=== PATIENT | female | born 1965 | race Caucasian/White ===

== ENCOUNTER 2016-05-18 18:54 | Inpatient (IN) | payer OTHER ==
[~2016-05-18] VITALS: Ht 160 cm; Wt 51.3 kg
[~2016-05-18 18:54] MED LIST: NORMOSOL R INJ 1,000 ML IV ONE; PHENYLEPHRINE HCL 10 MG/ML VIAL IV ONE; PROPOFOL 200 MG/20 ML AMP IV ONE; SODIUM CHLOR 0.9% 250 ML INJ 250 ML IV ONE; SODIUM CHLORID 0.9% 500 ML INJ 500 ML IV ONE
[2016-05-18 19:14] LABS: I-STAT POTASSIUM 3.4 MMOL/L (3.5-4.9)
[2016-05-18] MEDS ORDERED: IOHEXOL 350 MG/ML 10 ML VIAL (for RAD DIAG) IV ONE (19:16)
--- NOTE | 2016-05-18 19:19 | RADRPT ---
EXAM DATE/TIME: 05/18/2016 19:09 [facility] COMPARISON: No previous studies available for comparison. INDICATIONS : Trauma alert; trip and fall while running. RADIATION DOSE: 44.88 CTDIvol (mGy) MEDICAL HISTORY : Non-responsive. SURGICAL HISTORY : Non-responsive. ENCOUNTER: Initial ACUITY: 1 day PAIN SCALE: Non-responsive LOCATION: cranial TECHNIQUE: Multiple contiguous axial images were obtained of the head. Using automated exposure control and adj ustment of the mA and/or kV according to patient size, radiation dose was kept as low as reasonably a chievable to obtain optimal diagnostic quality images. FINDINGS: There is a large right-sided acute epidural hematoma measuring 9.7 x 4.2 cm. This is causing prominen t mass effect and midline shift to the left by 1.2 cm. The ventricles are normal in size. There is ef facement of the sulci bilaterally suggestive of cerebral edema. There is some effacement of the quadr igeminal plate cisterns. The fourth ventricle appears to be normal in size and midline in position. N o definite depressed skull fracture is demonstrated. CONCLUSION: 1. Large acute right-sided epidural hematoma measuring 9.7 x 4.2 cm. 2. Prominent mass effect and midline shift to the left by 1.2 cm. 3. Bilateral cerebral edema. Larry Maher MD on May 18, 2016 at 19:14 Board Certified Radiologist. This report was verified electronically.
--- NOTE | 2016-05-18 19:19 | PD ---
HPI Chief Complaint: trauma alert Time Seen by Provider: 18:55 Travel History International Travel<30 days: No Contact w/Intl Traveler<30days: No Traveled to known affect area: No History of Present Illness HPI Patient was brought in by EMS as trauma alert. Patient is unresponsive and unable to give any history. History is obtained from the paramedics. I was in the room waiting for patient to arrive. As per the paramedics she was running when she fell and hit a stationary object. She was intoxicated and when EMS arrived she was talking. They put a c-collar and as soon as they loaded her in the ambulance she became unresponsive and GCS went down to 3. She was maintaining her respirations and vital signs were stable all throughout. Upon arrival. Also informed us that they noticed her right pupil "blown". [facility] Past Medical History Narrative Medical Unknown Allergies-Medications (Allergen,Severity, Reaction): Coded Allergies: No Known Allergies (Unverified , 05/20/16) Comments Unknown Narrative Medication Unknown Review of Systems Except as stated in HPI: all other systems reviewed are Neg Physical Exam Narrative GENERAL: Unresponsive, c-collar only SKIN: Focused skin assessment warm/dry. HEAD: Right parietal area bruising and slight bleeding EYES: Right pupil 5 mm, round, nonreactive to light, left pupil 2 mm and round. No scleral icterus. No injection or drainage. ENT: No nasal bleeding or discharge. Mucous membranes pink and moist. NECK: Trachea midline. No JVD. CARDIOVASCULAR: Regular rate and rhythm. No murmur appreciated. RESPIRATORY: No accessory muscle use. Clear to auscultation. Breath sounds equal bilaterally. GASTROINTESTINAL: Abdomen soft, non-tender, nondistended. Hepatic and splenic margins not palpable. MUSCULOSKELETAL: No obvious deformities. No clubbing. No cyanosis. No edema. NEUROLOGICAL: GCS of 3 PSYCHIATRIC: Unable to assess Data Data Orders Ed Poc Ultrasound (05/18/16 ) I-Stat Profile (05/18/16 19:05) I-Stat Creatinine (05/18/16 19:05) Complete Blood Count With Diff (05/18/16 19:05) Prothrombin Time / Inr (Pt) (05/18/16 19:05) Act Partial Throm Time (Ptt) (05/18/16 19:05) Type And Screen (05/18/16 19:05) Fibrinogen (05/18/16 19:05) Chest, Single Ap (05/18/16 19:05) Pelvis, Ap Only (Routine) (05/18/16 19:05) Ct Brain W/O Iv Contrast(Rout) (05/18/16 19:05) Ct Cerv Spine W/O Contrast (05/18/16 19:05) Ct Abd/Pel W Iv Contrast(Rout) (05/18/16 19:05) Ct Thorax/ Chest W Iv Contrast (05/18/16 19:05) Iv Access Insert/Monitor (05/18/16 19:05) Ecg Monitoring (05/18/16 19:05) Oximetry (05/18/16 19:05) Oxygen Administration (05/18/16 19:05) Admit Order (Ed Use Only) (05/18/16 19:10) Labs Laboratory Tests Test 05/18/16 18:57 White Blood Count 10.5 TH/MM3 Red Blood Count 4.16 MIL/MM3 Hemoglobin 12.8 GM/DL Bedside Hemoglobin 12.9 G/DL Hematocrit 38.2 % Bedside Hematocrit 38.0 % Mean Corpuscular Volume 91.9 FL Mean Corpuscular Hemoglobin 30.9 PG Mean Corpuscular Hemoglobin 33.6 % Concent Red Cell Distribution Width 12.7 % Platelet Count 178 TH/MM3 Mean Platelet Volume 10.2 FL Neutrophils (%) (Auto) 45.8 % Lymphocytes (%) (Auto) 44.9 % Monocytes (%) (Auto) 6.3 % Eosinophils (%) (Auto) 1.9 % Basophils (%) (Auto) 1.1 % Neutrophils # (Auto) 4.8 TH/MM3 Lymphocytes # (Auto) 4.7 TH/MM3 Monocytes # (Auto) 0.7 TH/MM3 Eosinophils # (Auto) 0.2 TH/MM3 Basophils # (Auto) 0.1 TH/MM3 CBC Comment DIFF FINAL Differential Comment Prothrombin Time 11.3 SEC Prothromb Time International 1.0 RATIO Ratio Activated Partial 21.7 SEC Thromboplast Time Fibrinogen 230 mg/dL Bedside Sodium 137 MMOL/L Bedside Potassium 3.4 MMOL/L Bedside Chloride 101 MMOL/L Bedside Blood Urea Nitrogen 11 MG/DL Bedside Creatinine 0.9 MG/DL Bedside Glucose 165 MG/DL Blood Type O POSITIVE Antibody Screen NEGATIVE Crossmatch Leukocyte-Reduced Red Blood Cells Blood Bank Comment MDM Medical Screen Exam Complete: Yes Emergency Medical Condition: Yes Medical Record Reviewed: Yes EKG Prior to Arrival: Yes Differential Diagnosis Epidural hematoma, subdural hematoma Narrative Course 7:17 PM decision was made to intubate the patient to protect her airway. Trauma surgeon was in the room along with me and did the quick secondary assessment of the patient. Chest x-ray was obtained after the intubation. Patient was emergently taken to the CT scanner to get a head and C-spine CT. She remained hemodynamically stable and tolerated the intubation well. Patient will be admitted to the trauma surgeon in ICU. A call to the neurosurgeon was put out. Critical Care Narrative Aggregate critical care time was 30 minutes. Time to perform other separately billable procedures was not included in the critical care time. My time did not include minutes spent treating any other patients simultaneously or on activities that did not directly contribute to the patient's treatment. The services I provided to this patient were to treat and/or prevent clinically significant deterioration that could result in: Trauma alert, respiratory failure, head injury I provided critical care services requiring my management, as noted below: Chart data review, documentation time, medication orders and management, vital sign assessments/reviewing monitor data, ordering and reviewing lab tests, ordering and interpreting/reviewing x-rays and diagnostic studies, care of the patient and discussion of the patient with the admitting physicians. Procedures Procedure Narrative After the risks and benefits were discussed the following procedure was performed: INTUBATION: The patient was put in optimal position for the procedure. Rapid sequence intubation was initiated by me using 20 milligrams of etomidate IV and 100 milligrams of succinylcholine IV. The patient was intubated with a 7.5 cuffed endotracheal tube. Tube placement was confirmed by visualization of the tube and balloon passing through the cords, capnometry and subsequent chest x-ray. Breath sounds were equal and well aerated bilaterally postintubation. No breath sounds over stomach. Patient tolerated procedure well. Trauma Alert - Level One Trauma Alert Level One: Full trauma team activate, Patient evaluated, Trauma surgeon summoned Time Surgeon Summoned: 18:[address] Mullen Diagnosis Diagnosis: Primary Impression: Head injury Qualified Code: S09.90XA - Head injury, initial encounter Additional Impressions: Respiratory failure Qualified Code: J96.00 - Acute respiratory failure, unspecified whether with hypoxia or hypercapnia Intracranial bleed Unresponsive Admitting Physician Requests: Admit Marina Mcgowan MD May 18, 2016 19:19
[2016-05-18 19:20] LABS: AUTOMATED NEUTROPHIL # 4.8 TH/MM3 (1.8-7.7); BASOPHIL # 0.1 TH/MM3 (0-0.2); BASOPHIL % 1.1 % (0.0-2.0); EOSINOPHIL # 0.2 TH/MM3 (0-0.4); EOSINOPHIL % 1.9 % (0.0-4.0); HEMATOCRIT 38.2 % (35.0-46.0); HEMO FLAGS DIFF FINAL; LYMPH % 44.9 % (9.0-44.0); LYMPHOCYTE # 4.7 TH/MM3 (1.0-4.8); MEAN CELL VOLUME 91.9 FL (80.0-100.0); MEAN CORPUSCULAR HEMOGLOBIN 30.9 PG (27.0-34.0); MEAN CORPUSCULAR HGB CONC 33.6 % (32.0-36.0); MONO % 6.3 % (0.0-8.0); NEUT % 45.8 % (16.0-70.0); PLATELET COUNT 178 TH/MM3 (150-450); RED BLOOD COUNT 4.16 MIL/MM3 (4.00-5.30); RED CELL DISTRIBUTION WIDTH 12.7 % (11.6-17.2); WHITE BLOOD COUNT 10.5 TH/MM3 (4.0-11.0)
--- NOTE | 2016-05-18 19:20 | RADRPT ---
EXAM DATE/TIME: 05/18/2016 18:55 [facility] COMPARISON: No previous studies available for comparison. INDICATIONS : Trauma Alert Post Fall MEDICAL HISTORY : None. SURGICAL HISTORY : None. ENCOUNTER: Initial ACUITY: 1 day PAIN SCORE: Non-responsive. LOCATION: Bilateral pelvis FINDINGS: A single frontal view of the pelvis demonstrates no evidence of fracture. The bony pelvic ring is in tact. Bony mineralization is normal. The soft tissues are intact. CONCLUSION: No acute fracture or joint dislocation. Larry Maher MD on May 18, 2016 at 19:18 Board Certified Radiologist. This report was verified electronically.
--- NOTE | 2016-05-18 19:20 | RADRPT ---
EXAM DATE/TIME: 05/18/2016 18:55 [facility] COMPARISON: No previous studies available for comparison. INDICATIONS : Trauma Post Fall MEDICAL HISTORY : None. SURGICAL HISTORY : None. ENCOUNTER: Initial ACUITY: 1 day PAIN SCORE: Non-responsive. LOCATION: Bilateral chest FINDINGS: A single view of the chest demonstrates the lungs to be symmetrically aerated without evidence of mas s, infiltrate or effusion. There is an endotracheal tube in good position approximately 2 cm above t he royer. No pneumothorax. The cardiomediastinal contours are unremarkable. Osseous structures are intact. CONCLUSION: 1. ET tube in good position. 2. No acute intrathoracic disease. Larry Maher MD on May 18, 2016 at 19:18 Board Certified Radiologist. This report was verified electronically.
--- NOTE | 2016-05-18 19:24 | RADRPT ---
EXAM DATE/TIME: 05/18/2016 19:09 [facility] COMPARISON: No previous studies available for comparison. INDICATIONS : Trauma alert; trip and fall while running. RADIATION DOSE: 12.42 CTDIvol (mGy) MEDICAL HISTORY : Non-responsive. SURGICAL HISTORY : Non-responsive. ENCOUNTER: Initial ACUITY: 1 day PAIN SCALE: Non-responsive LOCATION: Bilateral neck TECHNIQUE: Volumetric scanning of the cervical spine was performed. Multiplanar reconstructions in the sagittal, coronal and oblique axial planes were performed. Using automated exposure control and adjustment o f the mA and/or kV according to patient size, radiation dose was kept as low as reasonably achievable to obtain optimal diagnostic quality images. FINDINGS: VERTEBRAE: Normal vertebral body height. No acute bony fracture. There is a focal primary bony degenerative thornton ges with disc space narrowing at C5-6. ALIGNMENT: No evidence of subluxation. C2-C3: The bony spinal canal is normal in size. No evidence of disc bulge or herniation. The neural forami na are bilaterally patent. C3-C4: The bony spinal canal is normal in size. No evidence of disc bulge or herniation. The neural forami na are bilaterally patent. C4-C5: The bony spinal canal is normal in size. No evidence of disc bulge or herniation. The neural forami na are bilaterally patent. C5-C6: The bony spinal canal is normal in size. No evidence of disc bulge or herniation. The neural forami na are bilaterally patent. C6-C7: The bony spinal canal is normal in size. No evidence of disc bulge or herniation. The neural forami na are bilaterally patent. C7-T1: The bony spinal canal is normal in size. No evidence of disc bulge or herniation. The neural forami na are bilaterally patent. CONCLUSION: 1. No acute bony fracture. 2. Primary degenerative changes with disc space narrowing at C5-6. Larry Maher MD on May 18, 2016 at 19:21 Board Certified Radiologist. This report was verified electronically.
[2016-05-18 19:27] LABS: APTT (PATIENT) 21.7 SEC (24.3-30.1); PROTHROMBIN TIME - PATIENT 11.3 SEC (9.8-11.6)
[2016-05-18] MEDS ORDERED: ceFAZolin INJ 1,000 MG VIAL IV ONE (19:30)
[2016-05-18] MEDS ORDERED: THROMBIN (TOPICAL) 5,000 UNIT VIAL ONE (19:33)
[2016-05-18] MEDS ORDERED: LIDOCAINE 1%/EPINEPHrine 1:100,000 SOLN 50 ML VIAL INFIL ONE (19:33)
[2016-05-18] MEDS ORDERED: GENTAMICIN SULFATE 80 MG/2 ML VIAL IRRIGATION ONE (19:33)
[2016-05-18] MEDS ORDERED: GELFOAM SIZE 100 OTHER ONE (19:33)
--- NOTE | 2016-05-18 19:34 | RADRPT ---
EXAM DATE/TIME: 05/18/2016 19:13 [facility] COMPARISON: No previous studies available for comparison. INDICATIONS : Trauma alert; trip and fall while running. IV CONTRAST: 96 cc Omnipaque 350 (iohexol) IV ; Cumulative dose for multiple exams. RADIATION DOSE: 5.86 CTDIvol (mGy) ; Combined studies - Thorax/Abdomen/Pelvis MEDICAL HISTORY : Non-responsive. SURGICAL HISTORY : Non-responsive. ENCOUNTER: Initial ACUITY: 1 day PAIN SCALE: Non-responsive LOCATION: chest TECHNIQUE: Volumetric scanning of the chest was performed. Using automated exposure control and adjustment of t he mA and/or kV according to patient size, radiation dose was kept as low as reasonably achievable to obtain optimal diagnostic quality images. FINDINGS: LUNGS: There is no consolidation or pneumothorax. No concerning pulmonary nodule is visualized. There is so me mild bibasilar atelectasis. There is no pneumothorax. PLEURA: There is no pleural thickening or pleural effusion. MEDIASTINUM: The heart and great vessels demonstrate no acute abnormality. There is no mediastinal or hilar lymph adenopathy. There is an endotracheal tube in place. AXILLAE: Within normal limits. No lymphadenopathy. SKELETAL: Within normal limits for patient age. No acute bony fracture. MISCELLANEOUS: The visualized upper abdominal organs demonstrate no acute abnormality. CONCLUSION: 1. No acute intrathoracic disease. 2. Bibasilar atelectasis. Larry Maher MD on May 18, 2016 at 19:29 Board Certified Radiologist. This report was verified electronically.
--- NOTE | 2016-05-18 19:38 | RADRPT ---
EXAM DATE/TIME: 05/18/2016 19:13 [facility] COMPARISON: No previous studies available for comparison. INDICATIONS : Trauma alert; trip and fall while running. IV CONTRAST: 96 cc Omnipaque 350 (iohexol) IV ; Cumulative dose for multiple exams. ORAL CONTRAST: No oral contrast ingested. RADIATION DOSE: 5.86 CTDIvol (mGy) ; Combined studies - Thorax/Abdomen/Pelvis MEDICAL HISTORY : Non-responsive. SURGICAL HISTORY : Non-responsive. ENCOUNTER: Initial ACUITY: 1 day PAIN SCALE: Non-responsive LOCATION: Bilateral abdomen. TECHNIQUE: Volumetric scanning of the abdomen and pelvis was performed. Using automated exposure control and ad justment of the mA and/or kV according to patient size, radiation dose was kept as low as reasonably achievable to obtain optimal diagnostic quality images. FINDINGS: LOWER LUNGS: Mild bibasilar atelectasis. LIVER: The liver appears to be diffusely heterogeneous. No definite dilated biliary ducts are demonstrated. No free fluid is seen. The gallbladder is unremarkable. SPLEEN: Normal size without lesion. PANCREAS: There some mild prominence of the head of the pancreas. Otherwise the rest of the pancreas is grossly unremarkable. There is no biliary tract obstruction. KIDNEYS: Normal in size and shape. There is no mass, stone or hydronephrosis. ADRENAL GLANDS: Within normal limits. VASCULAR: There is no aortic aneurysm. BOWEL/MESENTERY: The stomach, small bowel, and colon demonstrate no acute abnormality. There is no free intraperitone al air or fluid. ABDOMINAL WALL: Within normal limits. RETROPERITONEUM: There is no lymphadenopathy. BLADDER: No wall thickening or mass. The urinary bladder appears to be distended. No free fluid deep in the pe lvis. REPRODUCTIVE: Within normal limits. INGUINAL: There is no lymphadenopathy or hernia. MUSCULOSKELETAL: Within normal limits for patient age. No acute bony fracture. CONCLUSION: 1. Liver appears to be heterogeneous. 2. Mild prominence of the pancreatic head. No biliary tract obstruction. 3. No acute intra-abdominal/pelvic pathology is seen. Larry Maher MD on May 18, 2016 at 19:32 Board Certified Radiologist. This report was verified electronically.
[2016-05-18] MEDS ORDERED: SODIUM CHLOR 0.9% 1000 ML INJ 1,000 ML IV SCH (19:41)
[2016-05-18] MEDS ORDERED: CHLORHEXIDINE GLUCONATE 2 % 1 PACK (2 CLOTHS) TOP PRN (19:45)
[2016-05-18] MEDS ORDERED: ONDANSETRON HCL 4 MG/2 ML VIAL IV PRN (19:45)
[2016-05-18] MEDS ORDERED: ENALAPRILAT 1.25 MG/ML VIAL IV PRN (19:45)
[2016-05-18] MEDS ORDERED: MISCELLANEOUS NURSING INFORMATION XX SCH (19:45)
[2016-05-18] MEDS ORDERED: ETOMIDATE 20 MG/10 ML VIAL ONE (19:54)
[2016-05-18] MEDS ORDERED: SUCCINYLCHOLINE CHLORIDE 200 MG/10 ML VIAL ONE (19:54)
[2016-05-18 20:28] LABS: BLOOD GAS BASE EXCESS -8.6 mmol/L (-2-2); BLOOD GAS CARBOXYHEMOGLOBIN 1.5 % (0-4); BLOOD GAS HCO3 15 mmol/L (22-26); BLOOD GAS O2 HGB SATURATION 98 % (90-100); BLOOD GAS PCO2 25 mmHg (38-42); BLOOD GAS PO2 320 mmHg (61-120); BLOOD GAS TOTAL HGB 10.4 G/DL (12.0-16.0); TEMP CORR TO 98.6
[2016-05-18 20:30] LABS: CRITICAL VALUE YES; FIO2 60 %; OXYGEN DEVICE VENTILATOR; STAT YES; ULNAR PULSE PRESENT; VENT SETTINGS OR
--- NOTE | 2016-05-18 20:49 | MH ---
cc: WIN [facility] DATE OF ADMISSION 05/18/2016 HISTORY OF PRESENT ILLNESS This is a 50-year-old patient by reports was running across a bridge and fell hitting her head on the right side. Initially, she was GCS of 15 walking, moving everything well and in the ambulance deteriorated to GCS of 3. Trauma alert was called. She was brought in in C-collar on stretcher, unresponsive. As a result, all other reviews of systems and history is unobtainable. PHYSICAL EXAMINATION HEENT: Right pupil was 5 mm, nonreactive. left pupil 2 mm, nonreactive. Trachea was midline. NECK: In C-collar without JVD. LUNGS: Respirations clear. CARDIOVASCULAR: Regular. GASTROINTESTINAL: Soft, flat. MUSCULOSKELETAL: No deformities. NEUROLOGIC: GCS of 3. LABORATORY DATA Hemoglobin 12.9, hematocrit 38. IMAGING STUDIES CT of the head reveals large epidural hematoma. CT of the C-spine negative. CT of the thorax negative. CT of the abdomen pelvis negative. ASSESSMENT This is a patient status post fall with an epidural hematoma. The patient was intubated in the emergency room by ER physician, Dr. Bhandari was consulted, met patient in CAT scan. She is being taken up to the operating room for decompression following which she will be managed in [facility]. Critical care has been consulted. We will monitor her neurologically as well as hemodynamics. MD SERINA Flores/ /7:49 PM /8:41 PM
[2016-05-18] MEDS ORDERED: NALOXONE HCL 0.4 MG/ML AMP IV PRN (21:30)
[2016-05-18] MEDS: NS + KCL 20 MEQ INJ 1,000 ML IV SCH (21:30)
--- NOTE | 2016-05-18 21:37 | PD.CONS ---
History of Present Illness Service Neurosurgery Consult Requested By Gen surgery trauma service and Dr. Mullen Reason for Consult Traumatic brain injury Primary Care Physician Diagnoses: History of Present Illness Patient is a 52-year-old female who reportedly fell while running across a bridge today. She apparently was initially awake and relatively alert but by the time she reached the emergency room per EVAC was GCS 3 with a fixed dilated right pupil and midrange left pupil. No seizure activity reported. Patient has been intubated. Undersign contacted by general surgery on the patient was in the trauma bay in the emergency room, and is initially seen and examined as she has reached the CT scanning suite. Review of Systems Not able to obtain from the patient Past Family Social History Allergies: Coded Allergies: UNOBTAINABLE (Unverified , 05/18/16) Past Medical History Reportedly healthy with no cardiac, pulmonary disease or other significant illness Past Surgical History No major surgeries reported Reported Medications No prescription medications Social History Reportedly nonsmoker with occasional alcohol Physical Exam Physical Exam Patient examined in the CT scanning suite. Positive laceration to the right parieto-occipital region. Intubated Cervical collar in place Respirations clear and regular Heart rate regular Abdomen soft Right pupil 6 mm nonreactive, left pupil 3 mm nonreactive. Absent oculocephalic responses No response to deep pain in all extremities No eye opening to voice or deep pain Laboratory Laboratory Tests Test 05/18/16 05/18/16 18:57 20:20 White Blood Count 10.5 Red Blood Count 4.16 Hemoglobin 12.8 Bedside Hemoglobin 12.9 Hematocrit 38.2 Bedside Hematocrit 38.0 Mean Corpuscular Volume 91.9 Mean Corpuscular Hemoglobin 30.9 Mean Corpuscular Hemoglobin 33.6 Concent Red Cell Distribution Width 12.7 Platelet Count 178 Mean Platelet Volume 10.2 Neutrophils (%) (Auto) 45.8 Lymphocytes (%) (Auto) 44.9 Monocytes (%) (Auto) 6.3 Eosinophils (%) (Auto) 1.9 Basophils (%) (Auto) 1.1 Neutrophils # (Auto) 4.8 Lymphocytes # (Auto) 4.7 Monocytes # (Auto) 0.7 Eosinophils # (Auto) 0.2 Basophils # (Auto) 0.1 CBC Comment DIFF FINAL Differential Comment Prothrombin Time 11.3 Prothromb Time International 1.0 Ratio Activated Partial 21.7 Thromboplast Time Fibrinogen 230 Bedside Sodium 137 Bedside Potassium 3.4 Bedside Chloride 101 Bedside Blood Urea Nitrogen 11 Bedside Creatinine 0.9 Bedside Glucose 165 Blood Type O POSITIVE Antibody Screen NEGATIVE Crossmatch Leukocyte-Reduced Red Blood Cells Blood Bank Comment Blood Gas Puncture Site DRAWN IN OR Blood Gas Patient Temperature 98.6 Blood Gas HCO3 15 Blood Gas Base Excess -8.6 Blood Gas Oxygen Saturation 98 Arterial Blood pH 7.41 Arterial Blood Partial 25 Pressure CO2 Arterial Blood Partial 320 Pressure O2 Arterial Blood Oxygen Content 15.0 Arterial Blood 1.5 Carboxyhemoglobin Arterial Blood Methemoglobin 1.0 Blood Gas Hemoglobin 10.4 Oxygen Delivery Device VENTILATOR Blood Gas Ventilator Setting OR Blood Gas Inspired Oxygen 60 Result Diagram: 05/18/161856 Imaging 05/18/16 CT scan head and cervical spine images reviewed by the undersigned while the patient in CT scanning suite. Agree with findings as noted below: Pelvis X-Ray 05/18/161904 Signed Impressions: Service Date/Time: Wednesday, May 18, 2016 18:55 - CONCLUSION: No acute fracture or joint dislocation. Larry Maher MD Head CT 05/18/161904 Signed Impressions: Service Date/Time: Wednesday, May 18, 2016 19:09 - CONCLUSION: 1. Large acute right-sided epidural hematoma measuring 9.7 x 4.2 cm. 2. Prominent mass effect and midline shift to the left by 1.2 cm. 3. Bilateral cerebral edema. Larry Maher MD Chest X-Ray 05/18/161904 Signed Impressions: Service Date/Time: Wednesday, May 18, 2016 18:55 - CONCLUSION: 1. ET tube in good position. 2. No acute intrathoracic disease. Larry Maher MD Chest CT 05/18/161904 Signed Impressions: Service Date/Time: Wednesday, May 18, 2016 19:13 - CONCLUSION: 1. No acute intrathoracic disease. 2. Bibasilar atelectasis. Larry Maher MD Cervical Spine CT 05/18/161904 Signed Impressions: Service Date/Time: Wednesday, May 18, 2016 19:09 - CONCLUSION: 1. No acute bony fracture. 2. Primary degenerative changes with disc space narrowing at C5-6. Larry Maher MD Abdomen/Pelvis CT 05/18/161904 Signed Impressions: Service Date/Time: Wednesday, May 18, 2016 19:13 - CONCLUSION: 1. Liver appears to be heterogeneous. 2. Mild prominence of the pancreatic head. No biliary tract obstruction. 3. No acute intra-abdominal/pelvic pathology is seen. Larry Maher MD Assessment and Plan Assessment and Plan Impression: 1. Severe traumatic brain injury with large right hemispheric epidural hematoma 2. Right parietal occipital scalp laceration 3. Nondisplaced right temporal bone fracture Plan: Findings discussed with Gen. surgery while the patient was in the CT scanning suite. Patient taken directly to operating room for emergency craniotomy evacuation epidural hematoma Sav Bhandari MD May 18, 2016 21:37
--- NOTE | 2016-05-18 21:47 | PD.OP ---
Operative Report Date of Surgery: May 18, 2016 Preoperative Diagnosis: (1) Epidural hematoma (2) Skull fracture, non depressed (3) Scalp laceration Large right hemispheric acute epidural hematoma Right temporal bone fracture Right parieto-occipital scalp laceration Postoperative Diagnosis: (1) Epidural hematoma (2) Skull fracture, non depressed (3) Scalp laceration Large right hemispheric acute epidural hematoma Right temporal bone fracture Right parieto-occipital scalp laceration Procedure: 1. Right frontotemporoparietal craniotomy evacuation large acute epidural hematoma 2. Repair of right temporal bone fracture 3. Repair right parieto-occipital scalp laceration 4. Placement ICP monitor Anesthesia: Gen. Surgeon: Sav Bhandari Color Control Operator(s): Sravani Waterman Operation and Findings: Findings: Large acute right hemispheric epidural hematoma primarily parieto- occipital region. Laceration middle meningeal artery from nondisplaced right temporal bone fracture. Procedure in detail: The patient was brought into the operating room and general endotracheal anesthesia induced without difficulty. The Burger catheter, and sequential compression devices were in place. The lines were established per anesthesia. The patient was placed in semilateral position on the 3080 table with the head on the horseshoe headrest. All extremities were appropriately padded Appropriate timeout procedure was performed with all personnel present and in agreement The right side of the head was shaved with the clippers and sterilely prepped and draped 1% Xylocaine was used for local infiltration over the incision site which was made over the right frontotemporoparietal area in a curvilinear fashion and carried sharply down to the cranium through the temporalis muscle and fascia. The scalp and temporalis muscle flap were elevated in a single laye with the periosteal elevator and retracted r over a laparotomy sponge with the large scalp hooks. The pie maker was used to place a single bur hole in the posterior left frontoparietal region and the craniotome was used since to incise the bone flap. The large acute epidural hematoma was evacuated with gentle suction and irrigation. Copious bleeding from the middle meningeal artery and additional arterial bleeding just above the petrous ridge were controlled with bipolar forceps. The bipolar forceps were used to control any additional bleeding at the operative site. The brain was soft and pulsatile at the time of closure. The ICP monitor zeroed and was placed into the subdural space through a small incision made in the dura and carried out through the scalp incision and the posterior parietal region and secured to the skin with nylon suture. 4-0 Nurolon dural tack up sutures were placed along the edge of the craniotomy site underneath the bone flap. The fracture extending directly through the bone flap and the right frontotemporal region was repaired with titanium maxillofacial plates and screws. The bone flap was replaced with titanium maxillofacial plates and screws. A 7 mm flat fluted drain was left in place in the subgaleal and subdural space The drain was brought out through incision in the posterior parietal region and secured to the skin with nylon suture The stellate right parieto-occipital scalp laceration was repaired with 2-0 Vicryl suture for the deep galeal closure and bello for the skin closure. The remaining scalp incision closure was performed with 2-0 Vicryl for the temporalis muscle fascia and galeal closure and bello for the skin closure. A dressing of sterile Telfa, 4 x 4's, and a loose head stockinette was applied. The patient was taken to recovery room in stable condition All counts were correct at the end of the case. Estimated blood loss was 200 cc No specimen was sent to pathology Sav Bhandari MD May 18, 2016 21:46
[2016-05-18 21:49] VITALS: O2SAT 100
--- NOTE | 2016-05-18 21:51 | RADRPT ---
EXAM DATE/TIME: 05/18/2016 21:55 [facility] COMPARISON: No previous studies available for comparison. INDICATIONS : Instrument count in OR. MEDICAL HISTORY : None. SURGICAL HISTORY : None. ENCOUNTER: Initial ACUITY: 1 day PAIN SCORE: Non-responsive. LOCATION: Bilateral skull. FINDINGS: Examination of the skull demonstrates a subdural drain on the right side. Multiple skin bello are d emonstrated. Sutures for the craniotomy are present. There is a pressure monitor over the right front al lobe. No other devices are demonstrated. CONCLUSION: Standard postsurgical changes. Larry Maher MD on May 18, 2016 at 21:49 Board Certified Radiologist. This report was verified electronically.
[2016-05-18] MEDS ORDERED: PROPOFOL 1000 MG/100 ML INJ 100 ML IV SCH ×2 (22:15→22:30)
[2016-05-18] MEDS ORDERED: FOSPHENYTOIN IV ONE (22:15)
[2016-05-18] MEDS ORDERED: SODIUM CHLORIDE IV ONE (22:15)
--- NOTE | 2016-05-18 22:25 | PD.CONS ---
[facility] Service Critical Care Medicine Consult Requested By Dr. Muleln Reason for Consult Critical care management following traumatic brain injury Primary Care Physician History of Present Illness 50 yo Female who arrived to [facility] [place] trauma alert. She was reportedly running across a bridge and fell and hit the right side of her head. She was initially alert and oriented with GCS of 15 upon [facility] arrival and was moving all extremities. After she was taken into the ambulance her GCS was 3 and right pupil was dilated and nonreactive. She was intubated in the ED following etomidate 20 mg IV and succinylcholine 100 mg IV. Trauma workup included CT brain that demonstrated 9.7 x4.2 cm R epidural hematoma with 1.2 cm right to left midline shift and cerebral edema. BP in ED was 108/104 to 160/76 with heart rate 66-92. Sats 98-100%. Neurosurgery was consulted and she was taken emergently to OR for right craniotomy by Dr. Bhandari. Her pupil remained nonreactive postoperatively. The remainder of her trauma workup included: CT C spine - degenerative changes with disc space narrowing C5/6 CT chest/abd/pelvis -negative for acute traumatic injury. Review of Systems ROS Limitations: Intubated, Altered Mental Status Past Family Social History Allergies: Coded Allergies: UNOBTAINABLE (Unverified , 05/18/16) Past Medical History None Past Surgical History None Reported Medications She has no known allergies. She is not on any chronic medications Family History No significant family medical history. Social History Lifetime nonsmoker. Drinks 2-3 drinks about 3 times per week. No illicit drug use. 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 She is from the [place] area She reportedly lives very healthy lifestyle. She runs daily and eats healthy Physical Exam Physical Exam GENERAL: Well-nourished, well-developed patient who is orotracheally intubated. SKIN: Warm and dry. HEAD:Normocephalic. Fiberoptic ICP monitor on right read -3. CATE drain with serous and conus output EYES: Pupils as per below. No scleral icterus. No injection or drainage. ENT: No nasal bleeding or discharge. Mucous membranes pink and moist. OGT in place to gravity. NECK: Trachea midline. No JVD. CARDIOVASCULAR: Regular rate and rhythm, sinus on monitor. No murmurs rubs or gallops. RESPIRATORY: No accessory muscle use. Clear to auscultation. Breath sounds equal bilaterally. ETT in place, on mechanical ventilation. GASTROINTESTINAL: Abdomen soft, non-tender, nondistended. OGT in place, currently to gravity. MUSCULOSKELETAL: Extremities without clubbing, cyanosis, or edema. No obvious deformities. NEUROLOGICAL: No eye opening. R pupil fixed, dilated. Left pupil oval and 4 mm reactive to 3 mm. Withdraws LUE and LLE. Right upper and lower extremity with extensor posturing to central noxious stimli. + clonus RLE. No response to Babinski on the right. Left Babinski downgoing. Laboratory Laboratory Tests Test 05/18/16 05/18/16 18:57 20:20 White Blood Count 10.5 Red Blood Count 4.16 Hemoglobin 12.8 Bedside Hemoglobin 12.9 Hematocrit 38.2 Bedside Hematocrit 38.0 Mean Corpuscular Volume 91.9 Mean Corpuscular Hemoglobin 30.9 Mean Corpuscular Hemoglobin 33.6 Concent Red Cell Distribution Width 12.7 Platelet Count 178 Mean Platelet Volume 10.2 Neutrophils (%) (Auto) 45.8 Lymphocytes (%) (Auto) 44.9 Monocytes (%) (Auto) 6.3 Eosinophils (%) (Auto) 1.9 Basophils (%) (Auto) 1.1 Neutrophils # (Auto) 4.8 Lymphocytes # (Auto) 4.7 Monocytes # (Auto) 0.7 Eosinophils # (Auto) 0.2 Basophils # (Auto) 0.1 CBC Comment DIFF FINAL Differential Comment Prothrombin Time 11.3 Prothromb Time International 1.0 Ratio Activated Partial 21.7 Thromboplast Time Fibrinogen 230 Bedside Sodium 137 Bedside Potassium 3.4 Bedside Chloride 101 Bedside Blood Urea Nitrogen 11 Bedside Creatinine 0.9 Bedside Glucose 165 Blood Type O POSITIVE Antibody Screen NEGATIVE Crossmatch Leukocyte-Reduced Red Blood Cells Blood Bank Comment Blood Gas Puncture Site DRAWN IN OR Blood Gas Patient Temperature 98.6 Blood Gas HCO3 15 Blood Gas Base Excess -8.6 Blood Gas Oxygen Saturation 98 Arterial Blood pH 7.41 Arterial Blood Partial 25 Pressure CO2 Arterial Blood Partial 320 Pressure O2 Arterial Blood Oxygen Content 15.0 Arterial Blood 1.5 Carboxyhemoglobin Arterial Blood Methemoglobin 1.0 Blood Gas Hemoglobin 10.4 Oxygen Delivery Device VENTILATOR Blood Gas Ventilator Setting OR Blood Gas Inspired Oxygen 60 Result Diagram: 05/18/16 7827 Assessment and Plan Assessment and Plan NEURO: Acute R epidural hematoma 9.7 x4.2 cm with 1.2 cm right to left midline shift and cerebral edema. s/p Right frontotemporoparietal craniotomy evacuation large acute epidural hematoma; Repair of right temporal bone fracture; Repair right parieto- occipital scalp laceration; placement fiberoptic ICP monitor 05/18 (Dr. Bhandari) Laceration of right middle meningeal artery Right parieto-occipital scalp laceration R temporal bone fracture TBI Fall Propofol for sedation Fentanyl for analgosedation Continuous fiberoptic ICP monitoring. Loaded fosphenytoin 1200 mg/PE IV now. Then fosphenytoin 100 mg IV every 8 hours. Follow-up Dilantin and albumin level in a.m. End tidal CO2 monitoring, correlated with ABG overnight, target End tidal 33-38 Monitor sodium, BMP now. Neurocheck q[address] Bhandari following. RESP: Acute respiratory failure TV 400 R 12 IT 1 PEEP 5 fIO2 50%. Ventilator Bundle CT chest 05/18 - bibasilar atelectasis CV: Monitor hemodynamics. Maintain systolic blood pressure less than [address] Bhandari. Labetalol 10 mill grams IV prn Received 1 L NS bolus in ED, received 3600 crystalloid in OR 05/18/16 GI: OGT to LIWS. CT abd/pelvis 05/18 report - heterogenous liver, prominence of pancreatic head FEN/RENAL: Hyponatremia Hypokalemia Monitor electrolytes. Replace electrolytes per ICU replacement protocol. ID: Perioperative cefazolin. Monitor for signs and symptoms of infection. Check UA with reflex culture. HEME: Monitor CBC. Coags in am. ENDO: Acute stress hyperglycemia Monitor bedside glucose every 6 hours and use low-dose insulin sliding scale as indicated. PROPH: SCDs/teds for DVT prophylaxis. No pharmacologic DVT prophylaxis due to intracerebral hemorrhage ACCESS: Right Radial art line placed in OR 05/18/16 #1. R subclavian CVL placed #[address] Bhandari Patient's updated at bedside. CCT 60 minutes exclusive of separately billable procedures. Jemima Shultz MD May 18, 2016 22:25
[2016-05-18] MEDS ORDERED: EPINEPHrine HCL (1:10,000) 1 MG/10 ML SYRINGE ONE (22:27)
[2016-05-18 22:28] LABS: BLOOD GAS BASE EXCESS -7.1 mmol/L (-2-2); BLOOD GAS CARBOXYHEMOGLOBIN 0.5 % (0-4); BLOOD GAS HCO3 18 mmol/L (22-26); BLOOD GAS O2 HGB SATURATION 98 % (90-100); BLOOD GAS OXYGEN CONTENT 15.8 Vol % (12.0-20.0); BLOOD GAS PCO2 33 mmHg (38-42); BLOOD GAS PO2 278 mmHg (61-120); CRITICAL VALUE NO; DRAW SITE ART LINE; FIO2 50 %; STAT YES; TEMP CORR TO 98.6
[2016-05-18] MEDS ORDERED: GLUCAGON 1 MG/ML VIAL OTHER PRN (22:30)
[2016-05-18] MEDS ORDERED: DEXTROSE 50% IN WATER 50 ML VIAL(D50) IV PUSH PRN (22:30)
--- NOTE | 2016-05-18 22:57 | RADRPT ---
EXAM DATE/TIME: 05/18/2016 22:46 [facility] COMPARISON: CT BRAIN W/O CONTRAST, May 18, 2016, 19:09. INDICATIONS : Follow up bleed; post operative. RADIATION DOSE: 47.58 CTDIvol (mGy) MEDICAL HISTORY : Non-responsive. SURGICAL HISTORY : Non-responsive. ENCOUNTER: Subsequent ACUITY: 1 day PAIN SCALE: Non-responsive LOCATION: cranial TECHNIQUE: Multiple contiguous axial images were obtained of the head. Using automated exposure control and adj ustment of the mA and/or kV according to patient size, radiation dose was kept as low as reasonably a chievable to obtain optimal diagnostic quality images. FINDINGS: Patient is status post right-sided craniotomy. The previously noted large right-sided epidural hemato ma has been drained. There is a small amount of residual subdural blood and subdural air characterist ic of patient's recent craniotomy and surgery. There is a pressure monitor in the right frontal lobe. The previously noted mass effect and midline shift to the left has improved. Ventricles remain lopez l in size. There is good position of the craniotomy flap. CONCLUSION: Satisfactory post surgical changes with successful drainage of a previously noted large right-sided e pidural hematoma. Larry Maher MD on May 18, 2016 at 22:54 Board Certified Radiologist. This report was verified electronically.
[2016-05-18] MEDS ORDERED: MAGNESIUM SULFATE INJ 2 GM in SODIUM CHLORIDE 0.9% INJ 96 ML IV PRN (23:00)
[2016-05-18] MEDS ORDERED: POTASSIUM CHLOR 40 MEQ PREMIX 100 ML IV PRN ×2 (23:00)
[2016-05-18] MEDS ORDERED: POTASSIUM PHOSPHATE INJ 30 MMOL in SODIUM CHLOR 0.9% 250 ML INJ 250 ML IV PRN (23:00)
[2016-05-18] MEDS ORDERED: MAGNESIUM SULFATE INJ 4 GM in SODIUM CHLORIDE 0.9% INJ 92 ML IV PRN (23:00)
[2016-05-18] MEDS ORDERED: POTASSIUM PHOSPHATE MONOBASIC 500 MG TAB PO/TUBE PRN (23:00)
[2016-05-18] MEDS ORDERED: POTASSIUM PHOSPHATE MONOBASIC 500 MG TAB PO PRN (23:00)
[2016-05-18] MEDS ORDERED: MAGNESIUM OXIDE 400 MG TAB PO PRN (23:00)
[2016-05-18] MEDS ORDERED: POTASSIUM CHLOR 20 MEQ PREMIX 100 ML IV PRN ×2 (23:00)
[2016-05-18 23:19] LABS: BLOOD GAS BASE EXCESS -6.8 mmol/L (-2-2); BLOOD GAS CARBOXYHEMOGLOBIN 0.6 % (0-4); BLOOD GAS HCO3 18 mmol/L (22-26); BLOOD GAS O2 HGB SATURATION 98 % (90-100); BLOOD GAS OXYGEN CONTENT 14.9 Vol % (12.0-20.0); BLOOD GAS PCO2 35 mmHg (38-42); BLOOD GAS PO2 268 mmHg (61-120); BLOOD GAS TOTAL HGB 10.4 G/DL (12.0-16.0); CRITICAL VALUE NO; DRAW SITE ART LINE; FIO2 50 %; OXYGEN DEVICE VENTILATOR; STAT NO; TEMP CORR TO 98.6
[2016-05-18] MEDS: CHLORHEXIDINE GLUCONATE 2 % 1 PACK (2 CLOTHS) TOP SCH (23:23)
[2016-05-18] MEDS ORDERED: NOREPINEPHRINE 4 MG/4 ML AMP ONE (23:24)
[2016-05-18 23:27] LABS: AUTOMATED NEUTROPHIL # 5.9 TH/MM3 (1.8-7.7); BASOPHIL % 0.6 % (0.0-2.0); EOSINOPHIL % 0.2 % (0.0-4.0); HEMATOCRIT 30.7 % (35.0-46.0); HEMO FLAGS DIFF FINAL; LYMPH % 21.3 % (9.0-44.0); LYMPHOCYTE # 1.8 TH/MM3 (1.0-4.8); MEAN CELL VOLUME 90.8 FL (80.0-100.0); MEAN CORPUSCULAR HEMOGLOBIN 31.6 PG (27.0-34.0); MEAN CORPUSCULAR HGB CONC 34.8 % (32.0-36.0); MONO % 7.1 % (0.0-8.0); NEUT % 70.8 % (16.0-70.0); PLATELET COUNT 149 TH/MM3 (150-450); RED BLOOD COUNT 3.38 MIL/MM3 (4.00-5.30); RED CELL DISTRIBUTION WIDTH 12.7 % (11.6-17.2); WHITE BLOOD COUNT 8.3 TH/MM3 (4.0-11.0)
[2016-05-18 23:32] VITALS: O2SAT 100
[2016-05-18 23:35] VITALS: O2SAT 100
[2016-05-18 23:38] LABS: BLOOD, URINE NEG (NEG); GLUCOSE,URINE NEG (NEG); KETONE, URINE 40 mg/dL (NEG); MUCUS URINE FEW /lpf (OCC); NITRITE,URINE NEG (NEG); URINE COLOR LIGHT-YELLOW (YELLW/STRAW)
[2016-05-18 23:42] LABS: COMMENT (UR) CATH-CULT NOT IND; CULTURE IF INDICATED CATH CULTURE NOT IND
[2016-05-18 23:47] LABS: BICARBONATE 20.4 MEQ/L (21.0-32.0); MAGNESIUM 1.5 MG/DL (1.5-2.5); POTASSIUM 3.5 MEQ/L (3.5-5.1)
[2016-05-19] VITALS (15 sets, daily range): BP systolic 108–138; BP diastolic 62–68; PULSE 82–108; RESP 10–16; TEMP 96.7–100.4; O2SAT 100
[2016-05-19] MEDS ORDERED: ROCURONIUM INJ 50 MG/5 ML VIAL IV ONE (00:15)
[2016-05-19] MEDS ORDERED: POTASSIUM PHOSPHATE INJ 15 MMOL in SODIUM CHLORIDE 0.9% INJ 150 ML IV ONE (00:15)
[2016-05-19] MEDS ORDERED: TERBUTALINE INJ 1 MG/ML AMP SQ PRN (00:15)
[2016-05-19] MEDS ORDERED: CALCIUM CHLORIDE INJ 1 GM in SODIUM CHLORIDE 0.9% INJ 100 ML IV ONE (00:15)
[2016-05-19] MEDS ORDERED: MAGNESIUM SULFATE 1 GM PREMIX 100 ML IV ONE (00:15)
--- NOTE | 2016-05-19 00:18 | PD.PROCEDR ---
Procedure Note Procedure DATE: 05/19/16 CENTRAL LINE PLACEMENT: Right subclavian vein. Ultrasound-guided INDICATION: Central venous access CONSENT Informed consent for procedure was obtained from patient's after discussion of risks, benefits, alternatives. DESCRIPTION OF THE PROCEDURE The patient was placed in supine position, mild Trendelenburg. Neck was maintained in neutral position with in-line stabilization throughout.. The skin was cleansed with Chloraprep 3. Additional barrier precautions included large sterile drape, sterile gloves, sterile gown, face mask, and hat. 1 % lidocaine was used for local anesthesia. On second attempt, the vein was accessed with an introducer needle. The guide wire was advanced and the tract was dilated. Using Seldinger technique a 7 [place] 20 cm antimicrobial coated triple-lumen catheter was advanced to a depth of 17 centimeters. The guide wire was removed. All ports had good return of dark venous blood and flushed easily with saline. The central line was secured with 2.0 silk. A sterile dressing with antibiotic disc was applied. ESTIMATED BLOOD LOSS: Minimal COMPLICATIONS: No apparent complications. STAT chest x-ray is pending Jemima Shultz MD May 19, 2016 00:18
[2016-05-19] MEDS: NOREPINEPHRINE INJ 4 MG in SODIUM CHLOR 0.9% 250 ML INJ 246 ML IV SCH (00:49)
[2016-05-19] MEDS: PANTOPRAZOLE SODIUM 40 MG VIAL IVP SCH ×2 (00:49→19:48)
[2016-05-19] MEDS: MIDAZOLAM 100 MG/ML INJ 100 ML IV SCH ×2 (00:56→18:45)
--- NOTE | 2016-05-19 01:01 | RADRPT ---
EXAM DATE/TIME: 05/19/2016 00:22 [facility] COMPARISON: CHEST SINGLE AP, May 18, 2016, 18:55. INDICATIONS : Right subclavian central line placement. MEDICAL HISTORY : None. SURGICAL HISTORY : None. ENCOUNTER: Subsequent ACUITY: 1 day PAIN SCORE: Non-responsive. LOCATION: Bilateral chest FINDINGS: ET tube is 2 cm from the royer. There is an NG tube in place with the tip in the stomach. There is a right subclavian line in place with the tip overlying the SVC. A pneumothorax is not seen. The heart size is normal. The lungs are clear. CONCLUSION: Good placement of a right subclavian line. Ant Hyde MD on May 19, 2016 at 0:57 Board Certified Radiologist. This report was verified electronically.
[2016-05-19] MEDS ORDERED: NOREPINEPHRINE 4 MG/4 ML AMP ONE (02:54)
[2016-05-19 05:29] LABS: AUTOMATED NEUTROPHIL # 9.6 TH/MM3 (1.8-7.7); BASOPHIL % 0.3 % (0.0-2.0); EOSINOPHIL % 0.1 % (0.0-4.0); HEMATOCRIT 30.7 % (35.0-46.0); HEMO FLAGS DIFF FINAL; LYMPHOCYTE # 1.7 TH/MM3 (1.0-4.8); MEAN CELL VOLUME 92.1 FL (80.0-100.0); MEAN CORPUSCULAR HEMOGLOBIN 30.8 PG (27.0-34.0); MEAN CORPUSCULAR HGB CONC 33.4 % (32.0-36.0); MONO % 7.5 % (0.0-8.0); NEUT % 78.1 % (16.0-70.0); PLATELET COUNT 135 TH/MM3 (150-450); RED BLOOD COUNT 3.34 MIL/MM3 (4.00-5.30); RED CELL DISTRIBUTION WIDTH 12.4 % (11.6-17.2); WHITE BLOOD COUNT 12.3 TH/MM3 (4.0-11.0)
[2016-05-19 05:31] LABS: PROTHROMBIN TIME - PATIENT 11.6 SEC (9.8-11.6)
[2016-05-19 05:50] LABS: BICARBONATE 18.9 MEQ/L (21.0-32.0); CALCIUM-PROTEIN CORRECTED 7.5 MG/DL (8.5-10.1); POTASSIUM 4.2 MEQ/L (3.5-5.1); TOTAL BILIRUBIN ADULT 0.4 MG/DL (0.2-1.0)
[2016-05-19] MEDS: INSULIN ASPART SUPPLEMENTAL SCALE SQ SCH ×4 (06:00→18:00)
[2016-05-19] MEDS: FOSPHENYTOIN SODIUM 100 MG PE/2 ML VIAL IV SCH ×3 (06:55→22:25)
[2016-05-19] MEDS: NS + KCL 20 MEQ INJ 1,000 ML IV SCH ×2 (07:30→19:48)
[2016-05-19] MEDS: CHLORHEXIDINE 0.12% (ORAL KIT) 15 ML CUP MT SCH ×2 (08:00→20:00)
[2016-05-19 10:28] LABS: BLOOD GAS BASE EXCESS -3.6 mmol/L (-2-2); BLOOD GAS CARBOXYHEMOGLOBIN 0.8 % (0-4); BLOOD GAS HCO3 21 mmol/L (22-26); BLOOD GAS O2 HGB SATURATION 97 % (90-100); BLOOD GAS OXYGEN CONTENT 14.7 Vol % (12.0-20.0); BLOOD GAS PCO2 37 mmHg (38-42); BLOOD GAS PO2 178 mmHg (61-120); BLOOD GAS TOTAL HGB 10.5 G/DL (12.0-16.0); CRITICAL VALUE NO; OXYGEN DEVICE VENTILATOR; TEMP CORR TO 98.6
[2016-05-19 10:29] LABS: DRAW SITE ART LINE; FIO2 35 %; STAT YES; VENT SETTINGS PRVC/AC
--- NOTE | 2016-05-19 10:49 | HHI.CCPN ---
Subjective Remarks/Hospital Course 50 yo Female who [place] [facility]. She was reportedly running across a bridge and fell and hit the right side of her head. She was initially alert and oriented with GCS of 15 upon [facility] arrival and was moving all extremities. After she was taken into the ambulance her GCS was 3 and right pupil was dilated and nonreactive. She was intubated in the ED following etomidate 20 mg IV and succinylcholine 100 mg IV. Trauma workup included CT brain that demonstrated 9.7 x4.2 cm R epidural hematoma with 1.2 cm right to left midline shift and cerebral edema. BP in ED was 108/104 to 160/76 with heart rate 66-92. Sats 98-100%. Neurosurgery was consulted and she was taken emergently to OR for right craniotomy by Dr. Bhandari. Her pupil remained nonreactive postoperatively. The remainder of her trauma workup included: CT C spine - degenerative changes with disc space narrowing C5/6 CT chest/abd/pelvis -negative for acute traumatic injury. 05/19: right pupil now normally responsive. Both 2 mm, reactive. BP control good. Na a little low, will concentrate slowly. ICP 10 but climbing slowly. Objective Vital Signs Date Time Temp Pulse Resp B/P Pulse Ox O2 Delivery O2 Flow Rate FiO2 05/19/16 08:00 35 05/19/16 08:00 100.0 105 16 138/68 100 Intake and Output 05/18/16 05/18/16 05/19/16 08:00 16:00 00:00 Output Total 1240 ml Balance -1240 ml Result Diagram: 05/19/16 0446 05/19/16 0446 Other Results Laboratory Tests Test 05/18/16 05/18/16 05/18/16 05/19/16 20:20 22:18 23:07 10:20 Blood Gas Puncture Site DRAWN IN OR ART LINE ART LINE ART LINE Blood Gas Patient Temperature 98.6 98.6 98.6 98.6 Blood Gas HCO3 15 mmol/L 18 mmol/L 18 mmol/L 21 mmol/L (22-26) (22-26) (22-26) (22-26) Blood Gas Base Excess -8.6 mmol/L -7.1 mmol/L -6.8 mmol/L -3.6 mmol/L (-2-2) (-2-2) (-2-2) (-2-2) Blood Gas Oxygen Saturation 98 % (90-100) 98 % (90-100) 98 % (90-100) 97 % (90- 100) Arterial Blood pH 7.41 7.35 7.33 7.37 (7.380-7.420) (7.380-7.420) (7.380-7.420) (7.380-7.420) Arterial Blood Partial 25 mmHg (38-42) 33 mmHg (38-42) 35 mmHg (38-42) 37 mmHg ( 38-42) Pressure CO2 Arterial Blood Partial 320 mmHg 278 mmHg 268 mmHg 178 mmHg Pressure O2 (61-120) (61-120) (61-120) (61-120) Arterial Blood Oxygen Content 15.0 Vol % 15.8 Vol % 14.9 Vol % 14.7 Vol % (12.0-20.0) (12.0-20.0) (12.0-20.0) (12.0-20.0) Arterial Blood 1.5 % (0-4) 0.5 % (0-4) 0.6 % (0-4) 0.8 % (0-4) Carboxyhemoglobin Arterial Blood Methemoglobin 1.0 % (0-2) 1.0 % (0-2) 1.0 % (0-2) 1.0 % (0-2) Blood Gas Hemoglobin 10.4 G/DL 11.0 G/DL 10.4 G/DL 10.5 G/DL (12.0-16.0) (12.0-16.0) (12.0-16.0) (12.0-16.0) Oxygen Delivery Device VENTILATOR VENTILATOR VENTILATOR Blood Gas Ventilator Setting OR PRVC/AC Blood Gas Inspired Oxygen 60 % 50 % 50 % 35 % Objective Remarks GENERAL: Well-nourished, well-developed patient who is orotracheally intubated. SKIN: Warm and dry. HEAD:Normocephalic. Fiberoptic ICP monitor on right read 10 mm Hg. CATE drain with serous and conus output EYES: Normal, pupils 2 mm, react ENT: No nasal bleeding or discharge. Mucous membranes pink and moist. OGT in place to gravity. NECK: Trachea midline. CARDIOVASCULAR: Regular rate and rhythm, sinus on monitor. No murmurs rubs or gallops. No JVD. RESPIRATORY: No accessory muscle use. Clear to auscultation. Breath sounds equal bilaterally. ETT in place, on mechanical ventilation. GASTROINTESTINAL: Abdomen soft, non-tender, nondistended. OGT in place, currently to gravity. MUSCULOSKELETAL: Extremities without clubbing, cyanosis, or edema. No obvious deformities. NEUROLOGICAL: No eye opening. R pupil fixed, dilated. Left pupil oval and 2 mm reactive to 2 mm reactive. Withdraws LUE and LLE. Right upper and lower extremity with extensor posturing to central noxious. No response to Babinski on the right. Left Babinski downgoing. A/P Assessment and Plan NEURO: Acute R epidural hematoma 9.7 x4.2 cm with 1.2 cm right to left midline shift and cerebral edema. s/p Right frontotemporoparietal craniotomy evacuation large acute epidural hematoma; Repair of right temporal bone fracture; Repair right parieto- occipital scalp laceration; placement fiberoptic ICP monitor 05/18 (Dr. Bhandari) Laceration of right middle meningeal artery Right parieto-occipital scalp laceration R temporal bone fracture TBI Fall Propofol for sedation Fentanyl for analgosedation Continuous fiberoptic ICP monitoring. Loaded fosphenytoin 1200 mg/PE IV now. Then fosphenytoin 100 mg IV every 8 hours. Follow-up Dilantin and albumin level in a.m. End tidal CO2 monitoring, correlated with ABG overnight, target End tidal 33-38 Monitor sodium, BMP now. Neurocheck q[address] Bhandari following. Start 3% saline RESP: Acute respiratory failure TV 400 R 12 IT 1 PEEP 5 fIO2 50%. Adjust to keep ETCO2 33 - [address] chest 05/18 - bibasilar atelectasis CV: Monitor hemodynamics. Maintain systolic blood pressure less than [address] Bhandari. Labetalol 10 mill grams IV prn Received 1 L NS bolus in ED, received 3600 crystalloid in OR 05/18/16 GI: OGT to LIWS. CT abd/pelvis 05/18 report - heterogenous liver, prominence of pancreatic head FEN/RENAL: Hyponatremia Hypokalemia Monitor electrolytes. Replace electrolytes per ICU replacement protocol. ID: Perioperative cefazolin. Monitor for signs and symptoms of infection. Check UA with reflex culture. HEME: Monitor CBC. Coags in am. ENDO: Acute stress hyperglycemia Monitor bedside glucose every 6 hours and use low-dose insulin sliding scale as indicated. PROPH: SCDs/teds for DVT prophylaxis. No pharmacologic DVT prophylaxis due to intracerebral hemorrhage ACCESS: Right Radial art line placed in OR 05/18/16 #2. R subclavian CVL placed #2 Patient's and family updated at bedside. Overall impression: Traumatic right epidural hematoma, now after decompression and expected cerebral edema will ensue. She is critically ill and at risk for continued brain edema. We will maximize efforts to control edema, PCO2, and CPP. Critical Care 40 mins Kenan Bejarano MD May 19, 2016 10:49
[2016-05-19] MEDS ORDERED: 3% SALINE INJ 500 ML IV SCH (11:00)
--- NOTE | 2016-05-19 11:39 | HHI.CCPN ---
Subjective Brief History 50 yo Female who arrived to [facility] [place] as a trauma alert. She was reportedly running across a bridge and fell and hit the right side of her head. She was initially alert and oriented with GCS of 15 upon EVAC arrival and was moving all extremities. After she was taken into the ambulance her GCS was 3 and right pupil was dilated and nonreactive. She was intubated in the ED following etomidate 20 mg IV and succinylcholine 100 mg IV. Trauma workup included CT brain that demonstrated 9.7 x4.2 cm R epidural hematoma with 1.2 cm right to left midline shift and cerebral edema. BP in ED was 108/104 to 160/76 with heart rate 66-92. Sats 98-100%. Neurosurgery was consulted and she was taken emergently to OR for right craniotomy by Dr. Bhandari. Her pupil remained nonreactive postoperatively. This is classic presentation of an epidural hematoma with loss of consciousness followed by lucid interval and then again loss of consciousness. Objective Vital Signs Date Time Temp Pulse Resp B/P Pulse Ox O2 Delivery O2 Flow Rate FiO2 05/19/16 08:00 35 05/19/16 08:00 100.0 105 16 138/68 100 Intake and Output 05/18/16 05/18/16 05/19/16 08:00 16:00 00:00 Output Total 1240 ml Balance -1240 ml Result Diagram: 05/19/16 0446 05/19/16 0446 Other Results Laboratory Tests Test 05/18/16 05/18/16 05/18/16 05/19/16 20:20 22:18 23:07 10:20 Blood Gas Puncture Site DRAWN IN OR ART LINE ART LINE ART LINE Blood Gas Patient Temperature 98.6 98.6 98.6 98.6 Blood Gas HCO3 15 mmol/L 18 mmol/L 18 mmol/L 21 mmol/L (22-26) (22-26) (22-26) (22-26) Blood Gas Base Excess -8.6 mmol/L -7.1 mmol/L -6.8 mmol/L -3.6 mmol/L (-2-2) (-2-2) (-2-2) (-2-2) Blood Gas Oxygen Saturation 98 % (90-100) 98 % (90-100) 98 % (90-100) 97 % (90- 100) Arterial Blood pH 7.41 7.35 7.33 7.37 (7.380-7.420) (7.380-7.420) (7.380-7.420) (7.380-7.420) Arterial Blood Partial 25 mmHg (38-42) 33 mmHg (38-42) 35 mmHg (38-42) 37 mmHg ( 38-42) Pressure CO2 Arterial Blood Partial 320 mmHg 278 mmHg 268 mmHg 178 mmHg Pressure O2 (61-120) (61-120) (61-120) (61-120) Arterial Blood Oxygen Content 15.0 Vol % 15.8 Vol % 14.9 Vol % 14.7 Vol % (12.0-20.0) (12.0-20.0) (12.0-20.0) (12.0-20.0) Arterial Blood 1.5 % (0-4) 0.5 % (0-4) 0.6 % (0-4) 0.8 % (0-4) Carboxyhemoglobin Arterial Blood Methemoglobin 1.0 % (0-2) 1.0 % (0-2) 1.0 % (0-2) 1.0 % (0-2) Blood Gas Hemoglobin 10.4 G/DL 11.0 G/DL 10.4 G/DL 10.5 G/DL (12.0-16.0) (12.0-16.0) (12.0-16.0) (12.0-16.0) Oxygen Delivery Device VENTILATOR VENTILATOR VENTILATOR Blood Gas Ventilator Setting OR PRVC/AC Blood Gas Inspired Oxygen 60 % 50 % 50 % 35 % Imaging Last 24 hours Impressions Chest X-Ray 05/19/16 0000 Signed Impressions: Service Date/Time: Thursday, May 19, 2016 00:22 - CONCLUSION: Good placement of a right subclavian line. Ant Hyde MD Pelvis X-Ray 05/18/161904 Signed Impressions: Service Date/Time: Wednesday, May 18, 2016 18:55 - CONCLUSION: No acute fracture or joint dislocation. Larry Maher MD Head CT 05/18/161904 Signed Impressions: Service Date/Time: Wednesday, May 18, 2016 19:09 - CONCLUSION: 1. Large acute right-sided epidural hematoma measuring 9.7 x 4.2 cm. 2. Prominent mass effect and midline shift to the left by 1.2 cm. 3. Bilateral cerebral edema. Larry Maher MD Chest X-Ray 05/18/161904 Signed Impressions: Service Date/Time: Wednesday, May 18, 2016 18:55 - CONCLUSION: 1. ET tube in good position. 2. No acute intrathoracic disease. Larry Maher MD Chest CT 05/18/161904 Signed Impressions: Service Date/Time: Wednesday, May 18, 2016 19:13 - CONCLUSION: 1. No acute intrathoracic disease. 2. Bibasilar atelectasis. Larry Maher MD Cervical Spine CT 05/18/161904 Signed Impressions: Service Date/Time: Wednesday, May 18, 2016 19:09 - CONCLUSION: 1. No acute bony fracture. 2. Primary degenerative changes with disc space narrowing at C5-6. Larry Maher MD Abdomen/Pelvis CT 05/18/161904 Signed Impressions: Service Date/Time: Wednesday, May 18, 2016 19:13 - CONCLUSION: 1. Liver appears to be heterogeneous. 2. Mild prominence of the pancreatic head. No biliary tract obstruction. 3. No acute intra-abdominal/pelvic pathology is seen. Larry Maher MD Exam [employer] Patient is intubated ventilated and the right pupil remains nonreactive. GCS is 3 Patient's on Versed and fentanyl as well as fosphenytoin for possible seizures Patient has ventriculostomy and intracranial pressure remains low in the 5-12 mmHg range Neuroprotective measures in place and patient doing okay right now Hemodynamic/Cardiac Hemodynamically patient is stable Pulmonary/Respiratory Bilateral breath sounds fully ventilatory supported Abdomen/GI Nutrition Abdomen is soft In next 24-48 hours patient will be started on enteral feeds Assessment and Plan Attestation Plan Patient will be Ventilated and supported with repeat CT scan tomorrow All things equal in next few days we will start waking the patient up. 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 All this will determine how the patient does in the near future as well as the ultimate prognosis The exam, history, and the medical decision-making described in the above note were completed with the assistance of the mid-level provider. I reviewed and agree with the findings presented. I attest that I had a [id number] encounter with the patient on the same day, and personally performed and documented my assessment and findings in the medical record. Critical care time 40 minutes. Mindi De Santiago MD May 19, 2016 11:39
[2016-05-19 12:11] LABS: MAGNESIUM 1.7 MG/DL (1.5-2.5)
[2016-05-19] MEDS: LABETALOL HCL 100 MG/20 ML VIAL IV PUSH PRN ×3 (12:35→19:49)
--- NOTE | 2016-05-19 17:43 | HHI.NSPN ---
History Chief Complaint: intubated and sedated Interval History 50-year-old female underwent emergency craniotomy evacuation of large epidural hematoma on 05/18/[address] scan 05/18/2016 with satisfactory evacuation of hematoma, mostly mild residual edema and midline shift without significant parenchymal hemorrhage and no hydrocephalus Exam Results Vital Signs Date Time Temp Pulse Resp B/P Pulse Ox O2 Delivery O2 Flow Rate FiO2 05/19/16 16:00 85 05/19/16 16:00 98.7 12 138/62 100 05/19/16 15:05 35 Intake and Output 05/18/16 05/18/16 05/19/16 08:00 16:00 00:00 Output Total 1240 ml Balance -1240 ml Physical Examination Intubated and sedated Respirations clear Cardiac regular Abdomen soft No extremity edema No long bone or joint deformity Cervical collar remains in place Pupils 3 mm right, 2 mm left Absent oculocephalic responses No response to deep pain all extremities Lab, Micro, Other Results Chest X-Ray 05/19/16 0000 Signed Impressions: Service Date/Time: Thursday, May 19, 2016 00:22 - CONCLUSION: Good placement of a right subclavian line. Ant Hyde MD Pelvis X-Ray 05/18/161904 Signed Impressions: Service Date/Time: Wednesday, May 18, 2016 18:55 - CONCLUSION: No acute fracture or joint dislocation. Larry Maher MD Head CT 05/18/161904 Signed Impressions: Service Date/Time: Wednesday, May 18, 2016 19:09 - CONCLUSION: 1. Large acute right-sided epidural hematoma measuring 9.7 x 4.2 cm. 2. Prominent mass effect and midline shift to the left by 1.2 cm. 3. Bilateral cerebral edema. Larry Maher MD Chest X-Ray 05/18/161904 Signed Impressions: Service Date/Time: Wednesday, May 18, 2016 18:55 - CONCLUSION: 1. ET tube in good position. 2. No acute intrathoracic disease. Larry Maher MD Chest CT 05/18/161904 Signed Impressions: Service Date/Time: Wednesday, May 18, 2016 19:13 - CONCLUSION: 1. No acute intrathoracic disease. 2. Bibasilar atelectasis. Larry Maher MD Cervical Spine CT 05/18/161904 Signed Impressions: Service Date/Time: Wednesday, May 18, 2016 19:09 - CONCLUSION: 1. No acute bony fracture. 2. Primary degenerative changes with disc space narrowing at C5-6. Larry Maher MD Abdomen/Pelvis CT 05/18/161904 Signed Impressions: Service Date/Time: Wednesday, May 18, 2016 19:13 - CONCLUSION: 1. Liver appears to be heterogeneous. 2. Mild prominence of the pancreatic head. No biliary tract obstruction. 3. No acute intra-abdominal/pelvic pathology is seen. Larry Maher MD Laboratory Tests Test 05/18/16 05/18/16 05/18/16 05/18/16 18:57 20:20 22:18 23:07 White Blood Count 10.5 TH/MM3 Red Blood Count 4.16 MIL/MM3 Hemoglobin 12.8 GM/DL Bedside Hemoglobin 12.9 G/DL Hematocrit 38.2 % Bedside Hematocrit 38.0 % Mean Corpuscular Volume 91.9 FL Mean Corpuscular Hemoglobin 30.9 PG Mean Corpuscular Hemoglobin 33.6 % Concent Red Cell Distribution Width 12.7 % Platelet Count 178 TH/MM3 Mean Platelet Volume 10.2 FL Neutrophils (%) (Auto) 45.8 % Lymphocytes (%) (Auto) 44.9 % Monocytes (%) (Auto) 6.3 % Eosinophils (%) (Auto) 1.9 % Basophils (%) (Auto) 1.1 % Neutrophils # (Auto) 4.8 TH/MM3 Lymphocytes # (Auto) 4.7 TH/MM3 Monocytes # (Auto) 0.7 TH/MM3 Eosinophils # (Auto) 0.2 TH/MM3 Basophils # (Auto) 0.1 TH/MM3 CBC Comment DIFF FINAL Differential Comment Prothrombin Time 11.3 SEC Prothromb Time International 1.0 RATIO Ratio Activated Partial 21.7 SEC Thromboplast Time Fibrinogen 230 mg/dL Bedside Sodium 137 MMOL/L Bedside Potassium 3.4 MMOL/L Bedside Chloride 101 MMOL/L Bedside Blood Urea Nitrogen 11 MG/DL Bedside Creatinine 0.9 MG/DL Bedside Glucose 165 MG/DL Blood Type O POSITIVE Antibody Screen NEGATIVE Crossmatch Leukocyte-Reduced Red Blood Cells Blood Bank Comment Blood Gas Puncture Site DRAWN IN OR ART LINE ART LINE Blood Gas Patient Temperature 98.6 98.6 98.6 Blood Gas HCO3 15 mmol/L 18 mmol/L 18 mmol/L Blood Gas Base Excess -8.6 mmol/L -7.1 mmol/L -6.8 mmol/L Blood Gas Oxygen Saturation 98 % 98 % 98 % Arterial Blood pH 7.41 7.35 7.33 Arterial Blood Partial 25 mmHg 33 mmHg 35 mmHg Pressure CO2 Arterial Blood Partial 320 mmHg 278 mmHg 268 mmHg Pressure O2 Arterial Blood Oxygen Content 15.0 Vol % 15.8 Vol % 14.9 Vol % Arterial Blood 1.5 % 0.5 % 0.6 % Carboxyhemoglobin Arterial Blood Methemoglobin 1.0 % 1.0 % 1.0 % Blood Gas Hemoglobin 10.4 G/DL 11.0 G/DL 10.4 G/DL Oxygen Delivery Device VENTILATOR VENTILATOR Blood Gas Ventilator Setting OR Blood Gas Inspired Oxygen 60 % 50 % 50 % Test 05/18/16 05/19/16 05/19/16 05/19/16 23:10 04:46 10:20 11:08 White Blood Count 8.3 TH/MM3 12.3 TH/MM3 Red Blood Count 3.38 MIL/MM3 3.34 MIL/MM3 Hemoglobin 10.7 GM/DL 10.3 GM/DL Hematocrit 30.7 % 30.7 % Mean Corpuscular Volume 90.8 FL 92.1 FL Mean Corpuscular Hemoglobin 31.6 PG 30.8 PG Mean Corpuscular Hemoglobin 34.8 % 33.4 % Concent Red Cell Distribution Width 12.7 % 12.4 % Platelet Count 149 TH/MM3 135 TH/MM3 Mean Platelet Volume 10.1 FL 10.3 FL Neutrophils (%) (Auto) 70.8 % 78.1 % Lymphocytes (%) (Auto) 21.3 % 14.0 % Monocytes (%) (Auto) 7.1 % 7.5 % Eosinophils (%) (Auto) 0.2 % 0.1 % Basophils (%) (Auto) 0.6 % 0.3 % Neutrophils # (Auto) 5.9 TH/MM3 9.6 TH/MM3 Lymphocytes # (Auto) 1.8 TH/MM3 1.7 TH/MM3 Monocytes # (Auto) 0.6 TH/MM3 0.9 TH/MM3 Eosinophils # (Auto) 0.0 TH/MM3 0.0 TH/MM3 Basophils # (Auto) 0.0 TH/MM3 0.0 TH/MM3 CBC Comment DIFF FINAL DIFF FINAL Differential Comment Urine Color LIGHT-YELLOW Urine Turbidity CLEAR Urine pH 6.0 Urine Specific [place] 1.030 Urine Protein NEG mg/dL Urine Glucose (UA) NEG mg/dL Urine Ketones 40 mg/dL Urine Occult Blood NEG Urine Nitrite NEG Urine Bilirubin NEG Urine Urobilinogen LESS THAN 2.0 MG/DL Urine Leukocyte Esterase NEG Urine RBC LESS THAN 1 /hpf Urine WBC 1 /hpf Urine Mucus FEW /lpf Microscopic Urinalysis Comment CATH-CULT NOT IND Nasal Screen MRSA (PCR) NEGATIVE Sodium Level 138 MEQ/L 137 MEQ/L 136 MEQ/L Potassium Level 3.5 MEQ/L 4.2 MEQ/L Chloride Level 106 MEQ/L 105 MEQ/L Carbon Dioxide Level 20.4 MEQ/L 18.9 MEQ/L Anion Gap 12 MEQ/L 13 MEQ/L Blood Urea Nitrogen 7 MG/DL 5 MG/DL Creatinine 0.47 MG/DL 0.47 MG/DL Estimat Glomerular Filtration 140 ML/MIN 140 ML/MIN Rate Random Glucose 100 MG/DL 119 MG/DL Calcium Level 6.2 MG/DL 6.7 MG/DL Protein Corrected Calcium 7.0 MG/DL 7.5 MG/DL Phosphorus Level 2.1 MG/DL 3.3 MG/DL Magnesium Level 1.5 MG/DL 1.7 MG/DL Total Protein 5.4 GM/DL 5.4 GM/DL Prothrombin Time 11.6 SEC Prothromb Time International 1.0 RATIO Ratio Total Bilirubin 0.4 MG/DL Aspartate Amino Transf 45 U/L (AST/SGOT) Alanine Aminotransferase 37 U/L (ALT/SGPT) Alkaline Phosphatase 32 U/L Albumin 2.8 GM/DL Phenytoin (Dilantin) Level 18.8 MCG/ML Blood Gas Puncture Site ART LINE Blood Gas Patient Temperature 98.6 Blood Gas HCO3 21 mmol/L Blood Gas Base Excess -3.6 mmol/L Blood Gas Oxygen Saturation 97 % Arterial Blood pH 7.37 Arterial Blood Partial 37 mmHg Pressure CO2 Arterial Blood Partial 178 mmHg Pressure O2 Arterial Blood Oxygen Content 14.7 Vol % Arterial Blood 0.8 % Carboxyhemoglobin Arterial Blood Methemoglobin 1.0 % Blood Gas Hemoglobin 10.5 G/DL Oxygen Delivery Device VENTILATOR Blood Gas Ventilator Setting PRVC/AC Blood Gas Inspired Oxygen 35 % Serum Osmolality 275 MOSM/KG Test 05/19/16 16:50 Sodium Level 137 MEQ/L Medical Decision Making Impression and Plan Impression: Improving and pupil size was otherwise limited neurologic exam with patient intubated and sedated postoperative. Postoperative CT scan satisfactory Plan: Continue ventilatory support and sedation Seizure prophylaxis DVT prophylaxis-non--chemical Ulcer prophylaxis Monitor sodium and maintained within normal range Hemodynamically stable Discussed with Gen. surgery Discussed with family in the intensive care Sav Bhandari MD May 19, 2016 17:43
[2016-05-20] VITALS (19 sets, daily range): BP systolic 117–139; BP diastolic 61–68; PULSE 84–97; RESP 12–13; TEMP 98.8–100.2; O2SAT 100
[2016-05-20] MEDS: CHLORHEXIDINE GLUCONATE 2 % 1 PACK (2 CLOTHS) TOP SCH (00:25)
[2016-05-20] MEDS ORDERED: EPINEPHrine HCL (1:10,000) 1 MG/10 ML SYRINGE ONE (03:59)
[2016-05-20] MEDS ORDERED: LIDOCAINE HCL 2% 100 MG/5 ML SYRINGE ONE (03:59)
[2016-05-20] MEDS ORDERED: ATROPINE SULFATE 1 MG/10 ML SYRINGE ONE (03:59)
[2016-05-20] MEDS: MIDAZOLAM HCL 2 MG/2 ML VIAL IV PUSH PRN (05:06)
[2016-05-20 05:40] LABS: BLOOD GAS CARBOXYHEMOGLOBIN 0.9 % (0-4); BLOOD GAS HCO3 22 mmol/L (22-26); BLOOD GAS METHEMOGLOBIN 0.9 % (0-2); BLOOD GAS O2 HGB SATURATION 98 % (90-100); BLOOD GAS OXYGEN CONTENT 12.1 Vol % (12.0-20.0); BLOOD GAS PCO2 37 mmHg (38-42); BLOOD GAS PO2 182 mmHg (61-120); BLOOD GAS TOTAL HGB 8.5 G/DL (12.0-16.0); CRITICAL VALUE NO; OXYGEN DEVICE VENTILATOR; TEMP CORR TO 98.6
[2016-05-20 05:41] LABS: DRAW SITE A; FIO2 35 %; STAT NO; VENT SETTINGS 12/400 PEEP 5
[2016-05-20] MEDS: INSULIN ASPART SUPPLEMENTAL SCALE SQ SCH ×3 (06:00→11:49)
[2016-05-20] MEDS: FOSPHENYTOIN SODIUM 100 MG PE/2 ML VIAL IV SCH ×3 (06:11→21:39)
--- NOTE | 2016-05-20 06:17 | RADRPT ---
EXAM DATE/TIME: 05/20/2016 04:13 [place] COMPARISON: CT BRAIN W/O CONTRAST, May 18, 2016, 22:46. INDICATIONS : Follow-up bleed. RADIATION DOSE: 56.35 CTDIvol (mGy) MEDICAL HISTORY : Non-responsive. SURGICAL HISTORY : Non-responsive. ENCOUNTER: Subsequent ACUITY: 3 days PAIN SCALE: Non-responsive LOCATION: cranial TECHNIQUE: Multiple contiguous axial images were obtained of the head. Using automated exposure control and adj ustment of the mA and/or kV according to patient size, radiation dose was kept as low as reasonably a chievable to obtain optimal diagnostic quality images. FINDINGS: Patient is again noted to have a right sided craniotomy. Right-sided subdural hemorrhage is again see n measuring 5 mm pleural separation. Bilateral pneumocephaly appears to be decreasing. Right-sided pr essure monitor again noted. Minimal right to left midline shift. Ventricles are patent. CONCLUSION: Right-sided craniotomy small right subdural hemorrhage measuring 5 mm. Decreasing pneumocephaly and v kevyn minimal right to left midline shift. Forrest Ledbetter MD on May 20, 2016 at 6:13 Board Certified Radiologist. This report was verified electronically.
[2016-05-20] MEDS ORDERED: RESP: ALBUTEROL 2.5 MG/IPRATROPIUM 0.5 MG NEB (PRN) NEB (07:45)
[2016-05-20] MEDS: CHLORHEXIDINE 0.12% (ORAL KIT) 15 ML CUP MT SCH ×2 (08:00→20:34)
[2016-05-20] MEDS: LACTULOSE SYRUP 20 GM/30 ML CUP PO SCH (08:02)
[2016-05-20] MEDS: DOCUSATE SODIUM 50 MG/SENNA 8.6 MG TAB PO SCH ×2 (08:02→20:35)
[2016-05-20] MEDS: NS + KCL 20 MEQ INJ 1,000 ML IV SCH ×2 (08:12→21:37)
--- NOTE | 2016-05-20 08:21 | HHI.CCPN ---
Subjective Remarks/Hospital Course 50 yo Female who arrived to [facility] [place] as a trauma alert. She was reportedly running across a bridge and fell and hit the right side of her head. She was initially alert and oriented with GCS of 15 upon EVAC arrival and was moving all extremities. After she was taken into the ambulance her GCS was 3 and right pupil was dilated and nonreactive. She was intubated in the ED following etomidate 20 mg IV and succinylcholine 100 mg IV. Trauma workup included CT brain that demonstrated 9.7 x4.2 cm R epidural hematoma with 1.2 cm right to left midline shift and cerebral edema. BP in ED was 108/104 to 160/76 with heart rate 66-92. Sats 98-100%. Neurosurgery was consulted and she was taken emergently to OR for right craniotomy by Dr. Bhandari. Her pupil remained nonreactive postoperatively. The remainder of her trauma workup included: CT C spine - degenerative changes with disc space narrowing C5/6 CT chest/abd/pelvis -negative for acute traumatic injury. 05/19: right pupil now normally responsive. Both 2 mm, reactive. BP control good. Na a little low, will concentrate slowly. ICP 10 but climbing slowly. 05/20: ICP controlled. CT today with minimal residual subdural blood right side. Considerable cortical edema, ventricles patent. Objective Vital Signs Date Time Temp Pulse Resp B/P Pulse Ox O2 Delivery O2 Flow Rate FiO2 05/20/16 08:14 35 05/20/16 08:11 100 05/20/16 06:00 89 05/20/16 04:00 99.1 13 135/62 Intake and Output 05/19/16 05/19/16 05/20/16 08:00 16:00 00:00 Intake Total 1751 ml 888 ml 1006 ml Output Total 1950 ml 475 ml 360 ml Balance -199 ml 413 ml 646 ml Result Diagram: 05/19/16 0446 05/20/16 0445 Other Results Laboratory Tests Test 05/19/16 05/20/16 10:20 05:25 Blood Gas Puncture Site ART LINE A Blood Gas Patient Temperature 98.6 98.6 Blood Gas HCO3 21 mmol/L 22 mmol/L (22-26) (22-26) Blood Gas Base Excess -3.6 mmol/L -2.0 mmol/L (-2-2) (-2-2) Blood Gas Oxygen Saturation 97 % (90-100) 98 % (90-100) Arterial Blood pH 7.37 7.40 (7.380-7.420) (7.380-7.420) Arterial Blood Partial 37 mmHg (38-42) 37 mmHg (38-42) Pressure CO2 Arterial Blood Partial 178 mmHg 182 mmHg Pressure O2 (61-120) (61-120) Arterial Blood Oxygen Content 14.7 Vol % 12.1 Vol % (12.0-20.0) (12.0-20.0) Arterial Blood 0.8 % (0-4) 0.9 % (0-4) Carboxyhemoglobin Arterial Blood Methemoglobin 1.0 % (0-2) 0.9 % (0-2) Blood Gas Hemoglobin 10.5 G/DL 8.5 G/DL (12.0-16.0) (12.0-16.0) Oxygen Delivery Device VENTILATOR VENTILATOR Blood Gas Ventilator Setting PRVC/AC 12/400 PEEP 5 Blood Gas Inspired Oxygen 35 % 35 % Objective Remarks GENERAL: Well-nourished, well-developed patient who is orotracheally intubated. SKIN: Warm and dry. HEAD:Normocephalic. Fiberoptic ICP monitor on right read 11 mm Hg. CATE drain with serous output EYES: Normal, pupils 2 mm, react ENT: No nasal bleeding or discharge. Mucous membranes pink and moist. NECK: Trachea midline. Orally intubated. CARDIOVASCULAR: Regular rate and rhythm, sinus on monitor. No murmurs rubs or gallops. No JVD. RESPIRATORY: No accessory muscle use. Clear to auscultation. Breath sounds equal bilaterally. GASTROINTESTINAL: Abdomen soft, non-tender, nondistended. OGT in place, currently to gravity. MUSCULOSKELETAL: Extremities without clubbing, cyanosis, or edema. No obvious deformities. Warm, well perfused. NEUROLOGICAL: Pupils 2 mm reactive to 1 mm. Withdraws LUE and LLE. Breathes over vent. A/P Assessment and Plan NEURO: Acute R epidural hematoma 9.7 x4.2 cm with 1.2 cm right to left midline shift and cerebral edema. s/p Right frontotemporoparietal craniotomy evacuation large acute epidural hematoma; Repair of right temporal bone fracture; Repair right parieto- occipital scalp laceration; placement fiberoptic ICP monitor 4/8 (Dr. Bhandari) Laceration of right middle meningeal artery Right parieto-occipital scalp laceration R temporal bone fracture TBI Fall Propofol for sedation Fentanyl for analgosedation Continuous fiberoptic ICP monitoring. Loaded fosphenytoin 1200 mg/PE IV now. Then fosphenytoin 100 mg IV every 8 hours. Follow-up Dilantin and albumin level in a.m. End tidal CO2 monitoring, correlated with ABG overnight, target End tidal 33-38 Monitor sodium, BMP now. Neurocheck q[address] Bhandari following. Start 3% saline Keep Osmo > 300 RESP: Acute respiratory failure TV 400 R 12 IT 1 PEEP 5 fIO2 50%. Adjust to keep ETCO2 33 - [address] chest 05/18 - bibasilar atelectasis CV: Monitor hemodynamics. Maintain systolic blood pressure less than [address] Bhandari. Labetalol 10 mill grams IV prn Received 1 L NS bolus in ED, received 3600 crystalloid in OR 05/18/16 GI: OGT to LIWS. CT abd/pelvis 05/18 report - heterogenous liver, prominence of pancreatic head FEN/RENAL: Hyponatremia Hypokalemia Monitor electrolytes. Replace electrolytes per ICU replacement protocol. ID: Perioperative cefazolin. Monitor for signs and symptoms of infection. Check UA with reflex culture. HEME: Monitor CBC. Coags in am. ENDO: Acute stress hyperglycemia Monitor bedside glucose every 6 hours and use low-dose insulin sliding scale as indicated. PROPH: SCDs/teds for DVT prophylaxis. No pharmacologic DVT prophylaxis due to intracerebral hemorrhage ACCESS: Right Radial art line placed in OR 05/18/16 #3. R subclavian CVL placed #3 Patient's and family updated at bedside. Overall impression: Traumatic right epidural hematoma, now after decompression the expected cerebral edema has ensued. She is critically ill and at risk for continued brain swelling. We will continue to maximize efforts to control edema , PCO2, and CPP. Critical Care 35 mins Kenan Bejarano MD May 20, 2016 08:21
[2016-05-20 08:28] LABS: BICARBONATE 21.6 MEQ/L (21.0-32.0); CALCIUM-PROTEIN CORRECTED 8.2 MG/DL (8.5-10.1); MAGNESIUM 1.9 MG/DL (1.5-2.5); POTASSIUM 4.2 MEQ/L (3.5-5.1); TOTAL BILIRUBIN ADULT 0.4 MG/DL (0.2-1.0)
[2016-05-20] MEDS: SODIUM PHOSPHATE INJ 30 MMOL in SODIUM CHLOR 0.9% 250 ML INJ 240 ML IV PRN (09:45)
--- NOTE | 2016-05-20 12:01 | PD.HHIRCNE ---
Patient History Record/History Review Medical Information Review: Hx of present illness Reason for Referral: The patient is a 50 year old unknown handed female status post traumatic injury sustained on 05/18/2016. This patient was running across a bridge, and fell, striking her head and sustaining a traumatic brain injury. She initially experienced a lucid interval with a GCS of 15 in the field, and then deteriorated to GCS = 3 on arrival. Her head CT was notable for large right EDH with right to left midline shift and cerebral edema. She underwent craniotomy for the EDH, and her ICPs have been controlled. 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 She is and has two adult children. She is referred for baseline neurobehavioral status exam per trauma protocol to assess cognitive, behavioral and emotional aspects of the injury. Neuropsych Precautions: To be determined. Past Surgical/Medical History Past Surgery: No Major surgery in last 100 days: Unknown Hx of Neuro Prob: No Hx Seizures: No Cephalgia (Headaches): No Hx Migraines: No Hx Head Injury: No Hx Falls: No Hx Cerebrovascular Accident: No Hx of Musculoskeletal Pro: Yes Hx Osteoporosis: Yes Hx of Cardiovascular Prob: No Hx of Respiratory Problem: No Hx of GI Problems: No ?: Unknown Hx of Eye Probl: Yes (wears glasses) Hx Anxiety: No Hx Depression: No Blood Transfusion History Will receive Blood /Blood prod: Yes Hx Blood Transfusions: No Medication Active Medications Atropine Sulfate (Atropine Inj) 1 mg STK-MED ONCE .ROUTE; Start 05/20/16 at 03: 59; Stop 05/20/16 at 04:00; Status DC Epinephrine HCl (EPINEPHrine (1:10,000) INJ) 1 mg STK-MED ONCE .ROUTE; Start 11/26 at 03:59; Stop 05/20/16 at 04:00; Status DC Lactulose (Lactulose Liq) 30 ml DAILY PO Last administered on 05/20/16 08:02; Admin Dose 30 ML; Start 05/20/16 at 09:00 Lidocaine HCl (Xylocaine 2% Inj) 100 mg STK-MED ONCE .ROUTE; Start 05/20/16 at 03:59; Stop 05/20/16 at 04:00; Status DC Senna/Docusate Sodium (Payal-Colace) 1 tab BID PO Last administered on 05/20/16 08:02; Admin Dose 1 TAB; Start 05/20/16 at 09:00 Mental Status Assessment Orientation: unable to asses Self, unable to asses Place, unable to asses Time , unable to asses Situation Observation The patient is presently unresponsive as she is intubated and sedated. Adjustment/Coping Assessment Observation The patients thought content was free from suicidal, homicidal or paranoid ideation, and the patients thought processes were logical and [goal-directed / tangential / unable to be determined]. The patients mood was [dysthymic / euthymic / passive-aggressive / anxious / demanding / guarded / tearful / apathetic / angry], and the affect was stable and [appropriate / sad / worrisome /expansive / intense / apathetic / blunted / labile / flat / constricted]. LTG Status: Deferred STG Status: Deferred Team Members: Neuropsychologist Behavior Assessment Agitation: None Treatment Engagement: No effort Observation Behaviorally, the patient is presently unresponsive. LTG - Status: Deferred STG Status: Deferred Team Members: Neuropsychologist Diagnosis/Discharge Plan Impression This patient suffered a significant traumatic brain injury secondary to her fall on 05/18/2016, with large EDH and right to left midline shift. She is expected to have significant neurocognitive impairments from this injury. Diagnosis: (1) Major neurocognitive disorder as late effect of traumatic brain injury without behavioral disturbance Status: Acute [facility] Level: I:No response-total assistance Maximizing acute care outcome It is recommended that the patient be monitored for emergent behavioral impulsivity as the medical condition evolves. This patients neuropathological challenges may limit their rehabilitation potential going forward, and these challenges will require specialized therapeutic skills to maximize outcome. Additionally, the patients family is experiencing ongoing issues of adjustment given the traumatic nature of the injury, and they may benefit from ongoing psychological assistance. Discharge Planning Anticipated Problems Ongoing areas of concern will include behavioral impulsivity, lack of insight and judgment, which is expected to improve with time and treatment. Presently , the patient is intubated and sedated. Treatment Plan This clinician will continue to follow with you throughout the course of this patients acute care treatment, and I will be available to meet with the patient s family/support system to facilitate their understanding and the ongoing care of their family member. The goals of neuropsychological intervention shall be both educational and supportive to the family/support system as is deemed clinically appropriate. Discharge Needs To be determined. Thank you Thank you for the opportunity to assist in this patients care. Gregorio Benítez, Ph.D., ABPP Board Certified in Clinical Neuropsychology [facility] Board of Professional Psychology [place] Licensed Psychologist #[id number] Gregorio Benítez PhD May 20, 2016 12:01
--- NOTE | 2016-05-20 13:52 | HHI.CCPN ---
Subjective Brief History 50 yo Female who arrived to [facility] as a trauma alert. She was reportedly running across a bridge and fell and hit the right side of her head. She was initially alert and oriented with GCS of 15 upon EVAC arrival and was moving all extremities. After she was taken into the ambulance her GCS was 3 and right pupil was dilated and nonreactive. She was intubated in the ED following etomidate 20 mg IV and succinylcholine 100 mg IV. Trauma workup included CT brain that demonstrated 9.7 x4.2 cm R epidural hematoma with 1.2 cm right to left midline shift and cerebral edema. BP in ED was 108/104 to 160/76 with heart rate 66-92. Sats 98-100%. Neurosurgery was consulted and she was taken emergently to OR for right craniotomy by Dr. Bhandari. Her pupil remained nonreactive postoperatively. This is classic presentation of an epidural hematoma with loss of consciousness followed by lucid interval and then again loss of consciousness. 24 Hour Review/Hospital Course 05/20/2016 Patient has been stable over the last 24 hours ICPs remain in 8-12 mmHg range and central perfusion pressure is adequate Pupils are equal 2 mm and somewhat reactive Repeat CAT scan of the brain reveals some blood over the right hemisphere but this is minimal and no intervention is necessary Patient remains of neuroprotective measures including mild hyperventilation, hypertonic saline and sedation on propofol and fentanyl Considering mild swelling of the brain in early phase of care I would leave everything as it is right now and right without for next day or 2 and then a repeat CT scan will be done All things equal we'll started waking patient up by the end of the week and see how she does Objective Vital Signs Date Time Temp Pulse Resp B/P Pulse Ox O2 Delivery O2 Flow Rate FiO2 05/20/16 11:24 100 35 05/20/16 10:00 90 05/20/16 08:00 99.3 12 136/66 Intake and Output 05/19/16 05/19/16 05/20/16 08:00 16:00 00:00 Intake Total 1751 ml 888 ml 1006 ml Output Total 1950 ml 475 ml 360 ml Balance -199 ml 413 ml 646 ml Result Diagram: 05/19/16 0446 05/20/16 1000 Other Results Laboratory Tests Test 05/20/16 05:25 Blood Gas Puncture Site A Blood Gas Patient Temperature 98.6 Blood Gas HCO3 22 mmol/L (22-26) Blood Gas Base Excess -2.0 mmol/L (-2-2) Blood Gas Oxygen Saturation 98 % (90-100) Arterial Blood pH 7.40 (7.380-7.420) Arterial Blood Partial 37 mmHg (38-42) Pressure CO2 Arterial Blood Partial 182 mmHg Pressure O2 (61-120) Arterial Blood Oxygen Content 12.1 Vol % (12.0-20.0) Arterial Blood 0.9 % (0-4) Carboxyhemoglobin Arterial Blood Methemoglobin 0.9 % (0-2) Blood Gas Hemoglobin 8.5 G/DL (12.0-16.0) Oxygen Delivery Device VENTILATOR Blood Gas Ventilator Setting 12/400 PEEP 5 Blood Gas Inspired Oxygen 35 % Imaging Last [address] 05/20/16 0600 Signed Impressions: Service Date/Time: Friday, May 20, 2016 04:13 - CONCLUSION: Right-sided craniotomy small right subdural hemorrhage measuring 5 mm. Decreasing pneumocephaly and very minimal right to left midline shift. 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 ICPs remain in 8-12 mmHg range and central perfusion pressure is adequate Pupils are equal 2 mm and somewhat reactive Repeat CAT scan of the brain reveals some blood over the right hemisphere but this is minimal and no intervention is necessary Patient remains of neuroprotective measures including mild hyperventilation, hypertonic saline and sedation on propofol and fentanyl Considering mild swelling of the brain in early phase of care I would leave everything as it is right now and right without for next day or 2 and then a repeat CT scan will be done All things equal we'll started waking patient up by the end of the week and see how she does Hemodynamic/Cardiac Imo dynamically intact does not require any vasopressors to maintain central perfusion pressure Pulmonary/Respiratory Bilateral breath sounds on ventilatory support and mild hyperventilation Abdomen/GI Nutrition Abdomen is soft active bowel sounds patient will be started on enteral feedings today Assessment and Plan Attestation The exam, history, and the medical decision-making described in the above note were completed with the assistance of the mid-level provider. I reviewed and agree with the findings presented. I attest that I had a [id number] encounter with the patient on the same day, and personally performed and documented my assessment and findings in the medical record. Critical care time 38 minutes. Mindi De Santiago MD May 20, 2016 13:52
[2016-05-20] MEDS ORDERED: 3% SALINE INJ 500 ML IV ONE (16:45)
[2016-05-20] MEDS: MIDAZOLAM 100 MG/ML INJ 100 ML IV SCH ×2 (17:18→20:34)
--- NOTE | 2016-05-20 19:50 | HHI.NSPN ---
History Chief Complaint: intubated and sedated Interval History 50-year-old female underwent emergency craniotomy evacuation of large epidural hematoma on 05/18/[address] scan 05/18/2016 with satisfactory evacuation of hematoma, mostly mild residual edema and midline shift without significant parenchymal hemorrhage and no hydrocephalus Exam Results Vital Signs Date Time Temp Pulse Resp B/P Pulse Ox O2 Delivery O2 Flow Rate FiO2 05/20/16 18:00 95 05/20/16 16:00 35 05/20/16 16:00 100.0 12 139/64 100 Intake and Output 05/19/16 05/19/16 05/20/16 08:00 16:00 00:00 Intake Total 1751 ml 888 ml 1006 ml Output Total 1950 ml 475 ml 360 ml Balance -199 ml 413 ml 646 ml Physical Examination Intubated and sedated Respirations clear Cardiac regular Abdomen soft No extremity edema Pupils 3 mm right, 2 mm left Absent oculocephalic responses Mild grimace and response to deep pain Minimal movement in the extremities to deep pain-nonpurposeful Not following commands Lab, Micro, Other Results 05/20/16 CT scan head images reviewed by the undersigned. Agree with findings as noted below: Head CT 05/20/16 0600 Signed Impressions: Service Date/Time: Friday, May 20, 2016 04:13 - CONCLUSION: Right-sided craniotomy small right subdural hemorrhage measuring 5 mm. Decreasing pneumocephaly and very minimal right to left midline shift. Forrest Ledbetter MD Laboratory Tests Test 05/19/16 05/20/16 05/20/16 05/20/16 22:45 04:45 05:25 10:00 Sodium Level 140 MEQ/L 142 MEQ/L 143 MEQ/L Serum Osmolality 284 MOSM/KG 285 MOSM/KG 287 MOSM/KG Potassium Level 4.2 MEQ/L Chloride Level 109 MEQ/L Carbon Dioxide Level 21.6 MEQ/L Anion Gap 11 MEQ/L Blood Urea Nitrogen 4 MG/DL Creatinine 0.48 MG/DL Estimat Glomerular Filtration 136 ML/MIN Rate Random Glucose 124 MG/DL Calcium Level 7.1 MG/DL Protein Corrected Calcium 8.2 MG/DL Phosphorus Level 2.1 MG/DL Magnesium Level 1.9 MG/DL 2.0 MG/DL Total Bilirubin 0.4 MG/DL Aspartate Amino Transf 25 U/L (AST/SGOT) Alanine Aminotransferase 25 U/L (ALT/SGPT) Alkaline Phosphatase 33 U/L Total Protein 5.0 GM/DL Albumin 2.4 GM/DL Blood Gas Puncture Site A Blood Gas Patient Temperature 98.6 Blood Gas HCO3 22 mmol/L Blood Gas Base Excess -2.0 mmol/L Blood Gas Oxygen Saturation 98 % Arterial Blood pH 7.40 Arterial Blood Partial 37 mmHg Pressure CO2 Arterial Blood Partial 182 mmHg Pressure O2 Arterial Blood Oxygen Content 12.1 Vol % Arterial Blood 0.9 % Carboxyhemoglobin Arterial Blood Methemoglobin 0.9 % Blood Gas Hemoglobin 8.5 G/DL Oxygen Delivery Device VENTILATOR Blood Gas Ventilator Setting 12/400 PEEP 5 Blood Gas Inspired Oxygen 35 % Test 05/20/16 15:55 Sodium Level 142 MEQ/L Serum Osmolality 285 MOSM/KG Medical Decision Making Impression and Plan Impression: Stable neurologic exam. Slightly more responsive with decreased sedation today 05/20/16 follow-up CT scan satisfactory Plan: Continue ventilatory support Wean sedation as tolerated Continue ICP monitoring Seizure prophylaxis DVT prophylaxis-non--chemical Ulcer prophylaxis Monitor sodium and maintained within normal range Hemodynamically stable Discussed with family in the intensive care today Sav Bhandari MD May 20, 2016 19:50
[2016-05-20] MEDS: PANTOPRAZOLE SODIUM 40 MG VIAL IVP SCH (20:34)
[2016-05-21] VITALS (18 sets, daily range): BP systolic 109–141; BP diastolic 65–88; PULSE 94–118; RESP 14–16; TEMP 98.8–100.8; O2SAT 100
[2016-05-21] MEDS: CHLORHEXIDINE GLUCONATE 2 % 1 PACK (2 CLOTHS) TOP SCH (04:00)
[2016-05-21 04:35] LABS: BLOOD GAS BASE EXCESS -0.9 mmol/L (-2-2); BLOOD GAS HCO3 23 mmol/L (22-26); BLOOD GAS METHEMOGLOBIN 0.7 % (0-2); BLOOD GAS O2 HGB SATURATION 98 % (90-100); BLOOD GAS OXYGEN CONTENT 11.5 Vol % (12.0-20.0); BLOOD GAS PCO2 38 mmHg (38-42); BLOOD GAS PO2 183 mmHg (61-120); BLOOD GAS TOTAL HGB 8.1 G/DL (12.0-16.0); TEMP CORR TO 98.6
[2016-05-21 04:36] LABS: CRITICAL VALUE NO; DRAW SITE ART LINE; FIO2 35 %; OXYGEN DEVICE VENTILATOR; STAT NO; VENT SETTINGS 14/400/ 5 PEEP
[2016-05-21 05:12] LABS: BASOPHIL # 0.1 TH/MM3 (0-0.2); BASOPHIL % 1.1 % (0.0-2.0); EOSINOPHIL # 0.1 TH/MM3 (0-0.4); EOSINOPHIL % 1.3 % (0.0-4.0); HEMATOCRIT 24.1 % (35.0-46.0); HEMO FLAGS DIFF FINAL; LYMPH % 16.5 % (9.0-44.0); LYMPHOCYTE # 1.4 TH/MM3 (1.0-4.8); MEAN CELL VOLUME 92.7 FL (80.0-100.0); MEAN CORPUSCULAR HEMOGLOBIN 32.8 PG (27.0-34.0); MEAN CORPUSCULAR HGB CONC 35.4 % (32.0-36.0); MONO % 10.1 % (0.0-8.0); PLATELET COUNT 117 TH/MM3 (150-450); RED CELL DISTRIBUTION WIDTH 12.7 % (11.6-17.2); WHITE BLOOD COUNT 8.5 TH/MM3 (4.0-11.0)
--- NOTE | 2016-05-21 06:30 | RADRPT ---
EXAM DATE/TIME: 05/21/2016 05:23 [place] COMPARISON: CHEST SINGLE AP, May 19, 2016, 0:22. INDICATIONS : Shortness of breath. MEDICAL HISTORY : None. SURGICAL HISTORY : None. ENCOUNTER: Subsequent ACUITY: 4 - 6 days PAIN SCORE: Non-responsive. LOCATION: Bilateral chest FINDINGS: A single view of the chest demonstrates the lungs to be symmetrically aerated without evidence of mas s, infiltrate or effusion. Endotracheal tube, nasogastric tube and right subclavian central line in s table position. The cardiomediastinal contours are unremarkable. Osseous structures are intact. CONCLUSION: Lungs remain clear. Forrest Ledbetter MD on May 21, 2016 at 6:28 Board Certified Radiologist. This report was verified electronically.
[2016-05-21] MEDS: FOSPHENYTOIN SODIUM 100 MG PE/2 ML VIAL IV SCH ×3 (07:00→22:49)
--- NOTE | 2016-05-21 07:24 | HHI.CCPN ---
Subjective Remarks/Hospital Course 50 yo Female who arrived to [facility] as a trauma alert. She was reportedly running across a bridge and fell and hit the right side of her head. She was initially alert and oriented with GCS of 15 upon EVAC arrival and was moving all extremities. After she was taken into the ambulance her GCS was 3 and right pupil was dilated and nonreactive. She was intubated in the ED following etomidate 20 mg IV and succinylcholine 100 mg IV. Trauma workup included CT brain that demonstrated 9.7 x4.2 cm R epidural hematoma with 1.2 cm right to left midline shift and cerebral edema. BP in ED was 108/104 to 160/76 with heart rate 66-92. Sats 98-100%. Neurosurgery was consulted and she was taken emergently to OR for right craniotomy by Dr. Bhandari. Her pupil remained nonreactive postoperatively. The remainder of her trauma workup included: CT C spine - degenerative changes with disc space narrowing C5/6 CT chest/abd/pelvis -negative for acute traumatic injury. 05/19: right pupil now normally responsive. Both 2 mm, reactive. BP control good. Na a little low, will concentrate slowly. ICP 10 but climbing slowly. 05/20: ICP controlled. CT today with minimal residual subdural blood right side. Considerable cortical edema, ventricles patent. 05/21: ICP control. Serum concentration acceptable. Plenty of room to concentrate if swelling worsens. Objective Vital Signs Date Time Temp Pulse Resp B/P Pulse Ox O2 Delivery O2 Flow Rate FiO2 05/21/16 06:51 35 05/21/16 04:24 100 05/21/16 04:00 96 05/21/16 04:00 98.8 14 113/65 Intake and Output 05/20/16 05/20/16 05/21/16 08:00 16:00 00:00 Intake Total 800 ml 1079 ml 963 ml Output Total 320 ml 710 ml 585 ml Balance 480 ml 369 ml 378 ml Result Diagram: 05/21/16 0502 05/21/16 0502 Other Results Laboratory Tests Test 05/21/16 04:25 Blood Gas Puncture Site ART LINE Blood Gas Patient Temperature 98.6 Blood Gas HCO3 23 mmol/L (22-26) Blood Gas Base Excess -0.9 mmol/L (-2-2) Blood Gas Oxygen Saturation 98 % (90-100) Arterial Blood pH 7.41 (7.380-7.420) Arterial Blood Partial 38 mmHg (38-42) Pressure CO2 Arterial Blood Partial 183 mmHg Pressure O2 (61-120) Arterial Blood Oxygen Content 11.5 Vol % (12.0-20.0) Arterial Blood 1.0 % (0-4) Carboxyhemoglobin Arterial Blood Methemoglobin 0.7 % (0-2) Blood Gas Hemoglobin 8.1 G/DL (12.0-16.0) Oxygen Delivery Device VENTILATOR Blood Gas Ventilator Setting 14/400/ 5 PEEP Blood Gas Inspired Oxygen 35 % Objective Remarks GENERAL: Well-nourished, well-developed patient who is orotracheally intubated. SKIN: Warm and dry. HEAD:Normocephalic. Fiberoptic ICP monitor on right read 12 mm Hg. EYES: Normal, pupils 2 mm, react ENT: No nasal bleeding or discharge. Mucous membranes pink and moist. NECK: Trachea midline. Orally intubated. CARDIOVASCULAR: Regular rate and rhythm, sinus on monitor. No murmurs rubs or gallops. No JVD. RESPIRATORY:Ventilated. Clear to auscultation. Breath sounds equal bilaterally. GASTROINTESTINAL: Abdomen soft, non-tender, nondistended. OGT in place, currently to gravity. MUSCULOSKELETAL: Extremities without clubbing, cyanosis, or edema. No obvious deformities. Warm, well perfused. NEUROLOGICAL: Pupils 2 mm reactive to 1 mm. Withdraws LUE and LLE. Breathes over vent. A/P Assessment and Plan NEURO: Acute R epidural hematoma 9.7 x4.2 cm with 1.2 cm right to left midline shift and cerebral edema. s/p Right frontotemporoparietal craniotomy evacuation large acute epidural hematoma; Repair of right temporal bone fracture; Repair right parieto- occipital scalp laceration; placement fiberoptic ICP monitor 05/18 (Dr. Bhandari) Laceration of right middle meningeal artery Right parieto-occipital scalp laceration R temporal bone fracture TBI Fall Propofol for sedation Fentanyl for analgosedation Continuous fiberoptic ICP monitoring. Loaded fosphenytoin 1200 mg/PE IV now. Then fosphenytoin 100 mg IV every 8 hours. Follow-up Dilantin and albumin level in a.m. End tidal CO2 monitoring, correlated with ABG overnight, target End tidal 33-38 Monitor sodium, BMP now. Neurocheck q[address] Bhandari following. Start 3% saline Keep Osmo > 300 RESP: Acute respiratory failure TV 400 R 12 IT 1 PEEP 5 fIO2 50%. Adjust to keep ETCO2 33 - [address] chest 05/18 - bibasilar atelectasis CV: Monitor hemodynamics. Maintain systolic blood pressure less than [address] Bhandari. Labetalol 10 mill grams IV prn Received 1 L NS bolus in ED, received 3600 crystalloid in OR 05/18/16 GI: OGT to LIWS. CT abd/pelvis 05/18 report - heterogenous liver, prominence of pancreatic head FEN/RENAL: Hyponatremia Hypokalemia Monitor electrolytes. Replace electrolytes per ICU replacement protocol. ID: Perioperative cefazolin. Monitor for signs and symptoms of infection. Check UA with reflex culture. HEME: Monitor CBC. Coags in am. ENDO: Acute stress hyperglycemia Monitor bedside glucose every 6 hours and use low-dose insulin sliding scale as indicated. PROPH: SCDs/teds for DVT prophylaxis. No pharmacologic DVT prophylaxis due to intracerebral hemorrhage ACCESS: Right Radial art line placed in OR 05/18/16 #3. R subclavian CVL placed #3 Patient's and family updated at bedside. Overall impression: Traumatic, right epidural hematoma, s/p decompression with the expected cerebral edema. She is critically ill and at risk for continued brain swelling. We will continue to maximize efforts to control edema, PCO2, and CPP. Osmo acceptable as is. Critical Care 38 mins Kenan Bejarano MD May 21, 2016 07:24
[2016-05-21] MEDS: CHLORHEXIDINE 0.12% (ORAL KIT) 15 ML CUP MT SCH ×2 (08:00→20:54)
[2016-05-21] MEDS: LACTULOSE SYRUP 20 GM/30 ML CUP PO SCH (08:17)
[2016-05-21] MEDS: DOCUSATE SODIUM 50 MG/SENNA 8.6 MG TAB PO SCH ×2 (08:17→20:54)
[2016-05-21] MEDS: NS + KCL 20 MEQ INJ 1,000 ML IV SCH ×2 (11:04→22:49)
--- NOTE | 2016-05-21 11:16 | HHI.PR ---
Neuropsych Emotional Emotional: UnabletoAssess: Emotional, Anxious/Fearful, Depressed/Sad, Hostile/ Resentful, Irritable/Angry/Frustrate, Labile, Constricted/Blunted Behavior Behavior: Unable to Asses: Behavior, Coping/Acceptance, Cooperative w/ Treatment, Motivation, Frustration Tolerance/[place], Impulsive/Agitated, Suicidal/ Homicidal Risk Cognitive Cognitive: Unable to Asses: Cognitive, Attention/Concentration, Confused/ Orientation, Insight/Awareness, Judgement/Problem-Solving, Memory Psychosocial Psychosocial: Intact: Psychosocial, Family/Other Adjustment, Realistic Expectation, Unable to Asses: Self-Esteem/Confidence Progress Notes/Response to Tx Contents of Sessions: Level of Consciousness Time with Patient: 15 minutes Premorbid psychological status Premorbid Cognitive, Emotional and Behavioral Status: Stable. 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 The patient has no psychiatric difficulties. Substance abuse history is not significant. She is and has two children. Behavioral Reactions of Patient and Family/Support System: Stable. The patient s family is experiencing ongoing issues of adjustment given the nature of the injury, and this aspect of recovery will require ongoing monitoring. Emotional/Behavioral Status of Patient and Family/Support System: Stable. Pertinent issues, if appropriate to this patients clinical care, are described in detail above. Maximizing acute care outcome It is recommended that the patient be monitored for emergent behavioral impulsivity as the medical condition evolves. This patients neuropathological challenges may limit their rehabilitation potential going forward, and these challenges will require specialized therapeutic skills to maximize outcome. Additionally, the patients family is experiencing ongoing issues of adjustment given the traumatic nature of the injury, and they may benefit from ongoing psychological assistance. Anticipated Problems Ongoing areas of concern will include behavioral impulsivity, lack of insight and judgment, which is expected to improve with time and treatment. Presently , the patient intubated and sedated. Treatment Plan This clinician will continue to follow with you throughout the course of this patients acute care treatment, and I will be available to meet with the patient s family/support system to facilitate their understanding and the ongoing care of their family member. The goals of neuropsychological intervention shall be both educational and supportive to the family/support system as is deemed clinically appropriate. [facility] Level: II:General response-total assist Impression This patient suffered a significant traumatic brain injury secondary to her fall on 05/18/2016, with large EDH and right to left midline shift. She is expected to have significant neurocognitive impairments from this injury. Diagnosis: (1) Major neurocognitive disorder as late effect of traumatic brain injury without behavioral disturbance Status: Acute Progress Note Narrative Ongoing follow-up of patient seen during daily trauma rounds and also bedside with Dr. June, who completed a clinical exam. This is day 3 post injury. The patient remains intubated and sedated, with her ICPs in the 8 to 12 range. The goal is to start the process of waking her up near the end of the week. She would appear to fall neurobehaviorally at a [place] I to II at present. I will continue to follow. Gregorio Benítez PhD May 21, 2016 11:16 am
[2016-05-21] MEDS: ARTIFICIAL TEARS OPTH SOLN 15 ML BTL EACH EYE SCH ×4 (11:47→22:49)
[2016-05-21] MEDS: SODIUM PHOSPHATE INJ 30 MMOL in SODIUM CHLOR 0.9% 250 ML INJ 240 ML IV PRN (11:47)
[2016-05-21 12:42] LABS: MAGNESIUM 1.8 MG/DL (1.5-2.5)
--- NOTE | 2016-05-21 16:25 | PD.CONS ---
HPI Service Rehabilitation Medicine Consult Requested By [facility] trauma service Reason for Consult Comprehensive rehabilitation evaluation. Primary Care Physician Unknown History of Present Illness Britney Rosado is a 50 year old right hand dominant female admitted to [facility] 05/18/16 after a fall. Head CT showed right epidural hematoma 9.7 by 4.2 cm with midline to left shift 1.2 cm, right temporal bone fracture and bilateral cerebral edema. She underwent right FTP craniotomy with evacuation of epidural hematoma, repair of right temporal bone fracture and scalp laceration. Followup head CT 05/20/16 showed right craniotomy, small right SDH 5mm and decreased pneumocephaly and very minimal right to left shift. CT of C-spine no fracture. She is currently intubated and sedated. Review of Systems ROS Limitations: Intubated, Altered Mental Status, Other (Sedated) Past Family Social History Allergies: Coded Allergies: No Known Allergies (Unverified , 05/20/16) Past Medical History denies Past Surgical History denies Current Medications Current Medications Medications (Trade) Dose Ordered Sig/Hima Route Start Time Stop Time Status Last Admin (NS Flush) 2 ml UNSCH PRN IV FLUSH 05/18/16 19:45 (Zofran Inj) 4 mg Q6H PRN IV 05/18/16 19:45 (Protonix Inj) 40 mg Q24H IVP 05/18/16 21:00 05/20/16 20:34 Miscellaneous Information 1 [id number] XX 05/18/16 19:45 05/18/16 19:45 (Chlorhexidine 2% Cloth) 3 pack Taper DAILY@04 TOP 05/19/16 04:00 05/15/17 03:59 05/21/16 04:00 (Chlorhexidine 2% Cloth) 3 pack UNSCH PRN TOP 05/18/16 19:45 (Dilaudid Pf Inj) 0.5 mg Q3H PRN IV 05/18/16 21:30 (Dilaudid Pf Inj) 1 mg Q3H PRN IV 05/18/16 21:30 (Morphine Inj) 4 mg Q3H PRN IV 05/18/16 21:30 Naloxone HCl 0.4 mg 0.4 mg UNSCH PRN IV 05/18/16 21:30 (NS + KCl 20 Meq Inj) 1,000 ml @ 75 mls/hr [id number] IV 05/18/16 21:30 05/21/16 11:04 Chlorhexidine Gluconate 15 ml 15 ml BID@08,20 MT 05/19/16 08:00 05/21/16 08:00 Propofol 100 ml @ 0 mls/hr TITRATE IV 05/18/16 22:30 (fentaNYL DRIP) 250 ml @ 0 mls/hr TITRATE IV 05/18/16 22:30 (Trandate Inj) 10 mg Q4H PRN IV PUSH 05/18/16 22:30 05/19/16 19:49 Fosphenytoin Sodium 100 mgpe 100 mgpe Q8H IV 05/19/16 07:00 05/21/16 07:00 Potassium Chloride 100 ml @ 50 mls/hr Q2H PRN IV 05/18/16 23:00 Potassium Chloride 100 ml @ 50 mls/hr Q2H PRN IV 05/18/16 23:00 Potassium Chloride 100 ml @ 25 mls/hr UNSCH PRN IV 05/18/16 23:00 Potassium Chloride 100 ml @ 50 mls/hr Q2H PRN IV 05/18/16 23:00 (Magnesium Sulfate Inj/NS Inj) 100 ml @ 50 mls/hr UNSCH PRN IV 05/18/16 23:00 Magnesium Oxide 800 mg 800 mg UNSCH PRN PO 05/18/16 23:00 (Magnesium Sulfate Inj/NS Inj) 100 ml @ 50 mls/hr UNSCH PRN IV 05/18/16 23:00 Potassium Phosphate 2000 mg 2,000 mg Q4H PRN PO 05/18/16 23:00 (Sodium Phosphate Inj/NS 250 ml Inj) 250 ml @ 42 mls/hr UNSCH PRN IV 05/18/16 23:00 05/21/16 11:47 Potassium Phosphate 2000 mg 2,000 mg UNSCH PRN PO/TUBE 05/18/16 23:00 (Potassium Phosphate Inj/NS 250 ml Inj) 260 ml @ 42 mls/hr UNSCH PRN IV 05/18/16 23:00 Midazolam HCl 2 mg 2 mg Q15M PRN IV PUSH 05/19/16 00:15 05/20/16 05:06 Midazolam HCl 100 ml @ 0 mls/hr TITRATE IV 05/19/16 00:15 05/20/16 20:34 (Levophed Inj/NS 250 ml Inj) 250 ml @ 0 mls/hr TITRATE IV 05/19/16 00:15 05/19/16 00:49 (Brethine Inj) 1 mg UNSCH PRN SQ 05/19/16 00:15 (Lactulose Liq) 30 ml DAILY PO 05/20/16 09:00 05/21/16 08:17 (Payal-Colace) 1 tab BID PO 05/20/16 09:00 05/21/16 08:17 Artificial Tears 1 drop 1 drop Q4H EACH EYE 05/21/16 11:00 05/21/16 15:00 (Sodium Chloride 3% Inj) 500 ml @ 20 mls/hr Q24H IV 05/21/16 14:00 Family History denies Social History Prior to admission independent with all mobility and ADL's. 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 Lives with in [place], [place]. Exam I&O / VS 05/20/16 05/20/16 05/21/16 15:00 23:00 07:00 Intake Total 1079 ml 963 ml 1292 ml Output Total 710 ml 585 ml 478 ml Balance 369 ml 378 ml 814 ml Intake IV Total 1003 ml 807 ml 891 ml Tube Feeding 76 ml 156 ml 401 ml Output Urine Total 700 ml 575 ml 475 ml Gastric Drainage Total 0 ml 0 ml 0 ml Tube Feeding Residual Discard 0 ml Drainage Total 10 ml 10 ml 3 ml # Bowel Movements 0 0 0 Vital Signs Date Time Temp Pulse Resp B/P Pulse Ox O2 Delivery O2 Flow Rate FiO2 05/21/16 15:23 100 35 05/21/16 12:00 105 05/21/16 12:00 99.9 118 16 110/85 100 05/21/16 12:00 35 05/21/16 10:57 100 35 05/21/16 10:00 102 05/21/16 08:05 100 35 05/21/16 08:05 100 35 05/21/16 08:00 35 05/21/16 08:00 98.9 103 16 109/76 100 05/21/16 08:00 103 05/21/16 06:51 35 05/21/16 06:00 35 05/21/16 06:00 108 05/21/16 04:24 100 35 05/21/16 04:00 96 05/21/16 04:00 35 05/21/16 04:00 98.8 94 14 113/65 100 05/21/16 02:00 101 05/21/16 00:56 100 35 05/21/16 00:00 98.8 94 14 113/65 100 05/21/16 00:00 94 05/21/16 00:00 35 05/20/16 22:42 100 35 05/20/16 22:00 96 05/20/16 21:00 35 05/20/16 20:10 100 35 05/20/16 20:10 100 35 05/20/16 20:00 92 05/20/16 20:00 35 05/20/16 20:00 100.2 92 12 117/61 100 05/20/16 18:00 95 General: Intubated, Sedated Respiratory: Lungs CTA, Non-labored respirations, BS equal Gastrointestinal: Positive Bowel Sounds, Non-Distended Cardiovascular: Regular Rhythm Skin: Incision (Surgical bandage head intact), Other (No rash noted) Orientation: unable to asses Self, unable to asses Place Neurologic: Pupils (PERRLA 3 to 2 mm and symmetric), Other (ROM within functional limits) DTRs: Abnormal (Brisk throughout) Clonus: Positive Assessment and Plan Diagnosis: (1) Epidural hematoma Assessment 1. S/P Fall with right epidural hematoma 9.7 by 4.2 cm with midline to left shift 1.2 cm, right temporal bone fracture and bilateral cerebral edema S/P right FTP craniotomy with evacuation of epidural hematoma, repair of right temporal bone fracture and scalp laceration. Now Rancho 1 2. Intubated and sedated Plan 1. PT following for ROM 2. OT following for ROM and dependent 3. Appreciate Neuropsychology consult. 4. Will need ST for swallow and cognition 5. Referral to [facility] 6. Reposition q 2 hours to protect skin 7. SCD's in place for VTE prophylaxis 8. Will likely need continued rehab at discharge. Will follow in conjunction with case management for level of care. Lives in [place] so will need facility near [place]. Rehab plan of care discussed with family and questions answered. 9. Will follow while hospitalized and at discharge Justine June MD May 21, 2016 16:24
[2016-05-21] MEDS: 3% SALINE INJ 500 ML IV SCH (17:03)
[2016-05-21 17:45] LABS: BICARBONATE 28.5 MEQ/L (21.0-32.0); CALCIUM-PROTEIN CORRECTED 8.5 MG/DL (8.5-10.1); POTASSIUM 3.8 MEQ/L (3.5-5.1); TOTAL BILIRUBIN ADULT 0.2 MG/DL (0.2-1.0)
--- NOTE | 2016-05-21 19:36 | HHI.NSPN ---
History Chief Complaint: intubated and sedated Interval History 50-year-old female underwent emergency craniotomy evacuation of large epidural hematoma on 05/18/[address] scan 05/18/2016 with satisfactory evacuation of hematoma, mostly mild residual edema and midline shift without significant parenchymal hemorrhage and no hydrocephalus Exam Results Vital Signs Date Time Temp Pulse Resp B/P Pulse Ox O2 Delivery O2 Flow Rate FiO2 05/21/16 18:00 101 05/21/16 16:00 35 05/21/16 16:00 100.8 16 141/88 100 Intake and Output 05/20/16 05/20/16 05/21/16 08:00 16:00 00:00 Intake Total 800 ml 1079 ml 963 ml Output Total 320 ml 710 ml 585 ml Balance 480 ml 369 ml 378 ml Physical Examination Intubated and sedated Respirations clear Cardiac regular Abdomen soft No extremity edema Pupils are 2-3 mm bilateral Absent oculocephalic responses Mild grimace and response to deep pain Seems to have mild extensor type posturing to stimulation in both the upper and lower extremities. Mild left greater than right hand grasp, but not definitely to command Lab, Micro, Other Results Laboratory Tests Test 05/21/16 05/21/16 05/21/16 05/21/16 00:30 04:25 05:02 07:32 Sodium Level 142 MEQ/L 141 MEQ/L Serum Osmolality 283 MOSM/KG 285 MOSM/KG Blood Gas Puncture Site ART LINE Blood Gas Patient Temperature 98.6 Blood Gas HCO3 23 mmol/L Blood Gas Base Excess -0.9 mmol/L Blood Gas Oxygen Saturation 98 % Arterial Blood pH 7.41 Arterial Blood Partial 38 mmHg Pressure CO2 Arterial Blood Partial 183 mmHg Pressure O2 Arterial Blood Oxygen Content 11.5 Vol % Arterial Blood 1.0 % Carboxyhemoglobin Arterial Blood Methemoglobin 0.7 % Blood Gas Hemoglobin 8.1 G/DL Oxygen Delivery Device VENTILATOR Blood Gas Ventilator Setting 14/400/ 5 PEEP Blood Gas Inspired Oxygen 35 % White Blood Count 8.5 TH/MM3 Red Blood Count 2.60 MIL/MM3 Hemoglobin 8.5 GM/DL Hematocrit 24.1 % Mean Corpuscular Volume 92.7 FL Mean Corpuscular Hemoglobin 32.8 PG Mean Corpuscular Hemoglobin 35.4 % Concent Red Cell Distribution Width 12.7 % Platelet Count 117 TH/MM3 Mean Platelet Volume 9.9 FL Neutrophils (%) (Auto) 71.0 % Lymphocytes (%) (Auto) 16.5 % Monocytes (%) (Auto) 10.1 % Eosinophils (%) (Auto) 1.3 % Basophils (%) (Auto) 1.1 % Neutrophils # (Auto) 6.0 TH/MM3 Lymphocytes # (Auto) 1.4 TH/MM3 Monocytes # (Auto) 0.9 TH/MM3 Eosinophils # (Auto) 0.1 TH/MM3 Basophils # (Auto) 0.1 TH/MM3 CBC Comment DIFF FINAL Differential Comment Phosphorus Level 1.1 MG/DL Test 05/21/16 05/21/16 11:45 17:15 Sodium Level 142 MEQ/L 139 MEQ/L Serum Osmolality 285 MOSM/KG 284 MOSM/KG Magnesium Level 1.8 MG/DL Potassium Level 3.8 MEQ/L Chloride Level 106 MEQ/L Carbon Dioxide Level 28.5 MEQ/L Anion Gap 5 MEQ/L Blood Urea Nitrogen 2 MG/DL Creatinine 0.41 MG/DL Estimat Glomerular Filtration 164 ML/MIN Rate Random Glucose 156 MG/DL Calcium Level 7.4 MG/DL Protein Corrected Calcium 8.5 MG/DL Total Bilirubin 0.2 MG/DL Aspartate Amino Transf 13 U/L (AST/SGOT) Alanine Aminotransferase 18 U/L (ALT/SGPT) Alkaline Phosphatase 42 U/L Total Protein 5.2 GM/DL Albumin 2.2 GM/DL Medical Decision Making Impression and Plan Impression: Stable neurologic exam. Again today seems a little more responsive . 05/20/16 follow-up CT scan satisfactory Plan: Continue ventilatory support Wean sedation as tolerated. Discussed with contents of this today Continue ICP monitoring Seizure prophylaxis DVT prophylaxis-non--chemical Ulcer prophylaxis Monitor sodium and maintained within normal range. No significant edema on recent CT scan and ICP satisfactory Hemodynamically stable Discussed with family in the intensive care today Sav Bhandari MD May 21, 2016 19:36
[2016-05-21] MEDS: PANTOPRAZOLE SODIUM 40 MG VIAL IVP SCH (20:55)
[2016-05-22] VITALS (20 sets, daily range): BP systolic 113–151; BP diastolic 67–86; PULSE 92–121; RESP 14–17; TEMP 97.7–101.4; O2SAT 98–100
[2016-05-22] MEDS: ARTIFICIAL TEARS OPTH SOLN 15 ML BTL EACH EYE SCH ×6 (03:02→22:56)
[2016-05-22] MEDS: MIDAZOLAM HCL 2 MG/2 ML VIAL IV PUSH PRN (04:41)
[2016-05-22] MEDS: SODIUM CHLORIDE 0.9% FLUSH 10 ML FLUSH IV FLUSH PRN ×2 (04:42→08:55)
[2016-05-22] MEDS: ACETAMINOPHEN 325 MG TAB PO PRN ×2 (04:42→17:02)
[2016-05-22 04:52] LABS: AUTOMATED NEUTROPHIL # 7.4 TH/MM3 (1.8-7.7); BASOPHIL % 0.5 % (0.0-2.0); EOSINOPHIL # 0.2 TH/MM3 (0-0.4); EOSINOPHIL % 1.9 % (0.0-4.0); HEMO FLAGS DIFF FINAL; LYMPH % 14.2 % (9.0-44.0); LYMPHOCYTE # 1.5 TH/MM3 (1.0-4.8); MEAN CELL VOLUME 92.3 FL (80.0-100.0); MEAN CORPUSCULAR HEMOGLOBIN 31.7 PG (27.0-34.0); MEAN CORPUSCULAR HGB CONC 34.4 % (32.0-36.0); MONO % 11.5 % (0.0-8.0); NEUT % 71.9 % (16.0-70.0); PLATELET COUNT 114 TH/MM3 (150-450); RED BLOOD COUNT 2.71 MIL/MM3 (4.00-5.30); RED CELL DISTRIBUTION WIDTH 12.3 % (11.6-17.2); WHITE BLOOD COUNT 10.2 TH/MM3 (4.0-11.0)
[2016-05-22 05:08] LABS: SODIUM (NA) 139 MEQ/L (136-145)
[2016-05-22] MEDS: CHLORHEXIDINE GLUCONATE 2 % 1 PACK (2 CLOTHS) TOP SCH (05:09)
[2016-05-22] MEDS: FOSPHENYTOIN SODIUM 100 MG PE/2 ML VIAL IV SCH ×3 (06:16→22:56)
[2016-05-22] MEDS: CHLORHEXIDINE 0.12% (ORAL KIT) 15 ML CUP MT SCH ×2 (08:00→20:00)
[2016-05-22 08:21] LABS: ALT (GPT) 19 U/L (10-53); AST (GOT) 16 U/L (15-37); BICARBONATE 24.7 MEQ/L (21.0-32.0); BLOOD UREA NITROGEN 2 MG/DL (7-18); CHLORIDE 106 MEQ/L (98-107); GLOMERULAR FILTRATION RATE 151 ML/MIN (>89); POTASSIUM 3.7 MEQ/L (3.5-5.1)
[2016-05-22 08:24] LABS: ALKALINE PHOSPHATASE 44 U/L (45-117); TOTAL BILIRUBIN ADULT 0.2 MG/DL (0.2-1.0)
[2016-05-22 08:46] LABS: ANION GAP 8 MEQ/L (5-15)
[2016-05-22] MEDS: LACTULOSE SYRUP 20 GM/30 ML CUP PO SCH (08:55)
[2016-05-22] MEDS: DOCUSATE SODIUM 50 MG/SENNA 8.6 MG TAB PO SCH ×2 (08:55→20:14)
--- NOTE | 2016-05-22 09:44 | HHI.CCPN ---
Subjective Remarks/Hospital Course 50 yo Female who arrived to [facility] as a trauma alert. She was reportedly running across a bridge and fell and hit the right side of her head. She was initially alert and oriented with GCS of 15 upon [facility] arrival and was moving all extremities. After she was taken into the ambulance her GCS was 3 and right pupil was dilated and nonreactive. She was intubated in the ED following etomidate 20 mg IV and succinylcholine 100 mg IV. Trauma workup included CT brain that demonstrated 9.7 x4.2 cm R epidural hematoma with 1.2 cm right to left midline shift and cerebral edema. BP in ED was 108/104 to 160/76 with heart rate 66-92. Sats 98-100%. Neurosurgery was consulted and she was taken emergently to OR for right craniotomy by Dr. Bhandari. Her pupil remained nonreactive postoperatively. The remainder of her trauma workup included: CT C spine - degenerative changes with disc space narrowing C5/6 CT chest/abd/pelvis -negative for acute traumatic injury. 05/19: right pupil now normally responsive. Both 2 mm, reactive. BP control good. Na a little low, will concentrate slowly. ICP 10 but climbing slowly. 05/20: ICP controlled. CT today with minimal residual subdural blood right side. Considerable cortical edema, ventricles patent. 05/21: ICP control. Serum concentration acceptable. Plenty of room to concentrate if swelling worsens. 05/22: Will initiate light diuresis as she is getting diluted. ICP controlled well. Objective Vital Signs Date Time Temp Pulse Resp B/P Pulse Ox O2 Delivery O2 Flow Rate FiO2 05/22/16 08:42 100 35 05/22/16 08:00 112 05/22/16 08:00 98.9 16 05/22/16 04:00 113/67 Intake and Output 05/21/16 05/21/16 05/22/16 08:00 16:00 00:00 Intake Total 1292 ml 1214 ml 1811 ml Output Total 478 ml 955 ml 1200 ml Balance 814 ml 259 ml 611 ml Result Diagram: 05/22/1643105/22/16431 Objective Remarks GENERAL: Well-nourished, well-developed patient who is orotracheally intubated. SKIN: Warm and dry. HEAD:Normocephalic. Fiberoptic ICP monitor on right read 12 mm Hg. EYES: Normal, pupils 2 mm, react. Left scleral edema, benign. ENT: No nasal bleeding or discharge. Mucous membranes pink and moist. NECK: Trachea midline. Orally intubated. CARDIOVASCULAR: Regular rate and rhythm, sinus on monitor. No murmurs rubs or gallops. No JVD. RESPIRATORY: Ventilated. Clear to auscultation. Breath sounds equal bilaterally. GASTROINTESTINAL: Abdomen soft, non-tender, nondistended. OGT in place; TFs. MUSCULOSKELETAL: Extremities without clubbing, cyanosis, or edema. No obvious deformities. Warm, well perfused. NEUROLOGICAL: Pupils 2 mm reactive to 1 mm. Withdraws LUE and LLE. Breathes over vent. A/P Assessment and Plan NEURO: Acute R epidural hematoma 9.7 x4.2 cm with 1.2 cm right to left midline shift and cerebral edema. s/p Right frontotemporoparietal craniotomy evacuation large acute epidural hematoma; Repair of right temporal bone fracture; Repair right parieto- occipital scalp laceration; placement fiberoptic ICP monitor 05/18 (Dr. Bhandari) Laceration of right middle meningeal artery Right parieto-occipital scalp laceration R temporal bone fracture TBI Fall Propofol for sedation Fentanyl for analgosedation Continuous fiberoptic ICP monitoring. Loaded fosphenytoin 1200 mg/PE IV now. Then fosphenytoin 100 mg IV every 8 hours. Follow-up Dilantin and albumin level in a.m. End tidal CO2 monitoring, correlated with ABG overnight, target End tidal 33-38 Monitor sodium, BMP now. Neurocheck q1 hour Dr[address] Bhandari following. Start 3% saline Keep Osmo > 285 RESP: Acute respiratory failure TV 400 R 12 IT 1 PEEP 5 fIO2 50%. Adjust to keep ETCO2 33 - [address] chest 05/18 - bibasilar atelectasis CV: Monitor hemodynamics. Maintain systolic blood pressure less than [address] Bhandari. Labetalol 10 mill grams IV prn Received 1 L NS bolus in ED, received 3600 crystalloid in OR 05/18/16 GI: OGT to LIWS. CT abd/pelvis 05/18 report - heterogenous liver, prominence of pancreatic head FEN/RENAL: Hyponatremia Hypokalemia Monitor electrolytes. Replace electrolytes per ICU replacement protocol. ID: Perioperative cefazolin. Monitor for signs and symptoms of infection. Check UA with reflex culture. HEME: Monitor CBC. Coags in am. ENDO: Acute stress hyperglycemia Monitor bedside glucose every 6 hours and use low-dose insulin sliding scale as indicated. PROPH: SCDs/teds for DVT prophylaxis. No pharmacologic DVT prophylaxis due to intracerebral hemorrhage ACCESS: Right Radial art line placed in OR 05/18/16 #4. R subclavian CVL placed #4 Patient's updated at bedside. Overall impression: Traumatic, right epidural hematoma, s/p decompression with the expected cerebral edema. She remains critically ill and at high risk for continued brain swelling. We will continue to maximize efforts to control edema , PCO2, and CPP. Osmo acceptable as is, but will attempt to remove some free water. Critical Care 38 mins Kenan Bejarano MD May 22, 2016 09:44
[2016-05-22] MEDS ORDERED: FUROSEMIDE 20 MG/2 ML VIAL IV PUSH ONE (09:45)
[2016-05-22] MEDS: NS + KCL 20 MEQ INJ 1,000 ML IV SCH (11:24)
--- NOTE | 2016-05-22 12:19 | HHI.PR ---
Neuropsych Progress Notes/Response to Tx Contents of Sessions: Level of Consciousness Time with Patient: 15 minutes Premorbid psychological status Premorbid Cognitive, Emotional and Behavioral Status: Stable. The patient has an [employer] and a solid work history prior to this injury. The patient has no psychiatric difficulties. Substance abuse history is not significant. She is and has two children. Behavioral Reactions of Patient and Family/Support System: Stable. The patient s family is experiencing ongoing issues of adjustment given the nature of the injury, and this aspect of recovery will require ongoing monitoring. Emotional/Behavioral Status of Patient and Family/Support System: Stable. Pertinent issues, if appropriate to this patients clinical care, are described in detail above. Maximizing acute care outcome It is recommended that the patient be monitored for emergent behavioral impulsivity as the medical condition evolves. This patients neuropathological challenges may limit their rehabilitation potential going forward, and these challenges will require specialized therapeutic skills to maximize outcome. Additionally, the patients family is experiencing ongoing issues of adjustment given the traumatic nature of the injury, and they may benefit from ongoing psychological assistance. Anticipated Problems Ongoing areas of concern will include behavioral impulsivity, lack of insight and judgment, which is expected to improve with time and treatment. Presently , the patient intubated and sedated. Treatment Plan This clinician will continue to follow with you throughout the course of this patients acute care treatment, and I will be available to meet with the patient s family/support system to facilitate their understanding and the ongoing care of their family member. The goals of neuropsychological intervention shall be both educational and supportive to the family/support system as is deemed clinically appropriate. [facility] Level: I:No response-total assistance Impression This patient suffered a significant traumatic brain injury secondary to her fall on 05/18/2016, with large EDH and right to left midline shift. She is expected to have significant neurocognitive impairments from this injury. Diagnosis: (1) Major neurocognitive disorder as late effect of traumatic brain injury without behavioral disturbance Status: Acute Progress Note Narrative Ongoing follow-up of patient. This is day 4 post injury. The patient has been neurobehaviorally stable, sedated with fentanyl and versed for ICP stability. She withdraws to pain x 4. Spoke briefly with patient's parents who requested another copy of the brain injury book, which I am happy to provide. She is a Rancho I at present. I will continue to follow. Gregorio Benítez PhD May 22, 2016 12:19 pm
[2016-05-22] MEDS: LABETALOL HCL 100 MG/20 ML VIAL IV PUSH PRN ×2 (12:45→23:22)
[2016-05-22 13:20] LABS: MAGNESIUM 1.7 MG/DL (1.5-2.5)
[2016-05-22] MEDS: 3% SALINE INJ 500 ML IV SCH (17:02)
[2016-05-22 18:12] LABS: BLOOD GAS BASE EXCESS 2.9 mmol/L (-2-2); BLOOD GAS CARBOXYHEMOGLOBIN 0.8 % (0-4); BLOOD GAS HCO3 27 mmol/L (22-26); BLOOD GAS METHEMOGLOBIN 0.9 % (0-2); BLOOD GAS O2 HGB SATURATION 98 % (90-100); BLOOD GAS OXYGEN CONTENT 16.6 Vol % (12.0-20.0); BLOOD GAS PCO2 39 mmHg (38-42); BLOOD GAS PO2 165 mmHg (61-120); BLOOD GAS TOTAL HGB 11.9 G/DL (12.0-16.0); CRITICAL VALUE NO; TEMP CORR TO 98.6
[2016-05-22 18:13] LABS: DRAW SITE RT RADIAL; FIO2 35 %; NUMBER OF ARTERIAL PUNCTURES 1; OXYGEN DEVICE VENTILATOR; STAT NO; ULNAR PULSE PRESENT; VENT SETTINGS PRVC/AC
[2016-05-22] MEDS: PANTOPRAZOLE SODIUM 40 MG VIAL IVP SCH (20:14)
--- NOTE | 2016-05-22 21:20 | HHI.NSPN ---
History Chief Complaint: intubated and sedated Interval History 50-year-old female underwent emergency craniotomy evacuation of large epidural hematoma on 05/18/[address] scan 05/18/2016 with satisfactory evacuation of hematoma, mostly mild residual edema and midline shift without significant parenchymal hemorrhage and no hydrocephalus Exam Results Vital Signs Date Time Temp Pulse Resp B/P Pulse Ox O2 Delivery O2 Flow Rate FiO2 05/22/16 20:00 100 35 05/22/16 20:00 98.6 100 14 143/86 Intake and Output 05/21/16 05/21/16 05/22/16 08:00 16:00 00:00 Intake Total 1292 ml 1214 ml 1811 ml Output Total 478 ml 955 ml 1200 ml Balance 814 ml 259 ml 611 ml Physical Examination Intubated and sedated Respirations clear Cardiac regular Abdomen soft No extremity edema Pupils are 2-3 mm bilateral Absent oculocephalic responses Mild grimace and response to deep pain Seems to have mild extensor type posturing to stimulation over the chest in both the upper and lower extremities. Mild flexion in the upper extremities to deep pain in the extremity Lab, Micro, Other Results Laboratory Tests Test 05/22/16 05/22/16 05/22/16 05/22/16 04:32 12:25 17:25 17:55 White Blood Count 10.2 TH/MM3 Red Blood Count 2.71 MIL/MM3 Hemoglobin 8.6 GM/DL Hematocrit 25.0 % Mean Corpuscular Volume 92.3 FL Mean Corpuscular Hemoglobin 31.7 PG Mean Corpuscular Hemoglobin 34.4 % Concent Red Cell Distribution Width 12.3 % Platelet Count 114 TH/MM3 Mean Platelet Volume 9.6 FL Neutrophils (%) (Auto) 71.9 % Lymphocytes (%) (Auto) 14.2 % Monocytes (%) (Auto) 11.5 % Eosinophils (%) (Auto) 1.9 % Basophils (%) (Auto) 0.5 % Neutrophils # (Auto) 7.4 TH/MM3 Lymphocytes # (Auto) 1.5 TH/MM3 Monocytes # (Auto) 1.2 TH/MM3 Eosinophils # (Auto) 0.2 TH/MM3 Basophils # (Auto) 0.0 TH/MM3 CBC Comment DIFF FINAL Differential Comment Sodium Level 139 MEQ/L 140 MEQ/L Potassium Level 3.7 MEQ/L Chloride Level 106 MEQ/L Carbon Dioxide Level 24.7 MEQ/L Anion Gap 8 MEQ/L Blood Urea Nitrogen 2 MG/DL Creatinine 0.44 MG/DL Estimat Glomerular Filtration 151 ML/MIN Rate Random Glucose 147 MG/DL Serum Osmolality 285 MOSM/KG 287 MOSM/KG 289 MOSM/KG Calcium Level 7.5 MG/DL Phosphorus Level 1.6 MG/DL Total Bilirubin 0.2 MG/DL Aspartate Amino Transf 16 U/L (AST/SGOT) Alanine Aminotransferase 19 U/L (ALT/SGPT) Alkaline Phosphatase 44 U/L Total Protein 5.1 GM/DL Albumin 2.0 GM/DL Urine Specific [place] 1.005 Magnesium Level 1.7 MG/DL Blood Gas Puncture Site RT RADIAL Blood Gas Patient Temperature 98.6 Blood Gas HCO3 27 mmol/L Blood Gas Base Excess 2.9 mmol/L Blood Gas Oxygen Saturation 98 % Arterial Blood pH 7.45 Arterial Blood Partial 39 mmHg Pressure CO2 Arterial Blood Partial 165 mmHg Pressure O2 Arterial Blood Oxygen Content 16.6 Vol % Arterial Blood 0.8 % Carboxyhemoglobin Arterial Blood Methemoglobin 0.9 % Blood Gas Hemoglobin 11.9 G/DL Oxygen Delivery Device VENTILATOR Blood Gas Ventilator Setting PRVC/AC Blood Gas Inspired Oxygen 35 % Test 05/22/16 19:00 Sodium Level 138 MEQ/L Medical Decision Making Impression and Plan Impression: Stable neurologic exam. Again today seems a little more responsive . 05/20/16 follow-up CT scan satisfactory Plan: Continue ventilatory support Wean sedation as tolerated. Discussed with contents of this today Continue ICP monitoring Seizure prophylaxis DVT prophylaxis-non--chemical Ulcer prophylaxis Monitor sodium and maintained within normal range. No significant edema on recent CT scan and ICP satisfactory Hemodynamically stable Discussed with family in the intensive care today Sav Bhandari MD May 22, 2016 21:20
[2016-05-23] VITALS (20 sets, daily range): BP systolic 121–137; BP diastolic 65–80; PULSE 95–113; RESP 14–18; TEMP 98.4–100.5; O2SAT 42–100
[2016-05-23] MEDS: SODIUM PHOSPHATE INJ 30 MMOL in SODIUM CHLOR 0.9% 250 ML INJ 240 ML IV PRN (00:58)
[2016-05-23] MEDS: fentaNYL DRIP 250 ML IV SCH ×2 (01:23→16:30)
[2016-05-23] MEDS: ARTIFICIAL TEARS OPTH SOLN 15 ML BTL EACH EYE SCH ×6 (03:00→23:00)
[2016-05-23] MEDS: CHLORHEXIDINE GLUCONATE 2 % 1 PACK (2 CLOTHS) TOP SCH (03:08)
[2016-05-23] MEDS: NS + KCL 20 MEQ INJ 1,000 ML IV SCH ×2 (03:08→15:41)
--- NOTE | 2016-05-23 04:49 | RADRPT ---
EXAM DATE/TIME: 05/23/2016 03:38 [place] COMPARISON: CHEST SINGLE AP, May 21, 2016, 5:23. INDICATIONS : Shortness of breath MEDICAL HISTORY : None. SURGICAL HISTORY : None. ENCOUNTER: Subsequent ACUITY: 1 week PAIN SCORE: Non-responsive. LOCATION: Bilateral chest FINDINGS: A single view of the chest demonstrates the lungs to be symmetrically aerated without evidence of mas s, infiltrate or effusion. Endotracheal tube, nasogastric tube and right subclavian central line are stable position. The cardiomediastinal contours are unremarkable. Osseous structures are intact. CONCLUSION: No acute disease. Forrest Ledbetter MD on May 23, 2016 at 4:46 Board Certified Radiologist. This report was verified electronically.
[2016-05-23 05:11] LABS: AUTOMATED NEUTROPHIL # 8.6 TH/MM3 (1.8-7.7); BASOPHIL % 0.3 % (0.0-2.0); EOSINOPHIL # 0.2 TH/MM3 (0-0.4); EOSINOPHIL % 2.1 % (0.0-4.0); HEMATOCRIT 25.1 % (35.0-46.0); HEMO FLAGS DIFF FINAL; LYMPHOCYTE # 1.1 TH/MM3 (1.0-4.8); MEAN CELL VOLUME 92.4 FL (80.0-100.0); MEAN CORPUSCULAR HEMOGLOBIN 31.7 PG (27.0-34.0); MEAN CORPUSCULAR HGB CONC 34.3 % (32.0-36.0); NEUT % 78.6 % (16.0-70.0); PLATELET COUNT 151 TH/MM3 (150-450); RED BLOOD COUNT 2.72 MIL/MM3 (4.00-5.30); RED CELL DISTRIBUTION WIDTH 12.8 % (11.6-17.2)
[2016-05-23 05:14] LABS: BLOOD GAS BASE EXCESS 1.9 mmol/L (-2-2); BLOOD GAS HCO3 25 mmol/L (22-26); BLOOD GAS METHEMOGLOBIN 0.9 % (0-2); BLOOD GAS O2 HGB SATURATION 97 % (90-100); BLOOD GAS OXYGEN CONTENT 13.6 Vol % (12.0-20.0); BLOOD GAS PCO2 36 mmHg (38-42); BLOOD GAS PO2 163 mmHg (61-120); BLOOD GAS TOTAL HGB 9.7 G/DL (12.0-16.0); CRITICAL VALUE NO; OXYGEN DEVICE VENTILATOR; TEMP CORR TO 98.6
[2016-05-23 05:15] LABS: DRAW SITE RT FOOT; FIO2 35 %; NUMBER OF ARTERIAL PUNCTURES 1; STAT NO; VENT SETTINGS PRVC/AC
[2016-05-23 05:33] LABS: ALT (GPT) 17 U/L (10-53); ANION GAP 8 MEQ/L (5-15); AST (GOT) 13 U/L (15-37); BICARBONATE 27.1 MEQ/L (21.0-32.0); BLOOD UREA NITROGEN 4 MG/DL (7-18); CHLORIDE 106 MEQ/L (98-107); GLOMERULAR FILTRATION RATE 179 ML/MIN (>89); MAGNESIUM 1.8 MG/DL (1.5-2.5); POTASSIUM 3.6 MEQ/L (3.5-5.1); SODIUM (NA) 141 MEQ/L (136-145)
[2016-05-23 05:35] LABS: ALKALINE PHOSPHATASE 53 U/L (45-117); TOTAL BILIRUBIN ADULT 0.2 MG/DL (0.2-1.0)
--- NOTE | 2016-05-23 06:32 | HHI.CCPN ---
Subjective Remarks/Hospital Course 50 yo Female who arrived to [facility] [place] a trauma alert. She was reportedly running across a bridge and fell and hit the right side of her head. She was initially alert and oriented with GCS of 15 upon EVAC arrival and was moving all extremities. After she was taken into the ambulance her GCS was 3 and right pupil was dilated and nonreactive. She was intubated in the ED following etomidate 20 mg IV and succinylcholine 100 mg IV. Trauma workup included CT brain that demonstrated 9.7 x4.2 cm R epidural hematoma with 1.2 cm right to left midline shift and cerebral edema. BP in ED was 108/104 to 160/76 with heart rate 66-92. Sats 98-100%. Neurosurgery was consulted and she was taken emergently to OR for right craniotomy by Dr. Bhandari. Her pupil remained nonreactive postoperatively. The remainder of her trauma workup included: CT C spine - degenerative changes with disc space narrowing C5/6 CT chest/abd/pelvis -negative for acute traumatic injury. 05/19: right pupil now normally responsive. Both 2 mm, reactive. BP control good. Na a little low, will concentrate slowly. ICP 10 but climbing slowly. 05/20: ICP controlled. CT today with minimal residual subdural blood right side. Considerable cortical edema, ventricles patent. 05/21: ICP control. Serum concentration acceptable. Plenty of room to concentrate if swelling worsens. 05/22: Will initiate light diuresis as she is getting diluted. ICP controlled well. 05/23: Osmolality good. Fluid balance improved. Will attempt continued sedation weaning. Objective Vital Signs Date Time Temp Pulse Resp B/P Pulse Ox O2 Delivery O2 Flow Rate FiO2 05/23/16 04:22 42 35 05/23/16 04:00 99.8 109 14 123/68 Intake and Output 05/22/16 05/22/16 05/23/16 08:00 16:00 00:00 Intake Total 1438 ml 1317 ml 1209 ml Output Total 1005 ml 3650 ml 535 ml Balance 433 ml -2333 ml 674 ml Result Diagram: 05/23/16 0435 05/23/16 0435 Other Results Laboratory Tests Test 05/22/16 05/23/16 17:55 05:05 Blood Gas Puncture Site RT RADIAL RT FOOT Blood Gas Patient Temperature 98.6 98.6 Blood Gas HCO3 27 mmol/L 25 mmol/L (22-26) (22-26) Blood Gas Base Excess 2.9 mmol/L 1.9 mmol/L (-2-2) (-2-2) Blood Gas Oxygen Saturation 98 % (90-100) 97 % (90-100) Arterial Blood pH 7.45 7.46 (7.380-7.420) (7.380-7.420) Arterial Blood Partial 39 mmHg (38-42) 36 mmHg (38-42) Pressure CO2 Arterial Blood Partial 165 mmHg 163 mmHg Pressure O2 (61-120) (61-120) Arterial Blood Oxygen Content 16.6 Vol % 13.6 Vol % (12.0-20.0) (12.0-20.0) Arterial Blood 0.8 % (0-4) 1.0 % (0-4) Carboxyhemoglobin Arterial Blood Methemoglobin 0.9 % (0-2) 0.9 % (0-2) Blood Gas Hemoglobin 11.9 G/DL 9.7 G/DL (12.0-16.0) (12.0-16.0) Oxygen Delivery Device VENTILATOR VENTILATOR Blood Gas Ventilator Setting PRVC/AC PRVC/AC Blood Gas Inspired Oxygen 35 % 35 % Objective Remarks GENERAL: Well-nourished, well-developed patient who is orotracheally intubated. SKIN: Warm and dry. HEAD:Normocephalic. Fiberoptic ICP monitor on right read 12 mm Hg. EYES: Normal, pupils 2 mm, react. Left scleral edema, benign. ENT: No nasal bleeding or discharge. Mucous membranes pink and moist. NECK: Trachea midline. Orally intubated. CARDIOVASCULAR: Regular rate and rhythm, sinus on monitor. No murmurs rubs or gallops. No JVD. RESPIRATORY: Ventilated. Clear to auscultation. Breath sounds equal bilaterally. GASTROINTESTINAL: Abdomen soft, non-tender, nondistended. OGT in place; TFs. MUSCULOSKELETAL: Extremities without clubbing, cyanosis, or edema. No obvious deformities. Warm, well perfused. NEUROLOGICAL: Pupils 2 mm reactive to 1 mm. Withdraws LUE and LLE. Breathes over vent. A/P Assessment and Plan NEURO: Acute R epidural hematoma 9.7 x4.2 cm with 1.2 cm right to left midline shift and cerebral edema. s/p Right frontotemporoparietal craniotomy evacuation large acute epidural hematoma; Repair of right temporal bone fracture; Repair right parieto- occipital scalp laceration; placement fiberoptic ICP monitor 05/18 (Dr. Bhandari) Laceration of right middle meningeal artery Right parieto-occipital scalp laceration R temporal bone fracture TBI Fall Propofol for sedation Fentanyl for analgosedation Continuous fiberoptic ICP monitoring. Loaded fosphenytoin 1200 mg/PE IV now. Then fosphenytoin 100 mg IV every 8 hours. Follow-up Dilantin and albumin level in a.m. End tidal CO2 monitoring, correlated with ABG overnight, target End tidal 33-38 Monitor sodium, BMP now. Neurocheck q[address] Bhandari following. Start 3% saline Keep Osmo > 285 Lighten sedation, taper off versed. RESP: Acute respiratory failure TV 400 R 12 IT 1 PEEP 5 fIO2 50%. Adjust to keep ETCO2 33 - [address] chest 05/18 - bibasilar atelectasis CXR clear and well expanded 05/23. CV: Monitor hemodynamics. Maintain systolic blood pressure less than [address] Bhandari. Labetalol 10 mill grams IV prn Received 1 L NS bolus in ED, received 3600 crystalloid in OR 05/18/16 GI: OGT to LIWS. CT abd/pelvis 05/18 report - heterogenous liver, prominence of pancreatic head FEN/RENAL: Hyponatremia Hypokalemia Monitor electrolytes. Replace electrolytes per ICU replacement protocol. ID: Perioperative cefazolin. Monitor for signs and symptoms of infection. Check UA with reflex culture. -No signs of infection 05.23 HEME: Monitor CBC. Coags in am. ENDO: Acute stress hyperglycemia Monitor bedside glucose every 6 hours and use low-dose insulin sliding scale as indicated. PROPH: SCDs/teds for DVT prophylaxis. No pharmacologic DVT prophylaxis due to intracerebral hemorrhage ACCESS: Right Radial art line placed in OR 05/18/16 #5. R subclavian CVL placed #5 Patient's updated at bedside. Overall impression: Traumatic, right epidural hematoma, s/p decompression with the expected cerebral edema. She remains critically ill. We will continue to maximize efforts to control edema, PCO2, and CPP. Osmo acceptable as is, but will comtinue to attempt to remove some free water. Critical Care 34 mins Kenan Bejarano MD May 23, 2016 06:32
[2016-05-23] MEDS: CHLORHEXIDINE 0.12% (ORAL KIT) 15 ML CUP MT SCH ×2 (08:00→19:47)
[2016-05-23] MEDS: FOSPHENYTOIN SODIUM 100 MG PE/2 ML VIAL IV SCH ×2 (08:25→15:42)
[2016-05-23] MEDS: LACTULOSE SYRUP 20 GM/30 ML CUP PO SCH (08:25)
[2016-05-23] MEDS: DOCUSATE SODIUM 50 MG/SENNA 8.6 MG TAB PO SCH ×2 (08:25→19:47)
[2016-05-23] MEDS: MIDAZOLAM 100 MG/ML INJ 100 ML IV SCH (08:40)
[2016-05-23] MEDS: POLYETHYLENE GLYCOL 17 GM PKG PO SCH (10:36)
[2016-05-23] MEDS ORDERED: BISACODYL 10 MG SUPP RECTAL ONE (11:00)
--- NOTE | 2016-05-23 11:00 | HHI.PR ---
Neuropsych Progress Notes/Response to Tx Contents of Sessions: Level of Consciousness Time with Patient: 15 minutes Premorbid psychological status Premorbid Cognitive, Emotional and Behavioral Status: Stable. 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 The patient has no psychiatric difficulties. Substance abuse history is not significant. She is and has two children. Behavioral Reactions of Patient and Family/Support System: Stable. The patient s family is experiencing ongoing issues of adjustment given the nature of the injury, and this aspect of recovery will require ongoing monitoring. Emotional/Behavioral Status of Patient and Family/Support System: Stable. Pertinent issues, if appropriate to this patients clinical care, are described in detail above. Maximizing acute care outcome It is recommended that the patient be monitored for emergent behavioral impulsivity as the medical condition evolves. This patients neuropathological challenges may limit their rehabilitation potential going forward, and these challenges will require specialized therapeutic skills to maximize outcome. Additionally, the patients family is experiencing ongoing issues of adjustment given the traumatic nature of the injury, and they may benefit from ongoing psychological assistance. Anticipated Problems Ongoing areas of concern will include behavioral impulsivity, lack of insight and judgment, which is expected to improve with time and treatment. Presently , the patient intubated and sedated. Treatment Plan This clinician will continue to follow with you throughout the course of this patients acute care treatment, and I will be available to meet with the patient s family/support system to facilitate their understanding and the ongoing care of their family member. The goals of neuropsychological intervention shall be both educational and supportive to the family/support system as is deemed clinically appropriate. [place] Level: II:General response-total assist Impression This patient suffered a significant traumatic brain injury secondary to her fall on 05/18/2016, with large EDH and right to left midline shift. She is expected to have significant neurocognitive impairments from this injury. Diagnosis: (1) Major neurocognitive disorder as late effect of traumatic brain injury without behavioral disturbance Status: Acute Progress Note Narrative Ongoing follow-up of patient during discipline-specific trauma rounds. This is day 5 post injury. Her sedation has been weaned as tolerated. Nursing reported that her ICP have remained stable, below 12. Nursing reported that during a sedation lightening, the patient followed a basic command. The patient on lightening would appear to meet criteria for a [place] II level of recovery. I am going to make the room designated as a "MIN/LOW STIM" room which will help maintain a quiet environment, and empower family members activities that they can engage in. I will continue to follow. Gregorio Benítez PhD May 23, 2016 11:00 am
[2016-05-23] MEDS: LABETALOL HCL 100 MG/20 ML VIAL IV PUSH PRN (13:52)
[2016-05-23] MEDS: 3% SALINE INJ 500 ML IV SCH (15:42)
[2016-05-23] MEDS: HYDROmorphone HCL PF 1 MG/ML VIAL IV PRN (16:29)
[2016-05-23] MEDS ORDERED: 3% SALINE INJ 250 ML IV ONE (17:15)
[2016-05-23] MEDS ORDERED: FUROSEMIDE 20 MG/2 ML VIAL IV PUSH ONE (17:15)
[2016-05-23] MEDS: PANTOPRAZOLE SODIUM 40 MG VIAL IVP SCH (19:47)
[2016-05-23] MEDS: MAGNESIUM HYDROXIDE SUSP 30 ML CUP PO SCH (19:47)
[2016-05-23 20:06] LABS: POTASSIUM 3.9 MEQ/L (3.5-5.1)
[2016-05-23 20:23] LABS: CALCIUM-PROTEIN CORRECTED 8.4 MG/DL (8.5-10.1)
[2016-05-23] MEDS: ACETAMINOPHEN 325 MG TAB PO PRN (22:08)
--- NOTE | 2016-05-23 22:30 | HHI.NSPN ---
History Chief Complaint: intubated and sedated Interval History 50-year-old female underwent emergency craniotomy evacuation of large epidural hematoma on 05/18/[address] scan 05/18/2016 with satisfactory evacuation of hematoma, mostly mild residual edema and midline shift without significant parenchymal hemorrhage and no hydrocephalus Exam Results Vital Signs Date Time Temp Pulse Resp B/P Pulse Ox O2 Delivery O2 Flow Rate FiO2 05/23/16 22:00 113 05/23/16 20:40 100 35 05/23/16 20:00 100.5 18 128/72 Intake and Output 05/22/16 05/22/16 05/23/16 08:00 16:00 00:00 Intake Total 1438 ml 1317 ml 1209 ml Output Total 1005 ml 3650 ml 535 ml Balance 433 ml -2333 ml 674 ml Physical Examination Intubated and sedated Respirations clear Cardiac regular Abdomen soft No extremity edema Pupils are 2-3 mm bilateral Absent oculocephalic responses Mild grimace and response to deep pain mild extensor type posturing to stimulation over the chest in both the upper and lower extremities. Mild flexion in the upper extremities to deep pain in the extremity Lab, Micro, Other Results Laboratory Tests Test 05/22/16 05/23/16 05/23/16 05/23/16 23:00 04:35 05:05 19:00 Sodium Level 140 MEQ/L 141 MEQ/L 141 MEQ/L Phosphorus Level 2.4 MG/DL 3.1 MG/DL Serum Osmolality 288 MOSM/KG White Blood Count 11.0 TH/MM3 Red Blood Count 2.72 MIL/MM3 Hemoglobin 8.6 GM/DL Hematocrit 25.1 % Mean Corpuscular Volume 92.4 FL Mean Corpuscular Hemoglobin 31.7 PG Mean Corpuscular Hemoglobin 34.3 % Concent Red Cell Distribution Width 12.8 % Platelet Count 151 TH/MM3 Mean Platelet Volume 9.5 FL Neutrophils (%) (Auto) 78.6 % Lymphocytes (%) (Auto) 10.0 % Monocytes (%) (Auto) 9.0 % Eosinophils (%) (Auto) 2.1 % Basophils (%) (Auto) 0.3 % Neutrophils # (Auto) 8.6 TH/MM3 Lymphocytes # (Auto) 1.1 TH/MM3 Monocytes # (Auto) 1.0 TH/MM3 Eosinophils # (Auto) 0.2 TH/MM3 Basophils # (Auto) 0.0 TH/MM3 CBC Comment DIFF FINAL Differential Comment Potassium Level 3.6 MEQ/L 3.9 MEQ/L Chloride Level 106 MEQ/L 107 MEQ/L Carbon Dioxide Level 27.1 MEQ/L 28.0 MEQ/L Anion Gap 8 MEQ/L 6 MEQ/L Blood Urea Nitrogen 4 MG/DL 5 MG/DL Creatinine 0.38 MG/DL 0.42 MG/DL Estimat Glomerular Filtration 179 ML/MIN 159 ML/MIN Rate Random Glucose 164 MG/DL 146 MG/DL Calcium Level 7.6 MG/DL 7.4 MG/DL Magnesium Level 1.8 MG/DL Total Bilirubin 0.2 MG/DL Aspartate Amino Transf 13 U/L (AST/SGOT) Alanine Aminotransferase 17 U/L (ALT/SGPT) Alkaline Phosphatase 53 U/L Total Protein 5.3 GM/DL 5.3 GM/DL Albumin 2.0 GM/DL Blood Gas Puncture Site RT FOOT Blood Gas Patient Temperature 98.6 Blood Gas HCO3 25 mmol/L Blood Gas Base Excess 1.9 mmol/L Blood Gas Oxygen Saturation 97 % Arterial Blood pH 7.46 Arterial Blood Partial 36 mmHg Pressure CO2 Arterial Blood Partial 163 mmHg Pressure O2 Arterial Blood Oxygen Content 13.6 Vol % Arterial Blood 1.0 % Carboxyhemoglobin Arterial Blood Methemoglobin 0.9 % Blood Gas Hemoglobin 9.7 G/DL Oxygen Delivery Device VENTILATOR Blood Gas Ventilator Setting PRVC/AC Blood Gas Inspired Oxygen 35 % Protein Corrected Calcium 8.4 MG/DL Medical Decision Making Impression and Plan Impression: Stable neurologic exam. 05/20/16 follow-up CT scan satisfactory Plan: Scalp drain removed Discussed with family today Wean the ventilator as tolerated, per intensivists Wean sedation as tolerated. Continue ICP monitoring Seizure prophylaxis DVT prophylaxis-non--chemical Ulcer prophylaxis Monitor sodium and maintained within normal range. No significant edema on recent CT scan and ICP satisfactory Hemodynamically stable Sav Bhandari MD May 23, 2016 22:30
[2016-05-24] VITALS (18 sets, daily range): BP systolic 125–151; BP diastolic 68–98; PULSE 100–119; RESP 16–23; TEMP 98.5–101; O2SAT 9–100
[2016-05-24] MEDS: PROPOFOL 1000 MG/100 ML INJ 100 ML IV SCH ×2 (00:22→08:39)
[2016-05-24] MEDS: FOSPHENYTOIN SODIUM 100 MG PE/2 ML VIAL IV SCH ×4 (00:22→23:38)
[2016-05-24] MEDS: NOREPINEPHRINE INJ 4 MG in SODIUM CHLOR 0.9% 250 ML INJ 246 ML IV SCH (00:24)
[2016-05-24] MEDS: LABETALOL HCL 100 MG/20 ML VIAL IV PUSH PRN ×2 (01:33→09:39)
[2016-05-24] MEDS: ARTIFICIAL TEARS OPTH SOLN 15 ML BTL EACH EYE SCH ×6 (03:00→23:00)
[2016-05-24] MEDS: CHLORHEXIDINE GLUCONATE 2 % 1 PACK (2 CLOTHS) TOP SCH (03:22)
[2016-05-24 04:25] LABS: AUTOMATED NEUTROPHIL # 9.5 TH/MM3 (1.8-7.7); BASOPHIL # 0.1 TH/MM3 (0-0.2); BASOPHIL % 0.6 % (0.0-2.0); EOSINOPHIL # 0.3 TH/MM3 (0-0.4); EOSINOPHIL % 2.6 % (0.0-4.0); HEMATOCRIT 24.3 % (35.0-46.0); HEMO FLAGS DIFF FINAL; LYMPH % 7.8 % (9.0-44.0); LYMPHOCYTE # 0.9 TH/MM3 (1.0-4.8); MEAN CELL VOLUME 92.2 FL (80.0-100.0); MEAN CORPUSCULAR HEMOGLOBIN 31.7 PG (27.0-34.0); MEAN CORPUSCULAR HGB CONC 34.4 % (32.0-36.0); MONO % 8.3 % (0.0-8.0); NEUT % 80.7 % (16.0-70.0); PLATELET COUNT 198 TH/MM3 (150-450); RED BLOOD COUNT 2.64 MIL/MM3 (4.00-5.30); RED CELL DISTRIBUTION WIDTH 12.4 % (11.6-17.2); WHITE BLOOD COUNT 11.8 TH/MM3 (4.0-11.0)
[2016-05-24 04:37] LABS: ALT (GPT) 18 U/L (10-53); ANION GAP 6 MEQ/L (5-15); AST (GOT) 13 U/L (15-37); BICARBONATE 26.9 MEQ/L (21.0-32.0); BLOOD UREA NITROGEN 6 MG/DL (7-18); CHLORIDE 107 MEQ/L (98-107); GLOMERULAR FILTRATION RATE 218 ML/MIN (>89); MAGNESIUM 1.9 MG/DL (1.5-2.5); POTASSIUM 3.9 MEQ/L (3.5-5.1); SODIUM (NA) 140 MEQ/L (136-145)
[2016-05-24 04:39] LABS: ALKALINE PHOSPHATASE 64 U/L (45-117); TOTAL BILIRUBIN ADULT 0.2 MG/DL (0.2-1.0)
[2016-05-24] MEDS: NS + KCL 20 MEQ INJ 1,000 ML IV SCH ×2 (05:59→16:55)
[2016-05-24] MEDS: fentaNYL DRIP 250 ML IV SCH (05:59)
--- NOTE | 2016-05-24 06:56 | RADRPT ---
EXAM DATE/TIME: 05/24/2016 05:18 [place] COMPARISON: CHEST SINGLE AP, May 23, 2016, 3:38. INDICATIONS : Shortness of breath. MEDICAL HISTORY : None. SURGICAL HISTORY : None. ENCOUNTER: Subsequent ACUITY: 2 weeks PAIN SCORE: Non-responsive. LOCATION: chest FINDINGS: The support devices are in place. The lung ramos remain grossly clear. No new infiltrates are seen. The heart size is stable. The bony structures are stable. CONCLUSION: No significant interval change. Larry Maher MD on May 24, 2016 at 6:55 Board Certified Radiologist. This report was verified electronically.
[2016-05-24] MEDS: SODIUM CHLORIDE 0.9% FLUSH 10 ML FLUSH IV FLUSH PRN (08:39)
[2016-05-24] MEDS: DOCUSATE SODIUM 50 MG/SENNA 8.6 MG TAB PO SCH ×2 (08:39→21:06)
[2016-05-24] MEDS: LACTULOSE SYRUP 20 GM/30 ML CUP PO SCH (08:39)
[2016-05-24] MEDS: POLYETHYLENE GLYCOL 17 GM PKG PO SCH (08:39)
[2016-05-24] MEDS: CHLORHEXIDINE 0.12% (ORAL KIT) 15 ML CUP MT SCH ×2 (08:40→20:00)
--- NOTE | 2016-05-24 09:27 | HHI.CCPN ---
Subjective Remarks/Hospital Course 50 yo Female who arrived to [facility] [place] as a trauma alert. She was reportedly running across a bridge and fell and hit the right side of her head. She was initially alert and oriented with GCS of 15 upon EVAC arrival and was moving all extremities. After she was taken into the ambulance her GCS was 3 and right pupil was dilated and nonreactive. She was intubated in the ED following etomidate 20 mg IV and succinylcholine 100 mg IV. Trauma workup included CT brain that demonstrated 9.7 x4.2 cm R epidural hematoma with 1.2 cm right to left midline shift and cerebral edema. BP in ED was 108/104 to 160/76 with heart rate 66-92. Sats 98-100%. Neurosurgery was consulted and she was taken emergently to OR for right craniotomy by Dr. Bhandari. Her pupil remained nonreactive postoperatively. The remainder of her trauma workup included: CT C spine - degenerative changes with disc space narrowing C5/6 CT chest/abd/pelvis -negative for acute traumatic injury. 05/19: right pupil now normally responsive. Both 2 mm, reactive. BP control good. Na a little low, will concentrate slowly. ICP 10 but climbing slowly. 05/20: ICP controlled. CT today with minimal residual subdural blood right side. Considerable cortical edema, ventricles patent. 05/21: ICP control. Serum concentration acceptable. Plenty of room to concentrate if swelling worsens. 05/22: Will initiate light diuresis as she is getting diluted. ICP controlled well. 05/23: Osmolality good. Fluid balance improved. Will attempt continued sedation weaning. 05/24: CXR clear. Stopping versed, use short acting propofol if necessary. Add norvasc and lisinopril for HTN. Objective Vital Signs Date Time Temp Pulse Resp B/P Pulse Ox O2 Delivery O2 Flow Rate FiO2 05/24/16 07:56 100 35 05/24/16 06:00 108 05/24/16 04:00 98.5 18 128/75 Intake and Output 05/23/16 05/23/16 05/24/16 08:00 16:00 00:00 Intake Total 1612 ml 2078 ml 1042 ml Output Total 755 ml 1155 ml 1605 ml Balance 857 ml 923 ml -563 ml Result Diagram: 05/24/16 0400 05/24/16 0400 Objective Remarks GENERAL: Well-nourished, well-developed patient who is orotracheally intubated. SKIN: Warm and dry. HEAD:Normocephalic. Fiberoptic ICP monitor on right read 12 mm Hg. EYES: Normal, pupils 2 mm, react. Left scleral edema, benign. ENT: No nasal bleeding or discharge. Mucous membranes pink and moist. NECK: Trachea midline. Orally intubated. CARDIOVASCULAR: Regular rate and rhythm, sinus on monitor. No murmurs rubs or gallops. No JVD. RESPIRATORY: Ventilated. Clear to auscultation. Breath sounds equal bilaterally. GASTROINTESTINAL: Abdomen soft, non-tender, nondistended. OGT in place; TFs. MUSCULOSKELETAL: Extremities without clubbing, cyanosis, or edema. No obvious deformities. Warm, well perfused. NEUROLOGICAL: Pupils 2 mm reactive to 1 mm. Withdraws LUE and LLE. Breathes over vent. A/P Assessment and Plan NEURO: Acute R epidural hematoma 9.7 x4.2 cm with 1.2 cm right to left midline shift and cerebral edema. s/p Right frontotemporoparietal craniotomy evacuation large acute epidural hematoma; Repair of right temporal bone fracture; Repair right parieto- occipital scalp laceration; placement fiberoptic ICP monitor 05/18 (Dr. Bhandari) Laceration of right middle meningeal artery Right parieto-occipital scalp laceration R temporal bone fracture TBI Fall Propofol for sedation Fentanyl for analgosedation Continuous fiberoptic ICP monitoring. Loaded fosphenytoin 1200 mg/PE IV now. Then fosphenytoin 100 mg IV every 8 hours. Follow-up Dilantin and albumin level in a.m. End tidal CO2 monitoring, correlated with ABG overnight, target End tidal 33-38 Monitor sodium, BMP now. Neurocheck q[address] Bhandari following. Start 3% saline Keep Osmo > 285 Lighten sedation, taper off versed. RESP: Acute respiratory failure TV 400 R 12 IT 1 PEEP 5 fIO2 50%. Adjust to keep ETCO2 33 - [address] chest 05/18 - bibasilar atelectasis CXR clear and well expanded 05/23. CV: Monitor hemodynamics. Maintain systolic blood pressure less than [address] Bhandari. Labetalol 10 mill grams IV prn Received 1 L NS bolus in ED, received 3600 crystalloid in OR 05/18/16 GI: OGT to LIWS. CT abd/pelvis 05/18 report - heterogenous liver, prominence of pancreatic head FEN/RENAL: Hyponatremia Hypokalemia Monitor electrolytes. Replace electrolytes per ICU replacement protocol. ID: Perioperative cefazolin. Monitor for signs and symptoms of infection. Check UA with reflex culture. -No signs of infection 04.13 HEME: Monitor CBC. Coags in am. ENDO: Acute stress hyperglycemia Monitor bedside glucose every 6 hours and use low-dose insulin sliding scale as indicated. PROPH: SCDs/teds for DVT prophylaxis. No pharmacologic DVT prophylaxis due to intracerebral hemorrhage ACCESS: Right Radial art line placed in OR 05/18/16 #5. R subclavian CVL placed #5 Patient's updated at bedside. Overall impression: Traumatic, right epidural hematoma, s/p decompression with the expected cerebral edema. She remains critically ill. Swelling well controlled. Osmo acceptable as is, but will continue to attempt to remove some free water. Wean vent aggressively now. Kenan Bejarano MD May 24, 2016 09:27
[2016-05-24] MEDS: PROPRANOLOL HCL 10 MG TAB PO SCH ×2 (10:50→21:07)
--- NOTE | 2016-05-24 11:09 | HHI.PR ---
Neuropsych Emotional Emotional: UnabletoAssess: Emotional, Anxious/Fearful, Depressed/Sad, Hostile/ Resentful, Irritable/Angry/Frustrate, Labile, Constricted/Blunted Behavior Behavior: Unable to Asses: Behavior, Coping/Acceptance, Cooperative w/ Treatment, Motivation, Frustration Tolerance/[place], Impulsive/Agitated, Suicidal/ Homicidal Risk Cognitive Cognitive: Unable to Asses: Cognitive, Attention/Concentration, Confused/ Orientation, Insight/Awareness, Judgement/Problem-Solving, Memory Progress Notes/Response to Tx Contents of Sessions: Level of Consciousness Time with Patient: 15 minutes Premorbid psychological status Premorbid Cognitive, Emotional and Behavioral Status: Stable. 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 The patient has no psychiatric difficulties. Substance abuse history is not significant. She is and has two children. Behavioral Reactions of Patient and Family/Support System: Stable. The patient s family is experiencing ongoing issues of adjustment given the nature of the injury, and this aspect of recovery will require ongoing monitoring. Emotional/Behavioral Status of Patient and Family/Support System: Stable. Pertinent issues, if appropriate to this patients clinical care, are described in detail above. Maximizing acute care outcome It is recommended that the patient be monitored for emergent behavioral impulsivity as the medical condition evolves. This patients neuropathological challenges may limit their rehabilitation potential going forward, and these challenges will require specialized therapeutic skills to maximize outcome. Additionally, the patients family is experiencing ongoing issues of adjustment given the traumatic nature of the injury, and they may benefit from ongoing psychological assistance. Anticipated Problems Ongoing areas of concern will include behavioral impulsivity, lack of insight and judgment, which is expected to improve with time and treatment. Presently , the patient intubated and sedated. Treatment Plan This clinician will continue to follow with you throughout the course of this patients acute care treatment, and I will be available to meet with the patient s family/support system to facilitate their understanding and the ongoing care of their family member. The goals of neuropsychological intervention shall be both educational and supportive to the family/support system as is deemed clinically appropriate. [facility] Level: II:General response-total assist Impression This patient suffered a significant traumatic brain injury secondary to her fall on 05/18/2016, with large EDH and right to left midline shift. She is expected to have significant neurocognitive impairments from this injury. Diagnosis: (1) Major neurocognitive disorder as late effect of traumatic brain injury without behavioral disturbance Status: Acute Progress Note Narrative Ongoing follow-up of patient seen during daily trauma rounding. This is day 6 post injury. The patient has her ICP bolt removed, sedation is being lowered, and unfortunately she is experiencing tongue edema. CO2 monitor was discontinued and she is on CPAP trials. FIO2 = 40. With sedation weaned, she is observed to follow basic one-step commands on the left, not so much on the right. Agitation has become more of an issue, and the trauma team consensus is Propranolol 20 mg q8H, with instruction for to start Valproic Acid 250 mg BID if agitation becomes an issue over the weekend. She is presently a [place] II. I will continue to follow. Gregorio Benítez PhD May 24, 2016 11:09 am
[2016-05-24] MEDS ORDERED: POTASSIUM CHLOR 40 MEQ PREMIX 100 ML IV PRN ×2 (12:00)
[2016-05-24] MEDS ORDERED: SODIUM PHOSPHATE INJ 30 MMOL in SODIUM CHLOR 0.9% 250 ML INJ 240 ML IV PRN (12:00)
[2016-05-24] MEDS ORDERED: MAGNESIUM OXIDE 400 MG TAB PO PRN (12:00)
[2016-05-24] MEDS ORDERED: POTASSIUM PHOSPHATE MONOBASIC 500 MG TAB PO/TUBE PRN (12:00)
[2016-05-24] MEDS ORDERED: POTASSIUM CHLORIDE 25 MEQ EFFERVESCENT TAB PO PRN (12:00)
[2016-05-24] MEDS ORDERED: MAGNESIUM SULFATE INJ 2 GM in SODIUM CHLORIDE 0.9% INJ 96 ML IV PRN (12:00)
[2016-05-24] MEDS ORDERED: POTASSIUM PHOSPHATE INJ 30 MMOL in SODIUM CHLOR 0.9% 250 ML INJ 250 ML IV PRN (12:00)
[2016-05-24] MEDS ORDERED: POTASSIUM CHLOR 20 MEQ PREMIX 100 ML IV PRN ×2 (12:00)
[2016-05-24] MEDS ORDERED: MAGNESIUM SULFATE INJ 4 GM in SODIUM CHLORIDE 0.9% INJ 92 ML IV PRN (12:00)
[2016-05-24] MEDS ORDERED: POTASSIUM PHOSPHATE MONOBASIC 500 MG TAB PO PRN (12:00)
[2016-05-24] MEDS: LISINOPRIL 5 MG TAB PO SCH (13:01)
[2016-05-24] MEDS: amLODIPine BESYLATE 5 MG TAB PO SCH (13:01)
[2016-05-24] MEDS ORDERED: DEXAMETHASONE SOD PHOS 4 MG/ML VIAL IV PUSH ONE (13:15)
[2016-05-24] MEDS: ACETAMINOPHEN 325 MG TAB PO PRN (16:54)
[2016-05-24] MEDS: MAGNESIUM HYDROXIDE SUSP 30 ML CUP PO SCH (21:06)
[2016-05-24] MEDS: PANTOPRAZOLE SODIUM 40 MG VIAL IVP SCH (21:07)
[2016-05-24 23:24] LABS: BICARBONATE 28.3 MEQ/L (21.0-32.0); POTASSIUM 3.8 MEQ/L (3.5-5.1)
--- NOTE | 2016-05-24 23:59 | HHI.NSPN ---
History Chief Complaint: intubated and sedated Interval History 50-year-old female underwent emergency craniotomy evacuation of large epidural hematoma on 05/18/[address] scan 05/18/2016 with satisfactory evacuation of hematoma, mostly mild residual edema and midline shift without significant parenchymal hemorrhage and no hydrocephalus Exam Results Vital Signs Date Time Temp Pulse Resp B/P Pulse Ox O2 Delivery O2 Flow Rate FiO2 05/24/16 22:32 100 35 05/24/16 22:00 100 05/24/16 20:00 98.9 23 148/98 Intake and Output 05/23/16 05/23/16 05/24/16 08:00 16:00 00:00 Intake Total 1612 ml 2078 ml 1042 ml Output Total 755 ml 1155 ml 1605 ml Balance 857 ml 923 ml -563 ml Physical Examination Intubated and sedated Respirations clear Cardiac regular Abdomen soft No extremity edema Pupils are 2-3 mm bilateral Absent oculocephalic responses More alert today. Moderate left greater than right eye opening. She does not track with her eyes. Mildly disconjugate oculocephalics and spontaneous extraocular movements. Mild facial grimacing deep pain Mild grasp left upper extremity and moves left toes to command. No significant movement right upper or lower extremity to command Lab, Micro, Other Results Laboratory Tests Test 05/24/16 05/24/16 04:00 22:35 White Blood Count 11.8 TH/MM3 Red Blood Count 2.64 MIL/MM3 Hemoglobin 8.4 GM/DL Hematocrit 24.3 % Mean Corpuscular Volume 92.2 FL Mean Corpuscular Hemoglobin 31.7 PG Mean Corpuscular Hemoglobin 34.4 % Concent Red Cell Distribution Width 12.4 % Platelet Count 198 TH/MM3 Mean Platelet Volume 9.1 FL Neutrophils (%) (Auto) 80.7 % Lymphocytes (%) (Auto) 7.8 % Monocytes (%) (Auto) 8.3 % Eosinophils (%) (Auto) 2.6 % Basophils (%) (Auto) 0.6 % Neutrophils # (Auto) 9.5 TH/MM3 Lymphocytes # (Auto) 0.9 TH/MM3 Monocytes # (Auto) 1.0 TH/MM3 Eosinophils # (Auto) 0.3 TH/MM3 Basophils # (Auto) 0.1 TH/MM3 CBC Comment DIFF FINAL Differential Comment Sodium Level 140 MEQ/L 138 MEQ/L Potassium Level 3.9 MEQ/L 3.8 MEQ/L Chloride Level 107 MEQ/L 103 MEQ/L Carbon Dioxide Level 26.9 MEQ/L 28.3 MEQ/L Anion Gap 6 MEQ/L 7 MEQ/L Blood Urea Nitrogen 6 MG/DL 8 MG/DL Creatinine 0.32 MG/DL 0.41 MG/DL Estimat Glomerular Filtration 218 ML/MIN 164 ML/MIN Rate Random Glucose 142 MG/DL 136 MG/DL Calcium Level 7.8 MG/DL 8.2 MG/DL Magnesium Level 1.9 MG/DL Total Bilirubin 0.2 MG/DL Aspartate Amino Transf 13 U/L (AST/SGOT) Alanine Aminotransferase 18 U/L (ALT/SGPT) Alkaline Phosphatase 64 U/L Total Protein 5.5 GM/DL Albumin 1.9 GM/DL Medical Decision Making Impression and Plan Impression: Neurologic exam improving on 05/24/16. Now with spontaneous eye opening and following commands left side.. 05/20/16 follow-up CT scan satisfactory Plan: Discussed with family today Discussed with nursing staff Wean the ventilator as tolerated, per intensivists Wean sedation as tolerated. ICP monitor discontinued 05/24/16 Seizure prophylaxis DVT prophylaxis-non--chemical Ulcer prophylaxis Monitor sodium and maintained within normal range. No significant edema on recent CT scan and ICP satisfactory Hemodynamically stable Plan recheck CT scan had early next week Sav Bhandari MD May 24, 2016 23:59
[2016-05-25] VITALS (19 sets, daily range): BP systolic 131–150; BP diastolic 73–93; PULSE 96–127; RESP 16–24; TEMP 99.8–101.2; O2SAT 98–100
[2016-05-25] MEDS: ARTIFICIAL TEARS OPTH SOLN 15 ML BTL EACH EYE SCH ×6 (03:00→22:14)
[2016-05-25] MEDS ORDERED: ATROPINE SULFATE 1 MG/10 ML SYRINGE ONE (03:55)
[2016-05-25] MEDS ORDERED: LIDOCAINE HCL 2% 100 MG/5 ML SYRINGE ONE (03:55)
[2016-05-25] MEDS ORDERED: EPINEPHrine HCL (1:10,000) 1 MG/10 ML SYRINGE ONE (03:55)
[2016-05-25] MEDS: CHLORHEXIDINE GLUCONATE 2 % 1 PACK (2 CLOTHS) TOP SCH (04:00)
--- NOTE | 2016-05-25 05:24 | RADRPT ---
EXAM DATE/TIME: 05/25/2016 04:08 [facility] COMPARISON: CT BRAIN W/O CONTRAST, May 20, 2016, 4:13. INDICATIONS : Follow up trauma. RADIATION DOSE: 56.35 CTDIvol (mGy) MEDICAL HISTORY : Non-responsive. SURGICAL HISTORY : Non-responsive. ENCOUNTER: Subsequent ACUITY: 1 week PAIN SCALE: Non-responsive LOCATION: cranial TECHNIQUE: Multiple contiguous axial images were obtained of the head. Using automated exposure control and adj ustment of the mA and/or kV according to patient size, radiation dose was kept as low as reasonably a chievable to obtain optimal diagnostic quality images. FINDINGS: There is resolving pneumocephalus. No acute hemorrhage is identified. There is a trace extra-axial fl uid collection beneath the craniotomy flap in the right frontoparietal region. Posterior fossa struct ures are unremarkable. CONCLUSION: 1. Resolving pneumocephalus and right subdural hematoma. 2. No acute hemorrhage is identified Ronald Welch MD on May 25, 2016 at 5:21 Board Certified Radiologist. This report was verified electronically.
[2016-05-25 05:56] LABS: AUTOMATED NEUTROPHIL # 11.8 TH/MM3 (1.8-7.7); BASOPHIL # 0.1 TH/MM3 (0-0.2); BASOPHIL % 0.5 % (0.0-2.0); EOSINOPHIL # 0.5 TH/MM3 (0-0.4); EOSINOPHIL % 3.1 % (0.0-4.0); HEMATOCRIT 28.8 % (35.0-46.0); HEMO FLAGS DIFF FINAL; LYMPH % 7.2 % (9.0-44.0); MEAN CORPUSCULAR HEMOGLOBIN 30.2 PG (27.0-34.0); MEAN CORPUSCULAR HGB CONC 33.1 % (32.0-36.0); MONO % 7.6 % (0.0-8.0); NEUT % 81.6 % (16.0-70.0); PLATELET COUNT 281 TH/MM3 (150-450); RED BLOOD COUNT 3.16 MIL/MM3 (4.00-5.30); RED CELL DISTRIBUTION WIDTH 12.7 % (11.6-17.2); WHITE BLOOD COUNT 14.5 TH/MM3 (4.0-11.0)
[2016-05-25 06:21] LABS: ALKALINE PHOSPHATASE 84 U/L (45-117); ALT (GPT) 30 U/L (10-53); ANION GAP 9 MEQ/L (5-15); AST (GOT) 24 U/L (15-37); BICARBONATE 27.3 MEQ/L (21.0-32.0); BLOOD UREA NITROGEN 9 MG/DL (7-18); CHLORIDE 102 MEQ/L (98-107); GLOMERULAR FILTRATION RATE 164 ML/MIN (>89); MAGNESIUM 2.1 MG/DL (1.5-2.5); POTASSIUM 3.8 MEQ/L (3.5-5.1); SODIUM (NA) 138 MEQ/L (136-145); TOTAL BILIRUBIN ADULT 0.2 MG/DL (0.2-1.0)
--- NOTE | 2016-05-25 06:26 | RADRPT ---
EXAM DATE/TIME: 05/25/2016 04:28 [facility] COMPARISON: CHEST SINGLE AP, May 24, 2016, 5:18. INDICATIONS : Shortness of breath, possible pulmonary disease. MEDICAL HISTORY : None. SURGICAL HISTORY : None. ENCOUNTER: Subsequent ACUITY: 2 weeks PAIN SCORE: Non-responsive. LOCATION: Bilateral chest FINDINGS: The cardiac silhouette is normal in transverse diameter. There is subsegmental atelectasis in the lef t base. Support lines and tubes are in satisfactory position. CONCLUSION: 1. Subsegmental atelectasis left base. There has been no significant change when compared to the prio r exam. 2. Endotracheal tube is directly at the royer. Ronald Welch MD on May 25, 2016 at 6:23 Board Certified Radiologist. This report was verified electronically.
[2016-05-25] MEDS: amLODIPine BESYLATE 5 MG TAB PO SCH (08:13)
[2016-05-25] MEDS: SODIUM CHLORIDE 0.9% FLUSH 10 ML FLUSH IV FLUSH PRN (08:13)
[2016-05-25] MEDS: POLYETHYLENE GLYCOL 17 GM PKG PO SCH (08:13)
[2016-05-25] MEDS: FOSPHENYTOIN SODIUM 100 MG PE/2 ML VIAL IV SCH ×3 (08:13→22:14)
[2016-05-25] MEDS: DOCUSATE SODIUM 50 MG/SENNA 8.6 MG TAB PO SCH ×2 (08:13→21:21)
[2016-05-25] MEDS: NS + KCL 20 MEQ INJ 1,000 ML IV SCH (08:13)
[2016-05-25] MEDS: PROPRANOLOL HCL 10 MG TAB PO SCH (08:13)
[2016-05-25] MEDS: LACTULOSE SYRUP 20 GM/30 ML CUP PO SCH (08:13)
[2016-05-25] MEDS: LISINOPRIL 5 MG TAB PO SCH (08:13)
[2016-05-25] MEDS: CHLORHEXIDINE 0.12% (ORAL KIT) 15 ML CUP MT SCH ×2 (08:14→20:00)
[2016-05-25] MEDS ORDERED: MAGNESIUM CITRATE SOLN 300 ML BTL PO ONE (08:15)
[2016-05-25] MEDS ORDERED: methylPREDNISolone SOD SUCC 40 MG/1 ML VIAL IV PUSH SCH (09:45)
[2016-05-25] MEDS ORDERED: methylPREDNISolone SOD SUCC 40 MG/1 ML VIAL IV SCH (10:00)
--- NOTE | 2016-05-25 10:15 | HHI.CCPN ---
Subjective Remarks/Hospital Course 50 yo [place] [facility] [place]. She was reportedly running across a bridge and fell and hit the right side of her head. She was initially alert and oriented with GCS of 15 upon [facility] arrival and was moving all extremities. After she was taken into the ambulance her GCS was 3 and right pupil was dilated and nonreactive. She was intubated in the ED following etomidate 20 mg IV and succinylcholine 100 mg IV. Trauma workup included CT brain that demonstrated 9.7 x4.2 cm R epidural hematoma with 1.2 cm right to left midline shift and cerebral edema. BP in ED was 108/104 to 160/76 with heart rate 66-92. Sats 98-100%. Neurosurgery was consulted and she was taken emergently to OR for right craniotomy by Dr. Bhandari. Her pupil remained nonreactive postoperatively. The remainder of her trauma workup included: CT C spine - degenerative changes with disc space narrowing C5/6 CT chest/abd/pelvis -negative for acute traumatic injury. 05/19: right pupil now normally responsive. Both 2 mm, reactive. BP control good. Na a little low, will concentrate slowly. ICP 10 but climbing slowly. 05/20: ICP controlled. CT today with minimal residual subdural blood right side. Considerable cortical edema, ventricles patent. 05/21: ICP control. Serum concentration acceptable. Plenty of room to concentrate if swelling worsens. 05/22: Will initiate light diuresis as she is getting diluted. ICP controlled well. 05/23: Osmolality good. Fluid balance improved. Will attempt continued sedation weaning. 05/24: CXR clear. Stopping versed, use short acting propofol if necessary. Add norvasc and lisinopril for HTN. 05/25: CT head improving, less edema. BP control improved on new medications. Objective Vital Signs Date Time Temp Pulse Resp B/P Pulse Ox O2 Delivery O2 Flow Rate FiO2 05/25/16 08:29 35 05/25/16 08:29 100 05/25/16 06:00 120 05/25/16 04:00 100.5 20 135/88 Intake and Output 05/24/16 05/24/16 05/25/16 08:00 16:00 00:00 Intake Total 1474 ml 1181 ml 1229 ml Output Total 1375 ml 1675 ml 1975 ml Balance 99 ml -494 ml -746 ml Result Diagram: 05/25/1652905/25/16529 Objective Remarks GENERAL: Well-nourished, well-developed patient who is orotracheally intubated. SKIN: Warm and dry. HEAD: Dressing clean. EYES: Normal, pupils 2 mm, react. Left scleral edema, benign. ENT: No nasal bleeding or discharge. Mucous membranes pink and moist. NECK: Trachea midline. Orally intubated. CARDIOVASCULAR: Regular rate and rhythm. No murmurs rubs or gallops. No JVD. RESPIRATORY: Ventilated. Clear to auscultation. Breath sounds equal bilaterally. No wheezes or crackles. GASTROINTESTINAL: Abdomen soft, non-tender, nondistended. OGT in place; TFs. MUSCULOSKELETAL: Extremities without clubbing, cyanosis, or edema. No obvious deformities. Warm, well perfused. NEUROLOGICAL: Pupils 2 mm reactive to 1 mm. Withdraws LUE and LLE. Breathes over vent. No spontaneous movement right side. A/P Assessment and Plan NEURO: Acute R epidural hematoma 9.7 x4.2 cm with 1.2 cm right to left midline shift and cerebral edema. s/p Right frontotemporoparietal craniotomy evacuation large acute epidural hematoma; Repair of right temporal bone fracture; Repair right parieto- occipital scalp laceration; placement fiberoptic ICP monitor 05/18 (Dr. Bhandari) Laceration of right middle meningeal artery Right parieto-occipital scalp laceration R temporal bone fracture TBI Fall Propofol for sedation Fentanyl for analgosedation Continuous fiberoptic ICP monitoring. Loaded fosphenytoin 1200 mg/PE IV now. Then fosphenytoin 100 mg IV every 8 hours. Follow-up Dilantin and albumin level in a.m. End tidal CO2 monitoring, correlated with ABG overnight, target End tidal 33-38 Monitor sodium, BMP now. Neurocheck q[address] Bhandari following. Start 3% saline Keep Osmo > 285 Lighten sedation, taper off versed. RESP: Acute respiratory failure TV 400 R 12 IT 1 PEEP 5 fIO2 50%. Ventilator Bundle CT chest 05/18 - bibasilar atelectasis CXR clear and well expanded 05/23. CV: Monitor hemodynamics. Maintain systolic blood pressure less than [address] Bhandari. Labetalol 10 mill grams IV prn Received 1 L NS bolus in ED, received 3600 crystalloid in OR 05/18/16 GI: OGT to LIWS. CT abd/pelvis 05/18 report - heterogenous liver, prominence of pancreatic head FEN/RENAL: Hyponatremia Hypokalemia Monitor electrolytes. Replace electrolytes per ICU replacement protocol. ID: Perioperative cefazolin. Monitor for signs and symptoms of infection. Check UA with reflex culture. -No signs of infection 04.13 HEME: Monitor CBC. Coags in am. ENDO: Acute stress hyperglycemia Monitor bedside glucose every 6 hours and use low-dose insulin sliding scale as indicated. PROPH: SCDs/teds for DVT prophylaxis. No pharmacologic DVT prophylaxis due to intracerebral hemorrhage ACCESS: Right Radial art line placed in OR 05/18/16 #6. R subclavian CVL placed #6 Patient's updated at bedside. Overall impression: Traumatic, right epidural hematoma, s/p decompression with the expected cerebral edema. She remains critically ill. Swelling well controlled. Osmo acceptable as is, but will continue to attempt to remove some free water. Wean vent aggressively now. Kenan Bejarano MD May 25, 2016 10:15
[2016-05-25] MEDS: METOPROLOL TARTRATE 5 MG/5 ML VIAL IV PUSH SCH ×3 (10:40→20:44)
[2016-05-25] MEDS: ACETAMINOPHEN 325 MG TAB PO PRN ×2 (10:50→21:22)
[2016-05-25] MEDS: methylPREDNISolone SOD SUCC 40 MG/1 ML VIAL IV SCH (11:14)
[2016-05-25] MEDS: hydrALAZINE HCL 20 MG/ML VIAL IV PUSH SCH ×3 (11:49→23:00)
--- NOTE | 2016-05-25 11:51 | HHI.NSPN ---
(Britney Harrison) Note Status Status: Progress Note (Britney Harrison) Interval History Interval History 50-year-old female underwent emergency craniotomy evacuation of large epidural hematoma on 05/18/201605/25: follow up CT Brain this morning shows resolved right SDH with resolved midline shift. intubated and mildly sedated. new onset of angioedema of tongue following kolton-inhibitor. (Britney Harrison) Labs, Micro, & Vital Signs Results Date Time Temp Pulse Resp B/P Pulse Ox O2 Delivery O2 Flow Rate FiO2 05/25/16 08:29 35 05/25/16 08:29 100 35 05/25/16 06:00 120 05/25/16 04:30 100 100 05/25/16 04:00 35 05/25/16 04:00 110 05/25/16 04:00 100.5 110 20 135/88 99 05/25/16 03:49 99 35 05/25/16 02:00 98 05/25/16 01:13 98 35 05/25/16 00:00 104 05/25/16 00:00 100.3 104 19 131/79 99 05/25/16 00:00 35 05/24/16 22:32 100 35 05/24/16 22:00 100 05/24/16 20:00 98.9 116 23 148/98 99 05/24/16 20:00 116 05/24/16 20:00 35 05/24/16 18:00 115 05/24/16 16:00 35 05/24/16 16:00 100 35 05/24/16 16:00 101.0 113 23 151/88 99 05/24/16 16:00 113 05/24/16 14:29 100 35 05/24/16 14:00 105 05/24/16 12:38 35 05/24/16 12:35 100 35 05/24/16 12:15 35 05/24/16 12:00 112 05/24/16 12:00 99.8 112 19 140/83 100 05/24/16 12:00 35 05/25/16 07:00 Intake Total 3495 ml Output Total 4275 ml Balance -780 ml Constitutional Vital Signs Date Time Temp Pulse Resp B/P Pulse Ox O2 Delivery O2 Flow Rate FiO2 05/25/16 08:29 35 05/25/16 08:29 100 35 05/25/16 06:00 120 05/25/16 04:30 100 100 05/25/16 04:00 35 05/25/16 04:00 110 05/25/16 04:00 100.5 110 20 135/88 99 05/25/16 03:49 99 35 05/25/16 02:00 98 05/25/16 01:13 98 35 05/25/16 00:00 104 05/25/16 00:00 100.3 104 19 131/79 99 05/25/16 00:00 35 05/24/16 22:32 100 35 05/24/16 22:00 100 05/24/16 20:00 98.9 116 23 148/98 99 05/24/16 20:00 116 05/24/16 20:00 35 05/24/16 18:00 115 05/24/16 16:00 35 05/24/16 16:00 100 35 05/24/16 16:00 101.0 113 23 151/88 99 05/24/16 16:00 113 05/24/16 14:29 100 35 05/24/16 14:00 105 05/24/16 12:38 35 05/24/16 12:35 100 35 05/24/16 12:15 35 05/24/16 12:00 112 05/24/16 12:00 99.8 112 19 140/83 100 05/24/16 12:00 35 05/25/16 07:00 Intake Total 3495 ml Output Total 4275 ml Balance -780 ml (Britney Harrison) Review of Systems/Exam Exam Intubated and mildly sedated, slight grimacing when stimulated. Does not open eyes. Did not follow commands for me. Right craniotomy surgical wound clean and healing well, dry Kerlix dressing in place CN: pupils 4-5 mm b/l reactive to light Angioedema of tongue noted Motor: extends in b/l upper extremities, withdraws in LE's, reported following commands to left upper Bilateral Babinski response, brisk knees b/l Abdomen: soft (Britney Harrison) Medications Current Medications Current Medications Medications (Trade) Dose Ordered Sig/Hima Route PRN Reason Start Time Stop Time Status Last Admin Dose Admin Sodium Chloride (NS Flush) 2 ml UNSCH PRN IV FLUSH FLUSH AFTER USING IV ACCESS 05/18/16 19:45 05/25/16 08:13 Ondansetron HCl (Zofran Inj) 4 mg Q6H PRN IV NAUSEA OR VOMITING 05/18/16 19:45 Pantoprazole Sodium (Protonix Inj) 40 mg Q24H IVP 05/18/16 21:00 05/24/16 21:07 Miscellaneous Information 1 Q361D XX 05/18/16 19:45 05/18/16 19:45 Chlorhexidine Gluconate (Chlorhexidine 2% Cloth) Taper DAILY@04 TOP 05/19/16 04:00 05/15/17 03:59 05/24/16 03:22 Chlorhexidine Gluconate (Chlorhexidine 2% Cloth) 3 pack UNSCH PRN TOP HYGIENIC CARE 05/18/16 19:45 Hydromorphone HCl (Dilaudid Pf Inj) 0.5 mg Q3H PRN IV Pain 3-5; if unable to take PO 05/18/16 21:30 05/23/16 16:29 Hydromorphone HCl (Dilaudid Pf Inj) 1 mg Q3H PRN IV Pain 6-10;if unable to take PO 05/18/16 21:30 Morphine Sulfate (Morphine Inj) 4 mg Q3H PRN IV BREAKTHROUGH PAIN 05/18/16 21:30 Naloxone HCl (Narcan Inj) 0.4 mg UNSCH PRN IV SEE LABEL COMMENTS 05/18/16 21:30 Chlorhexidine Gluconate 15 ml 15 ml BID@08,20 MT 05/19/16 08:00 05/25/16 08:14 Fentanyl Citrate (fentaNYL DRIP) 250 ml @ 0 mls/hr TITRATE IV 05/18/16 22:30 05/24/16 05:59 Fosphenytoin Sodium (Cerebyx Inj) 100 mgpe Q8H IV 05/19/16 07:00 05/25/16 08:13 Midazolam HCl 2 mg 2 mg Q15M PRN IV PUSH SEDATION 05/19/16 00:15 05/22/16 04:41 Norepinephrine Bitartrate/Sodium Chloride (Levophed Inj/NS 250 ml Inj) 250 ml @ 0 mls/hr TITRATE IV 05/19/16 00:15 05/24/16 00:24 Terbutaline Sulfate (Brethine Inj) 1 mg UNSCH PRN SQ For Extravasation 05/19/16 00:15 Lactulose (Lactulose Liq) 30 ml DAILY PO 05/20/16 09:00 05/25/16 08:13 Senna/Docusate Sodium (Payal-Colace) 1 tab BID PO 05/20/16 09:00 05/25/16 08:13 Artificial Tears (Tears Naturale Opth Soln) 1 drop Q4H EACH EYE 05/21/16 11:00 05/25/16 11:15 Acetaminophen (Tylenol) 650 mg Q4H PRN PO TEMPERATURE > 101 F 05/21/16 18:30 05/25/16 10:50 Magnesium Hydroxide (Milk Of Magnesia Liq) 30 ml HS PO 05/23/16 21:00 05/24/16 21:06 Polyethylene Glycol 17 gm 17 gm DAILY PO 05/23/16 10:00 05/25/16 08:13 Propofol 100 ml @ 0 mls/hr TITRATE IV 05/23/16 17:15 05/24/16 08:39 Potassium Chloride 100 ml @ 50 mls/hr Q2H PRN IV For Potassium 2.8 - 3.2 mEq/L 05/24/16 12:00 Potassium Chloride (KCl 20 Meq Premix Inj) 100 ml @ 50 mls/hr Q2H PRN IV For Potassium 2.8 - 3.2 mEq/L 05/24/16 12:00 Potassium Bicarb/ Potassium Chloride 50 meq 50 meq UNSCH PRN PO For Potassium 3.3 - 3.5 mEq/L 05/24/16 12:00 Potassium Chloride 100 ml @ 25 mls/hr UNSCH PRN IV For Potassium 3.3 - 3.5 mEq/L 05/24/16 12:00 Potassium Chloride 100 ml @ 50 mls/hr Q2H PRN IV For Potassium 3.3 - 3.5 mEq/L 05/24/16 12:00 Magnesium Sulfate/ Sodium Chloride (Magnesium Sulfate Inj/NS Inj) 100 ml @ 50 mls/hr UNSCH PRN IV For Magnesium 0.9 - 1.1 mg/dL 05/24/16 12:00 Magnesium Oxide 800 mg 800 mg UNSCH PRN PO For Magnesium 1.2 - 1.6 mg/dL 05/24/16 12:00 Magnesium Sulfate/ Sodium Chloride (Magnesium Sulfate Inj/NS Inj) 100 ml @ 50 mls/hr UNSCH PRN IV For Magnesium 1.2 - 1.6 mg/dL 05/24/16 12:00 Potassium Phosphate 2000 mg 2,000 mg Q4H PRN PO For Phosphorus < 2.5 mg/dL 05/24/16 12:00 05/25/16 08:14 Sodium Phosphate/ Sodium Chloride (Sodium Phosphate Inj/NS 250 ml Inj) 250 ml @ 42 mls/hr UNSCH PRN IV For Phosphorus < 2.5 mg/dL 05/24/16 12:00 Potassium Phosphate 2000 mg 2,000 mg UNSCH PRN PO/TUBE SEE LABEL COMMENTS 05/24/16 12:00 Potassium Phosphate/Sodium Chloride (Potassium Phosphate Inj/NS 250 ml Inj) 260 ml @ 42 mls/hr UNSCH PRN IV SEE LABEL COMMENTS 05/24/16 12:00 Amlodipine Besylate (Norvasc) 5 mg DAILY PO 05/24/16 12:00 05/25/16 08:13 Metoprolol Tartrate (Lopressor Inj) 5 mg Q6H IV PUSH 05/25/16 09:30 05/25/16 10:40 Hydralazine HCl (Apresoline Inj) 10 mg Q6HR IV PUSH 05/25/16 12:00 Methylprednisolone Sodium Succinate (SoluMEDROL INJ) 100 mg DAILY IV PUSH 05/28/16 09:00 05/30/16 08:59 Methylprednisolone Sodium Succinate (SoluMEDROL INJ) 50 mg DAILY IV PUSH 05/30/16 09:00 06/01/16 08:59 Methylprednisolone Sodium Succinate (SoluMEDROL INJ) 20 mg DAILY IV PUSH 06/01/16 09:00 06/02/16 08:59 Methylprednisolone Sodium Succinate (SoluMEDROL INJ) 200 mg DAILY IV 05/25/16 11:00 05/28/16 08:59 05/25/16 11:14 (Britney Harrison) Medical Decision Making MDM Remarks 50 y/o female TBI, presented with large right SDH with significant midline shift s/p right craniotomy for evacuation of SDH follow up CT Brain 05/25 resolved right SDH with resolved midline shift (Britney Harrison) Plan Plan Remarks f/u CT Head today reviewed with family, their questions answered cont serial neuro checks cont critical care mgt sedation and vent weaning as tolerated, DVT prophylaxis-non--chemical, Ulcer prophylaxis (Britney Harrison) Attending Statement The exam, history, and the medical decision-making described in the above note were completed with the assistance of the mid-level provider. I reviewed and agree with the findings presented. I attest that I had a [id number] encounter with the patient on the same day, and personally performed and documented my assessment and findings in the medical record. (Montana Guallpa MD) Britney Harrison May 25, 2016 11:51 [place] Guallpa MD May 25, 2016 17:11
[2016-05-25] MEDS: fentaNYL DRIP 250 ML IV SCH ×2 (16:22→22:14)
[2016-05-25] MEDS: PANTOPRAZOLE SODIUM 40 MG VIAL IVP SCH (20:44)
[2016-05-25] MEDS: MAGNESIUM HYDROXIDE SUSP 30 ML CUP PO SCH (21:21)
[2016-05-25 22:10] LABS: BICARBONATE 26.8 MEQ/L (21.0-32.0); POTASSIUM 3.9 MEQ/L (3.5-5.1)
[2016-05-26] VITALS (17 sets, daily range): BP systolic 113–131; BP diastolic 57–76; PULSE 84–139; RESP 15–21; TEMP 98.2–100; O2SAT 98–100
[2016-05-26] MEDS: ARTIFICIAL TEARS OPTH SOLN 15 ML BTL EACH EYE SCH ×6 (02:33→22:10)
[2016-05-26] MEDS: METOPROLOL TARTRATE 5 MG/5 ML VIAL IV PUSH SCH ×4 (02:34→20:32)
[2016-05-26 03:19] LABS: AUTOMATED NEUTROPHIL # 14.1 TH/MM3 (1.8-7.7); BASOPHIL # 0.1 TH/MM3 (0-0.2); BASOPHIL % 0.7 % (0.0-2.0); EOSINOPHIL # 0.2 TH/MM3 (0-0.4); EOSINOPHIL % 1.1 % (0.0-4.0); HEMATOCRIT 28.8 % (35.0-46.0); MEAN CELL VOLUME 90.2 FL (80.0-100.0); MEAN CORPUSCULAR HEMOGLOBIN 31.1 PG (27.0-34.0); MEAN CORPUSCULAR HGB CONC 34.5 % (32.0-36.0); MONO % 8.4 % (0.0-8.0); NEUT % 83.8 % (16.0-70.0); PLATELET COUNT 387 TH/MM3 (150-450); RED CELL DISTRIBUTION WIDTH 12.7 % (11.6-17.2); WHITE BLOOD COUNT 16.8 TH/MM3 (4.0-11.0)
[2016-05-26 03:24] LABS: HEMO FLAGS AUTO DIFF
[2016-05-26 03:51] LABS: ALT (GPT) 32 U/L (10-53); ANION GAP 9 MEQ/L (5-15); AST (GOT) 22 U/L (15-37); BICARBONATE 26.8 MEQ/L (21.0-32.0); BLOOD UREA NITROGEN 16 MG/DL (7-18); CHLORIDE 102 MEQ/L (98-107); GLOMERULAR FILTRATION RATE 143 ML/MIN (>89); MAGNESIUM 2.3 MG/DL (1.5-2.5); POTASSIUM 3.9 MEQ/L (3.5-5.1); SODIUM (NA) 138 MEQ/L (136-145)
[2016-05-26 03:54] LABS: ALKALINE PHOSPHATASE 88 U/L (45-117); TOTAL BILIRUBIN ADULT 0.2 MG/DL (0.2-1.0)
[2016-05-26] MEDS: CHLORHEXIDINE GLUCONATE 2 % 1 PACK (2 CLOTHS) TOP SCH (03:56)
[2016-05-26] MEDS: FOSPHENYTOIN SODIUM 100 MG PE/2 ML VIAL IV SCH ×3 (05:39→22:10)
[2016-05-26] MEDS: hydrALAZINE HCL 20 MG/ML VIAL IV PUSH SCH ×3 (05:39→18:00)
--- NOTE | 2016-05-26 06:36 | RADRPT ---
EXAM DATE/TIME: 05/26/2016 04:25 [facility] COMPARISON: CHEST SINGLE AP, May 25, 2016, 4:28. INDICATIONS : Shortness of breath, possible pulmonary disease. MEDICAL HISTORY : None. SURGICAL HISTORY : None. ENCOUNTER: Subsequent ACUITY: 2 weeks PAIN SCORE: Non-responsive. LOCATION: Bilateral chest FINDINGS: The cardiac silhouette is normal in transverse diameter. The lungs are free of acute parenchymal opac ity. No effusions are identified. Support lines and tubes are in satisfactory position. CONCLUSION: 1. No acute cardiopulmonary disease. Ronald Welch MD on May 26, 2016 at 6:34 Board Certified Radiologist. This report was verified electronically.
[2016-05-26 07:51] LABS: BANDS 5 % (0-6); EOSINOPHILS 1 % (0-4); NEUTROPHIL # MANUAL DIFF 13.6 TH/MM3 (1.8-7.7); PLATELET ESTIMATE SMEAR NORMAL (NORMAL); PLATELET MORPHOLOGY NORMAL (NORMAL); POLYS (SEG NEUTROPHILS) 76 % (16-70); SCAN/DIFF FINAL DIFF MANUAL; WBC DIFF SAMPLE 100
[2016-05-26] MEDS: methylPREDNISolone SOD SUCC 40 MG/1 ML VIAL IV SCH (08:26)
[2016-05-26] MEDS: CHLORHEXIDINE 0.12% (ORAL KIT) 15 ML CUP MT SCH ×2 (08:26→20:00)
[2016-05-26] MEDS: SODIUM CHLORIDE 0.9% FLUSH 10 ML FLUSH IV FLUSH PRN (08:27)
[2016-05-26] MEDS: LACTULOSE SYRUP 20 GM/30 ML CUP PO SCH (08:27)
[2016-05-26] MEDS: DOCUSATE SODIUM 50 MG/SENNA 8.6 MG TAB PO SCH ×2 (08:27→20:32)
[2016-05-26] MEDS: POLYETHYLENE GLYCOL 17 GM PKG PO SCH (08:27)
[2016-05-26] MEDS: amLODIPine BESYLATE 5 MG TAB PO SCH (08:27)
[2016-05-26] MEDS ORDERED: GLUCAGON 1 MG/ML VIAL OTHER PRN (08:30)
[2016-05-26] MEDS ORDERED: DEXTROSE 50% IN WATER 50 ML VIAL(D50) IV PUSH PRN (08:30)
--- NOTE | 2016-05-26 11:40 | HHI.NSPN ---
(Britney Harrison) Note Status Status: Progress Note (Britney Harrison) Interval History Interval History 50-year-old female underwent emergency craniotomy evacuation of large epidural hematoma on 05/18/201605/25: follow up CT Brain this morning shows resolved right SDH with resolved midline shift. intubated and mildly sedated. new onset of angioedema of tongue following kolton-inhibitor. 05/26: mildly sedated on fentanyl, opens eyes, following commands to left side, withdraws right side to pain (Britney Harrison) Labs, Micro, & Vital Signs Results Date Time Temp Pulse Resp B/P Pulse Ox O2 Delivery O2 Flow Rate FiO2 05/26/16 08:00 35 05/26/16 08:00 98 35 05/26/16 06:00 134 05/26/16 04:54 100 35 05/26/16 04:00 35 05/26/16 04:00 96 05/26/16 04:00 98.6 96 16 113/61 100 05/26/16 02:00 104 05/26/16 00:22 98 35 05/26/16 00:00 128 05/26/16 00:00 35 05/26/16 00:00 98.2 128 18 131/76 98 05/25/16 22:00 100 05/25/16 20:57 100 35 05/25/16 20:00 116 05/25/16 20:00 101.2 116 16 133/73 98 05/25/16 20:00 35 05/25/16 18:00 127 05/25/16 16:35 99 35 05/25/16 16:00 99.8 127 21 150/89 99 05/25/16 16:00 35 05/25/16 16:00 127 05/25/16 14:00 119 05/25/16 13:16 99 35 05/25/16 12:00 35 05/25/16 12:00 111 05/25/16 12:00 100.0 111 24 132/74 99 05/26/16 07:00 Intake Total 2925 ml Output Total 2150 ml Balance 775 ml Constitutional Vital Signs Date Time Temp Pulse Resp B/P Pulse Ox O2 Delivery O2 Flow Rate FiO2 05/26/16 08:00 35 05/26/16 08:00 98 35 05/26/16 06:00 134 05/26/16 04:54 100 35 05/26/16 04:00 35 05/26/16 04:00 96 05/26/16 04:00 98.6 96 16 113/61 100 05/26/16 02:00 104 05/26/16 00:22 98 35 05/26/16 00:00 128 05/26/16 00:00 35 05/26/16 00:00 98.2 128 18 131/76 98 05/25/16 22:00 100 05/25/16 20:57 100 35 05/25/16 20:00 116 05/25/16 20:00 101.2 116 16 133/73 98 05/25/16 20:00 35 05/25/16 18:00 127 05/25/16 16:35 99 35 05/25/16 16:00 99.8 127 21 150/89 99 05/25/16 16:00 35 05/25/16 16:00 127 05/25/16 14:00 119 05/25/16 13:16 99 35 05/25/16 12:00 35 05/25/16 12:00 111 05/25/16 12:00 100.0 111 24 132/74 99 05/26/16 07:00 Intake Total 2925 ml Output Total 2150 ml Balance 775 ml (Britney Harrison) Review of Systems/Exam Exam Intubated and mildly sedated on fentanyl opens eyes, follows few simple commands Right craniotomy surgical wound clean and healing well. CN: pupils 4-5 mm b/l reactive to light Angioedema of tongue noted Motor: washer hand left hand to commands, withdrew right upper and b/l lower extremities to nailbed pressure Bilateral Babinski response, brisk knees b/l Abdomen: soft (Britney Harrison) Medications Current Medications Current Medications Medications (Trade) Dose Ordered Sig/Hima Route PRN Reason Start Time Stop Time Status Last Admin Dose Admin Sodium Chloride (NS Flush) 2 ml UNSCH PRN IV FLUSH FLUSH AFTER USING IV ACCESS 05/18/16 19:45 05/26/16 08:27 Ondansetron HCl (Zofran Inj) 4 mg Q6H PRN IV NAUSEA OR VOMITING 05/18/16 19:45 Pantoprazole Sodium (Protonix Inj) 40 mg Q24H IVP 05/18/16 21:00 05/25/16 20:44 Miscellaneous Information 1 [id number] XX 05/18/16 19:45 05/18/16 19:45 Chlorhexidine Gluconate (Chlorhexidine 2% Cloth) Taper DAILY@04 TOP 05/19/16 04:00 05/15/17 03:59 05/24/16 03:22 Chlorhexidine Gluconate (Chlorhexidine 2% Cloth) 3 pack UNSCH PRN TOP HYGIENIC CARE 05/18/16 19:45 Hydromorphone HCl (Dilaudid Pf Inj) 0.5 mg Q3H PRN IV Pain 3-5; if unable to take PO 05/18/16 21:30 05/23/16 16:29 Hydromorphone HCl (Dilaudid Pf Inj) 1 mg Q3H PRN IV Pain 6-10;if unable to take PO 05/18/16 21:30 Morphine Sulfate (Morphine Inj) 4 mg Q3H PRN IV BREAKTHROUGH PAIN 05/18/16 21:30 Naloxone HCl (Narcan Inj) 0.4 mg UNSCH PRN IV SEE LABEL COMMENTS 05/18/16 21:30 Chlorhexidine Gluconate 15 ml 15 ml BID@08,20 MT 05/19/16 08:00 05/26/16 08:26 Fentanyl Citrate (fentaNYL DRIP) 250 ml @ 0 mls/hr TITRATE IV 05/18/16 22:30 05/25/16 22:14 Fosphenytoin Sodium (Cerebyx Inj) 100 mgpe Q8H IV 05/19/16 07:00 05/26/16 05:39 Midazolam HCl 2 mg 2 mg Q15M PRN IV PUSH SEDATION 05/19/16 00:15 05/22/16 04:41 Norepinephrine Bitartrate/Sodium Chloride (Levophed Inj/NS 250 ml Inj) 250 ml @ 0 mls/hr TITRATE IV 05/19/16 00:15 05/24/16 00:24 Terbutaline Sulfate (Brethine Inj) 1 mg UNSCH PRN SQ For Extravasation 05/19/16 00:15 Lactulose (Lactulose Liq) 30 ml DAILY PO 05/20/16 09:00 05/26/16 08:27 Senna/Docusate Sodium (Payal-Colace) 1 tab BID PO 05/20/16 09:00 05/26/16 08:27 Artificial Tears (Tears Naturale Opth Soln) 1 drop Q4H EACH EYE 05/21/16 11:00 05/26/16 05:39 Acetaminophen (Tylenol) 650 mg Q4H PRN PO TEMPERATURE > 101 F 05/21/16 18:30 05/25/16 21:22 Magnesium Hydroxide (Milk Of Magnesia Liq) 30 ml HS PO 05/23/16 21:00 05/25/16 21:21 Polyethylene Glycol 17 gm 17 gm DAILY PO 05/23/16 10:00 05/26/16 08:27 Propofol 100 ml @ 0 mls/hr TITRATE IV 05/23/16 17:15 05/24/16 08:39 Potassium Chloride 100 ml @ 50 mls/hr Q2H PRN IV For Potassium 2.8 - 3.2 mEq/L 05/24/16 12:00 Potassium Chloride (KCl 20 Meq Premix Inj) 100 ml @ 50 mls/hr Q2H PRN IV For Potassium 2.8 - 3.2 mEq/L 05/24/16 12:00 Potassium Bicarb/ Potassium Chloride 50 meq 50 meq UNSCH PRN PO For Potassium 3.3 - 3.5 mEq/L 05/24/16 12:00 Potassium Chloride 100 ml @ 25 mls/hr UNSCH PRN IV For Potassium 3.3 - 3.5 mEq/L 05/24/16 12:00 Potassium Chloride 100 ml @ 50 mls/hr Q2H PRN IV For Potassium 3.3 - 3.5 mEq/L 05/24/16 12:00 Magnesium Sulfate/ Sodium Chloride (Magnesium Sulfate Inj/NS Inj) 100 ml @ 50 mls/hr UNSCH PRN IV For Magnesium 0.9 - 1.1 mg/dL 05/24/16 12:00 Magnesium Oxide 800 mg 800 mg UNSCH PRN PO For Magnesium 1.2 - 1.6 mg/dL 05/24/16 12:00 Magnesium Sulfate/ Sodium Chloride (Magnesium Sulfate Inj/NS Inj) 100 ml @ 50 mls/hr UNSCH PRN IV For Magnesium 1.2 - 1.6 mg/dL 05/24/16 12:00 Potassium Phosphate 2000 mg 2,000 mg Q4H PRN PO For Phosphorus < 2.5 mg/dL 05/24/16 12:00 05/25/16 08:14 Sodium Phosphate/ Sodium Chloride (Sodium Phosphate Inj/NS 250 ml Inj) 250 ml @ 42 mls/hr UNSCH PRN IV For Phosphorus < 2.5 mg/dL 05/24/16 12:00 Potassium Phosphate 2000 mg 2,000 mg UNSCH PRN PO/TUBE SEE LABEL COMMENTS 05/24/16 12:00 Potassium Phosphate/Sodium Chloride (Potassium Phosphate Inj/NS 250 ml Inj) 260 ml @ 42 mls/hr UNSCH PRN IV SEE LABEL COMMENTS 05/24/16 12:00 Amlodipine Besylate (Norvasc) 5 mg DAILY PO 05/24/16 12:00 05/26/16 08:27 Metoprolol Tartrate (Lopressor Inj) 5 mg Q6H IV PUSH 05/25/16 09:30 05/26/16 08:28 Hydralazine HCl (Apresoline Inj) 10 mg Q6HR IV PUSH 05/25/16 12:00 05/26/16 05:39 Methylprednisolone Sodium Succinate (SoluMEDROL INJ) 100 mg DAILY IV PUSH 05/28/16 09:00 05/30/16 08:59 Methylprednisolone Sodium Succinate (SoluMEDROL INJ) 50 mg DAILY IV PUSH 05/30/16 09:00 06/01/16 08:59 Methylprednisolone Sodium Succinate (SoluMEDROL INJ) 20 mg DAILY IV PUSH 06/01/16 09:00 06/02/16 08:59 Methylprednisolone Sodium Succinate (SoluMEDROL INJ) 200 mg DAILY IV 05/25/16 11:00 05/28/16 08:59 05/26/16 08:26 Dextrose (D50w (Vial) Inj) 25 ml UNSCH PRN IV PUSH HYPOGLYCEMIA-SEE COMMENTS 05/26/16 08:30 Glucagon (Glucagon Inj) 1 mg UNSCH PRN OTHER HYPOGLYCEMIA-SEE COMMENTS 05/26/16 08:30 (Britney Harrison) Medical Decision Making MDM Remarks 50 y/o female TBI, presented with large right SDH with significant midline shift s/p right craniotomy for evacuation of SDH follow up CT Brain 05/25 resolved right SDH with resolved midline shift, improving neuro exam (Britney Harrison) Plan Plan Remarks cont critical care cont neuro checks dw mother bedside, her questions answered (Britney Harrison) Attending Statement The exam, history, and the medical decision-making described in the above note were completed with the assistance of the mid-level provider. I reviewed and agree with the findings presented. I attest that I had a [id number] encounter with the patient on the same day, and personally performed and documented my assessment and findings in the medical record. ([place] Guallpa MD) Britney Harrison May 26, 2016 11:40 [place] Guallpa MD May 26, 2016 18:30
--- NOTE | 2016-05-26 12:44 | HHI.CCPN ---
Subjective Remarks/Hospital Course 50 yo Female who arrived to [facility] as a trauma alert. She was reportedly running across a bridge and fell and hit the right side of her head. She was initially alert and oriented with GCS of 15 upon [facility] arrival and was moving all extremities. After she was taken into the ambulance her GCS was 3 and right pupil was dilated and nonreactive. She was intubated in the ED following etomidate 20 mg IV and succinylcholine 100 mg IV. Trauma workup included CT brain that demonstrated 9.7 x4.2 cm R epidural hematoma with 1.2 cm right to left midline shift and cerebral edema. BP in ED was 108/104 to 160/76 with heart rate 66-92. Sats 98-100%. Neurosurgery was consulted and she was taken emergently to OR for right craniotomy by Dr. Bhandari. Her pupil remained nonreactive postoperatively. The remainder of her trauma workup included: CT C spine - degenerative changes with disc space narrowing C5/6 CT chest/abd/pelvis -negative for acute traumatic injury. 05/19: right pupil now normally responsive. Both 2 mm, reactive. BP control good. Na a little low, will concentrate slowly. ICP 10 but climbing slowly. 05/20: ICP controlled. CT today with minimal residual subdural blood right side. Considerable cortical edema, ventricles patent. 05/21: ICP control. Serum concentration acceptable. Plenty of room to concentrate if swelling worsens. 05/22: Will initiate light diuresis as she is getting diluted. ICP controlled well. 05/23: Osmolality good. Fluid balance improved. Will attempt continued sedation weaning. 05/24: CXR clear. Stopping versed, use short acting propofol if necessary. Add norvasc and lisinopril for HTN. 05/25: CT head improving, less edema. BP control improved on new medications. 05/26: Remains sedated, orally intubated on mechanical ventilation. Objective Vital Signs Date Time Temp Pulse Resp B/P Pulse Ox O2 Delivery O2 Flow Rate FiO2 05/26/16 11:50 98 35 05/26/16 06:00 134 05/26/16 04:00 98.6 16 113/61 Intake and Output 05/25/16 05/25/16 05/26/16 08:00 16:00 00:00 Intake Total 1085 ml 1416 ml 634 ml Output Total 625 ml 650 ml 700 ml Balance 460 ml 766 ml -66 ml Result Diagram: 05/26/16 0258 05/26/16 0258 Imaging Last Impressions Chest X-Ray 05/26/16 0600 Signed Impressions: Service Date/Time: Thursday, May 26, 2016 04:25 - CONCLUSION: 1. No acute cardiopulmonary disease. Ronald Welch MD Head CT 05/25/16 0000 Signed Impressions: Service Date/Time: Wednesday, May 25, 2016 04:08 - CONCLUSION: 1. Resolving pneumocephalus and right subdural hematoma. 2. No acute hemorrhage is identified Ronald Welch MD Pelvis X-Ray 05/18/161904 Signed Impressions: Service Date/Time: Wednesday, May 18, 2016 18:55 - CONCLUSION: No acute fracture or joint dislocation. Larry Maher MD Chest CT 05/18/161904 Signed Impressions: Service Date/Time: Wednesday, May 18, 2016 19:13 - CONCLUSION: 1. No acute intrathoracic disease. 2. Bibasilar atelectasis. Larry Maher MD Cervical Spine CT 05/18/161904 Signed Impressions: Service Date/Time: Wednesday, May 18, 2016 19:09 - CONCLUSION: 1. No acute bony fracture. 2. Primary degenerative changes with disc space narrowing at C5-6. Larry Maher MD Abdomen/Pelvis CT 05/18/161904 Signed Impressions: Service Date/Time: Wednesday, May 18, 2016 19:13 - CONCLUSION: 1. Liver appears to be heterogeneous. 2. Mild prominence of the pancreatic head. No biliary tract obstruction. 3. No acute intra-abdominal/pelvic pathology is seen. Larry Maher MD Skull X-Ray 05/18/16 0000 Signed Impressions: Service Date/Time: Wednesday, May 18, 2016 21:55 - CONCLUSION: Standard postsurgical changes. Larry Maher MD Objective Remarks GENERAL: Well-nourished, well-developed patient who is orotracheally intubated. SKIN: Warm and dry. HEAD: Dressing clean. EYES: Normal, pupils 2 mm, react. Left scleral edema, benign. ENT: No nasal bleeding or discharge. Mucous membranes pink and moist. Significant tongue swelling noted NECK: Trachea midline. Orally intubated. CARDIOVASCULAR: Regular rate and rhythm. No murmurs rubs or gallops. No JVD. RESPIRATORY: Ventilated. Clear to auscultation. Breath sounds equal bilaterally. No wheezes or crackles. GASTROINTESTINAL: Abdomen soft, non-tender, nondistended. OGT in place; TFs. MUSCULOSKELETAL: Extremities without clubbing, cyanosis, or edema. No obvious deformities. Warm, well perfused. NEUROLOGICAL: Pupils 2 mm reactive to 1 mm. Withdraws LUE and LLE. Breathes over vent. No spontaneous movement right side. A/P Assessment and Plan NEURO: Acute R epidural hematoma 9.7 x4.2 cm with 1.2 cm right to left midline shift and cerebral edema. s/p Right frontotemporoparietal craniotomy evacuation large acute epidural hematoma; Repair of right temporal bone fracture; Repair right parieto- occipital scalp laceration; placement fiberoptic ICP monitor 05/18 (Dr. Bhandari) Laceration of right middle meningeal artery Right parieto-occipital scalp laceration R temporal bone fracture TBI Fall Propofol for sedation Fentanyl for analgosedation Continuous fiberoptic ICP monitoring. Loaded fosphenytoin 1200 mg/PE IV now. Then fosphenytoin 100 mg IV every 8 hours. Follow-up Dilantin and albumin level in a.m. End tidal CO2 monitoring, correlated with ABG overnight, target End tidal 33-38 Monitor sodium, BMP now. Neurocheck q1 hour Dr[address] Bhandari following. Start 3% saline Keep Osmo > 285 Lighten sedation, taper off versed. RESP: Acute respiratory failure TV 400 R 12 IT 1 PEEP 5 fIO2 50%. Ventilator Bundle CT chest 05/18 - bibasilar atelectasis CXR clear and well expanded 05/23. CV: Monitor hemodynamics. Maintain systolic blood pressure less than [address] Bhandari. Labetalol 10 mill grams IV prn GI: Tube feeds as tolerated CT abd/pelvis 05/18 report - heterogenous liver, prominence of pancreatic head FEN/RENAL: Hyponatremia Hypokalemia Monitor electrolytes. Replace electrolytes per ICU replacement protocol. ID: Perioperative cefazolin. Monitor for signs and symptoms of infection. Check UA with reflex culture. -No signs of infection 05.23 HEME: Monitor CBC. Coags in am. ENDO: Acute stress hyperglycemia Monitor bedside glucose every 6 hours and use low-dose insulin sliding scale as indicated. PROPH: SCDs/teds for DVT prophylaxis. No pharmacologic DVT prophylaxis due to intracerebral hemorrhage ACCESS: Right Radial art line placed in OR 05/18/16. R subclavian CVL placed . Overall impression: Traumatic, right epidural hematoma, s/p decompression with the expected cerebral edema. She remains critically ill. Swelling well controlled. Osmo acceptable as is, but will continue to attempt to remove some free water. Wean vent aggressively now. Time spent on critical care excluding procedures 35 minutes Ollie Seo MD May 26, 2016 12:43
[2016-05-26] MEDS: INSULIN NovoLIN REGULAR SUPPLEMENTAL SCALE SQ SCH ×3 (13:05→20:32)
--- NOTE | 2016-05-26 13:12 | HHI.CCPN ---
Subjective Brief History 50 yo Female who arrived to [facility] as a trauma alert. She was reportedly running across a bridge and fell and hit the right side of her head. She was initially alert and oriented with GCS of 15 upon [facility] arrival and was moving all extremities. After she was taken into the ambulance her GCS was 3 and right pupil was dilated and nonreactive. She was intubated in the ED following etomidate 20 mg IV and succinylcholine 100 mg IV. Trauma workup included CT brain that demonstrated 9.7 x4.2 cm R epidural hematoma with 1.2 cm right to left midline shift and cerebral edema. BP in ED was 108/104 to 160/76 with heart rate 66-92. Sats 98-100%. Neurosurgery was consulted and she was taken emergently to OR for right craniotomy by Dr. Bhandari. Her pupil remained nonreactive postoperatively. This is classic presentation of an epidural hematoma with loss of consciousness followed by lucid interval and then again loss of consciousness. 24 Hour Review/Hospital Course 05/20/2016 Patient has been stable over the last 24 hours ICPs remain in 8-12 mmHg range and central perfusion pressure is adequate Pupils are equal 2 mm and somewhat reactive Repeat CAT scan of the brain reveals some blood over the right hemisphere but this is minimal and no intervention is necessary Patient remains of neuroprotective measures including mild hyperventilation, hypertonic saline and sedation on propofol and fentanyl Considering mild swelling of the brain in early phase of care I would leave everything as it is right now and right without for next day or 2 and then a repeat CT scan will be done All things equal we'll started waking patient up by the end of the week and see how she does 05/26/2016 Patient is slowly neurologically improving and remains on sedation however does occasionally move her arm and the leg At this point she is also moving her left side which is encouraging Angioedema off the tongue slowly decreasing Patient remains on Solu-Medrol We'll continue current care to patient is more awake in the swelling of the tongue decreases There is a distinct chance the patient will need a tracheostomy but we'll see how she does Objective Vital Signs Date Time Temp Pulse Resp B/P Pulse Ox O2 Delivery O2 Flow Rate FiO2 05/26/16 11:50 98 35 05/26/16 06:00 134 05/26/16 04:00 98.6 16 113/61 Intake and Output 05/25/16 05/25/16 05/26/16 08:00 16:00 00:00 Intake Total 1085 ml 1416 ml 634 ml Output Total 625 ml 650 ml 700 ml Balance 460 ml 766 ml -66 ml Result Diagram: 05/26/16 0258 05/26/16 0258 Imaging Last 24 hours Impressions Chest X-Ray 05/26/16 0600 Signed Impressions: Service Date/Time: Thursday, May 26, 2016 04:25 - CONCLUSION: 1. No acute cardiopulmonary disease. Ronald Welch MD Exam [employer] Slight improvement in neurologic status Hemodynamic/Cardiac Hemodynamically stable Pulmonary/Respiratory Bilateral breath sounds and on minimal ventilatory settings as far as PO2 FiO2 gradient is concerned but of course due to decreased level of consciousness and swelling of the tongue patient can not be extubated This week we'll decide if patient needs a tracheostomy which is probably likely Abdomen/GI Nutrition Abdomen soft and obese tolerated Assessment and Plan Attestation The exam, history, and the medical decision-making described in the above note were completed with the assistance of the mid-level provider. I reviewed and agree with the findings presented. I attest that I had a [id number] encounter with the patient on the same day, and personally performed and documented my assessment and findings in the medical record. Critical care time 35 minutes. Mindi De Santiago MD May 26, 2016 13:12
[2016-05-26 20:06] LABS: BICARBONATE 29.1 MEQ/L (21.0-32.0); POTASSIUM 4.1 MEQ/L (3.5-5.1)
[2016-05-26] MEDS: PANTOPRAZOLE SODIUM 40 MG VIAL IVP SCH (20:32)
[2016-05-26] MEDS: MAGNESIUM HYDROXIDE SUSP 30 ML CUP PO SCH (20:32)
[2016-05-27] VITALS (19 sets, daily range): BP systolic 114–130; BP diastolic 56–78; PULSE 96–136; RESP 14–18; TEMP 98.9–99.8; O2SAT 99–100
[2016-05-27] MEDS: fentaNYL DRIP 250 ML IV SCH (00:40)
[2016-05-27] MEDS: hydrALAZINE HCL 20 MG/ML VIAL IV PUSH SCH ×5 (00:40→23:38)
[2016-05-27] MEDS: ARTIFICIAL TEARS OPTH SOLN 15 ML BTL EACH EYE SCH ×6 (02:02→23:41)
[2016-05-27] MEDS: METOPROLOL TARTRATE 5 MG/5 ML VIAL IV PUSH SCH ×4 (02:44→20:37)
[2016-05-27 03:23] LABS: AUTOMATED NEUTROPHIL # 11.5 TH/MM3 (1.8-7.7); BASOPHIL # 0.1 TH/MM3 (0-0.2); BASOPHIL % 0.5 % (0.0-2.0); EOSINOPHIL # 0.4 TH/MM3 (0-0.4); EOSINOPHIL % 2.5 % (0.0-4.0); HEMO FLAGS DIFF FINAL; LYMPH % 9.4 % (9.0-44.0); LYMPHOCYTE # 1.4 TH/MM3 (1.0-4.8); MEAN CELL VOLUME 90.3 FL (80.0-100.0); MEAN CORPUSCULAR HEMOGLOBIN 30.8 PG (27.0-34.0); MEAN CORPUSCULAR HGB CONC 34.1 % (32.0-36.0); MONO % 12.3 % (0.0-8.0); NEUT % 75.3 % (16.0-70.0); PLATELET COUNT 388 TH/MM3 (150-450); RED BLOOD COUNT 2.88 MIL/MM3 (4.00-5.30); RED CELL DISTRIBUTION WIDTH 12.7 % (11.6-17.2); WHITE BLOOD COUNT 15.2 TH/MM3 (4.0-11.0)
[2016-05-27] MEDS: CHLORHEXIDINE GLUCONATE 2 % 1 PACK (2 CLOTHS) TOP SCH (03:31)
[2016-05-27 03:39] LABS: ALT (GPT) 41 U/L (10-53); ANION GAP 8 MEQ/L (5-15); AST (GOT) 28 U/L (15-37); BICARBONATE 28.4 MEQ/L (21.0-32.0); BLOOD UREA NITROGEN 17 MG/DL (7-18); CHLORIDE 102 MEQ/L (98-107); GLOMERULAR FILTRATION RATE 168 ML/MIN (>89); MAGNESIUM 2.2 MG/DL (1.5-2.5); POTASSIUM 4.1 MEQ/L (3.5-5.1); SODIUM (NA) 138 MEQ/L (136-145)
[2016-05-27 03:42] LABS: ALKALINE PHOSPHATASE 89 U/L (45-117); TOTAL BILIRUBIN ADULT 0.2 MG/DL (0.2-1.0)
[2016-05-27 05:20] LABS: BLOOD GAS BASE EXCESS 3.4 mmol/L (-2-2); BLOOD GAS CARBOXYHEMOGLOBIN 0.9 % (0-4); BLOOD GAS HCO3 27 mmol/L (22-26); BLOOD GAS METHEMOGLOBIN 0.7 % (0-2); BLOOD GAS O2 HGB SATURATION 98 % (90-100); BLOOD GAS OXYGEN CONTENT 17.4 Vol % (12.0-20.0); BLOOD GAS PCO2 36 mmHg (38-42); BLOOD GAS PO2 168 mmHg (61-120); BLOOD GAS TOTAL HGB 12.4 G/DL (12.0-16.0); CRITICAL VALUE NO; OXYGEN DEVICE VENTILATOR; TEMP CORR TO 98.6
[2016-05-27 05:21] LABS: DRAW SITE LT RADIAL; FIO2 35 %; NUMBER OF ARTERIAL PUNCTURES 1; STAT NO; ULNAR PULSE PRESENT; VENT SETTINGS PRVC/AC
[2016-05-27] MEDS: FOSPHENYTOIN SODIUM 100 MG PE/2 ML VIAL IV SCH ×3 (06:30→23:39)
[2016-05-27] MEDS: INSULIN NovoLIN REGULAR SUPPLEMENTAL SCALE SQ SCH ×4 (06:30→21:00)
--- NOTE | 2016-05-27 06:48 | RADRPT ---
EXAM DATE/TIME: 05/27/2016 04:42 [facility] COMPARISON: CHEST SINGLE AP, May 26, 2016, 4:25. INDICATIONS : Shortness of breath. possible pulmonary disease. MEDICAL HISTORY : None. SURGICAL HISTORY : None. ENCOUNTER: Subsequent ACUITY: 2 weeks PAIN SCORE: Non-responsive. LOCATION: Bilateral chest FINDINGS: A single view of the chest demonstrates the endotracheal tube, nasogastric tube and right subclavian central line are all in good position. The cardiomediastinal contours are unremarkable. Osseous str uctures are intact. CONCLUSION: Normal examination with tubes and catheters as described above. Wally Antunez MD on May 27, 2016 at 6:46 Board Certified Radiologist. This report was verified electronically.
[2016-05-27] MEDS: DOCUSATE SODIUM 50 MG/SENNA 8.6 MG TAB PO SCH ×2 (08:23→20:37)
[2016-05-27] MEDS: SODIUM CHLORIDE 0.9% FLUSH 10 ML FLUSH IV FLUSH PRN (08:23)
[2016-05-27] MEDS: POLYETHYLENE GLYCOL 17 GM PKG PO SCH (08:23)
[2016-05-27] MEDS: LACTULOSE SYRUP 20 GM/30 ML CUP PO SCH (08:23)
[2016-05-27] MEDS: amLODIPine BESYLATE 5 MG TAB PO SCH (08:23)
[2016-05-27] MEDS: methylPREDNISolone SOD SUCC 40 MG/1 ML VIAL IV SCH (08:23)
[2016-05-27] MEDS: CHLORHEXIDINE 0.12% (ORAL KIT) 15 ML CUP MT SCH ×2 (08:24→20:37)
[2016-05-27] MEDS: HYDROmorphone HCL PF 1 MG/ML VIAL IV PRN ×3 (10:07→17:32)
--- NOTE | 2016-05-27 11:27 | HHI.PR ---
Neuropsych Progress Notes/Response to Tx Contents of Sessions: Adjustment, Level of Consciousness Time with Patient: 15 minutes Premorbid psychological status Premorbid Cognitive, Emotional and Behavioral Status: Stable. 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 The patient has no psychiatric difficulties. Substance abuse history is not significant. She is and has two children. Behavioral Reactions of Patient and Family/Support System: Stable. The patient s family is experiencing ongoing issues of adjustment given the nature of the injury, and this aspect of recovery will require ongoing monitoring. Emotional/Behavioral Status of Patient and Family/Support System: Stable. Pertinent issues, if appropriate to this patients clinical care, are described in detail above. Maximizing acute care outcome It is recommended that the patient be monitored for emergent behavioral impulsivity as the medical condition evolves. This patients neuropathological challenges may limit their rehabilitation potential going forward, and these challenges will require specialized therapeutic skills to maximize outcome. Additionally, the patients family is experiencing ongoing issues of adjustment given the traumatic nature of the injury, and they may benefit from ongoing psychological assistance. Anticipated Problems Ongoing areas of concern will include behavioral impulsivity, lack of insight and judgment, which is expected to improve with time and treatment. Presently , the patient intubated and sedated. Treatment Plan This clinician will continue to follow with you throughout the course of this patients acute care treatment, and I will be available to meet with the patient s family/support system to facilitate their understanding and the ongoing care of their family member. The goals of neuropsychological intervention shall be both educational and supportive to the family/support system as is deemed clinically appropriate. [facility] Level: III:Localized response-total assist Impression This patient suffered a significant traumatic brain injury secondary to her fall on 05/18/2016, with large EDH and right to left midline shift. She is expected to have significant neurocognitive impairments from this injury. Diagnosis: (1) Major neurocognitive disorder as late effect of traumatic brain injury without behavioral disturbance Status: Acute Progress Note Narrative Ongoing follow-up of patient seen during daily trauma rounds and bedside with . The patient is awake, following commands (left greater than right), in arm restraints (but no report of significant agitation or restlessness) with gradual resolution of angioedema of tongue, and as such she is still intubated. From a neurobehavioral standpoint, she appears to be at a Rancho III emerging IV. I will continue to follow. Gregorio Benítez PhD May 27, 2016 11:07 am
--- NOTE | 2016-05-27 12:26 | HHI.NSPN ---
History Chief Complaint: intubated and sedated Interval History 50-year-old female underwent emergency craniotomy evacuation of large epidural hematoma on 05/18/[address] scan 05/18/2016 with satisfactory evacuation of hematoma, mostly mild residual edema and midline shift without significant parenchymal hemorrhage and no hydrocephalus Exam Results Vital Signs Date Time Temp Pulse Resp B/P Pulse Ox O2 Delivery O2 Flow Rate FiO2 05/27/16 12:00 114 05/27/16 12:00 35 05/27/16 11:08 99 05/27/16 08:00 99.1 14 120/58 Intake and Output 05/26/16 05/26/16 05/27/16 08:00 16:00 00:00 Intake Total 875 ml 870 ml 701 ml Output Total 800 ml 650 ml 350 ml Balance 75 ml 220 ml 351 ml Physical Examination Intubated and mildly sedated on fentanyl opens eyes spontaneous, follows few simple commands Right craniotomy surgical wound clean and healing well. 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 Bilateral Babinski response, brisk knees b/l Abdomen: soft Lab, Micro, Other Results Last 24 hours Impressions Chest X-Ray 05/27/16 0600 Signed Impressions: Service Date/Time: Friday, May 27, 2016 04:42 - CONCLUSION: Normal examination with tubes and catheters as described above. Wally Antunez MD Laboratory Tests Test 05/26/16 05/27/16 05/27/16 19:30 03:02 05:10 Sodium Level 138 MEQ/L 138 MEQ/L Potassium Level 4.1 MEQ/L 4.1 MEQ/L Chloride Level 102 MEQ/L 102 MEQ/L Carbon Dioxide Level 29.1 MEQ/L 28.4 MEQ/L Anion Gap 7 MEQ/L 8 MEQ/L Blood Urea Nitrogen 17 MG/DL 17 MG/DL Creatinine 0.49 MG/DL 0.40 MG/DL Estimat Glomerular Filtration 133 ML/MIN 168 ML/MIN Rate Random Glucose 133 MG/DL 132 MG/DL Calcium Level 8.4 MG/DL 8.3 MG/DL White Blood Count 15.2 TH/MM3 Red Blood Count 2.88 MIL/MM3 Hemoglobin 8.9 GM/DL Hematocrit 26.0 % Mean Corpuscular Volume 90.3 FL Mean Corpuscular Hemoglobin 30.8 PG Mean Corpuscular Hemoglobin 34.1 % Concent Red Cell Distribution Width 12.7 % Platelet Count 388 TH/MM3 Mean Platelet Volume 8.3 FL Neutrophils (%) (Auto) 75.3 % Lymphocytes (%) (Auto) 9.4 % Monocytes (%) (Auto) 12.3 % Eosinophils (%) (Auto) 2.5 % Basophils (%) (Auto) 0.5 % Neutrophils # (Auto) 11.5 TH/MM3 Lymphocytes # (Auto) 1.4 TH/MM3 Monocytes # (Auto) 1.9 TH/MM3 Eosinophils # (Auto) 0.4 TH/MM3 Basophils # (Auto) 0.1 TH/MM3 CBC Comment DIFF FINAL Differential Comment Phosphorus Level 3.1 MG/DL Magnesium Level 2.2 MG/DL Total Bilirubin 0.2 MG/DL Aspartate Amino Transf 28 U/L (AST/SGOT) Alanine Aminotransferase 41 U/L (ALT/SGPT) Alkaline Phosphatase 89 U/L Total Protein 5.9 GM/DL Albumin 1.8 GM/DL Blood Gas Puncture Site LT RADIAL Blood Gas Patient Temperature 98.6 Blood Gas HCO3 27 mmol/L Blood Gas Base Excess 3.4 mmol/L Blood Gas Oxygen Saturation 98 % Arterial Blood pH 7.49 Arterial Blood Partial 36 mmHg Pressure CO2 Arterial Blood Partial 168 mmHg Pressure O2 Arterial Blood Oxygen Content 17.4 Vol % Arterial Blood 0.9 % Carboxyhemoglobin Arterial Blood Methemoglobin 0.7 % Blood Gas Hemoglobin 12.4 G/DL Oxygen Delivery Device VENTILATOR Blood Gas Ventilator Setting PRVC/AC Blood Gas Inspired Oxygen 35 % Medical Decision Making Impression and Plan Impression: Neurologic exam continues to gradually improve. Right hemiparesis persists but improving slowly Plan: Discussed with family today in [facility] Discussed with nursing staff Wean the ventilator as tolerated, per intensivists Wean sedation as tolerated. ICP monitor discontinued 05/24/16 Seizure prophylaxis DVT prophylaxis-non--chemical Ulcer prophylaxis Monitor sodium and maintained within normal range. Hemodynamically stable She will need a tracheostomy due to the persistent angioedema. Explained to the patient's family Sav Bhandari MD May 27, 2016 12:26
--- NOTE | 2016-05-27 15:07 | HHI.CCPN ---
Subjective Remarks/Hospital Course 50 yo Female who arrived to [facility] as a trauma alert. She was reportedly running across a bridge and fell and hit the right side of her head. She was initially alert and oriented with GCS of 15 upon EVAC arrival and was moving all extremities. After she was taken into the ambulance her GCS was 3 and right pupil was dilated and nonreactive. She was intubated in the ED following etomidate 20 mg IV and succinylcholine 100 mg IV. Trauma workup included CT brain that demonstrated 9.7 x4.2 cm R epidural hematoma with 1.2 cm right to left midline shift and cerebral edema. BP in ED was 108/104 to 160/76 with heart rate 66-92. Sats 98-100%. Neurosurgery was consulted and she was taken emergently to OR for right craniotomy by Dr. Bhandari. Her pupil remained nonreactive postoperatively. The remainder of her trauma workup included: CT C spine - degenerative changes with disc space narrowing C5/6 CT chest/abd/pelvis -negative for acute traumatic injury. 05/19: right pupil now normally responsive. Both 2 mm, reactive. BP control good. Na a little low, will concentrate slowly. ICP 10 but climbing slowly. 05/20: ICP controlled. CT today with minimal residual subdural blood right side. Considerable cortical edema, ventricles patent. 05/21: ICP control. Serum concentration acceptable. Plenty of room to concentrate if swelling worsens. 05/22: Will initiate light diuresis as she is getting diluted. ICP controlled well. 05/23: Osmolality good. Fluid balance improved. Will attempt continued sedation weaning. 05/24: CXR clear. Stopping versed, use short acting propofol if necessary. Add norvasc and lisinopril for HTN. 05/25: CT head improving, less edema. BP control improved on new medications. 05/26: Remains sedated, orally intubated on mechanical ventilation. 05/27: Remains sedated, orally intubated on mechanical ventilation. Tongue swelling persists. Daily C Pap trials. Objective Vital Signs Date Time Temp Pulse Resp B/P Pulse Ox O2 Delivery O2 Flow Rate FiO2 05/27/16 14:00 134 05/27/16 12:00 99.5 15 114/56 99 05/27/16 12:00 35 Intake and Output 05/26/16 05/26/16 05/27/16 08:00 16:00 00:00 Intake Total 875 ml 870 ml 701 ml Output Total 800 ml 650 ml 350 ml Balance 75 ml 220 ml 351 ml Result Diagram: 05/27/16 0302 05/27/16 0302 Other Results Laboratory Tests Test 05/26/16 05/27/16 05/27/16 19:30 03:02 05:10 Sodium Level 138 MEQ/L 138 MEQ/L Potassium Level 4.1 MEQ/L 4.1 MEQ/L Chloride Level 102 MEQ/L 102 MEQ/L Carbon Dioxide Level 29.1 MEQ/L 28.4 MEQ/L Anion Gap 7 MEQ/L 8 MEQ/L Blood Urea Nitrogen 17 MG/DL 17 MG/DL Creatinine 0.49 MG/DL 0.40 MG/DL Estimat Glomerular Filtration 133 ML/MIN 168 ML/MIN Rate Random Glucose 133 MG/DL 132 MG/DL Calcium Level 8.4 MG/DL 8.3 MG/DL White Blood Count 15.2 TH/MM3 Red Blood Count 2.88 MIL/MM3 Hemoglobin 8.9 GM/DL Hematocrit 26.0 % Mean Corpuscular Volume 90.3 FL Mean Corpuscular Hemoglobin 30.8 PG Mean Corpuscular Hemoglobin 34.1 % Concent Red Cell Distribution Width 12.7 % Platelet Count 388 TH/MM3 Mean Platelet Volume 8.3 FL Neutrophils (%) (Auto) 75.3 % Lymphocytes (%) (Auto) 9.4 % Monocytes (%) (Auto) 12.3 % Eosinophils (%) (Auto) 2.5 % Basophils (%) (Auto) 0.5 % Neutrophils # (Auto) 11.5 TH/MM3 Lymphocytes # (Auto) 1.4 TH/MM3 Monocytes # (Auto) 1.9 TH/MM3 Eosinophils # (Auto) 0.4 TH/MM3 Basophils # (Auto) 0.1 TH/MM3 CBC Comment DIFF FINAL Differential Comment Phosphorus Level 3.1 MG/DL Magnesium Level 2.2 MG/DL Total Bilirubin 0.2 MG/DL Aspartate Amino Transf 28 U/L (AST/SGOT) Alanine Aminotransferase 41 U/L (ALT/SGPT) Alkaline Phosphatase 89 U/L Total Protein 5.9 GM/DL Albumin 1.8 GM/DL Blood Gas Puncture Site LT RADIAL Blood Gas Patient Temperature 98.6 Blood Gas HCO3 27 mmol/L Blood Gas Base Excess 3.4 mmol/L Blood Gas Oxygen Saturation 98 % Arterial Blood pH 7.49 Arterial Blood Partial 36 mmHg Pressure CO2 Arterial Blood Partial 168 mmHg Pressure O2 Arterial Blood Oxygen Content 17.4 Vol % Arterial Blood 0.9 % Carboxyhemoglobin Arterial Blood Methemoglobin 0.7 % Blood Gas Hemoglobin 12.4 G/DL Oxygen Delivery Device VENTILATOR Blood Gas Ventilator Setting PRVC/AC Blood Gas Inspired Oxygen 35 % Imaging Last Impressions Chest X-Ray 05/26/16 0600 Signed Impressions: Service Date/Time: Thursday, May 26, 2016 04:25 - CONCLUSION: 1. No acute cardiopulmonary disease. Ronald Welch MD Head CT 05/25/16 0000 Signed Impressions: Service Date/Time: Wednesday, May 25, 2016 04:08 - CONCLUSION: 1. Resolving pneumocephalus and right subdural hematoma. 2. No acute hemorrhage is identified Ronald Welch MD Pelvis X-Ray 05/18/161904 Signed Impressions: Service Date/Time: Wednesday, May 18, 2016 18:55 - CONCLUSION: No acute fracture or joint dislocation. Larry Maher MD Chest CT 05/18/161904 Signed Impressions: Service Date/Time: Wednesday, May 18, 2016 19:13 - CONCLUSION: 1. No acute intrathoracic disease. 2. Bibasilar atelectasis. Larry Maher MD Cervical Spine CT 05/18/161904 Signed Impressions: Service Date/Time: Wednesday, May 18, 2016 19:09 - CONCLUSION: 1. No acute bony fracture. 2. Primary degenerative changes with disc space narrowing at C5-6. Larry Maher MD Abdomen/Pelvis CT 05/18/161904 Signed Impressions: Service Date/Time: Wednesday, May 18, 2016 19:13 - CONCLUSION: 1. Liver appears to be heterogeneous. 2. Mild prominence of the pancreatic head. No biliary tract obstruction. 3. No acute intra-abdominal/pelvic pathology is seen. Larry Maher MD Skull X-Ray 05/18/16 0000 Signed Impressions: Service Date/Time: Wednesday, May 18, 2016 21:55 - CONCLUSION: Standard postsurgical changes. Larry Maher MD Objective Remarks GENERAL: Well-nourished, well-developed patient who is orotracheally intubated. SKIN: Warm and dry. HEAD: Dressing clean. EYES: Normal, pupils 2 mm, react. Left scleral edema, benign. ENT: No nasal bleeding or discharge. Mucous membranes pink and moist. Significant tongue swelling noted NECK: Trachea midline. Orally intubated. CARDIOVASCULAR: Regular rate and rhythm. No murmurs rubs or gallops. No JVD. RESPIRATORY: Ventilated. Clear to auscultation. Breath sounds equal bilaterally. No wheezes or crackles. GASTROINTESTINAL: Abdomen soft, non-tender, nondistended. OGT in place; TFs. MUSCULOSKELETAL: Extremities without clubbing, cyanosis, or edema. No obvious deformities. Warm, well perfused. NEUROLOGICAL: Pupils 2 mm reactive to 1 mm. Withdraws LUE and LLE. Breathes over vent. No spontaneous movement right side. A/P Assessment and Plan NEURO: Acute R epidural hematoma 9.7 x4.2 cm with 1.2 cm right to left midline shift and cerebral edema. s/p Right frontotemporoparietal craniotomy evacuation large acute epidural hematoma; Repair of right temporal bone fracture; Repair right parieto- occipital scalp laceration; placement fiberoptic ICP monitor 05/18 (Dr. Bhandari) Laceration of right middle meningeal artery Right parieto-occipital scalp laceration R temporal bone fracture TBI Fall Propofol for sedation Fentanyl for analgosedation Continuous fiberoptic ICP monitoring. Loaded fosphenytoin 1200 mg/PE IV now. Then fosphenytoin 100 mg IV every 8 hours. target End tidal 33-38 Monitor sodium, BMP now. Neurocheck q1 [address] Dr[address] Bhandari following. 3% saline Keep Osmo > 285 Lighten sedation, taper off versed. RESP: Acute respiratory failure Angioedema tongue TV 400 R 12 IT 1 PEEP 5 fIO2 50%. Ventilator Bundle CT chest 05/18 - bibasilar atelectasis CXR clear and well expanded 05/23. Placed on steroids by trauma team for tongue swelling. CV: Monitor hemodynamics. Maintain systolic blood pressure less than [address] Bhandari. Labetalol 10 mill grams IV prn GI: Tube feeds as tolerated CT abd/pelvis 05/18 report - heterogenous liver, prominence of pancreatic head FEN/RENAL: Hyponatremia Hypokalemia Monitor electrolytes. Replace electrolytes per ICU replacement protocol. ID: Perioperative cefazolin. Monitor for signs and symptoms of infection. Check UA with reflex culture. -No signs of infection 04.13 HEME: Monitor CBC. Coags in am. ENDO: Acute stress hyperglycemia Monitor bedside glucose every 6 hours and use low-dose insulin sliding scale as indicated. PROPH: SCDs/teds for DVT prophylaxis. No pharmacologic DVT prophylaxis due to intracerebral hemorrhage ACCESS: Right Radial art line placed in OR 05/18/16. R subclavian CVL placed . Overall impression: Traumatic, right epidural hematoma, s/p decompression with the expected cerebral edema. She remains critically ill. Swelling well controlled. Osmo acceptable as is, but will continue to attempt to remove some free water. Wean vent aggressively now. Discussed with that patient may need tracheostomy and PEG tube. D/ W Dr. Boo Time spent on critical care excluding procedures 35 minutes Ollie Seo MD May 27, 2016 15:07
--- NOTE | 2016-05-27 17:11 | PD.CONS ---
History of Present Illness Service ENT Consult Requested By ICU Reason for Consult Tongue edema Primary Care Physician Unknown Diagnoses: History of Present Illness Patient is a 52-year-old female who reportedly fell. She hit her head and presented as a trauma. She developed an epidural hematoma and required drainage. She has been intubated. She had a temporal bone [id number]. Facial nerve is intact. She has her tongue placed anteriorly and has developed secondary edema in the anterior portion. Review of Systems Ears, nose, mouth, throat: DENIES: Vertigo, Nasal discharge Past Family Social History Allergies: Coded Allergies: No Known Allergies (Unverified , 05/20/16) Physical Exam Vital Signs Vital Signs Date Time Temp Pulse Resp B/P Pulse Ox O2 Delivery O2 Flow Rate FiO2 05/27/16 15:46 100 35 05/27/16 14:00 134 05/27/16 12:00 99.5 112 15 114/56 99 05/27/16 12:00 114 05/27/16 12:00 35 05/27/16 11:08 99 35 05/27/16 11:00 35 05/27/16 10:00 128 05/27/16 08:00 35 05/27/16 08:00 99.1 136 14 120/58 100 05/27/16 08:00 111 05/27/16 07:58 35 05/27/16 07:57 100 35 05/27/16 07:50 100 35 05/27/16 06:00 110 05/27/16 04:35 100 35 05/27/16 04:00 99.2 96 17 129/70 99 05/27/16 04:00 96 05/27/16 04:00 35 05/27/16 02:00 108 05/27/16 01:08 99 35 05/27/16 00:00 35 05/27/16 00:00 98.9 112 18 123/76 100 05/27/16 00:00 112 05/26/16 22:00 90 05/26/16 20:00 35 05/26/16 20:00 96 05/26/16 20:00 98.7 96 16 116/67 100 05/26/16 19:33 100 35 05/26/16 18:00 84 Physical Exam GENERAL: This is a well-nourished, well-developed patient, in no apparent distress. SKIN: No rashes, ecchymoses or lesions. Cool and dry. HEAD: Post craniotomy. EYES: Pupils equal round and reactive. Extraocular motions intact. No scleral icterus. No injection or drainage. ENT: Nose without bleeding, purulent drainage or septal hematoma. Throat without erythema, tonsillar hypertrophy or exudate. Uvula midline. Airway patent secured with endotracheal tube. Mobile tongue edematous and placed anteriorly with restriction at teeth. No current bleeding. NECK: Trachea midline. Laboratory Laboratory Tests Test 05/26/16 05/27/16 05/27/16 19:30 03:02 05:10 Sodium Level 138 138 Potassium Level 4.1 4.1 Chloride Level 102 102 Carbon Dioxide Level 29.1 28.4 Anion Gap 7 8 Blood Urea Nitrogen 17 17 Creatinine 0.49 0.40 Estimat Glomerular Filtration 133 168 Rate Random Glucose 133 132 Calcium Level 8.4 8.3 White Blood Count 15.2 Red Blood Count 2.88 Hemoglobin 8.9 Hematocrit 26.0 Mean Corpuscular Volume 90.3 Mean Corpuscular Hemoglobin 30.8 Mean Corpuscular Hemoglobin 34.1 Concent Red Cell Distribution Width 12.7 Platelet Count 388 Mean Platelet Volume 8.3 Neutrophils (%) (Auto) 75.3 Lymphocytes (%) (Auto) 9.4 Monocytes (%) (Auto) 12.3 Eosinophils (%) (Auto) 2.5 Basophils (%) (Auto) 0.5 Neutrophils # (Auto) 11.5 Lymphocytes # (Auto) 1.4 Monocytes # (Auto) 1.9 Eosinophils # (Auto) 0.4 Basophils # (Auto) 0.1 CBC Comment DIFF FINAL Differential Comment Phosphorus Level 3.1 Magnesium Level 2.2 Total Bilirubin 0.2 Aspartate Amino Transf 28 (AST/SGOT) Alanine Aminotransferase 41 (ALT/SGPT) Alkaline Phosphatase 89 Total Protein 5.9 Albumin 1.8 Blood Gas Puncture Site LT RADIAL Blood Gas Patient Temperature 98.6 Blood Gas HCO3 27 Blood Gas Base Excess 3.4 Blood Gas Oxygen Saturation 98 Arterial Blood pH 7.49 Arterial Blood Partial 36 Pressure CO2 Arterial Blood Partial 168 Pressure O2 Arterial Blood Oxygen Content 17.4 Arterial Blood 0.9 Carboxyhemoglobin Arterial Blood Methemoglobin 0.7 Blood Gas Hemoglobin 12.4 Oxygen Delivery Device VENTILATOR Blood Gas Ventilator Setting PRVC/AC Blood Gas Inspired Oxygen 35 Result Diagram: 4/17/17 0302 4/17/17 0302 Assessment and Plan Assessment and Plan Patient has anterior tongue edema. Need to have tongue placed back in mouth. It is being pushed anteriorly by the endotracheal tube, but she is constricted at her teeth also. Would consult Oral-Maxillofacial Surgery. They were able to save the tongue of a similar patient on the unit a few months ago. Defer to them. Also would help to get endotracheal tube out of the way and compete a tracheostomy. Steroid are helping the edema. Patient had a temporal bone fracture. When stabilized she should have an audiogram. Addi Johnson MD May 27, 2016 17:11
--- NOTE | 2016-05-27 17:32 | HHI.CCPN ---
Subjective Brief History 50 yo Female who arrived to [facility] as a trauma alert. She was reportedly running across a bridge and fell and hit the right side of her head. She was initially alert and oriented with GCS of 15 upon EVAC arrival and was moving all extremities. After she was taken into the ambulance her GCS was 3 and right pupil was dilated and nonreactive. She was intubated in the ED following etomidate 20 mg IV and succinylcholine 100 mg IV. Trauma workup included CT brain that demonstrated 9.7 x4.2 cm R epidural hematoma with 1.2 cm right to left midline shift and cerebral edema. BP in ED was 108/104 to 160/76 with heart rate 66-92. Sats 98-100%. Neurosurgery was consulted and she was taken emergently to OR for right craniotomy by Dr. Bhandari. Her pupil remained nonreactive postoperatively. This is classic presentation of an epidural hematoma with loss of consciousness followed by lucid interval and then again loss of consciousness. 24 Hour Review/Hospital Course 05/20/2016 Patient has been stable over the last 24 hours ICPs remain in 8-12 mmHg range and central perfusion pressure is adequate Pupils are equal 2 mm and somewhat reactive Repeat CAT scan of the brain reveals some blood over the right hemisphere but this is minimal and no intervention is necessary Patient remains of neuroprotective measures including mild hyperventilation, hypertonic saline and sedation on propofol and fentanyl Considering mild swelling of the brain in early phase of care I would leave everything as it is right now and right without for next day or 2 and then a repeat CT scan will be done All things equal we'll started waking patient up by the end of the week and see how she does 05/26/2016 Patient is slowly neurologically improving and remains on sedation however does occasionally move her arm and the leg At this point she is also moving her left side which is encouraging Angioedema off the tongue slowly decreasing Patient remains on Solu-Medrol We'll continue current care to patient is more awake in the swelling of the tongue decreases There is a distinct chance the patient will need a tracheostomy but we'll see how she does 05/27/16 Patient has improved today she is more awake and more alert following simple commands an opening eyes She is on minimum respiratory support but unfortunately angioedema of the tongue is so severe that they cannot be even a question about extubating this patient at this time ENT consultation of Dr. Johnson is very much appreciated and we will have oral maxillofacial surgeon see the patient as well Given all the circumstances I believe patient will require tracheostomy which should be done the next 24-48 hours, depending on OMF recommendations Objective Vital Signs Date Time Temp Pulse Resp B/P Pulse Ox O2 Delivery O2 Flow Rate FiO2 05/27/16 15:46 100 35 05/27/16 14:00 134 05/27/16 12:00 99.5 15 114/56 Intake and Output 05/26/16 05/26/16 05/27/16 08:00 16:00 00:00 Intake Total 875 ml 870 ml 701 ml Output Total 800 ml 650 ml 350 ml Balance 75 ml 220 ml 351 ml Result Diagram: 05/27/16 0302 05/27/16 0302 Other Results Laboratory Tests Test 05/27/16 05:10 Blood Gas Puncture Site LT RADIAL Blood Gas Patient Temperature 98.6 Blood Gas HCO3 27 mmol/L (22-26) Blood Gas Base Excess 3.4 mmol/L (-2-2) Blood Gas Oxygen Saturation 98 % (90-100) Arterial Blood pH 7.49 (7.380-7.420) Arterial Blood Partial 36 mmHg (38-42) Pressure CO2 Arterial Blood Partial 168 mmHg Pressure O2 (61-120) Arterial Blood Oxygen Content 17.4 Vol % (12.0-20.0) Arterial Blood 0.9 % (0-4) Carboxyhemoglobin Arterial Blood Methemoglobin 0.7 % (0-2) Blood Gas Hemoglobin 12.4 G/DL (12.0-16.0) Oxygen Delivery Device VENTILATOR Blood Gas Ventilator Setting PRVC/AC Blood Gas Inspired Oxygen 35 % Imaging Last 24 hours Impressions Chest X-Ray 05/27/16 0600 Signed Impressions: Service Date/Time: Friday, May 27, 2016 04:42 - CONCLUSION: Normal examination with tubes and catheters as described above. Wally Antunez MD Exam DIE MAKER Slightly more awake and alert following commands opening eyes and intermittently communicating Hemodynamic/Cardiac Hemodynamically stable Pulmonary/Respiratory Bilateral breath sounds on minimal ventilatory support but of course not extubated will due to angioedema of the tongue and waxing and waning level of consciousness Abdomen/GI Nutrition Abdomen is soft enteral feeds tolerated Assessment and Plan Attestation Plan OMF consult Likely tracheostomy/PEG The exam, history, and the medical decision-making described in the above note were completed with the assistance of the mid-level provider. I reviewed and agree with the findings presented. I attest that I had a [id number] encounter with the patient on the same day, and personally performed and documented my assessment and findings in the medical record. Critical care time 38 minutes. Mindi De Santiago MD May 27, 2016 17:32
[2016-05-27] MEDS: MAGNESIUM HYDROXIDE SUSP 30 ML CUP PO SCH (20:37)
[2016-05-27] MEDS: PANTOPRAZOLE SODIUM 40 MG VIAL IVP SCH (20:38)
[2016-05-28] VITALS (19 sets, daily range): BP systolic 111–137; BP diastolic 60–76; PULSE 111–140; RESP 14–22; TEMP 98.2–99.8; O2SAT 98–100
[2016-05-28] MEDS ORDERED: METOPROLOL TARTRATE 5 MG/5 ML VIAL IV PUSH ONE (01:00)
[2016-05-28] MEDS: ARTIFICIAL TEARS OPTH SOLN 15 ML BTL EACH EYE SCH ×6 (03:44→22:07)
[2016-05-28] MEDS: METOPROLOL TARTRATE 5 MG/5 ML VIAL IV PUSH SCH ×4 (03:44→22:07)
[2016-05-28] MEDS: CHLORHEXIDINE GLUCONATE 2 % 1 PACK (2 CLOTHS) TOP SCH (03:45)
[2016-05-28 05:49] LABS: AUTOMATED NEUTROPHIL # 11.4 TH/MM3 (1.8-7.7); BASOPHIL # 0.1 TH/MM3 (0-0.2); BASOPHIL % 0.5 % (0.0-2.0); EOSINOPHIL # 0.2 TH/MM3 (0-0.4); EOSINOPHIL % 1.1 % (0.0-4.0); HEMATOCRIT 27.2 % (35.0-46.0); HEMO FLAGS DIFF FINAL; LYMPH % 8.5 % (9.0-44.0); LYMPHOCYTE # 1.2 TH/MM3 (1.0-4.8); MEAN CELL VOLUME 89.4 FL (80.0-100.0); MEAN CORPUSCULAR HEMOGLOBIN 30.4 PG (27.0-34.0); MONO % 11.3 % (0.0-8.0); NEUT % 78.6 % (16.0-70.0); PLATELET COUNT 494 TH/MM3 (150-450); RED BLOOD COUNT 3.04 MIL/MM3 (4.00-5.30); WHITE BLOOD COUNT 14.5 TH/MM3 (4.0-11.0)
[2016-05-28] MEDS: FOSPHENYTOIN SODIUM 100 MG PE/2 ML VIAL IV SCH ×3 (05:54→22:07)
[2016-05-28] MEDS: HYDROmorphone HCL PF 1 MG/ML VIAL IV PRN ×3 (05:55→21:10)
[2016-05-28 06:14] LABS: ALKALINE PHOSPHATASE 111 U/L (45-117); ALT (GPT) 68 U/L (10-53); ANION GAP 9 MEQ/L (5-15); AST (GOT) 36 U/L (15-37); BLOOD UREA NITROGEN 16 MG/DL (7-18); CHLORIDE 100 MEQ/L (98-107); GLOMERULAR FILTRATION RATE 147 ML/MIN (>89); MAGNESIUM 2.2 MG/DL (1.5-2.5); POTASSIUM 3.6 MEQ/L (3.5-5.1); SODIUM (NA) 138 MEQ/L (136-145); TOTAL BILIRUBIN ADULT 0.2 MG/DL (0.2-1.0)
--- NOTE | 2016-05-28 06:39 | RADRPT ---
EXAM DATE/TIME: 05/28/2016 05:26 [place] COMPARISON: CHEST SINGLE AP, May 27, 2016, 4:42. CHEST SINGLE AP, May 26, 2016, 4:25. INDICATIONS : Short of breath. MEDICAL HISTORY : None. SURGICAL HISTORY : None. ENCOUNTER: Subsequent ACUITY: 2 weeks PAIN SCORE: Non-responsive. LOCATION: Bilateral chest FINDINGS: A single view of the chest demonstrates the endotracheal tube, nasogastric tube and right subclavian central line all in good position. Lungs are grossly clear. The cardiomediastinal contours are unrema rkable. Osseous structures are intact. CONCLUSION: Tubes and catheters in good position. Lungs are clear. Wally Antunez MD on May 28, 2016 at 6:36 Board Certified Radiologist. This report was verified electronically.
[2016-05-28] MEDS: hydrALAZINE HCL 20 MG/ML VIAL IV PUSH SCH ×3 (07:00→17:49)
[2016-05-28] MEDS: POLYETHYLENE GLYCOL 17 GM PKG PO SCH (08:10)
[2016-05-28] MEDS: amLODIPine BESYLATE 5 MG TAB PO SCH (08:10)
[2016-05-28] MEDS: LACTULOSE SYRUP 20 GM/30 ML CUP PO SCH (08:10)
[2016-05-28] MEDS: methylPREDNISolone SOD SUCC 125 MG/2 ML VIAL IV PUSH SCH (08:10)
[2016-05-28] MEDS: DOCUSATE SODIUM 50 MG/SENNA 8.6 MG TAB PO SCH ×2 (08:10→21:00)
[2016-05-28] MEDS: SODIUM CHLORIDE 0.9% FLUSH 10 ML FLUSH IV FLUSH PRN (08:13)
[2016-05-28] MEDS: CHLORHEXIDINE 0.12% (ORAL KIT) 15 ML CUP MT SCH ×2 (08:13→20:00)
[2016-05-28] MEDS: INSULIN NovoLIN REGULAR SUPPLEMENTAL SCALE SQ SCH ×4 (08:30→21:00)
[2016-05-28] MEDS ORDERED: ONDANSETRON HCL 4 MG/2 ML VIAL IV PUSH ONE (09:01)
[2016-05-28] MEDS ORDERED: PHENYLEPH/NS 1000 MCG/10 ML SYR IV ONE (09:01)
[2016-05-28] MEDS ORDERED: fentaNYL CITRATE 250 MCG/5 ML AMP IV ONE (09:02)
--- NOTE | 2016-05-28 11:32 | HHI.PR ---
Neuropsych Progress Notes/Response to Tx Contents of Sessions: Level of Consciousness Time with Patient: 15 minutes Premorbid psychological status Premorbid Cognitive, Emotional and Behavioral Status: Stable. 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 The patient has no psychiatric difficulties. Substance abuse history is not significant. She is and has two children. Behavioral Reactions of Patient and Family/Support System: Stable. The patient s family is experiencing ongoing issues of adjustment given the nature of the injury, and this aspect of recovery will require ongoing monitoring. Emotional/Behavioral Status of Patient and Family/Support System: Stable. Pertinent issues, if appropriate to this patients clinical care, are described in detail above. Maximizing acute care outcome It is recommended that the patient be monitored for emergent behavioral impulsivity as the medical condition evolves. This patients neuropathological challenges may limit their rehabilitation potential going forward, and these challenges will require specialized therapeutic skills to maximize outcome. Additionally, the patients family is experiencing ongoing issues of adjustment given the traumatic nature of the injury, and they may benefit from ongoing psychological assistance. Anticipated Problems Ongoing areas of concern will include behavioral impulsivity, lack of insight and judgment, which is expected to improve with time and treatment. Presently , the patient intubated and sedated. Treatment Plan This clinician will continue to follow with you throughout the course of this patients acute care treatment, and I will be available to meet with the patient s family/support system to facilitate their understanding and the ongoing care of their family member. The goals of neuropsychological intervention shall be both educational and supportive to the family/support system as is deemed clinically appropriate. [facility] Level: IV:Confused/Agitated-maximal assist Impression This patient suffered a significant traumatic brain injury secondary to her fall on 05/18/2016, with large EDH and right to left midline shift. She is expected to have significant neurocognitive impairments from this injury. Diagnosis: (1) Major neurocognitive disorder as late effect of traumatic brain injury without behavioral disturbance Status: Acute Progress Note Narrative Ongoing follow-up of patient seen during daily trauma rounds. This is day 10 post injury. She is noted to be more awake and alert, and will likely require PEG/trach. The tongue edema is still an issue and she has been seen by ENT. She remains at a Rancho III emerging IV. I spoke with the patient's earlier in the day and provided support and encouragement. I will continue to follow. Gregorio Benítez PhD May 28, 2016 11:32 am
[2016-05-28] MEDS ORDERED: LIDOCAINE 1%/EPINEPHrine 1:100,000 SOLN 20 ML VIAL ONE (11:50)
--- NOTE | 2016-05-28 14:22 | HHI.CCPN ---
Subjective Brief History [place]: This is a 50 yo Female who [place] [facility]. 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 She was initially alert and oriented with GCS of 15 upon [facility] arrival and was moving all extremities. After she was taken into the ambulance her GCS was 3 and right pupil was dilated and nonreactive. She was intubated in the ED following etomidate 20 mg IV and succinylcholine 100 mg IV. Trauma workup included CT brain that demonstrated 9.7 x4.2 cm R epidural hematoma with 1.2 cm right to left midline shift and cerebral edema. BP in ED was 108/104 to 160/76 with heart rate 66-92. Sats 98-100%. Neurosurgery was consulted and she was taken emergently to OR for right craniotomy by Dr. Bhandari. Her pupil remained nonreactive postoperatively. This is classic presentation of an epidural hematoma with loss of consciousness followed by lucid interval and then again loss of consciousness. INJURIES: RIGHT epidural hematoma (9.7 x4.2 cm) w/ 1.2 cm right to left midline shift with cerebral edema Aspiration Procedures: 05/18: RIGHT craniotomy with evacuation of large epidural hematoma 05/24: Nederland out Consults: CCM. Neurosurgery. ENT. OMFS. 24 Hour Review/Hospital Course 05/20/2016 Patient has been stable over the last 24 hours ICPs remain in 8-12 mmHg range and central perfusion pressure is adequate Pupils are equal 2 mm and somewhat reactive Repeat CAT scan of the brain reveals some blood over the right hemisphere but this is minimal and no intervention is necessary Patient remains of neuroprotective measures including mild hyperventilation, hypertonic saline and sedation on propofol and fentanyl Considering mild swelling of the brain in early phase of care I would leave everything as it is right now and right without for next day or 2 and then a repeat CT scan will be done All things equal we'll started waking patient up by the end of the week and see how she does 05/26/2016 Patient is slowly neurologically improving and remains on sedation however does occasionally move her arm and the leg At this point she is also moving her left side which is encouraging Angioedema off the tongue slowly decreasing Patient remains on Solu-Medrol We'll continue current care to patient is more awake in the swelling of the tongue decreases There is a distinct chance the patient will need a tracheostomy but we'll see how she does 05/27/16 Patient has improved today she is more awake and more alert following simple commands an opening eyes She is on minimum respiratory support but unfortunately angioedema of the tongue is so severe that they cannot be even a question about extubating this patient at this time ENT consultation of Dr. Johnson is very much appreciated and we will have oral maxillofacial surgeon see the patient as well Given all the circumstances I believe patient will require tracheostomy which should be done the next 24-48 hours, depending on OMF recommendations 05/28/2016 PTD: 10 Patient appears more awake today, fentanyl drip is off and she is just managed with Dilaudid IV as needed for pain. Tolerating CPAP trials. ENT recommends OMFS consult to manage tongue swelling. (Augusta Yan) Objective Vital Signs Date Time Temp Pulse Resp B/P Pulse Ox O2 Delivery O2 Flow Rate FiO2 05/28/16 08:07 35 05/28/16 08:06 100 05/28/16 06:00 137 05/28/16 04:00 99.4 16 130/60 Intake and Output 05/27/16 05/27/16 05/28/16 08:00 16:00 00:00 Intake Total 1016 ml 733 ml 663 ml Output Total 750 ml 650 ml 600.0 ml Balance 266 ml 83 ml 63.0 ml (Augusta Yan) Result Diagram: 05/28/16 0502 05/28/16 0502 Imaging Last 24 hours Impressions Chest X-Ray 05/28/16 0600 Signed Impressions: Service Date/Time: Saturday, May 28, 2016 05:26 - CONCLUSION: Tubes and catheters in good position. Lungs are clear. Wally Antunez MD Objective Remarks GENERAL: This is a 50-year-old female mechanically ventilated. SKIN: Warm and dry. HEAD: Normocephalic. Right sided Horseshoe incision line noted. 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 EYES: PERRLA ENT: ETT / OGT. No nasal bleeding or discharge. Mucous membranes pink and moist. Tongue is edematous, and protrudes from her mouth. NECK: Trachea midline. No JVD. CARDIOVASCULAR: Regular rate and rhythm. RESPIRATORY: No accessory muscle use. Lungs are clear to auscultation. Breath sounds equal bilaterally. No distress or dyspnea. GASTROINTESTINAL: BS + x 4 quads. Abdomen soft, non-tender, nondistended. MUSCULOSKELETAL: Extremities without cyanosis, or edema. + peripheral pulses x 4 extremities. Warm with good capillary refill and sensation. MAEW. NEUROLOGICAL: Sedated and mechanically ventilated. (Augusta Yan ORNAMENTAL IRON WORKER APPRENTICE ) Urinary Catheter Assessment Urinary Catheter: Yes Assessment to: Continue (Augusta Yan ORNAMENTAL IRON WORKER APPRENTICE) Vascular Central Line Catheter Vascular Central Line Catheter: Yes Assessment to: Continue Line: Central Venous Catheter Side: Right Location: Subclavian (Augusta Yan ORNAMENTAL IRON WORKER APPRENTICE) Assessment and Plan Assessment: (1) Respiratory failure ICD Code: J96.90 Status: Acute (2) Head injury ICD Code: S09.90XA Status: Acute (3) Unresponsive ICD Code: R41.89 Status: Acute (4) Intracranial bleed ICD Code: I62.9 Status: Acute (5) Epidural hematoma ICD Code: S06.4X9A Status: Acute (6) Skull fracture, non depressed ICD Code: S02.91XA Status: Acute (7) Scalp laceration ICD Code: S01.01XA Status: Acute Plan This is a 50-year-old female who fell and hit her head on the right side. INJURIES: INJURIES: RIGHT epidural hematoma (9.7 x4.2 cm) w/ 1.2 cm right to left midline shift with cerebral edema Aspiration Assessment and plan by systems: NEUROLOGICAL: Patient awake, eyes open and tracking. Only requiring when necessary Dilaudid for pain. No continuous sedation required at this time. . Provide analgesia for comfort and pain - Dilaudid IV PRN. 05/18: Right craniotomy with evacuation of large epidural hematoma. Nederland placed. 05/24 Nederland removed Seizure prophylaxis - IV Cerebyx Serial neuro checks. HOB elevated 30 degrees + peripheral pulses x 4 extremities. Patient is able to move bilateral upper extremities to command. Patient moves left lower extremity to command however right lower extremity only withdraws to pain. Neurosurgery, Dr. Bhandari is following this case. CARDIOVASCULAR: HR: Sinus tachycardia. BP = 130/60 Continually monitor for hemodynamic instability (shock and hypotension). Hypertension management: Norvasc, Lopressor, Apresoline Follow [facility] Electrolyte protocol RESPIRATORY: Vent settings: PRVC-AC 400 / 16 / 35% / 1.0 / +5 Daily CPAP trials - and she is tolerating well. Increase PEEP carefully (to assist in oxygenation by recruiting alveoli.) O2 Sats Monitor for hypoxemia Follow ABGs - - Lung sounds = CTA Pulmonary toilet = . L&S. Bronchodilators - Breathing treatments duonebs PRN. Chest X-Ray results - clear and stable Patient's tongue is edematous and protruding from her mouth. She will require a tracheostomy - plan for trach later today in the OR. VAP protocol in place Labs tomorrow Chest X-Ray tomorrow GASTROINTESTINAL: Diet: TF Jevity @ 60 cc/hr Bowel regimen = Payal-Colace, M OM. MiraLAX, lactulose. LBM: 05/26 RENAL / URINARY: I&O - -29 BUN / creat 26 / 0.[address] to bedside drainage bag with clear yellow urine. Urinalysis - 05/18 ENDOCRINE: BGM = 156 via AM labs SSI in place Solu-Medrol IV daily with taper for tongue swelling HEMATOLOGY: H&H = 9.2 / 27.2 Continue to monitor for signs and symptoms of bleeding. Transfuse for < 7.0 Monitor patient for any bleeding complications. INFECTIOUS DISEASE: Follow CBC WBC - 15.5 Fevers = low grade fevers Administer antipyretics for temp as needed. Monitor pneumonia evolution with repeat chest X-Rays as needed. Maintain vigorous aseptic care of central line to avoid blood stream infections. Consider a consult to ID for further management. LINES: 05/18: ETT 05/18: OGT 05/18: R SC TLC 05/18: F/C PROPHYLAXIS: VAP protocol in place GI prophylaxis: Protonix IV DVT - Mechanical VTE with SCDs. Chemical management contraindicated at this time due to epidural hematoma. Consult placed to ENT regarding swelling of his tongue - appreciate recommendations. Consult placed to OMFS at the recommendation of ENT regarding treatment of tongue edema. SKIN: Warm and dry ACTIVITY: BR PT and OT ordered. CASE MANAGEMENT: Consulted for assist with DC planning. Placement - disposition - TBD. Referrals are placed to [facility] in [place]. EMOTIONAL SUPPORT: Provided to patient and family. Plan of care discussed. Questions answered to the best of my knowledge. Discussed with DIESEL TECHNOLOGY INSTRUCTOR at the bedside during trauma rounds. This patient is currently critically ill and injured and being managed in the ICU. The trauma team will manage care, and evaluate the patient on a daily basis. (Augusta Yan) Attestation The exam, history, and the medical decision-making described in the above note were completed with the assistance of the mid-level provider. I reviewed and agree with the findings presented. I attest that I had a [id number] encounter with the patient on the same day, and personally performed and documented my assessment and findings in the medical record. Critical care time 35 minutes. (Mindi De Santiago MD) Problem Qualifiers (1) Respiratory failure: Qualified Code: J96.00 - Acute respiratory failure, unspecified whether with hypoxia or hypercapnia (2) Head injury: Qualified Code: S09.90XA - Head injury, initial encounter Augusta Yan May 28, 2016 14:22 Mindi De Santiago MD May 30, 2016 02:26
--- NOTE | 2016-05-28 16:43 | MB ---
cc: GABBY CHESTER DDS DATE OF 1965 DATE OF CONSULTATION 05/28/2016 CHIEF COMPLAINT Angioedema of the tongue. HISTORY OF PRESENT ILLNESS This is a 50-year-old female who reportedly fell and presented to the [facility] as a trauma. She developed an epidural hematoma and required drainage. She remained intubated in the ICU with protrusion of the tongue anteriorly out of the oral cavity. The patient was seen this afternoon in bed, sedated and intubated with family at the bedside. Vital signs are stable. PHYSICAL EXAMINATION GENERAL: This is a well-developed, well nourished female who is intubated and sedated in bed in no acute distress. HEAD: Normocephalic. The patient does have bello noted in the scalp from previous surgery. EYES: Pupils equal, round and reactive to light and accommodation. NOSE: The nasal complex is intact. EARS: The ears are intact. MAXILLOFACIAL: The patient does have macroglossia secondary to angioedema of the tongue. The anterior 2/3 of the tongue are outside the oral cavity. The patient does already have a bite block in place and does not appear to be placing a significant amount of occlusal force on the tongue at this time. The teeth appear to be intact. The maxilla is intact. The mandible is intact. Complete intraoral evaluation is limited due to the edema of the tongue and the presence of the endotracheal and other tubing inside in the oral cavity. NECK: No JVD. Trachea is midline. ASSESSMENT This is a 50-year-old female second status post trauma with angioedema of the tongue, possibly secondary to the trauma and the initial biting of the tongue. PLAN No surgical intervention by behavioral health care manager at this time. Recommend tracheostomy to alleviate and create room, for the tongue size to decrease recommend steroid therapy. Also recommend that during tracheostomy that while the patient is relaxed that a larger bite block is placed in the oral cavity to allow for room for the tongue to move posteriorly. Continue critical care management and recommend antibiotic therapy. RANJEET Lanier/SHERICE /1:29 PM /4:28 PM .
--- NOTE | 2016-05-28 18:35 | HHI.NSPN ---
History Chief Complaint: intubated and sedated Interval History 50-year-old female underwent emergency craniotomy evacuation of large epidural hematoma on 05/18/[address] scan 05/18/2016 with satisfactory evacuation of hematoma, mostly mild residual edema and midline shift without significant parenchymal hemorrhage and no hydrocephalus Exam Results Vital Signs Date Time Temp Pulse Resp B/P Pulse Ox O2 Delivery O2 Flow Rate FiO2 05/28/16 16:23 99 35 05/28/16 08:00 Mechanical Ventilator 05/28/16 06:00 137 05/28/16 04:00 99.4 16 130/60 Intake and Output 05/27/16 05/27/16 05/28/16 08:00 16:00 00:00 Intake Total 1016 ml 733 ml 663 ml Output Total 750 ml 650 ml 600.0 ml Balance 266 ml 83 ml 63.0 ml Physical Examination Intubated, no sedation opens eyes spontaneous, follows few simple commands Right craniotomy surgical wound clean and healing well. CN: pupils 4-5 mm b/l reactive to light Angioedema of tongue persists Motor: Plasma Center Technician left greater than right hand to commands, moves left lower extremity moderate to command. Bilateral Babinski response, Abdomen: soft Lab, Micro, Other Results Laboratory Tests Test 05/28/16 05:02 White Blood Count 14.5 TH/MM3 Red Blood Count 3.04 MIL/MM3 Hemoglobin 9.2 GM/DL Hematocrit 27.2 % Mean Corpuscular Volume 89.4 FL Mean Corpuscular Hemoglobin 30.4 PG Mean Corpuscular Hemoglobin 34.0 % Concent Red Cell Distribution Width 13.0 % Platelet Count 494 TH/MM3 Mean Platelet Volume 8.2 FL Neutrophils (%) (Auto) 78.6 % Lymphocytes (%) (Auto) 8.5 % Monocytes (%) (Auto) 11.3 % Eosinophils (%) (Auto) 1.1 % Basophils (%) (Auto) 0.5 % Neutrophils # (Auto) 11.4 TH/MM3 Lymphocytes # (Auto) 1.2 TH/MM3 Monocytes # (Auto) 1.6 TH/MM3 Eosinophils # (Auto) 0.2 TH/MM3 Basophils # (Auto) 0.1 TH/MM3 CBC Comment DIFF FINAL Differential Comment Sodium Level 138 MEQ/L Potassium Level 3.6 MEQ/L Chloride Level 100 MEQ/L Carbon Dioxide Level 29.0 MEQ/L Anion Gap 9 MEQ/L Blood Urea Nitrogen 16 MG/DL Creatinine 0.45 MG/DL Estimat Glomerular Filtration 147 ML/MIN Rate Random Glucose 156 MG/DL Calcium Level 8.5 MG/DL Magnesium Level 2.2 MG/DL Total Bilirubin 0.2 MG/DL Aspartate Amino Transf 36 U/L (AST/SGOT) Alanine Aminotransferase 68 U/L (ALT/SGPT) Alkaline Phosphatase 111 U/L Total Protein 6.3 GM/DL Albumin 2.1 GM/DL Medical Decision Making Impression and Plan Impression: Neurologic exam continues to gradually improve. Right hemiparesis persists but improving slowly Plan: Discussed with family today in ISC Discussed with Gen. surgery today Discussed with nursing staff Tracheostomy to be placed today Wean the ventilator as tolerated, per intensivists Wean sedation as tolerated. ICP monitor discontinued 05/24/16 Seizure prophylaxis DVT prophylaxis-non--chemical Ulcer prophylaxis Monitor sodium and maintained within normal range. Hemodynamically stable Sav Bhandari MD May 28, 2016 18:35
[2016-05-28] MEDS: MAGNESIUM HYDROXIDE SUSP 30 ML CUP PO SCH (21:00)
--- NOTE | 2016-05-28 21:57 | RADRPT ---
EXAM DATE/TIME: 05/28/2016 21:34 [facility] COMPARISON: No previous studies available for comparison. INDICATIONS : Dobhoff placement. MEDICAL HISTORY : None. SURGICAL HISTORY : None. ENCOUNTER: Initial ACUITY: 1 day PAIN SCORE: Non-responsive. LOCATION: abdomen. FINDINGS: Supine view of the abdomen was performed. The abdominal bowel gas pattern is normal. Feeding tube ti p projects over stomach. No abnormal masses, calcifications, or organomegaly is seen. The osseous st ructures are unremarkable. CONCLUSION: 1. Feeding tube tip in stomach. Bowel gas pattern unremarkable. Addi Millan MD on May 28, 2016 at 21:54 Board Certified Radiologist. This report was verified electronically.
[2016-05-28] MEDS: PANTOPRAZOLE SODIUM 40 MG VIAL IVP SCH (22:07)
[2016-05-29] VITALS (19 sets, daily range): BP systolic 110–136; BP diastolic 60–77; PULSE 90–120; RESP 16–25; TEMP 97.8–99.7; O2SAT 97–100
[2016-05-29] MEDS: hydrALAZINE HCL 20 MG/ML VIAL IV PUSH SCH ×4 (00:42→18:16)
[2016-05-29 02:53] LABS: AUTOMATED NEUTROPHIL # 9.4 TH/MM3 (1.8-7.7); BASOPHIL # 0.1 TH/MM3 (0-0.2); BASOPHIL % 0.5 % (0.0-2.0); EOSINOPHIL # 0.2 TH/MM3 (0-0.4); EOSINOPHIL % 1.9 % (0.0-4.0); HEMATOCRIT 27.2 % (35.0-46.0); HEMO FLAGS DIFF FINAL; LYMPH % 14.6 % (9.0-44.0); LYMPHOCYTE # 1.9 TH/MM3 (1.0-4.8); MEAN CELL VOLUME 89.9 FL (80.0-100.0); MEAN CORPUSCULAR HEMOGLOBIN 29.7 PG (27.0-34.0); MONO % 11.5 % (0.0-8.0); NEUT % 71.5 % (16.0-70.0); PLATELET COUNT 530 TH/MM3 (150-450); RED BLOOD COUNT 3.03 MIL/MM3 (4.00-5.30); RED CELL DISTRIBUTION WIDTH 13.2 % (11.6-17.2); WHITE BLOOD COUNT 13.1 TH/MM3 (4.0-11.0)
[2016-05-29] MEDS: ARTIFICIAL TEARS OPTH SOLN 15 ML BTL EACH EYE SCH ×6 (03:00→23:00)
[2016-05-29] MEDS: METOPROLOL TARTRATE 5 MG/5 ML VIAL IV PUSH SCH ×4 (03:30→21:36)
[2016-05-29 03:39] LABS: ALT (GPT) 84 U/L (10-53); ANION GAP 10 MEQ/L (5-15); AST (GOT) 40 U/L (15-37); BICARBONATE 26.3 MEQ/L (21.0-32.0); BLOOD UREA NITROGEN 18 MG/DL (7-18); CHLORIDE 102 MEQ/L (98-107); GLOMERULAR FILTRATION RATE 147 ML/MIN (>89); MAGNESIUM 2.3 MG/DL (1.5-2.5); POTASSIUM 3.8 MEQ/L (3.5-5.1); SODIUM (NA) 138 MEQ/L (136-145)
[2016-05-29 03:41] LABS: ALKALINE PHOSPHATASE 113 U/L (45-117); TOTAL BILIRUBIN ADULT 0.4 MG/DL (0.2-1.0)
[2016-05-29] MEDS: CHLORHEXIDINE GLUCONATE 2 % 1 PACK (2 CLOTHS) TOP SCH (04:00)
--- NOTE | 2016-05-29 06:06 | RADRPT ---
EXAM DATE/TIME: 05/29/2016 05:22 [facility] COMPARISON: No previous studies available for comparison. INDICATIONS : Shortness of breath. MEDICAL HISTORY : Non-responsive SURGICAL HISTORY : Non-responsive ENCOUNTER: Subsequent ACUITY: 2 weeks PAIN SCORE: Non-responsive. LOCATION: Bilateral chest FINDINGS: A single view of the chest demonstrates the lungs to be symmetrically aerated without evidence of mas s, infiltrate or effusion. The tracheostomy tube, right subclavian central line and nasogastric tube are all in good position. The cardiomediastinal contours are unremarkable. Osseous structures are in tact. CONCLUSION: Normal examination with tubes and catheter as above. Wally Antunez MD on May 29, 2016 at 6:04 Board Certified Radiologist. This report was verified electronically.
[2016-05-29] MEDS: INSULIN NovoLIN REGULAR SUPPLEMENTAL SCALE SQ SCH ×4 (06:25→21:00)
[2016-05-29] MEDS: FOSPHENYTOIN SODIUM 100 MG PE/2 ML VIAL IV SCH ×3 (06:26→23:01)
[2016-05-29] MEDS: LACTULOSE SYRUP 20 GM/30 ML CUP PO SCH (08:49)
[2016-05-29] MEDS: POLYETHYLENE GLYCOL 17 GM PKG PO SCH (08:50)
[2016-05-29] MEDS: CHLORHEXIDINE 0.12% (ORAL KIT) 15 ML CUP MT SCH ×2 (08:50→20:00)
[2016-05-29] MEDS: amLODIPine BESYLATE 5 MG TAB PO SCH ×2 (09:00→10:20)
[2016-05-29] MEDS: DOCUSATE SODIUM 50 MG/SENNA 8.6 MG TAB PO SCH ×3 (09:00→21:36)
[2016-05-29] MEDS: methylPREDNISolone SOD SUCC 125 MG/2 ML VIAL IV PUSH SCH (09:31)
--- NOTE | 2016-05-29 10:25 | RADRPT ---
EXAM DATE/TIME: 05/29/2016 00:00 [facility] COMPARISON: No previous studies available for comparison. INDICATIONS : NG tube placement MEDICAL HISTORY : None. SURGICAL HISTORY : None. ENCOUNTER: Subsequent ACUITY: 2 days PAIN SCORE: Non-responsive. LOCATION: Abdomen FINDINGS: Feeding tube is at the pylorus, across the GE junction. The bowel gas pattern is unremarkable. CONCLUSION: Feeding tube at the pylorus. Geronimo Mathis MD FACR on May 29, 2016 at 10:16 Board Certified Radiologist. This report was verified electronically.
--- NOTE | 2016-05-29 10:28 | HHI.PR ---
Neuropsych Progress Notes/Response to Tx Contents of Sessions: Adjustment, Level of Consciousness Time with Patient: 15 minutes Premorbid psychological status Premorbid Cognitive, Emotional and Behavioral Status: Stable. 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 The patient has no psychiatric difficulties. Substance abuse history is not significant. She is and has two children. Behavioral Reactions of Patient and Family/Support System: Stable. The patient s family is experiencing ongoing issues of adjustment given the nature of the injury, and this aspect of recovery will require ongoing monitoring. Emotional/Behavioral Status of Patient and Family/Support System: Stable. Pertinent issues, if appropriate to this patients clinical care, are described in detail above. Maximizing acute care outcome It is recommended that the patient be monitored for emergent behavioral impulsivity as the medical condition evolves. This patients neuropathological challenges may limit their rehabilitation potential going forward, and these challenges will require specialized therapeutic skills to maximize outcome. Additionally, the patients family is experiencing ongoing issues of adjustment given the traumatic nature of the injury, and they may benefit from ongoing psychological assistance. Anticipated Problems Ongoing areas of concern will include behavioral impulsivity, lack of insight and judgment, which is expected to improve with time and treatment. Presently , the patient intubated and sedated. Treatment Plan This clinician will continue to follow with you throughout the course of this patients acute care treatment, and I will be available to meet with the patient s family/support system to facilitate their understanding and the ongoing care of their family member. The goals of neuropsychological intervention shall be both educational and supportive to the family/support system as is deemed clinically appropriate. [facility] Level: V:Confused-non agitated Impression This patient suffered a significant traumatic brain injury secondary to her fall on 05/18/2016, with large EDH and right to left midline shift. She is expected to have significant neurocognitive impairments from this injury. Diagnosis: (1) Major neurocognitive disorder as late effect of traumatic brain injury without behavioral disturbance Status: Acute Progress Note Narrative Ongoing follow-up of patient seen during trauma rounds. This is day 11 post injury. The patient is awake, eyes open, tracking and following commands. She reportedly only withdraws to pain with the RLE, but she did move RLE to command during rounds. She is only receiving PO pain meds. She is improved to a Rancho V. I will continue to follow. Gregorio Benítez PhD May 29, 2016 10:28 am
--- NOTE | 2016-05-29 12:52 | HHI.CCPN ---
Subjective Brief History [place]: This is a 50 yo Female who arrived to [facility] as a trauma alert. 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 She was initially alert and oriented with GCS of 15 upon [facility] arrival and was moving all extremities. After she was taken into the ambulance her GCS was 3 and right pupil was dilated and nonreactive. She was intubated in the ED following etomidate 20 mg IV and succinylcholine 100 mg IV. Trauma workup included CT brain that demonstrated 9.7 x4.2 cm R epidural hematoma with 1.2 cm right to left midline shift and cerebral edema. BP in ED was 108/104 to 160/76 with heart rate 66-92. Sats 98-100%. Neurosurgery was consulted and she was taken emergently to OR for right craniotomy by Dr. Bhandari. Her pupil remained nonreactive postoperatively. This is classic presentation of an epidural hematoma with loss of consciousness followed by lucid interval and then again loss of consciousness. INJURIES: RIGHT epidural hematoma (9.7 x4.2 cm) w/ 1.2 cm right to left midline shift with cerebral edema Aspiration Procedures: 05/18: RIGHT craniotomy with evacuation of large epidural hematoma 05/24: Boston out 05/28: SPEEDOMETER INSPECTOR in the OR Consults: CCM. Neurosurgery. ENT. OMFS. 24 Hour Review/Hospital Course 05/20/2016 Patient has been stable over the last 24 hours ICPs remain in 8-12 mmHg range and central perfusion pressure is adequate Pupils are equal 2 mm and somewhat reactive Repeat CAT scan of the brain reveals some blood over the right hemisphere but this is minimal and no intervention is necessary Patient remains of neuroprotective measures including mild hyperventilation, hypertonic saline and sedation on propofol and fentanyl Considering mild swelling of the brain in early phase of care I would leave everything as it is right now and right without for next day or 2 and then a repeat CT scan will be done All things equal we'll started waking patient up by the end of the week and see how she does 05/26/2016 Patient is slowly neurologically improving and remains on sedation however does occasionally move her arm and the leg At this point she is also moving her left side which is encouraging Angioedema off the tongue slowly decreasing Patient remains on Solu-Medrol We'll continue current care to patient is more awake in the swelling of the tongue decreases There is a distinct chance the patient will need a tracheostomy but we'll see how she does 05/27/16 Patient has improved today she is more awake and more alert following simple commands an opening eyes She is on minimum respiratory support but unfortunately angioedema of the tongue is so severe that they cannot be even a question about extubating this patient at this time ENT consultation of Dr. Johnson is very much appreciated and we will have oral maxillofacial surgeon see the patient as well Given all the circumstances I believe patient will require tracheostomy which should be done the next 24-48 hours, depending on OMF recommendations 05/28/2016 PTD: 10 Patient appears more awake today, fentanyl drip is off and she is just managed with Dilaudid IV as needed for pain. Tolerating CPAP trials. ENT recommends OMFS consult to manage tongue swelling. 05/29/2016 PTD: 11 Patient is status post tracheostomy placement yesterday. Patient is tolerating CPAP trials well, we'll progressed to trach collar trials today. The patient's tongue size has decreased considerably, and no longer protrudes from her mouth. Dobbhoff tube placed last night, needs to be advanced, and then tube feeding can begin (Augusta Yan) Objective Vital Signs Date Time Temp Pulse Resp B/P Pulse Ox O2 Delivery O2 Flow Rate FiO2 05/29/16 09:15 99 35 05/29/16 06:00 96 05/29/16 04:00 99.4 16 110/60 05/28/16 19:00 Mechanical Ventilator Intake and Output 05/28/16 05/28/16 05/29/16 08:00 16:00 00:00 Intake Total 625 ml 453 ml 194 ml Output Total 800 ml 600 ml 950 ml Balance -175 ml -147 ml -756 ml (Augusta YanP) Result Diagram: 05/29/16 0240 05/29/16 0240 Imaging Last 24 hours Impressions Chest X-Ray 05/29/16 0600 Signed Impressions: Service Date/Time: Sunday, May 29, 2016 05:22 - CONCLUSION: Normal examination with tubes and catheter as above. Wally Antunez MD Abdomen X-Ray 05/29/16 0000 Signed Impressions: Service Date/Time: Sunday, May 29, 2016 00:00 - CONCLUSION: Feeding tube at the pylorus. Geronimo Mathis MD FACR Objective Remarks GENERAL: This is a 50-year-old female mechanically ventilated. SKIN: Warm and dry. HEAD: Normocephalic. Right sided Horseshoe incision line noted. TAINA. EYES: PERRLA ENT: Dobhoff feeding tube in place. No nasal bleeding or discharge. Mucous membranes pink and moist. Tongue has decreased considerably. NECK: SPEEDOMETER INSPECTOR. Trachea midline. No JVD. CARDIOVASCULAR: Regular rate and rhythm. CM shows sinus rhythm. RESPIRATORY: No accessory muscle use. Lungs are clear to auscultation. Breath sounds equal bilaterally. No distress or dyspnea. GASTROINTESTINAL: BS + x 4 quads. Abdomen soft, non-tender, nondistended. MUSCULOSKELETAL: Extremities without cyanosis, or edema. + peripheral pulses x 4 extremities. Warm with good capillary refill and sensation. MAEW. NEUROLOGICAL: Mechanically ventilated. Opens eyes to voice. Follows commands in all 4 extremities. (Augusta Yan) Urinary Catheter Assessment Urinary Catheter: Yes Assessment to: Continue Burger insert reason: Measure Accurate Output Date of Insertion: May 18, 2016 (Augusta Yan) Vascular Central Line Catheter Vascular Central Line Catheter: Yes Assessment to: Remove Date of Insertion: May 18, 2016 Date of Removal: May 29, 2016 (request removal today) Line: Central Venous Catheter Side: Right Location: Subclavian (Augusta Yan) Assessment and Plan Assessment: (1) Respiratory failure ICD Code: J96.90 Status: Acute (2) Head injury ICD Code: S09.90XA Status: Acute (3) Unresponsive ICD Code: R41.89 Status: Acute (4) Intracranial bleed ICD Code: I62.9 Status: Acute (5) Epidural hematoma ICD Code: S06.4X9A Status: Acute (6) Skull fracture, non depressed ICD Code: S02.91XA Status: Acute (7) Scalp laceration ICD Code: S01.01XA Status: Acute Plan This is a 50-year-old female who fell and hit her head on the right side. INJURIES: INJURIES: RIGHT epidural hematoma (9.7 x4.2 cm) w/ 1.2 cm right to left midline shift with cerebral edema Aspiration Assessment and plan by systems: NEUROLOGICAL: Patient awake, opens eyes to command. Follows commands in all 4 extremities. Patient does not require any continuous sedation. Only requiring when necessary Dilaudid for pain. No continuous sedation required at this time. . Provide analgesia for comfort and pain - Dilaudid IV PRN. 05/18: Right craniotomy with evacuation of large epidural hematoma. Boston placed. 05/24 Boston removed Seizure prophylaxis - IV Cerebyx Serial neuro checks. HOB elevated 30 degrees + peripheral pulses x 4 extremities. Neurosurgery, Dr. Bhandari is following this case. CARDIOVASCULAR: HR = 90-96. Sinus rhythm BP = 110/60 Continually monitor for hemodynamic instability (shock and hypotension). Hypertension management: Norvasc, Lopressor, Apresoline Follow CMP Electrolyte protocol RESPIRATORY: Vent settings: CPAP and she is tolerating well. 05/28: Trach placed in the OR. Attempt trach collar trials today. O2 Sats Monitor for hypoxemia Lung sounds = CTA Pulmonary toilet = . L&S. Bronchodilators - Breathing treatments duonebs PRN. Chest X-Ray results - clear and stable VAP protocol in place Labs tomorrow GASTROINTESTINAL: Diet: TF Jevity @ 60 cc/hr Bowel regimen = Payal-Colace, M OM. MiraLAX, lactulose. LBM: 05/29 RENAL / URINARY: I&O - -1162 BUN / creat 18 / 0.[address] to bedside drainage bag with clear yellow urine. Urinalysis - 05/18 ENDOCRINE: BGM = 111 via AM labs SSI in place Solu-Medrol IV daily with taper for tongue swelling HEMATOLOGY: H&H = 9.0 / 27 Continue to monitor for signs and symptoms of bleeding. Transfuse for < 7.0 Monitor patient for any bleeding complications. INFECTIOUS DISEASE: Follow CBC WBC - 13.1 Fevers = low grade fevers Administer antipyretics for temp as needed. Monitor pneumonia evolution with repeat chest X-Rays as needed. Maintain vigorous aseptic care of central line to avoid blood stream infections. Consider a consult to ID for further management. LINES: 05/28: Dobhoff feeding tube 05/28: SPEEDOMETER INSPECTOR 05/18: R SC TLC - to be removed today once PIV has been obtained. 05/18: F/C PROPHYLAXIS: VAP protocol in place GI prophylaxis: Protonix IV DVT - Mechanical VTE with SCDs. Chemical management contraindicated at this time due to epidural hematoma. Consult placed to ENT regarding swelling of his tongue - appreciate recommendations. Consult placed to OMFS at the recommendation of ENT regarding treatment of tongue edema. Recommend straight placement, and oropharyngeal airway. SKIN: Warm and dry Tongue swelling improved Stage II resolving pressure sores to buttocks. Wound care nurse recommends barrier cream BID. Right hand splint ordered at the recommendation of OT. ACTIVITY: BR PT and OT ordered. CASE MANAGEMENT: Consulted for assist with DC planning. Placement - disposition - TBD. Referrals are placed to [facility] in [place]. EMOTIONAL SUPPORT: Provided to patient and family. Plan of care discussed. Questions answered to the best of my knowledge. Discussed with TIMBER SURVEYOR at the bedside during trauma rounds. This patient is currently critically ill and injured and being managed in the ICU. The trauma team will manage care, and evaluate the patient on a daily basis. (Augusta Yan) Attestation The exam, history, and the medical decision-making described in the above note were completed with the assistance of the mid-level provider. I reviewed and agree with the findings presented. I attest that I had a [id number] encounter with the patient on the same day, and personally performed and documented my assessment and findings in the medical record. Critical care time 35 minutes. (Mindi De Santiago MD) Problem Qualifiers (1) Respiratory failure: Qualified Code: J96.00 - Acute respiratory failure, unspecified whether with hypoxia or hypercapnia (2) Head injury: Qualified Code: S09.90XA - Head injury, initial encounter Augusta Yan May 29, 2016 12:52 Mindi De Santiago MD May 30, 2016 02:29
[2016-05-29] MEDS: MAGNESIUM HYDROXIDE SUSP 30 ML CUP PO SCH (21:00)
[2016-05-29] MEDS: PANTOPRAZOLE SODIUM 40 MG VIAL IVP SCH (21:36)
--- NOTE | 2016-05-29 21:49 | HHI.NSPN ---
History Chief Complaint: intubated and sedated Interval History 50-year-old female underwent emergency craniotomy evacuation of large epidural hematoma on 05/18/[address] scan 05/18/2016 with satisfactory evacuation of hematoma, mostly mild residual edema and midline shift without significant parenchymal hemorrhage and no hydrocephalus Exam Results Vital Signs Date Time Temp Pulse Resp B/P Pulse Ox O2 Delivery O2 Flow Rate FiO2 05/29/16 20:05 97 T-piece 6.00 35 05/29/16 18:00 101 05/29/16 16:00 97.8 21 123/77 Intake and Output 05/28/16 05/28/16 05/29/16 08:00 16:00 00:00 Intake Total 625 ml 453 ml 194 ml Output Total 800 ml 600 ml 950 ml Balance -175 ml -147 ml -756 ml Physical Examination Tracheostomy in place. No IV sedation opens eyes spontaneous, follows few simple commands Right craniotomy surgical wound clean and healing well. CN: pupils 4-5 mm b/l reactive to light Angioedema of tongue improved with endotracheal tube removed Motor: Manager Of Security left greater than right hand to commands, moves left lower extremity moderate to command. Bilateral Babinski response, Abdomen: soft Lab, Micro, Other Results Laboratory Tests Test 05/29/16 02:40 White Blood Count 13.1 TH/MM3 Red Blood Count 3.03 MIL/MM3 Hemoglobin 9.0 GM/DL Hematocrit 27.2 % Mean Corpuscular Volume 89.9 FL Mean Corpuscular Hemoglobin 29.7 PG Mean Corpuscular Hemoglobin 33.0 % Concent Red Cell Distribution Width 13.2 % Platelet Count 530 TH/MM3 Mean Platelet Volume 8.1 FL Neutrophils (%) (Auto) 71.5 % Lymphocytes (%) (Auto) 14.6 % Monocytes (%) (Auto) 11.5 % Eosinophils (%) (Auto) 1.9 % Basophils (%) (Auto) 0.5 % Neutrophils # (Auto) 9.4 TH/MM3 Lymphocytes # (Auto) 1.9 TH/MM3 Monocytes # (Auto) 1.5 TH/MM3 Eosinophils # (Auto) 0.2 TH/MM3 Basophils # (Auto) 0.1 TH/MM3 CBC Comment DIFF FINAL Differential Comment Sodium Level 138 MEQ/L Potassium Level 3.8 MEQ/L Chloride Level 102 MEQ/L Carbon Dioxide Level 26.3 MEQ/L Anion Gap 10 MEQ/L Blood Urea Nitrogen 18 MG/DL Creatinine 0.45 MG/DL Estimat Glomerular Filtration 147 ML/MIN Rate Random Glucose 111 MG/DL Calcium Level 8.7 MG/DL Magnesium Level 2.3 MG/DL Total Bilirubin 0.4 MG/DL Aspartate Amino Transf 40 U/L (AST/SGOT) Alanine Aminotransferase 84 U/L (ALT/SGPT) Alkaline Phosphatase 113 U/L Total Protein 6.3 GM/DL Albumin 2.3 GM/DL Medical Decision Making Impression and Plan Impression: Neurologic exam continues to gradually improve. Right hemiparesis persists but improving slowly Tracheostomy in place today Plan: Discussed with family today in ISC Seizure prophylaxis DVT prophylaxis-non--chemical Ulcer prophylaxis Monitor sodium and maintained within normal range. Hemodynamically stable Sav Bhandari MD May 29, 2016 21:49
[2016-05-30] VITALS (15 sets, daily range): BP systolic 120–157; BP diastolic 76–93; PULSE 86–110; RESP 15–26; TEMP 98.8–100.2; O2SAT 97–100
[2016-05-30] MEDS: ARTIFICIAL TEARS OPTH SOLN 15 ML BTL EACH EYE SCH ×6 (02:21→22:22)
[2016-05-30] MEDS: METOPROLOL TARTRATE 5 MG/5 ML VIAL IV PUSH SCH ×4 (03:36→21:47)
[2016-05-30] MEDS: CHLORHEXIDINE GLUCONATE 2 % 1 PACK (2 CLOTHS) TOP SCH (04:00)
[2016-05-30 04:58] LABS: BASOPHIL # 0.1 TH/MM3 (0-0.2); BASOPHIL % 0.7 % (0.0-2.0); EOSINOPHIL # 0.2 TH/MM3 (0-0.4); EOSINOPHIL % 1.6 % (0.0-4.0); HEMATOCRIT 28.6 % (35.0-46.0); HEMO FLAGS DIFF FINAL; LYMPH % 9.8 % (9.0-44.0); LYMPHOCYTE # 1.5 TH/MM3 (1.0-4.8); MEAN CELL VOLUME 89.4 FL (80.0-100.0); MEAN CORPUSCULAR HEMOGLOBIN 30.5 PG (27.0-34.0); MEAN CORPUSCULAR HGB CONC 34.1 % (32.0-36.0); MONO % 8.7 % (0.0-8.0); NEUT % 79.2 % (16.0-70.0); PLATELET COUNT 559 TH/MM3 (150-450); RED CELL DISTRIBUTION WIDTH 13.1 % (11.6-17.2); WHITE BLOOD COUNT 15.1 TH/MM3 (4.0-11.0)
--- NOTE | 2016-05-30 05:09 | RADRPT ---
EXAM DATE/TIME: 05/30/2016 04:19 [place] COMPARISON: No previous studies available for comparison. INDICATIONS : Shortness of breath MEDICAL HISTORY : Non-responsive SURGICAL HISTORY : Non-responsive ENCOUNTER: Subsequent ACUITY: 2 weeks PAIN SCORE: Non-responsive. LOCATION: Bilateral chest FINDINGS: A single view of the chest demonstrates the lungs to be symmetrically aerated without evidence of mas s, infiltrate or effusion. Tracheostomy tube and possible feeding tube noted in good position The car diomediastinal contours are unremarkable. Osseous structures are intact. CONCLUSION: Normal examination. Tracheostomy tube in good position Wally Antunez MD on May 30, 2016 at 5:07 Board Certified Radiologist. This report was verified electronically.
[2016-05-30 05:25] LABS: ALT (GPT) 109 U/L (10-53); ANION GAP 9 MEQ/L (5-15); AST (GOT) 58 U/L (15-37); BICARBONATE 24.6 MEQ/L (21.0-32.0); BLOOD UREA NITROGEN 16 MG/DL (7-18); CHLORIDE 104 MEQ/L (98-107); GLOMERULAR FILTRATION RATE 127 ML/MIN (>89); MAGNESIUM 2.4 MG/DL (1.5-2.5); POTASSIUM 3.5 MEQ/L (3.5-5.1); SODIUM (NA) 138 MEQ/L (136-145)
[2016-05-30 05:27] LABS: ALKALINE PHOSPHATASE 130 U/L (45-117); TOTAL BILIRUBIN ADULT 0.2 MG/DL (0.2-1.0)
[2016-05-30] MEDS: hydrALAZINE HCL 20 MG/ML VIAL IV PUSH SCH ×4 (06:00→18:00)
[2016-05-30] MEDS: INSULIN NovoLIN REGULAR SUPPLEMENTAL SCALE SQ SCH ×4 (06:40→21:00)
[2016-05-30] MEDS: FOSPHENYTOIN SODIUM 100 MG PE/2 ML VIAL IV SCH ×3 (06:56→22:22)
[2016-05-30] MEDS: CHLORHEXIDINE 0.12% (ORAL KIT) 15 ML CUP MT SCH ×2 (08:00→20:01)
[2016-05-30] MEDS: methylPREDNISolone SOD SUCC 125 MG/2 ML VIAL IV PUSH SCH (08:23)
[2016-05-30] MEDS: amLODIPine BESYLATE 5 MG TAB PO SCH (08:23)
[2016-05-30] MEDS: DOCUSATE SODIUM 50 MG/SENNA 8.6 MG TAB PO SCH ×2 (09:00→21:47)
[2016-05-30] MEDS: POLYETHYLENE GLYCOL 17 GM PKG PO SCH (09:00)
--- NOTE | 2016-05-30 10:49 | HHI.PR ---
Neuropsych Progress Notes/Response to Tx Contents of Sessions: Level of Consciousness Time with Patient: 15 minutes Premorbid psychological status Premorbid Cognitive, Emotional and Behavioral Status: Stable. 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 The patient has no psychiatric difficulties. Substance abuse history is not significant. She is and has two children. Behavioral Reactions of Patient and Family/Support System: Stable. The patient s family is experiencing ongoing issues of adjustment given the nature of the injury, and this aspect of recovery will require ongoing monitoring. Emotional/Behavioral Status of Patient and Family/Support System: Stable. Pertinent issues, if appropriate to this patients clinical care, are described in detail above. Maximizing acute care outcome It is recommended that the patient be monitored for emergent behavioral impulsivity as the medical condition evolves. This patients neuropathological challenges may limit their rehabilitation potential going forward, and these challenges will require specialized therapeutic skills to maximize outcome. Additionally, the patients family is experiencing ongoing issues of adjustment given the traumatic nature of the injury, and they may benefit from ongoing psychological assistance. Anticipated Problems Ongoing areas of concern will include behavioral impulsivity, lack of insight and judgment, which is expected to improve with time and treatment. Presently , the patient intubated and sedated. Treatment Plan This clinician will continue to follow with you throughout the course of this patients acute care treatment, and I will be available to meet with the patient s family/support system to facilitate their understanding and the ongoing care of their family member. The goals of neuropsychological intervention shall be both educational and supportive to the family/support system as is deemed clinically appropriate. [place] Level: III:Localized response-total assist Impression This patient suffered a significant traumatic brain injury secondary to her fall on 05/18/2016, with large EDH and right to left midline shift. She is expected to have significant neurocognitive impairments from this injury. Diagnosis: (1) Major neurocognitive disorder as late effect of traumatic brain injury without behavioral disturbance Status: Acute Progress Note Narrative Ongoing follow-up of patient seen during daily trauma rounds. This is day 12 post injury. She underwent tracheostomy and is tolerating CPAP trials. Her tongue has decreased in size. She open her eyes and follows x 4 and is showing gradual improvement. She is off all sedation medications. Neurobehaviorally, she appears most consistent with a possible Rancho V at this point in time, although I am leaving her as a III at this time. There have been no reports of agitation or restlessness issues. The discharge plan is for her to go to [facility]. I will continue to follow. Gregorio Benítez PhD May 30, 2016 10:48 am
--- NOTE | 2016-05-30 10:55 | HHI.CCPN ---
Subjective Brief History CONFEDERATED SALISH: This is a 50 yo Female who arrived to [facility] as a trauma alert. 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 She was initially alert and oriented with GCS of 15 upon [facility] arrival and was moving all extremities. After she was taken into the ambulance her GCS was 3 and right pupil was dilated and nonreactive. She was intubated in the ED following etomidate 20 mg IV and succinylcholine 100 mg IV. Trauma workup included CT brain that demonstrated 9.7 x4.2 cm R epidural hematoma with 1.2 cm right to left midline shift and cerebral edema. BP in ED was 108/104 to 160/76 with heart rate 66-92. Sats 98-100%. Neurosurgery was consulted and she was taken emergently to OR for right craniotomy by Dr. Bhandari. Her pupil remained nonreactive postoperatively. This is classic presentation of an epidural hematoma with loss of consciousness followed by lucid interval and then again loss of consciousness. INJURIES: RIGHT epidural hematoma (9.7 x4.2 cm) w/ 1.2 cm right to left midline shift with cerebral edema Aspiration Procedures: 05/18: RIGHT craniotomy with evacuation of large epidural hematoma 05/24: [place] out 05/28: DICER OPERATOR in the OR Consults: CCM. Neurosurgery. ENT. OMFS. 24 Hour Review/Hospital Course 05/20/2016 Patient has been stable over the last 24 hours ICPs remain in 8-12 mmHg range and central perfusion pressure is adequate Pupils are equal 2 mm and somewhat reactive Repeat CAT scan of the brain reveals some blood over the right hemisphere but this is minimal and no intervention is necessary Patient remains of neuroprotective measures including mild hyperventilation, hypertonic saline and sedation on propofol and fentanyl Considering mild swelling of the brain in early phase of care I would leave everything as it is right now and right without for next day or 2 and then a repeat CT scan will be done All things equal we'll started waking patient up by the end of the week and see how she does 05/26/2016 Patient is slowly neurologically improving and remains on sedation however does occasionally move her arm and the leg At this point she is also moving her left side which is encouraging Angioedema off the tongue slowly decreasing Patient remains on Solu-Medrol We'll continue current care to patient is more awake in the swelling of the tongue decreases There is a distinct chance the patient will need a tracheostomy but we'll see how she does 05/27/16 Patient has improved today she is more awake and more alert following simple commands an opening eyes She is on minimum respiratory support but unfortunately angioedema of the tongue is so severe that they cannot be even a question about extubating this patient at this time ENT consultation of Dr. Johnson is very much appreciated and we will have oral maxillofacial surgeon see the patient as well Given all the circumstances I believe patient will require tracheostomy which should be done the next 24-48 hours, depending on OMF recommendations 05/28/2016 PTD: 10 Patient appears more awake today, fentanyl drip is off and she is just managed with Dilaudid IV as needed for pain. Tolerating CPAP trials. ENT recommends OMFS consult to manage tongue swelling. 05/29/2016 PTD: 11 Patient is status post tracheostomy placement yesterday. Patient is tolerating CPAP trials well, we'll progressed to trach collar trials today. The patient's tongue size has decreased considerably, and no longer protrudes from her mouth. Dobbhoff tube placed last night, needs to be advanced, and then tube feeding can begin 05/30/16 Patient doing much better she is off the respirator at this point on the trach collar Following simple commands very well squeezing and communicating Opening her eyes The tongue swelling has decreased significantly, almost back to normal and patient is able to move tongue in and out of the mouth Patient was transferred to [facility] facility bed is available Discharge from ICU to [facility] today Objective Vital Signs Date Time Temp Pulse Resp B/P Pulse Ox O2 Delivery O2 Flow Rate FiO2 05/30/16 08:14 98 T-piece 28 05/30/16 06:00 94 05/30/16 04:00 100.2 25 157/93 05/29/16 20:05 6.00 Intake and Output 05/29/16 05/29/16 05/30/16 08:00 16:00 00:00 Intake Total 166 ml 199 ml 552 ml Output Total 425 ml 400 ml 925 ml Balance -259 ml -201 ml -373 ml Result Diagram: 05/30/165 05/30/16 0315 Imaging Last 24 hours Impressions Chest X-Ray 05/30/16 0600 Signed Impressions: Service Date/Time: May 30, 2016 04:19 - CONCLUSION: Normal examination. Tracheostomy tube in good position Wally Antunez MD Exam COMMUNICATION EQUIPMENT MECHANIC More awake and alert following commands and communicating Hemodynamic/Cardiac Hemodynamically stable Pulmonary/Respiratory Bilateral good breath sounds on trach collar Abdomen/GI Nutrition Abdomen soft enteral feedings running and if patient is able to swallow we'll start her on diet Urinary Catheter Assessment Date of Insertion: May 18, 2016 Vascular Central Line Catheter Date of Insertion: May 18, 2016 Date of Removal: May 29, 2016 (request removal today) Line: Central Venous Catheter Side: Right Location: Subclavian Assessment and Plan Assessment: (1) Respiratory failure ICD Code: J96.90 Status: Acute (2) Head injury ICD Code: S09.90XA Status: Acute (3) Unresponsive ICD Code: R41.89 Status: Acute (4) Intracranial bleed ICD Code: I62.9 Status: Acute (5) Epidural hematoma ICD Code: S06.4X9A Status: Acute (6) Skull fracture, non depressed ICD Code: S02.91XA Status: Acute (7) Scalp laceration ICD Code: S01.01XA Status: Acute Plan This is a 50-year-old female who fell and hit her head on the right side. INJURIES: INJURIES: RIGHT epidural hematoma (9.7 x4.2 cm) w/ 1.2 cm right to left midline shift with cerebral edema Aspiration Assessment and plan by systems: NEUROLOGICAL: Patient awake, opens eyes to command. Follows commands in all 4 extremities. Patient does not require any continuous sedation. Only requiring when necessary Dilaudid for pain. No continuous sedation required at this time. . Provide analgesia for comfort and pain - Dilaudid IV PRN. 05/18: Right craniotomy with evacuation of large epidural hematoma. [place] placed. 05/24 [place] removed Seizure prophylaxis - IV Cerebyx Serial neuro checks. HOB elevated 30 degrees + peripheral pulses x 4 extremities. Neurosurgery, Dr. Bhandari is following this case. CARDIOVASCULAR: HR = 90-96. Sinus rhythm BP = 110/60 Continually monitor for hemodynamic instability (shock and hypotension). Hypertension management: Norvasc, Lopressor, Apresoline Follow CMP Electrolyte protocol RESPIRATORY: Vent settings: CPAP and she is tolerating well. 05/28: Trach placed in the OR. Attempt trach collar trials today. O2 Sats Monitor for hypoxemia Lung sounds = CTA Pulmonary toilet = . L&S. Bronchodilators - Breathing treatments duonebs PRN. Chest X-Ray results - clear and stable VAP protocol in place Labs tomorrow GASTROINTESTINAL: Diet: TF Jevity @ 60 cc/hr Bowel regimen = Payal-Colace, M OM. MiraLAX, lactulose. LBM: 05/29 RENAL / URINARY: I&O - -1162 BUN / creat 18 / 0.[address] to bedside drainage bag with clear yellow urine. Urinalysis - 05/18 ENDOCRINE: BGM = 111 via AM labs SSI in place Solu-Medrol IV daily with taper for tongue swelling HEMATOLOGY: H&H = 9.0 / 27 Continue to monitor for signs and symptoms of bleeding. Transfuse for < 7.0 Monitor patient for any bleeding complications. INFECTIOUS DISEASE: Follow CBC WBC - 13.1 Fevers = low grade fevers Administer antipyretics for temp as needed. Monitor pneumonia evolution with repeat chest X-Rays as needed. Maintain vigorous aseptic care of central line to avoid blood stream infections. Consider a consult to ID for further management. LINES: 05/28: Dobhoff feeding tube 05/28: DICER OPERATOR 05/18: R SC TLC - to be removed today once PIV has been obtained. 05/18: F/C PROPHYLAXIS: VAP protocol in place GI prophylaxis: Protonix IV DVT - Mechanical VTE with SCDs. Chemical management contraindicated at this time due to epidural hematoma. Consult placed to ENT regarding swelling of his tongue - appreciate recommendations. Consult placed to OMFS at the recommendation of ENT regarding treatment of tongue edema. Recommend straight placement, and oropharyngeal airway. SKIN: Warm and dry Tongue swelling improved Stage II resolving pressure sores to buttocks. Wound care nurse recommends barrier cream BID. Right hand splint ordered at the recommendation of OT. ACTIVITY: BR PT and OT ordered. CASE MANAGEMENT: Consulted for assist with DC planning. Placement - disposition - TBD. Referrals are placed to [facility] in [place]. EMOTIONAL SUPPORT: Provided to patient and family. Plan of care discussed. Questions answered to the best of my knowledge. Discussed with PORTRAIT PHOTOGRAPHER at the bedside during trauma rounds. This patient is currently critically ill and injured and being managed in the ICU. The trauma team will manage care, and evaluate the patient on a daily basis. Attestation Transfer to rehabilitation facility today The exam, history, and the medical decision-making described in the above note were completed with the assistance of the mid-level provider. I reviewed and agree with the findings presented. I attest that I had a [id number] encounter with the patient on the same day, and personally performed and documented my assessment and findings in the medical record. Critical care time 38 minutes. Problem Qualifiers (1) Respiratory failure: Qualified Code: J96.00 - Acute respiratory failure, unspecified whether with hypoxia or hypercapnia (2) Head injury: Qualified Code: S09.90XA - Head injury, initial encounter Mindi De Santiago MD May 30, 2016 10:55
--- NOTE | 2016-05-30 11:00 | MP ---
cc: MINDI KRAFT MD DATE OF SURGERY 05/28/2016 PREOPERATIVE DIAGNOSES Respiratory failure. Traumatic brain injury with epidural hematoma. POSTOPERATIVE DIAGNOSES Respiratory failure. Traumatic brain injury with epidural hematoma. PROCEDURE Tracheostomy with Blue Rhino. SURGEON MD Anyi ANESTHESIA General. ESTIMATED BLOOD LOSS Minimal. OPERATIVE PROCEDURE The patient is prepped and draped in the usual fashion. Midline neck incision made about 1.5 cm in length, deepened down with a hemostat to the strap muscles. The strap muscles are retracted laterally and trachea is exposed. Needle and the Angiocath inserted between second and third tracheal ring and then this was visualized with the bronchoscope by pulling the endotracheal tube back sufficiently by Anesthesia. The guidewire was now inserted into the trachea. Over the guidewire the punch dilator is placed and then after that the Blue Rhino dilator is placed under direct vision. After that, a Shiley tracheal cannula is placed, sutured in place with 2-0 Prolene. End-tidal CO2 is checked and then cannula is also secured around the neck with a tape. The patient tolerated the procedure well. Mindi MONTIEL/SSB /5:03 PM /10:50 AM
[2016-05-30] MEDS: LACTULOSE SYRUP 20 GM/30 ML CUP PO SCH (12:27)
--- NOTE | 2016-05-30 15:12 | HHI.NSPN ---
(Wilfredo Valenzuela) Note Status Status: Progress Note (Wilfredo Valenzuela) Interval History Interval History 50-year-old female underwent emergency craniotomy evacuation of large epidural hematoma on 05/18/[address] scan 05/18/2016 with satisfactory evacuation of hematoma, mostly mild residual edema and midline shift without significant parenchymal hemorrhage and no hydrocephalus She was trached on and had a Dubhoff feeding tube placed yesterday. She continues to do well and is neurologically stable. Per the Compacting Machine Operator/Tender notes she is to be discharged to [facility] for rehab today. (Wilfredo Valenzuela) Labs, Micro, & Vital Signs Results Allergies Coded Allergies Type Severity Reaction Last Updated Verified No Known Allergies 05/20/16 No Recent Impressions Chest X-Ray 05/30/16 0600 Signed Impressions: Service Date/Time: May 04:19 - CONCLUSION: Normal examination. Tracheostomy tube in good position Wally Antunez MD Chest X-Ray 05/29/16 0600 Signed Impressions: Service Date/Time: Sunday, May 29, 2016 05:22 - CONCLUSION: Normal examination with tubes and catheter as above. Wally Antunez MD Abdomen X-Ray 05/29/16 0000 Signed Impressions: Service Date/Time: Sunday, May 29, 2016 00:00 - CONCLUSION: Feeding tube at the pylorus. Geronimo Mathis MD FACR Chest X-Ray 05/28/16 0600 Signed Impressions: Service Date/Time: Saturday, May 28, 2016 05:26 - CONCLUSION: Tubes and catheters in good position. Lungs are clear. Wally Antunez MD Abdomen X-Ray 05/28/16 0000 Signed Impressions: Service Date/Time: Saturday, May 28, 2016 21:34 - CONCLUSION: 1. Feeding tube tip in stomach. Bowel gas pattern unremarkable. Addi Millan MD //174///// 06:00 18:00 06:00 18:00 06:00 18:00 Intake Total 1288 ml 453 ml 360 ml 199 ml 1223 ml Output Total 1400.0 ml 600 ml 1375 ml 400 ml 1375 ml Balance -112.0 ml -147 ml -1015 ml -201 ml -152 ml Intake IV Total 434 ml 192 ml 360 ml 130 ml 288 ml Tube Feeding 854 ml 161 ml 19 ml 575 ml Other 100 ml 50 ml 360 ml Output Urine Total 1400 ml 600 ml 1375 ml 400 ml 1375 ml Stool Total 0 ml Tube Feeding Residual Discard 0 ml # Bowel Movements 0 2 1 0 0 Laboratory Tests Test 05/28/16 05/29/16 05/30/16 05:02 02:40 03:15 White Blood Count 14.5 TH/MM3 13.1 TH/MM3 15.1 TH/MM3 Red Blood Count 3.04 MIL/MM3 3.03 MIL/MM3 3.20 MIL/MM3 Hemoglobin 9.2 GM/DL 9.0 GM/DL 9.7 GM/DL Hematocrit 27.2 % 27.2 % 28.6 % Mean Corpuscular Volume 89.4 FL 89.9 FL 89.4 FL Mean Corpuscular Hemoglobin 30.4 PG 29.7 PG 30.5 PG Mean Corpuscular Hemoglobin 34.0 % 33.0 % 34.1 % Concent Red Cell Distribution Width 13.0 % 13.2 % 13.1 % Platelet Count 494 TH/MM3 530 TH/MM3 559 TH/MM3 Mean Platelet Volume 8.2 FL 8.1 FL 8.6 FL Neutrophils (%) (Auto) 78.6 % 71.5 % 79.2 % Lymphocytes (%) (Auto) 8.5 % 14.6 % 9.8 % Monocytes (%) (Auto) 11.3 % 11.5 % 8.7 % Eosinophils (%) (Auto) 1.1 % 1.9 % 1.6 % Basophils (%) (Auto) 0.5 % 0.5 % 0.7 % Neutrophils # (Auto) 11.4 TH/MM3 9.4 TH/MM3 12.0 TH/MM3 Lymphocytes # (Auto) 1.2 TH/MM3 1.9 TH/MM3 1.5 TH/MM3 Monocytes # (Auto) 1.6 TH/MM3 1.5 TH/MM3 1.3 TH/MM3 Eosinophils # (Auto) 0.2 TH/MM3 0.2 TH/MM3 0.2 TH/MM3 Basophils # (Auto) 0.1 TH/MM3 0.1 TH/MM3 0.1 TH/MM3 CBC Comment DIFF FINAL DIFF FINAL DIFF FINAL Differential Comment Sodium Level 138 MEQ/L 138 MEQ/L 138 MEQ/L Potassium Level 3.6 MEQ/L 3.8 MEQ/L 3.5 MEQ/L Chloride Level 100 MEQ/L 102 MEQ/L 104 MEQ/L Carbon Dioxide Level 29.0 MEQ/L 26.3 MEQ/L 24.6 MEQ/L Anion Gap 9 MEQ/L 10 MEQ/L 9 MEQ/L Blood Urea Nitrogen 16 MG/DL 18 MG/DL 16 MG/DL Creatinine 0.45 MG/DL 0.45 MG/DL 0.51 MG/DL Estimat Glomerular Filtration 147 ML/MIN 147 ML/MIN 127 ML/MIN Rate Random Glucose 156 MG/DL 111 MG/DL 130 MG/DL Calcium Level 8.5 MG/DL 8.7 MG/DL 8.7 MG/DL Magnesium Level 2.2 MG/DL 2.3 MG/DL 2.4 MG/DL Total Bilirubin 0.2 MG/DL 0.4 MG/DL 0.2 MG/DL Aspartate Amino Transf 36 U/L 40 U/L 58 U/L (AST/SGOT) Alanine Aminotransferase 68 U/L 84 U/L 109 U/L (ALT/SGPT) Alkaline Phosphatase 111 U/L 113 U/L 130 U/L Total Protein 6.3 GM/DL 6.3 GM/DL 6.4 GM/DL Albumin 2.1 GM/DL 2.3 GM/DL 2.3 GM/DL Procedure Category Date Status Time Metoprolol Tartrate MED 05/28/16 Complete Inj (Lopressor Inj) 01:00 Magnesium (Mg) LAB 05/29/16 Complete 05:00 Complete Blood Count LAB 05/29/16 Complete With Diff 05:00 Chest, Single Ap RADDIAG 05/29/16 Resulted 06:00 Comprehensive LAB 05/29/16 Complete Metabolic Panel 05:00 Consult Oral, Facial CONS 05/28/16 Transmitted Surgery Propofol 200 Mg/20 Ml MED 05/18/16 Complete Inj (Diprivan 200 12:00 Phenylephrine Inj MED 05/18/16 Complete (Neosynephrine Inj) 12:00 Sodium Chlor 0.9% 250 MED 05/18/16 Complete Ml Inj (Ns 250 Ml 12:00 Sodium Chlorid 0.9% MED 05/18/16 Complete 500 Ml Inj (Ns 500 M 12:00 Normosol R Inj MED 05/18/16 Complete (Normosol R Inj) 12:00 (Hub Use Only)Inp Phy CONS 05/28/16 Transmitted Cons/Ref Lidocai-Epi MED 05/28/16 Complete 1%-1:100,000 Inj 11:50 Cannula, Disp Inner SPD 05/28/16 Logged 8fr Ea 16:33 Insert Ng Tube For JAMES 05/28/16 In Process Feeding 16:45 Consult Wound / CONS 05/28/16 Transmitted Ostomy Nurse Abdomen, Single View RADDIAG 05/28/16 Resulted Magnesium (Mg) LAB 05/30/16 Complete 05:00 Complete Blood Count LAB 05/30/16 Complete With Diff 05:00 Chest, Single Ap RADDIAG 05/30/16 Resulted 06:00 Comprehensive LAB 05/30/16 Complete Metabolic Panel 05:00 Adriana Hand ORTHO 05/29/16 Complete Ot Request For Service OT 05/29/16 Complete 08:37 Orthotech Request For ORTHO 05/29/16 Logged Service 09:02 ^ Other Nursing Orders JAMES 05/29/16 In Process 09:30 Resp Trach Collar RSP 05/29/16 Logged Abdomen, Single View RADDIAG 05/29/16 Resulted ^ Wound Care JAMES 05/29/16 In Process 10:27 Remove [place] JAMES 05/29/16 In Process 17:34 Urine Culture [place] 05/30/16 In Process 05:58 Specimen To Be JAMES 05/30/16 In Process Collected 05:58 Magnesium (Mg) LAB 05/31/16 Verified 05:00 Complete Blood Count LAB 05/31/16 Verified With Diff 05:00 Chest, Single Ap RADDIAG 05/31/16 Verified 06:00 Comprehensive LAB 05/31/16 Verified Metabolic Panel 05:00 Swallow Eval W/ St ST 05/30/16 Logged 09:13 Activity Oob With JAMES 05/30/16 In Process Assistance 09:17 Vital Signs Date Time Temp Pulse Resp B/P Pulse Ox O2 Delivery O2 Flow Rate FiO2 05/30/16 12:00 99.5 99 18 124/76 99 05/30/16 12:00 96 05/30/16 10:00 109 05/30/16 08:14 98 T-piece 28 05/30/16 08:00 98 05/30/16 08:00 98.8 110 26 126/86 97 05/30/16 07:00 98 Trach Collar 35 05/30/16 06:00 94 05/30/16 04:17 98 35 05/30/16 04:00 108 05/30/16 04:00 100.2 108 25 157/93 98 05/30/16 02:00 90 05/30/16 00:00 93 05/30/16 00:00 99.4 93 15 141/87 98 05/29/16 23:15 97 35 05/29/16 22:00 92 05/29/16 20:05 97 T-piece 6.00 35 05/29/16 20:00 99.7 118 24 121/69 98 05/29/16 19:00 99 T-Piece 35 05/29/16 18:00 101 05/29/16 16:00 101 05/29/16 16:00 97.8 101 21 123/77 99 05/29/16 14:00 111 05/29/16 13:15 99 T-piece 6.00 35 05/29/16 13:15 98 T-Piece 35 05/29/16 12:00 111 05/29/16 12:00 35 05/29/16 12:00 98.6 111 20 120/72 100 05/29/16 10:00 103 05/29/16 09:15 99 35 05/29/16 09:15 35 05/29/16 08:42 98 35 05/29/16 08:00 120 05/29/16 08:00 35 05/29/16 08:00 98.7 120 25 115/72 98 05/29/16 08:00 98 Mechanical Ventilator 35 05/29/16 06:00 96 05/29/16 04:00 99.4 90 16 110/60 100 05/29/16 04:00 90 05/29/16 04:00 35 05/29/16 03:57 100 35 05/29/16 02:00 92 05/29/16 01:33 97 35 05/29/16 00:00 35 05/29/16 00:00 110 05/29/16 00:00 99.2 110 16 136/71 99 05/28/16 22:00 118 05/28/16 20:13 99 35 05/28/16 20:00 35 05/28/16 20:00 99.8 118 19 111/62 100 05/28/16 20:00 118 05/28/16 19:00 99 Mechanical Ventilator 35 05/28/16 18:00 119 05/28/16 16:23 99 35 05/28/16 16:00 98.2 114 19 137/69 100 05/28/16 16:00 35 05/28/16 16:00 114 05/28/16 14:00 130 05/28/16 12:00 35 05/28/16 12:00 126 05/28/16 12:00 98.8 126 14 125/70 98 05/28/16 10:00 111 05/28/16 08:07 35 05/28/16 08:06 100 35 05/28/16 08:03 100 35 05/28/16 08:00 35 05/28/16 08:00 134 05/28/16 08:00 99 Mechanical Ventilator 35 05/28/16 08:00 99.3 134 22 132/76 99 05/28/16 06:00 137 05/28/16 04:18 99 35 05/28/16 04:00 128 05/28/16 04:00 35 05/28/16 04:00 99.4 128 16 130/60 99 05/28/16 02:00 123 05/28/16 01:14 100 35 05/28/16 01:00 116 05/28/16 00:00 98.9 140 16 130/60 99 05/28/16 00:00 140 05/28/16 00:00 35 05/27/16 22:00 116 05/27/16 20:16 99 35 05/27/16 20:00 35 05/27/16 20:00 126 05/27/16 20:00 99.8 126 14 130/78 99 05/27/16 18:00 98 05/27/16 16:00 35 05/27/16 16:00 99.3 121 17 123/68 100 05/27/16 16:00 121 05/27/16 15:46 100 35 Date Time Temp Pulse Resp B/P Pulse Ox O2 Delivery O2 Flow Rate FiO2 05/30/16 12:00 99.5 99 18 124/76 99 05/30/16 12:00 96 05/30/16 10:00 109 05/30/16 08:14 98 T-piece 28 05/30/16 08:00 98 05/30/16 08:00 98.8 110 26 126/86 97 05/30/16 07:00 98 Trach Collar 35 05/30/16 06:00 94 05/30/16 04:17 98 35 05/30/16 04:00 108 05/30/16 04:00 100.2 108 25 157/93 98 05/30/16 02:00 90 05/30/16 00:00 93 05/30/16 00:00 99.4 93 15 141/87 98 05/29/16 23:15 97 35 05/29/16 22:00 92 05/29/16 20:05 97 T-piece 6.00 35 05/29/16 20:00 99.7 118 24 121/69 98 05/29/16 19:00 99 T-Piece 35 05/29/16 18:00 101 05/29/16 16:00 101 05/29/16 16:00 97.8 101 21 123/77 99 05/30/16 07:00 Intake Total 1422 ml Output Total 1775 ml Balance -353 ml Constitutional Vital Signs Date Time Temp Pulse Resp B/P Pulse Ox O2 Delivery O2 Flow Rate FiO2 05/30/16 12:00 99.5 99 18 124/76 99 05/30/16 12:00 96 05/30/16 10:00 109 05/30/16 08:14 98 T-piece 28 05/30/16 08:00 98 05/30/16 08:00 98.8 110 26 126/86 97 05/30/16 07:00 98 Trach Collar 35 05/30/16 06:00 94 05/30/16 04:17 98 35 05/30/16 04:00 108 05/30/16 04:00 100.2 108 25 157/93 98 05/30/16 02:00 90 05/30/16 00:00 93 05/30/16 00:00 99.4 93 15 141/87 98 05/29/16 23:15 97 35 05/29/16 22:00 92 4/19/17 20:05 97 T-piece 6.00 35 05/29/16 20:00 99.7 118 24 121/69 98 05/29/16 19:00 99 T-Piece 35 05/29/16 18:00 101 05/29/16 16:00 101 05/29/16 16:00 97.8 101 21 123/77 99 05/30/16 07:00 Intake Total 1422 ml Output Total 1775 ml Balance -353 ml (Wilfredo Valenzuela) Review of Systems/Exam ROS Unable to obtain ROS due to mental status & trach. Exam Clear to ausculation bilaterally w/o W/R/R, equal excursion, non-laboured, trached, on trach collar. Regular rate & rhythm w/o M/G/R, monitor sinus rhythm. Abdomen soft, nontender, positive bowel sounds all quadrants, Dobhoff feeding tube left nare with enteral feeds. On no IV sedation. Eyes open, PERRLA 4 mm bilateral, EOM intact. Follows simple commands. 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 Right craniotomy surgical incision well-approximated, w/o any evident drainage, erythema or streaking. Angioedema to tongue improved. (Wilfredo Valenzuela) Medications Current Medications Current Medications Medications (Trade) Dose Ordered Sig/Hima Route Start Time Stop Time Status Last Admin (NS Flush) 2 ml UNSCH PRN IV FLUSH 05/18/16 19:45 05/28/16 08:13 (Zofran Inj) 4 mg Q6H PRN IV 05/18/16 19:45 (Protonix Inj) 40 mg Q24H IVP 05/18/16 21:00 05/29/16 21:36 Miscellaneous Information 1 Q361D XX 05/18/16 19:45 05/18/16 19:45 (Chlorhexidine 2% Cloth) Taper DAILY@04 TOP 05/19/16 04:00 05/15/17 03:59 05/29/16 04:00 (Chlorhexidine 2% Cloth) 3 pack UNSCH PRN TOP 05/18/16 19:45 (Dilaudid Pf Inj) 0.5 mg Q3H PRN IV 05/18/16 21:30 05/27/16 13:55 (Dilaudid Pf Inj) 1 mg Q3H PRN IV 05/18/16 21:30 05/28/16 21:10 (Morphine Inj) 4 mg Q3H PRN IV 05/18/16 21:30 (Narcan Inj) 0.4 mg UNSCH PRN IV 05/18/16 21:30 (Peridex 0.12% Liq) 15 ml BID@08,20 MT 05/19/16 08:00 05/30/16 08:00 (Cerebyx Inj) 100 mgpe Q8H IV 05/19/16 07:00 05/30/16 06:56 (Versed Inj) 2 mg Q15M PRN IV PUSH 05/19/16 00:15 05/22/16 04:41 (Brethine Inj) 1 mg UNSCH PRN SQ 05/19/16 00:15 (Lactulose Liq) 30 ml DAILY PO 05/20/16 09:00 05/30/16 12:27 (Payal-Colace) 1 tab BID PO 05/20/16 09:00 05/29/16 21:36 (Tears Naturale Opth Soln) 1 drop Q4H EACH EYE 05/21/16 11:00 05/30/16 14:13 (Tylenol) 650 mg Q4H PRN PO 05/21/16 18:30 05/25/16 21:22 (Milk Of Magnesia Liq) 30 ml HS PO 05/23/16 21:00 05/27/16 20:37 Polyethylene Glycol 17 gm 17 gm DAILY PO 05/23/16 10:00 05/28/16 08:10 Potassium Chloride 100 ml @ 50 mls/hr Q2H PRN IV 05/24/16 12:00 (KCl 20 Meq Premix Inj) 100 ml @ 50 mls/hr Q2H PRN IV 05/24/16 12:00 Potassium Bicarb/ Potassium Chloride 50 meq 50 meq UNSCH PRN PO 05/24/16 12:00 05/30/16 06:57 Potassium Chloride 100 ml @ 25 mls/hr UNSCH PRN IV 05/24/16 12:00 Potassium Chloride 100 ml @ 50 mls/hr Q2H PRN IV 05/24/16 12:00 (Magnesium Sulfate Inj/NS Inj) 100 ml @ 50 mls/hr UNSCH PRN IV 05/24/16 12:00 Magnesium Oxide 800 mg 800 mg UNSCH PRN PO 05/24/16 12:00 (Magnesium Sulfate Inj/NS Inj) 100 ml @ 50 mls/hr UNSCH PRN IV 05/24/16 12:00 Potassium Phosphate 2000 mg 2,000 mg Q4H PRN PO 05/24/16 12:00 05/25/16 08:14 (Sodium Phosphate Inj/NS 250 ml Inj) 250 ml @ 42 mls/hr UNSCH PRN IV 05/24/16 12:00 Potassium Phosphate 2000 mg 2,000 mg UNSCH PRN PO/TUBE 05/24/16 12:00 (Potassium Phosphate Inj/NS 250 ml Inj) 260 ml @ 42 mls/hr UNSCH PRN IV 05/24/16 12:00 (Norvasc) 5 mg DAILY PO 05/24/16 12:00 05/30/16 08:23 (Lopressor Inj) 5 mg Q6H IV PUSH 05/25/16 09:30 05/30/16 08:23 (Apresoline Inj) 10 mg Q6HR IV PUSH 05/25/16 12:00 05/30/16 12:27 (SoluMEDROL INJ) 50 mg DAILY IV PUSH 05/30/16 09:00 06/01/16 08:59 05/30/16 08:23 (SoluMEDROL INJ) 20 mg DAILY IV PUSH 06/01/16 09:00 06/02/16 08:59 (D50w (Vial) Inj) 25 ml UNSCH PRN IV PUSH 05/26/16 08:30 (Glucagon Inj) 1 mg UNSCH PRN OTHER 05/26/16 08:30 (Wilfredo Valenzuela) Medical Decision Making MDM Remarks Large epidural haematoma s/p craniotomy , improving neurological status Right hemiparesis, improving Respiratory failure, trached , imrpoving respiratory status Haemodynamically stable (Wilfredo Valenzuela) Plan Plan Remarks Discussed with family Seizure prophylaxis Mechanical DVT prophylaxis Ulcer prophylaxis Monitor sodium level and maintain w/i normal range (Wilfredo Valenzuela) Attending Statement I have personally seen and examined the patient on the date of this note. Pertinent documentation and study results have been reviewed by the undersigned. I have personally developed the treatment plan and performed medical decision making. Agree with findings, exam, and treatment plan as noted above. Mental status continues to gradually improve (Sav Bhandari MD) Wilfredo Valenzuela May 30, 2016 15:12 Sav Bhandari MD May 31, 2016 19:46
[2016-05-30] MEDS: PANTOPRAZOLE SODIUM 40 MG VIAL IVP SCH (21:46)
[2016-05-30] MEDS: MAGNESIUM HYDROXIDE SUSP 30 ML CUP PO SCH (21:47)
[2016-05-31] VITALS (14 sets, daily range): BP systolic 112–148; BP diastolic 66–87; PULSE 91–123; RESP 13–22; TEMP 98.4–99.3; O2SAT 97–100
[2016-05-31] MEDS: hydrALAZINE HCL 20 MG/ML VIAL IV PUSH SCH ×5 (00:17→23:23)
[2016-05-31] MEDS: ARTIFICIAL TEARS OPTH SOLN 15 ML BTL EACH EYE SCH ×6 (02:10→23:21)
[2016-05-31] MEDS: METOPROLOL TARTRATE 5 MG/5 ML VIAL IV PUSH SCH ×4 (03:00→20:56)
[2016-05-31] MEDS: CHLORHEXIDINE GLUCONATE 2 % 1 PACK (2 CLOTHS) TOP SCH (04:00)
[2016-05-31 04:33] LABS: AUTOMATED NEUTROPHIL # 11.9 TH/MM3 (1.8-7.7); BASOPHIL # 0.5 TH/MM3 (0-0.2); BASOPHIL % 3.3 % (0.0-2.0); EOSINOPHIL # 0.4 TH/MM3 (0-0.4); EOSINOPHIL % 2.6 % (0.0-4.0); HEMATOCRIT 30.2 % (35.0-46.0); LYMPH % 11.9 % (9.0-44.0); LYMPHOCYTE # 1.9 TH/MM3 (1.0-4.8); MEAN CELL VOLUME 89.6 FL (80.0-100.0); MEAN CORPUSCULAR HEMOGLOBIN 29.6 PG (27.0-34.0); MONO % 9.5 % (0.0-8.0); NEUT % 72.7 % (16.0-70.0); PLATELET COUNT 614 TH/MM3 (150-450); RED BLOOD COUNT 3.37 MIL/MM3 (4.00-5.30); RED CELL DISTRIBUTION WIDTH 13.1 % (11.6-17.2); WHITE BLOOD COUNT 16.3 TH/MM3 (4.0-11.0)
[2016-05-31 04:37] LABS: HEMO FLAGS AUTO DIFF
[2016-05-31 04:59] LABS: ALT (GPT) 89 U/L (10-53); ANION GAP 7 MEQ/L (5-15); AST (GOT) 36 U/L (15-37); BICARBONATE 26.2 MEQ/L (21.0-32.0); BLOOD UREA NITROGEN 17 MG/DL (7-18); CHLORIDE 106 MEQ/L (98-107); GLOMERULAR FILTRATION RATE 155 ML/MIN (>89); MAGNESIUM 2.2 MG/DL (1.5-2.5); POTASSIUM 3.9 MEQ/L (3.5-5.1); SODIUM (NA) 139 MEQ/L (136-145)
[2016-05-31 05:01] LABS: ALKALINE PHOSPHATASE 125 U/L (45-117); TOTAL BILIRUBIN ADULT 0.2 MG/DL (0.2-1.0)
[2016-05-31 05:14] LABS: SCAN/DIFF AUTO DIFF CONFIRMED
--- NOTE | 2016-05-31 05:58 | RADRPT ---
EXAM DATE/TIME: 05/31/2016 05:03 [facility] COMPARISON: CHEST SINGLE AP, May 30, 2016, 4:19. INDICATIONS : Shortness of breath. MEDICAL HISTORY : None. SURGICAL HISTORY : None. ENCOUNTER: Subsequent ACUITY: 2 weeks PAIN SCORE: Non-responsive. LOCATION: chest FINDINGS: A single view of the chest demonstrates the lungs to be symmetrically aerated without evidence of mas s, infiltrate or effusion. The cardiomediastinal contours are unremarkable. Osseous structures are intact. A tracheostomy tube is observed. A weighted feeding tube is noted with the tip in the region of the body of the stomach. CONCLUSION: No acute cardiopulmonary disease. Jayden Cotto Jr., MD on May 31, 2016 at 5:56 Board Certified Radiologist. This report was verified electronically.
[2016-05-31] MEDS: FOSPHENYTOIN SODIUM 100 MG PE/2 ML VIAL IV SCH ×3 (06:14→21:26)
[2016-05-31] MEDS: INSULIN NovoLIN REGULAR SUPPLEMENTAL SCALE SQ SCH ×4 (06:49→20:56)
[2016-05-31] MEDS ORDERED: SENN1TAB PO (07:47)
[2016-05-31] MEDS ORDERED: AMLO5 PO (07:47)
[2016-05-31] MEDS ORDERED: FOSP1INJ5 IV (07:47)
[2016-05-31] MEDS ORDERED: FAMO1TAB37 PO (07:47)
[2016-05-31] MEDS ORDERED: POLY17S PO (07:47)
[2016-05-31] MEDS ORDERED: MILKSUS PO (07:47)
[2016-05-31] MEDS ORDERED: LACT10SO PO (07:47)
[2016-05-31] MEDS: POLYETHYLENE GLYCOL 17 GM PKG PO SCH (09:00)
[2016-05-31] MEDS: LACTULOSE SYRUP 20 GM/30 ML CUP PO SCH (09:00)
[2016-05-31] MEDS: methylPREDNISolone SOD SUCC 125 MG/2 ML VIAL IV PUSH SCH (09:37)
[2016-05-31] MEDS: amLODIPine BESYLATE 5 MG TAB PO SCH (09:38)
[2016-05-31] MEDS: DOCUSATE SODIUM 50 MG/SENNA 8.6 MG TAB PO SCH ×2 (09:38→20:56)
[2016-05-31] MEDS: CHLORHEXIDINE 0.12% (ORAL KIT) 15 ML CUP MT SCH ×2 (09:39→20:57)
--- NOTE | 2016-05-31 11:18 | HHI.CCPN ---
Subjective Brief History UMKUMIUT: This is a 50 yo Female who [place] [facility]. 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 She was initially alert and oriented with GCS of 15 upon EVAC arrival and was moving all extremities. After she was taken into the ambulance her GCS was 3 and right pupil was dilated and nonreactive. She was intubated in the ED following etomidate 20 mg IV and succinylcholine 100 mg IV. Trauma workup included CT brain that demonstrated 9.7 x4.2 cm R epidural hematoma with 1.2 cm right to left midline shift and cerebral edema. BP in ED was 108/104 to 160/76 with heart rate 66-92. Sats 98-100%. Neurosurgery was consulted and she was taken emergently to OR for right craniotomy by Dr. Bhandari. Her pupil remained nonreactive postoperatively. This is classic presentation of an epidural hematoma with loss of consciousness followed by lucid interval and then again loss of consciousness. INJURIES: RIGHT epidural hematoma (9.7 x4.2 cm) w/ 1.2 cm right to left midline shift with cerebral edema Aspiration Procedures: 05/18: RIGHT craniotomy with evacuation of large epidural hematoma 05/24: [place] out 05/28: SOCIOLOGY PROFESSOR in the OR Consults: CCM. Neurosurgery. ENT. OMFS. 24 Hour Review/Hospital Course 05/20/2016 Patient has been stable over the last 24 hours ICPs remain in 8-12 mmHg range and central perfusion pressure is adequate Pupils are equal 2 mm and somewhat reactive Repeat CAT scan of the brain reveals some blood over the right hemisphere but this is minimal and no intervention is necessary Patient remains of neuroprotective measures including mild hyperventilation, hypertonic saline and sedation on propofol and fentanyl Considering mild swelling of the brain in early phase of care I would leave everything as it is right now and right without for next day or 2 and then a repeat CT scan will be done All things equal we'll started waking patient up by the end of the week and see how she does 05/26/2016 Patient is slowly neurologically improving and remains on sedation however does occasionally move her arm and the leg At this point she is also moving her left side which is encouraging Angioedema off the tongue slowly decreasing Patient remains on Solu-Medrol We'll continue current care to patient is more awake in the swelling of the tongue decreases There is a distinct chance the patient will need a tracheostomy but we'll see how she does 05/27/16 Patient has improved today she is more awake and more alert following simple commands an opening eyes She is on minimum respiratory support but unfortunately angioedema of the tongue is so severe that they cannot be even a question about extubating this patient at this time ENT consultation of Dr. Johnson is very much appreciated and we will have oral maxillofacial surgeon see the patient as well Given all the circumstances I believe patient will require tracheostomy which should be done the next 24-48 hours, depending on OMF recommendations 05/28/2016 PTD: 10 Patient appears more awake today, fentanyl drip is off and she is just managed with Dilaudid IV as needed for pain. Tolerating CPAP trials. ENT recommends OMFS consult to manage tongue swelling. 05/29/2016 PTD: 11 Patient is status post tracheostomy placement yesterday. Patient is tolerating CPAP trials well, we'll progressed to trach collar trials today. The patient's tongue size has decreased considerably, and no longer protrudes from her mouth. Dobbhoff tube placed last night, needs to be advanced, and then tube feeding can begin 05/30/16 Patient doing much better she is off the respirator at this point on the trach collar Following simple commands very well squeezing and communicating Opening her eyes The tongue swelling has decreased significantly, almost back to normal and patient is able to move tongue in and out of the mouth Patient was transferred to [facility] facility bed is available Discharge from [facility] to [facility] 05/31/16 Patient intermittently responds to commands and tries to communicate She is more awake and alert but clearly not enough to participate in care as necessary. Failed swallow study yesterday and today so chances are she'll require a PEG temporarily Right now patient has a Dobbhoff tube and she is slated to go to [facility] where they can do the PEG as well Objective Vital Signs Date Time Temp Pulse Resp B/P Pulse Ox O2 Delivery O2 Flow Rate FiO2 05/31/16 08:33 97 Trach Collar 28 05/31/16 06:00 110 05/31/16 04:00 99.3 16 122/74 05/30/16 20:20 6.00 Intake and Output 05/30/16 05/30/16 05/31/16 08:00 16:00 00:00 Intake Total 671 ml 688 ml 492 ml Output Total 450 ml 650 ml 650 ml Balance 221 ml 38 ml -158 ml Result Diagram: 05/31/16 0350 05/31/16 0350 Imaging Last 24 hours Impressions Chest X-Ray 05/31/16 0600 Signed Impressions: Service Date/Time: Tuesday, May 31, 2016 05:03 - CONCLUSION: No acute cardiopulmonary disease. 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 Any attempt to change the tracheal cannula at this time would potentially result in disastrous loss of airway, so don't touch it. Abdomen/GI Nutrition Abdomen is soft enteral feedings well tolerated normal bowel movements As noted above patient might need a PEG if she is unable to swallow Urinary Catheter Assessment Date of Insertion: May 18, 2016 Vascular Central Line Catheter Date of Insertion: May 18, 2016 Date of Removal: May 29, 2016 (request removal today) Line: Central Venous Catheter Side: Right Location: Subclavian Assessment and Plan Assessment: (1) Respiratory failure ICD Code: J96.90 Status: Acute (2) Head injury ICD Code: S09.90XA Status: Acute (3) Unresponsive ICD Code: R41.89 Status: Acute (4) Intracranial bleed ICD Code: I62.9 Status: Acute (5) Epidural hematoma ICD Code: S06.4X9A Status: Acute (6) Skull fracture, non depressed ICD Code: S02.91XA Status: Acute (7) Scalp laceration ICD Code: S01.01XA Status: Acute Plan This is a 50-year-old female who fell and hit her head on the right side. INJURIES: INJURIES: RIGHT epidural hematoma (9.7 x4.2 cm) w/ 1.2 cm right to left midline shift with cerebral edema Aspiration Assessment and plan by systems: NEUROLOGICAL: Patient awake, opens eyes to command. Follows commands in all 4 extremities. Patient does not require any continuous sedation. Only requiring when necessary Dilaudid for pain. No continuous sedation required at this time. . Provide analgesia for comfort and pain - Dilaudid IV PRN. 05/18: Right craniotomy with evacuation of large epidural hematoma. [place] placed. 05/24 [place] removed Seizure prophylaxis - IV Cerebyx Serial neuro checks. HOB elevated 30 degrees + peripheral pulses x 4 extremities. Neurosurgery, Dr. Bhandari is following this case. CARDIOVASCULAR: HR = 90-96. Sinus rhythm BP = 110/60 Continually monitor for hemodynamic instability (shock and hypotension). Hypertension management: Norvasc, Lopressor, Apresoline Follow CMP Electrolyte protocol RESPIRATORY: Vent settings: CPAP and she is tolerating well. 05/28: Trach placed in the OR. Attempt trach collar trials today. O2 Sats Monitor for hypoxemia Lung sounds = CTA Pulmonary toilet = . L&S. Bronchodilators - Breathing treatments duonebs PRN. Chest X-Ray results - clear and stable VAP protocol in place Labs tomorrow GASTROINTESTINAL: Diet: TF Jevity @ 60 cc/hr Bowel regimen = Payal-Colace, M OM. MiraLAX, lactulose. LBM: 05/29 RENAL / URINARY: I&O - -1162 BUN / creat 18 / 0.[address] to bedside drainage bag with clear yellow urine. Urinalysis - 05/18 ENDOCRINE: BGM = 111 via AM labs SSI in place Solu-Medrol IV daily with taper for tongue swelling HEMATOLOGY: H&H = 9.0 / 27 Continue to monitor for signs and symptoms of bleeding. Transfuse for < 7.0 Monitor patient for any bleeding complications. INFECTIOUS DISEASE: Follow CBC WBC - 13.1 Fevers = low grade fevers Administer antipyretics for temp as needed. Monitor pneumonia evolution with repeat chest X-Rays as needed. Maintain vigorous aseptic care of central line to avoid blood stream infections. Consider a consult to ID for further management. LINES: 05/28: Dobhoff feeding tube 05/28: SOCIOLOGY PROFESSOR 05/18: R SC TLC - to be removed today once PIV has been obtained. 05/18: F/C PROPHYLAXIS: VAP protocol in place GI prophylaxis: Protonix IV DVT - Mechanical VTE with SCDs. Chemical management contraindicated at this time due to epidural hematoma. Consult placed to ENT regarding swelling of his tongue - appreciate recommendations. Consult placed to OMFS at the recommendation of ENT regarding treatment of tongue edema. Recommend straight placement, and oropharyngeal airway. SKIN: Warm and dry Tongue swelling improved Stage II resolving pressure sores to buttocks. Wound care nurse recommends barrier cream BID. Right hand splint ordered at the recommendation of OT. ACTIVITY: BR PT and OT ordered. CASE MANAGEMENT: Consulted for assist with DC planning. Placement - disposition - TBD. Referrals are placed to [facility] in [place]. EMOTIONAL SUPPORT: Provided to patient and family. Plan of care discussed. Questions answered to the best of my knowledge. Discussed with INFORMATICA at the bedside during trauma rounds. This patient is currently critically ill and injured and being managed in the ICU. The trauma team will manage care, and evaluate the patient on a daily basis. Attestation Awaiting authorization for transfer to [facility] The exam, history, and the medical decision-making described in the above note were completed with the assistance of the mid-level provider. I reviewed and agree with the findings presented. I attest that I had a [id number] encounter with the patient on the same day, and personally performed and documented my assessment and findings in the medical record. Critical care time 40 minutes. Problem Qualifiers (1) Respiratory failure: Qualified Code: J96.00 - Acute respiratory failure, unspecified whether with hypoxia or hypercapnia (2) Head injury: Qualified Code: S09.90XA - Head injury, initial encounter Mindi De Santiago MD May 31, 2016 11:18
--- NOTE | 2016-05-31 11:33 | HHI.NSPN ---
(Wilfredo Valenzuela) Note Status Status: Progress Note (Wilfredo Valenzuela Antonia YAO) Interval History Interval History 50-year-old female underwent emergency craniotomy evacuation of large epidural hematoma on 05/18/[address] scan 05/18/2016 with satisfactory evacuation of hematoma, mostly mild residual edema and midline shift without significant parenchymal hemorrhage and no hydrocephalus She was trached on and had a Dubhoff feeding tube placed . 05/31: Today the patient is doing well and remains neurologically intact. The states that Case Mgmt is working on disposition to [facility] in [place]. (Wilfredo Valenzuela) Labs, Micro, & Vital Signs Results Allergies Coded Allergies Type Severity Reaction Last Updated Verified No Known Allergies 05/20/16 No Recent Impressions Chest X-Ray 05/31/16 0600 Signed Impressions: Service Date/Time: Tuesday, May 31, 2016 05:03 - CONCLUSION: No acute cardiopulmonary disease. Jayden Cotto Jr., MD Chest X-Ray 05/30/16 0600 Signed Impressions: Service Date/Time: May 04:19 - CONCLUSION: Normal examination. Tracheostomy tube in good position Wally Antunez MD Chest X-Ray 05/29/16 0600 Signed Impressions: Service Date/Time: Sunday, May 29, 2016 05:22 - CONCLUSION: Normal examination with tubes and catheter as above. Wally Antunez MD Abdomen X-Ray 05/29/16 0000 Signed Impressions: Service Date/Time: Sunday, May 29, 2016 00:00 - CONCLUSION: Feeding tube at the pylorus. Geronimo Mathis MD FACR ///// 06:00 18:00 06:00 18:00 06:00 18:00 Intake Total 360 ml 199 ml 1223 ml 688 ml 1101 ml Output Total 1375 ml 400 ml 1375 ml 650 ml 1200 ml Balance -1015 ml -201 ml -152 ml 38 ml -99 ml Intake IV Total 360 ml 130 ml 288 ml 20 ml 200 ml Tube Feeding 19 ml 575 ml 468 ml 681 ml Other 50 ml 360 ml 200 ml 220 ml Output Urine Total 1375 ml 400 ml 1375 ml 650 ml 1200 ml Tube Feeding Residual Discard 0 ml # Bowel Movements 1 0 0 2 0 Laboratory Tests Test 05/29/16 05/30/16 05/31/16 02:40 03:15 03:50 White Blood Count 13.1 TH/MM3 15.1 TH/MM3 16.3 TH/MM3 Red Blood Count 3.03 MIL/MM3 3.20 MIL/MM3 3.37 MIL/MM3 Hemoglobin 9.0 GM/DL 9.7 GM/DL 10.0 GM/DL Hematocrit 27.2 % 28.6 % 30.2 % Mean Corpuscular Volume 89.9 FL 89.4 FL 89.6 FL Mean Corpuscular Hemoglobin 29.7 PG 30.5 PG 29.6 PG Mean Corpuscular Hemoglobin 33.0 % 34.1 % 33.0 % Concent Red Cell Distribution Width 13.2 % 13.1 % 13.1 % Platelet Count 530 TH/MM3 559 TH/MM3 614 TH/MM3 Mean Platelet Volume 8.1 FL 8.6 FL 8.2 FL Neutrophils (%) (Auto) 71.5 % 79.2 % 72.7 % Lymphocytes (%) (Auto) 14.6 % 9.8 % 11.9 % Monocytes (%) (Auto) 11.5 % 8.7 % 9.5 % Eosinophils (%) (Auto) 1.9 % 1.6 % 2.6 % Basophils (%) (Auto) 0.5 % 0.7 % 3.3 % Neutrophils # (Auto) 9.4 TH/MM3 12.0 TH/MM3 11.9 TH/MM3 Lymphocytes # (Auto) 1.9 TH/MM3 1.5 TH/MM3 1.9 TH/MM3 Monocytes # (Auto) 1.5 TH/MM3 1.3 TH/MM3 1.5 TH/MM3 Eosinophils # (Auto) 0.2 TH/MM3 0.2 TH/MM3 0.4 TH/MM3 Basophils # (Auto) 0.1 TH/MM3 0.1 TH/MM3 0.5 TH/MM3 CBC Comment DIFF FINAL DIFF FINAL AUTO DIFF Differential Comment AUTO DIFF CONFIRMED Sodium Level 138 MEQ/L 138 MEQ/L 139 MEQ/L Potassium Level 3.8 MEQ/L 3.5 MEQ/L 3.9 MEQ/L Chloride Level 102 MEQ/L 104 MEQ/L 106 MEQ/L Carbon Dioxide Level 26.3 MEQ/L 24.6 MEQ/L 26.2 MEQ/L Anion Gap 10 MEQ/L 9 MEQ/L 7 MEQ/L Blood Urea Nitrogen 18 MG/DL 16 MG/DL 17 MG/DL Creatinine 0.45 MG/DL 0.51 MG/DL 0.43 MG/DL Estimat Glomerular Filtration 147 ML/MIN 127 ML/MIN 155 ML/MIN Rate Random Glucose 111 MG/DL 130 MG/DL 106 MG/DL Calcium Level 8.7 MG/DL 8.7 MG/DL 8.9 MG/DL Magnesium Level 2.3 MG/DL 2.4 MG/DL 2.2 MG/DL Total Bilirubin 0.4 MG/DL 0.2 MG/DL 0.2 MG/DL Aspartate Amino Transf 40 U/L 58 U/L 36 U/L (AST/SGOT) Alanine Aminotransferase 84 U/L 109 U/L 89 U/L (ALT/SGPT) Alkaline Phosphatase 113 U/L 130 U/L 125 U/L Total Protein 6.3 GM/DL 6.4 GM/DL 6.7 GM/DL Albumin 2.3 GM/DL 2.3 GM/DL 2.3 GM/DL Procedure Category Date Status Time Lidocai-Epi MED 05/28/16 Complete 1%-1:100,000 Inj 11:50 Cannula, Disp Inner SPD 05/28/16 Logged 8fr Ea 16:33 Insert Ng Tube For JAMES 05/28/16 In Process Feeding 16:45 Consult Wound / CONS 05/28/16 Transmitted Ostomy Nurse Abdomen, Single View RADDIAG 05/28/16 Resulted Magnesium (Mg) LAB 05/30/16 Complete 05:00 Complete Blood Count LAB 05/30/16 Complete With Diff 05:00 Chest, Single Ap RADDIAG 05/30/16 Resulted 06:00 Comprehensive LAB 05/30/16 Complete Metabolic Panel 05:00 Adriana Hand ORTHO 05/29/16 Complete Ot Request For Service OT 05/29/16 Complete 08:37 Orthotech Request For ORTHO 05/29/16 Logged Service 09:02 ^ Other Nursing Orders JAMES 05/29/16 In Process 09:30 Resp Trach Collar RSP 05/29/16 Logged Abdomen, Single View RADDIAG 05/29/16 Resulted ^ Wound Care JAMES 05/29/16 In Process 10:27 Remove [place] JAMES 05/29/16 In Process 17:34 Urine Culture [place] 05/30/16 In Process 05:58 Specimen To Be JAMES 05/30/16 In Process Collected 05:58 Magnesium (Mg) LAB 05/31/16 Complete 05:00 Complete Blood Count LAB 05/31/16 Complete With Diff 05:00 Chest, Single Ap RADDIAG 05/31/16 Resulted 06:00 Comprehensive LAB 05/31/16 Complete Metabolic Panel 05:00 Swallow Eval W/ St ST 05/30/16 Logged 09:13 Activity Oob With JAMES 05/30/16 In Process Assistance 09:17 Tube, Trach Cuffed SPD 05/31/16 Logged Fen: #8 Ea 06:38 Magnesium (Mg) LAB 06/01/16 Verified 05:00 Complete Blood Count LAB 06/01/16 Verified With Diff 05:00 Comprehensive LAB 06/01/16 Verified Metabolic Panel 05:00 Urinalysis - C+S If LAB 05/31/16 In Process Indicated 09:14 Blood Culture [place] 05/31/16 In Process 09:14 Sputum Culture And [place] 05/31/16 In Process Gram Stain 09:14 Specimen To Be JAMES 05/31/16 In Process Collected 09:14 Constitutional Vital Signs Date Time Temp Pulse Resp B/P Pulse Ox O2 Delivery O2 Flow Rate FiO2 05/31/16 08:33 97 Trach Collar 28 05/31/16 06:00 110 05/31/16 04:00 110 05/31/16 04:00 99.3 110 16 122/74 98 05/31/16 02:00 95 05/31/16 00:00 91 05/31/16 00:00 99.0 91 14 148/87 100 05/30/16 22:00 88 05/30/16 20:20 100 T-piece 6.00 28 05/30/16 20:00 107 05/30/16 20:00 99.3 107 15 147/80 97 05/30/16 19:00 98 Trach Collar 35 05/30/16 18:00 86 05/30/16 16:00 99.6 100 20 120/78 98 05/30/16 16:00 100 05/30/16 14:00 98 05/30/16 12:00 99.5 99 18 124/76 99 05/30/16 12:00 96 05/31/16 07:00 Intake Total 1789 ml Output Total 1850.0 ml Balance -61.0 ml (Wilfredo Valenzuela) Review of Systems/Exam ROS Unable to obtain ROS due to mental status & trach. Exam On no IV sedation. Eyes open, PERRLA 4 mm bilateral, EOM intact. Follows simple commands. 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 Right craniotomy surgical incision well-approximated, w/o any evident drainage, erythema or streaking although area of scab vs necrosis noted (Wilfredo Valenzuela) Medications Current Medications Current Medications Medications (Trade) Dose Ordered Sig/Hima Route Start Time Stop Time Status Last Admin (NS Flush) 2 ml UNSCH PRN IV FLUSH 05/18/16 19:45 05/28/16 08:13 (Zofran Inj) 4 mg Q6H PRN IV 05/18/16 19:45 (Protonix Inj) 40 mg Q24H IVP 05/18/16 21:00 05/30/16 21:46 Miscellaneous Information 1 Q361D XX 05/18/16 19:45 05/18/16 19:45 (Chlorhexidine 2% Cloth) Taper DAILY@04 TOP 05/19/16 04:00 05/15/17 03:59 05/29/16 04:00 (Chlorhexidine 2% Cloth) 3 pack UNSCH PRN TOP 05/18/16 19:45 (Dilaudid Pf Inj) 0.5 mg Q3H PRN IV 05/18/16 21:30 05/27/16 13:55 (Dilaudid Pf Inj) 1 mg Q3H PRN IV 05/18/16 21:30 05/28/16 21:10 (Morphine Inj) 4 mg Q3H PRN IV 05/18/16 21:30 (Narcan Inj) 0.4 mg UNSCH PRN IV 05/18/16 21:30 (Peridex 0.12% Liq) 15 ml BID@08,20 MT 05/19/16 08:00 05/31/16 09:39 (Cerebyx Inj) 100 mgpe Q8H IV 05/19/16 07:00 05/31/16 06:14 (Versed Inj) 2 mg Q15M PRN IV PUSH 05/19/16 00:15 05/22/16 04:41 (Brethine Inj) 1 mg UNSCH PRN SQ 05/19/16 00:15 (Lactulose Liq) 30 ml DAILY PO 05/20/16 09:00 05/30/16 12:27 (Payal-Colace) 1 tab BID PO 05/20/16 09:00 05/31/16 09:38 (Tears Naturale Opth Soln) 1 drop Q4H EACH EYE 05/21/16 11:00 05/31/16 06:14 (Tylenol) 650 mg Q4H PRN PO 05/21/16 18:30 05/25/16 21:22 (Milk Of Magnesia Liq) 30 ml HS PO 05/23/16 21:00 05/30/16 21:47 Polyethylene Glycol 17 gm 17 gm DAILY PO 05/23/16 10:00 05/28/16 08:10 Potassium Chloride 100 ml @ 50 mls/hr Q2H PRN IV 05/24/16 12:00 (KCl 20 Meq Premix Inj) 100 ml @ 50 mls/hr Q2H PRN IV 05/24/16 12:00 Potassium Bicarb/ Potassium Chloride 50 meq 50 meq UNSCH PRN PO 05/24/16 12:00 05/30/16 06:57 Potassium Chloride 100 ml @ 25 mls/hr UNSCH PRN IV 05/24/16 12:00 Potassium Chloride 100 ml @ 50 mls/hr Q2H PRN IV 05/24/16 12:00 (Magnesium Sulfate Inj/NS Inj) 100 ml @ 50 mls/hr UNSCH PRN IV 05/24/16 12:00 Magnesium Oxide 800 mg 800 mg UNSCH PRN PO 05/24/16 12:00 (Magnesium Sulfate Inj/NS Inj) 100 ml @ 50 mls/hr UNSCH PRN IV 05/24/16 12:00 Potassium Phosphate 2000 mg 2,000 mg Q4H PRN PO 05/24/16 12:00 05/25/16 08:14 (Sodium Phosphate Inj/NS 250 ml Inj) 250 ml @ 42 mls/hr UNSCH PRN IV 05/24/16 12:00 Potassium Phosphate 2000 mg 2,000 mg UNSCH PRN PO/TUBE 05/24/16 12:00 (Potassium Phosphate Inj/NS 250 ml Inj) 260 ml @ 42 mls/hr UNSCH PRN IV 05/24/16 12:00 (Norvasc) 5 mg DAILY PO 05/24/16 12:00 05/31/16 09:38 (Lopressor Inj) 5 mg Q6H IV PUSH 05/25/16 09:30 05/31/16 09:38 (Apresoline Inj) 10 mg Q6HR IV PUSH 05/25/16 12:00 05/31/16 05:33 (SoluMEDROL INJ) 50 mg DAILY IV PUSH 05/30/16 09:00 06/01/16 08:59 05/31/16 09:37 (SoluMEDROL INJ) 20 mg DAILY IV PUSH 06/01/16 09:00 06/02/16 08:59 (D50w (Vial) Inj) 25 ml UNSCH PRN IV PUSH 05/26/16 08:30 (Glucagon Inj) 1 mg UNSCH PRN OTHER 05/26/16 08:30 (Wilfredo Valenzuela) Medical Decision Making MDM Remarks Large epidural haematoma s/p craniotomy , improving neurological status Right hemiparesis, improving Respiratory failure, trached , imrpoving respiratory status Haemodynamically stable (Wilfredo Valenzuela) Plan Plan Remarks Discussed plan of care with CT brain in AM Seizure prophylaxis Mechanical DVT prophylaxis Ulcer prophylaxis Monitor sodium level and maintain w/i normal range Discharge planning to [facility] (Wilfredo Valenzuela) Attending Statement I have personally seen and examined the patient on the date of this note. Pertinent documentation and study results have been reviewed by the undersigned. I have personally developed the treatment plan and performed medical decision making. Agree with findings, exam, and treatment plan as noted above. Following commands consistently today. She is starting to move the right lower extremity intermittent. Moderate grasp, flexion, extension right upper extremity to command Discussed with family in [place] (Sav Bhandari MD) Wilfredo Valenzuela May 31, 2016 11:33 Sav Bhandari MD May 31, 2016 19:47
[2016-05-31 11:48] LABS: BLOOD, URINE MOD (NEG); COMMENT (UR) CULT NOT INDICATED; CULTURE IF INDICATED CULT NOT INDICATED; GLUCOSE,URINE NEG (NEG); KETONE, URINE NEG (NEG); MUCUS URINE FEW /lpf (OCC); NITRITE,URINE NEG (NEG); SQUAMOUS EPITHELIAL CELL URINE <1 /hpf (0-5); URINE COLOR YELLOW (YELLW/STRAW)
--- NOTE | 2016-05-31 12:41 | HHI.PR ---
Neuropsych Progress Notes/Response to Tx Contents of Sessions: Level of Consciousness Time with Patient: 15 minutes Premorbid psychological status Premorbid Cognitive, Emotional and Behavioral Status: Stable. 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 The patient has no psychiatric difficulties. Substance abuse history is not significant. She is and has two children. Behavioral Reactions of Patient and Family/Support System: Stable. The patient s family is experiencing ongoing issues of adjustment given the nature of the injury, and this aspect of recovery will require ongoing monitoring. Emotional/Behavioral Status of Patient and Family/Support System: Stable. Pertinent issues, if appropriate to this patients clinical care, are described in detail above. Maximizing acute care outcome It is recommended that the patient be monitored for emergent behavioral impulsivity as the medical condition evolves. This patients neuropathological challenges may limit their rehabilitation potential going forward, and these challenges will require specialized therapeutic skills to maximize outcome. Additionally, the patients family is experiencing ongoing issues of adjustment given the traumatic nature of the injury, and they may benefit from ongoing psychological assistance. Anticipated Problems Ongoing areas of concern will include behavioral impulsivity, lack of insight and judgment, which is expected to improve with time and treatment. Presently , the patient intubated and sedated. Treatment Plan This clinician will continue to follow with you throughout the course of this patients acute care treatment, and I will be available to meet with the patient s family/support system to facilitate their understanding and the ongoing care of their family member. The goals of neuropsychological intervention shall be both educational and supportive to the family/support system as is deemed clinically appropriate. [facility] Level: IV:Confused/Agitated-maximal assist Impression This patient suffered a significant traumatic brain injury secondary to her fall on 05/18/2016, with large EDH and right to left midline shift. She is expected to have significant neurocognitive impairments from this injury. Diagnosis: (1) Major neurocognitive disorder as late effect of traumatic brain injury without behavioral disturbance Status: Acute Progress Note Narrative Ongoing follow-up during daily trauma rounds and later bedside to discuss with patient's children. This is day 13 post injury. The patient is off the respirator and on trach collar. Her eyes are open and she follows commands. Her tongue has improved. She is only on po pain medications. She is to be transferred to [facility]. She is Rancho IV emerging V. I will continue to follow. Gregorio Benítez PhD May 31, 2016 12:41 pm
[2016-05-31] MEDS: MAGNESIUM HYDROXIDE SUSP 30 ML CUP PO SCH (20:56)
[2016-05-31] MEDS: PANTOPRAZOLE SODIUM 40 MG VIAL IVP SCH (20:56)
[2016-06-01] VITALS (10 sets, daily range): BP systolic 106–141; BP diastolic 66–84; PULSE 83–110; RESP 13–16; TEMP 98.1–98.9; O2SAT 96–98
[2016-06-01] MEDS: METOPROLOL TARTRATE 5 MG/5 ML VIAL IV PUSH SCH ×2 (03:06→08:33)
[2016-06-01] MEDS: CHLORHEXIDINE GLUCONATE 2 % 1 PACK (2 CLOTHS) TOP SCH (03:06)
[2016-06-01] MEDS: ARTIFICIAL TEARS OPTH SOLN 15 ML BTL EACH EYE SCH ×4 (03:06→19:49)
[2016-06-01] MEDS ORDERED: EPINEPHrine HCL (1:10,000) 1 MG/10 ML SYRINGE ONE (03:21)
[2016-06-01] MEDS ORDERED: LIDOCAINE HCL 2% 100 MG/5 ML SYRINGE ONE (03:21)
[2016-06-01] MEDS ORDERED: ATROPINE SULFATE 1 MG/10 ML SYRINGE ONE (03:21)
[2016-06-01 04:24] LABS: AUTOMATED NEUTROPHIL # 12.9 TH/MM3 (1.8-7.7); BASOPHIL # 0.1 TH/MM3 (0-0.2); BASOPHIL % 0.7 % (0.0-2.0); EOSINOPHIL # 0.4 TH/MM3 (0-0.4); EOSINOPHIL % 2.1 % (0.0-4.0); HEMATOCRIT 29.6 % (35.0-46.0); LYMPH % 9.9 % (9.0-44.0); LYMPHOCYTE # 1.6 TH/MM3 (1.0-4.8); MEAN CORPUSCULAR HEMOGLOBIN 30.2 PG (27.0-34.0); MEAN CORPUSCULAR HGB CONC 34.3 % (32.0-36.0); MONO % 8.3 % (0.0-8.0); PLATELET COUNT 668 TH/MM3 (150-450); RED BLOOD COUNT 3.36 MIL/MM3 (4.00-5.30); RED CELL DISTRIBUTION WIDTH 13.2 % (11.6-17.2); WHITE BLOOD COUNT 16.4 TH/MM3 (4.0-11.0)
[2016-06-01 04:29] LABS: HEMO FLAGS AUTO DIFF
--- NOTE | 2016-06-01 04:56 | RADRPT ---
EXAM DATE/TIME: 06/01/2016 04:34 [place] COMPARISON: CT BRAIN W/O CONTRAST, May 25, 2016, 4:08. INDICATIONS : Follow up trauma. RADIATION DOSE: 53.29 CTDIvol (mGy) MEDICAL HISTORY : Non-responsive. SURGICAL HISTORY : Non-responsive. ENCOUNTER: Subsequent ACUITY: 2 weeks PAIN SCALE: Non-responsive LOCATION: cranial TECHNIQUE: Multiple contiguous axial images were obtained of the head. Using automated exposure control and adj ustment of the mA and/or kV according to patient size, radiation dose was kept as low as reasonably a chievable to obtain optimal diagnostic quality images. FINDINGS: The examination is stable from the prior study. A small thin subdural hematoma continues to mature ov erlying the right cerebral hemisphere. No acute hemorrhage observe. No midline shift or herniation. R ight parietal craniotomy defect noted. Paranasal sinuses and mastoid air cells are clear. CONCLUSION: Stable small right subdural hematoma. No new hemorrhage seen. Jayden Cotto Jr., MD on June 01, 2016 at 4:53 Board Certified Radiologist. This report was verified electronically.
[2016-06-01 04:59] LABS: ALT (GPT) 75 U/L (10-53); ANION GAP 8 MEQ/L (5-15); AST (GOT) 28 U/L (15-37); BICARBONATE 26.9 MEQ/L (21.0-32.0); BLOOD UREA NITROGEN 22 MG/DL (7-18); CHLORIDE 105 MEQ/L (98-107); GLOMERULAR FILTRATION RATE 159 ML/MIN (>89); MAGNESIUM 2.2 MG/DL (1.5-2.5); SODIUM (NA) 140 MEQ/L (136-145)
[2016-06-01 05:02] LABS: ALKALINE PHOSPHATASE 121 U/L (45-117); TOTAL BILIRUBIN ADULT 0.2 MG/DL (0.2-1.0)
[2016-06-01] MEDS: FOSPHENYTOIN SODIUM 100 MG PE/2 ML VIAL IV SCH (05:05)
[2016-06-01] MEDS: INSULIN NovoLIN REGULAR SUPPLEMENTAL SCALE SQ SCH ×4 (05:06→19:50)
[2016-06-01] MEDS: hydrALAZINE HCL 20 MG/ML VIAL IV PUSH SCH (06:00)
[2016-06-01 07:04] LABS: EOSINOPHILS 3 % (0-4); MYELOCYTES 2 % (0-0); NEUTROPHIL # MANUAL DIFF 12.5 TH/MM3 (1.8-7.7); PLATELET ESTIMATE SMEAR HIGH (NORMAL); POLYS (SEG NEUTROPHILS) 74 % (16-70); WBC DIFF SAMPLE 100
[2016-06-01 07:05] LABS: PLATELET MORPHOLOGY NORMAL (NORMAL); SCAN/DIFF FINAL DIFF MANUAL
[2016-06-01] MEDS: POLYETHYLENE GLYCOL 17 GM PKG PO SCH (08:33)
[2016-06-01] MEDS: LACTULOSE SYRUP 20 GM/30 ML CUP PO SCH (08:33)
[2016-06-01] MEDS: amLODIPine BESYLATE 5 MG TAB PO SCH (08:34)
[2016-06-01] MEDS: CHLORHEXIDINE 0.12% (ORAL KIT) 15 ML CUP MT SCH ×2 (08:34→19:51)
[2016-06-01] MEDS: DOCUSATE SODIUM 50 MG/SENNA 8.6 MG TAB PO SCH ×2 (08:34→19:50)
[2016-06-01] MEDS ORDERED: methylPREDNISolone SOD SUCC 40 MG/1 ML VIAL IV PUSH SCH (09:00)
[2016-06-01] MEDS: MORPHINE SULFATE 4 MG/ML INJ IV PRN ×2 (10:51→21:35)
[2016-06-01] MEDS ORDERED: hydrALAZINE HCL 25 MG TAB PO SCH (14:00)
[2016-06-01] MEDS: METOPROLOL TARTRATE 25 MG TAB PO SCH ×2 (14:05→19:50)
--- NOTE | 2016-06-01 15:35 | HHI.CCPN ---
Subjective Brief History NINILCHIK: This is a 50 yo Female who arrived to [facility] as a trauma alert. 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 She was initially alert and oriented with GCS of 15 upon [facility]AC arrival and was moving all extremities. After she was taken into the ambulance her GCS was 3 and right pupil was dilated and nonreactive. She was intubated in the ED following etomidate 20 mg IV and succinylcholine 100 mg IV. Trauma workup included CT brain that demonstrated 9.7 x4.2 cm R epidural hematoma with 1.2 cm right to left midline shift and cerebral edema. BP in ED was 108/104 to 160/76 with heart rate 66-92. Sats 98-100%. Neurosurgery was consulted and she was taken emergently to OR for right craniotomy by Dr. Bhandari. Her pupil remained nonreactive postoperatively. This is classic presentation of an epidural hematoma with loss of consciousness followed by lucid interval and then again loss of consciousness. INJURIES: RIGHT epidural hematoma (9.7 x4.2 cm) w/ 1.2 cm right to left midline shift with cerebral edema Aspiration Procedures: 05/18: RIGHT craniotomy with evacuation of large epidural hematoma 05/24: [place] out 05/28: RETIREMENT OFFICER in the OR Consults: CCM. Neurosurgery. ENT. OMFS. 24 Hour Review/Hospital Course 05/20/2016 Patient has been stable over the last 24 hours ICPs remain in 8-12 mmHg range and central perfusion pressure is adequate Pupils are equal 2 mm and somewhat reactive Repeat CAT scan of the brain reveals some blood over the right hemisphere but this is minimal and no intervention is necessary Patient remains of neuroprotective measures including mild hyperventilation, hypertonic saline and sedation on propofol and fentanyl Considering mild swelling of the brain in early phase of care I would leave everything as it is right now and right without for next day or 2 and then a repeat CT scan will be done All things equal we'll started waking patient up by the end of the week and see how she does 05/26/2016 Patient is slowly neurologically improving and remains on sedation however does occasionally move her arm and the leg At this point she is also moving her left side which is encouraging Angioedema off the tongue slowly decreasing Patient remains on Solu-Medrol We'll continue current care to patient is more awake in the swelling of the tongue decreases There is a distinct chance the patient will need a tracheostomy but we'll see how she does 05/27/16 Patient has improved today she is more awake and more alert following simple commands an opening eyes She is on minimum respiratory support but unfortunately angioedema of the tongue is so severe that they cannot be even a question about extubating this patient at this time ENT consultation of Dr. Johnson is very much appreciated and we will have oral maxillofacial surgeon see the patient as well Given all the circumstances I believe patient will require tracheostomy which should be done the next 24-48 hours, depending on OMF recommendations 05/28/2016 PTD: 10 Patient appears more awake today, fentanyl drip is off and she is just managed with Dilaudid IV as needed for pain. Tolerating CPAP trials. ENT recommends OMFS consult to manage tongue swelling. 05/29/2016 PTD: 11 Patient is status post tracheostomy placement yesterday. Patient is tolerating CPAP trials well, we'll progressed to trach collar trials today. The patient's tongue size has decreased considerably, and no longer protrudes from her mouth. Dobbhoff tube placed last night, needs to be advanced, and then tube feeding can begin 05/30/16 Patient doing much better she is off the respirator at this point on the trach collar Following simple commands very well squeezing and communicating Opening her eyes The tongue swelling has decreased significantly, almost back to normal and patient is able to move tongue in and out of the mouth Patient was transferred to [facility] rehabilitation facility bed is available [facility] to [facility] 05/31/16 Patient intermittently responds to commands and tries to communicate She is more awake and alert but clearly not enough to participate in care as necessary. Failed swallow study yesterday and today so chances are she'll require a PEG temporarily Right now patient has a Dobbhoff tube and she is slated to go to [facility] rehabilitation where they can do the PEG as well 06/01/16 Neurologically patient is improving every day Today she is awake alert and communicating nicely Moving both legs and right arm but unfortunately no motion in the left arm which is plegic and this is consistent with patient's injuries At this point patient is ready for discharge to rehabilitation facility however arrangements apparently have not been completed for the same by case management Objective Vital Signs Date Time Temp Pulse Resp B/P Pulse Ox O2 Delivery O2 Flow Rate FiO2 06/01/16 12:00 95 06/01/16 10:56 15 06/01/16 08:00 98.3 113/66 96 06/01/16 07:00 Trach Collar 6.00 28 Intake and Output 05/31/16 05/31/16 06/01/16 08:00 16:00 00:00 Intake Total 609 ml 610 ml 659 ml Output Total 550 ml 530 ml 625 ml Balance 59 ml 80 ml 34 ml Result Diagram: 06/01/16 0338 06/01/16 0338 Other Results Microbiology Date/Time Procedure Status Source Growth 05/30/16 06:00 Urine Culture - Final Complete Urine Catheterized Urine NO GROWTH IN 48 HOURS. Imaging Last [address] 06/01/16 0600 Signed Impressions: Service Date/Time: Wednesday, June 01, 2016 04:34 - CONCLUSION: Stable small right subdural hematoma. No new hemorrhage seen. Jayden Cotto Jr., MD Exam ASSET CARD CLERK Much improved and moves right arm and both legs no motion in the left arm Hemodynamic/Cardiac Hemodynamically intact Pulmonary/Respiratory Bilateral good breath sounds no secretions on trach collar Abdomen/GI Nutrition Abdomen soft active bowel sounds enteral feeds via the Dobbhoff tube Patient failed swallow test twice however every day she is improving and I believe she will eventually swallowing next day or 2 and therefore I do not believe it's warranted to place a PEG at this time Urinary Catheter Assessment Date of Insertion: May 18, 2016 Vascular Central Line Catheter Date of Insertion: May 18, 2016 Date of Removal: May 29, 2016 (request removal today) Line: Central Venous Catheter Side: Right Location: Subclavian Assessment and Plan Assessment: (1) Respiratory failure ICD Code: J96.90 Status: Acute (2) Head injury ICD Code: S09.90XA Status: Acute (3) Unresponsive ICD Code: R41.89 Status: Acute (4) Intracranial bleed ICD Code: I62.9 Status: Acute (5) Epidural hematoma ICD Code: S06.4X9A Status: Acute (6) Skull fracture, non depressed ICD Code: S02.91XA Status: Acute (7) Scalp laceration ICD Code: S01.01XA Status: Acute Plan This is a 50-year-old female who fell and hit her head on the right side. INJURIES: INJURIES: RIGHT epidural hematoma (9.7 x4.2 cm) w/ 1.2 cm right to left midline shift with cerebral edema Aspiration Assessment and plan by systems: NEUROLOGICAL: Patient awake, opens eyes to command. Follows commands in all 4 extremities. Patient does not require any continuous sedation. Only requiring when necessary Dilaudid for pain. No continuous sedation required at this time. . Provide analgesia for comfort and pain - Dilaudid IV PRN. 05/18: Right craniotomy with evacuation of large epidural hematoma. [place] placed. 05/24 [place] removed Seizure prophylaxis - IV Cerebyx Serial neuro checks. HOB elevated 30 degrees + peripheral pulses x 4 extremities. Neurosurgery, Dr. Bhandari is following this case. CARDIOVASCULAR: HR = 90-96. Sinus rhythm BP = 110/60 Continually monitor for hemodynamic instability (shock and hypotension). Hypertension management: Norvasc, Lopressor, Apresoline Follow CMP Electrolyte protocol RESPIRATORY: Vent settings: CPAP and she is tolerating well. 05/28: Trach placed in the OR. Attempt trach collar trials today. O2 Sats Monitor for hypoxemia Lung sounds = CTA Pulmonary toilet = . L&S. Bronchodilators - Breathing treatments duonebs PRN. Chest X-Ray results - clear and stable VAP protocol in place Labs tomorrow GASTROINTESTINAL: Diet: TF Jevity @ 60 cc/hr Bowel regimen = Payal-Colace, M OM. MiraLAX, lactulose. LBM: 05/29 RENAL / URINARY: I&O - -1162 BUN / creat 18 / 0.[address] to bedside drainage bag with clear yellow urine. Urinalysis - 05/18 ENDOCRINE: BGM = 111 via AM labs SSI in place Solu-Medrol IV daily with taper for tongue swelling HEMATOLOGY: H&H = 9.0 / 27 Continue to monitor for signs and symptoms of bleeding. Transfuse for < 7.0 Monitor patient for any bleeding complications. INFECTIOUS DISEASE: Follow CBC WBC - 13.1 Fevers = low grade fevers Administer antipyretics for temp as needed. Monitor pneumonia evolution with repeat chest X-Rays as needed. Maintain vigorous aseptic care of central line to avoid blood stream infections. Consider a consult to ID for further management. LINES: 05/28: Dobhoff feeding tube 05/28: RETIREMENT OFFICER 05/18: R SC TLC - to be removed today once PIV has been obtained. 05/18: F/C PROPHYLAXIS: VAP protocol in place GI prophylaxis: Protonix IV DVT - Mechanical VTE with SCDs. Chemical management contraindicated at this time due to epidural hematoma. Consult placed to ENT regarding swelling of his tongue - appreciate recommendations. Consult placed to OMFS at the recommendation of ENT regarding treatment of tongue edema. Recommend straight placement, and oropharyngeal airway. SKIN: Warm and dry Tongue swelling improved Stage II resolving pressure sores to buttocks. Wound care nurse recommends barrier cream BID. Right hand splint ordered at the recommendation of OT. ACTIVITY: BR PT and OT ordered. CASE MANAGEMENT: Consulted for assist with DC planning. Placement - disposition - TBD. Referrals are placed to [facility] in [place]. EMOTIONAL SUPPORT: Provided to patient and family. Plan of care discussed. Questions answered to the best of my knowledge. Discussed with GASKET MAKER at the bedside during trauma rounds. This patient is currently critically ill and injured and being managed in the ICU. The trauma team will manage care, and evaluate the patient on a daily basis. Attestation Patient is ready to go to the neuro rehabilitation however paperwork for some reason is not completed The exam, history, and the medical decision-making described in the above note were completed with the assistance of the mid-level provider. I reviewed and agree with the findings presented. I attest that I had a [id number] encounter with the patient on the same day, and personally performed and documented my assessment and findings in the medical record. Critical care time 38 minutes. Problem Qualifiers (1) Respiratory failure: Qualified Code: J96.00 - Acute respiratory failure, unspecified whether with hypoxia or hypercapnia (2) Head injury: Qualified Code: S09.90XA - Head injury, initial encounter Mindi De Santiago MD Jun 01, 2016 15:35
--- NOTE | 2016-06-01 17:11 | HHI.NSPN ---
History Chief Complaint: intubated and sedated Interval History 50-year-old female underwent emergency craniotomy evacuation of large epidural hematoma on 05/18/[address] scan 05/18/2016 with satisfactory evacuation of hematoma, mostly mild residual edema and midline shift without significant parenchymal hemorrhage and no hydrocephalus 06/01/16: Follow-up CT scan with minimal right epidural fluid collection. No significant mass effect. Tracheostomy in place Exam Results Vital Signs Date Time Temp Pulse Resp B/P Pulse Ox O2 Delivery O2 Flow Rate FiO2 06/01/16 16:00 92 06/01/16 12:00 98.1 16 120/84 97 06/01/16 07:00 Trach Collar 6.00 28 Intake and Output 05/31/16 05/31/16 06/01/16 08:00 16:00 00:00 Intake Total 609 ml 610 ml 659 ml Output Total 550 ml 530 ml 625 ml Balance 59 ml 80 ml 34 ml Physical Examination On trach mask Tracheostomy in place Eyes open, pupils 4 mm reactive. Moderate extraocular movements Follows simple commands all extremities. Moves all extremities to command. Right upper and lower extremity motor function continues to improve, mostly to-3/5 Right craniotomy surgical incision well-approximated, w/o any evident drainage, erythema or streaking although area of scab vs necrosis noted Lab, Micro, Other Results 06/01/16 CT scan head images reviewed with the family. Minimal right small probable epidural fluid collection without significant mass effect under craniotomy bone flap. Head CT 06/01/16 0600 Signed Impressions: Service Date/Time: Wednesday, June 01, 2016 04:34 - CONCLUSION: Stable small right subdural hematoma. No new hemorrhage seen. Jayden Cotto Jr., MD Laboratory Tests Test 06/01/16 03:38 White Blood Count 16.4 TH/MM3 Red Blood Count 3.36 MIL/MM3 Hemoglobin 10.1 GM/DL Hematocrit 29.6 % Mean Corpuscular Volume 88.0 FL Mean Corpuscular Hemoglobin 30.2 PG Mean Corpuscular Hemoglobin 34.3 % Concent Red Cell Distribution Width 13.2 % Platelet Count 668 TH/MM3 Mean Platelet Volume 8.1 FL Neutrophils (%) (Auto) 79.0 % Lymphocytes (%) (Auto) 9.9 % Monocytes (%) (Auto) 8.3 % Eosinophils (%) (Auto) 2.1 % Basophils (%) (Auto) 0.7 % Neutrophils # (Auto) 12.9 TH/MM3 Lymphocytes # (Auto) 1.6 TH/MM3 Monocytes # (Auto) 1.4 TH/MM3 Eosinophils # (Auto) 0.4 TH/MM3 Basophils # (Auto) 0.1 TH/MM3 CBC Comment AUTO DIFF Differential Total Cells 100 Counted Neutrophils % (Manual) 74 % Lymphocytes % 14 % Monocytes % 7 % Eosinophils % 3 % Neutrophils # (Manual) 12.5 TH/MM3 Myelocytes 2 % Differential Comment FINAL DIFF MANUAL Platelet Estimate HIGH Platelet Morphology Comment NORMAL Sodium Level 140 MEQ/L Potassium Level 4.0 MEQ/L Chloride Level 105 MEQ/L Carbon Dioxide Level 26.9 MEQ/L Anion Gap 8 MEQ/L Blood Urea Nitrogen 22 MG/DL Creatinine 0.42 MG/DL Estimat Glomerular Filtration 159 ML/MIN Rate Random Glucose 112 MG/DL Calcium Level 8.9 MG/DL Magnesium Level 2.2 MG/DL Total Bilirubin 0.2 MG/DL Aspartate Amino Transf 28 U/L (AST/SGOT) Alanine Aminotransferase 75 U/L (ALT/SGPT) Alkaline Phosphatase 121 U/L Total Protein 6.6 GM/DL Albumin 2.3 GM/DL Medical Decision Making Impression and Plan Impression: Neurologic exam continues to gradually improve. Right hemiparesis persists but improving slowly Tracheostomy in place Plan: Discussed with family today in [facility] Stable for transfer to regular floor from neurosurgery standpoint Seizure prophylaxis DVT prophylaxis-non--chemical Ulcer prophylaxis Monitor sodium and maintained within normal range. Hemodynamically stable Sav Bhandari MD Jun 01, 2016 17:11
[2016-06-01] MEDS: FAMOTIDINE 40 MG/5 ML LIQ 50 ML BTL NG SCH (19:49)
[2016-06-01] MEDS: hydrALAZINE HCL 25 MG TAB PO SCH (19:50)
[2016-06-02] VITALS (8 sets, daily range): BP systolic 100–161; BP diastolic 56–83; PULSE 92–109; RESP 11–27; TEMP 98.2–98.8; O2SAT 95–99
[2016-06-02] MEDS: CHLORHEXIDINE GLUCONATE 2 % 1 PACK (2 CLOTHS) TOP SCH (03:08)
[2016-06-02] MEDS: INSULIN NovoLIN REGULAR SUPPLEMENTAL SCALE SQ SCH ×4 (06:08→21:00)
[2016-06-02] MEDS: ARTIFICIAL TEARS OPTH SOLN 15 ML BTL EACH EYE SCH ×2 (08:33→22:03)
[2016-06-02] MEDS: CHLORHEXIDINE 0.12% (ORAL KIT) 15 ML CUP MT SCH ×2 (08:34→22:03)
[2016-06-02] MEDS: METOPROLOL TARTRATE 25 MG TAB PO SCH ×2 (08:43→22:04)
[2016-06-02] MEDS: hydrALAZINE HCL 25 MG TAB PO SCH ×3 (08:43→22:04)
[2016-06-02] MEDS: POLYETHYLENE GLYCOL 17 GM PKG PO SCH (08:44)
[2016-06-02] MEDS: LACTULOSE SYRUP 20 GM/30 ML CUP PO SCH (08:44)
[2016-06-02] MEDS: amLODIPine BESYLATE 5 MG TAB PO SCH ×2 (08:44→10:32)
[2016-06-02] MEDS: DOCUSATE SODIUM 50 MG/SENNA 8.6 MG TAB PO SCH ×2 (08:44→22:04)
[2016-06-02] MEDS: FAMOTIDINE 40 MG/5 ML LIQ 50 ML BTL NG SCH ×2 (08:46→21:00)
--- NOTE | 2016-06-02 12:20 | HHI.CCPN ---
Subjective Brief History NOOKSACK: This is a 50 yo Female who arrived to [facility] as a trauma alert. 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 She was initially alert and oriented with GCS of 15 upon [facility]AC arrival and was moving all extremities. After she was taken into the ambulance her GCS was 3 and right pupil was dilated and nonreactive. She was intubated in the ED following etomidate 20 mg IV and succinylcholine 100 mg IV. Trauma workup included CT brain that demonstrated 9.7 x4.2 cm R epidural hematoma with 1.2 cm right to left midline shift and cerebral edema. BP in ED was 108/104 to 160/76 with heart rate 66-92. Sats 98-100%. Neurosurgery was consulted and she was taken emergently to OR for right craniotomy by Dr. Bhandari. Her pupil remained nonreactive postoperatively. This is classic presentation of an epidural hematoma with loss of consciousness followed by lucid interval and then again loss of consciousness. INJURIES: RIGHT epidural hematoma (9.7 x4.2 cm) w/ 1.2 cm right to left midline shift with cerebral edema Aspiration Procedures: 05/18: RIGHT craniotomy with evacuation of large epidural hematoma 05/24: Stout out 05/28: COMPUTER SCIENCE INSTRUCTOR in the OR Consults: CCM. Neurosurgery. ENT. OMFS. 24 Hour Review/Hospital Course 05/20/2016 Patient has been stable over the last 24 hours ICPs remain in 8-12 mmHg range and central perfusion pressure is adequate Pupils are equal 2 mm and somewhat reactive Repeat CAT scan of the brain reveals some blood over the right hemisphere but this is minimal and no intervention is necessary Patient remains of neuroprotective measures including mild hyperventilation, hypertonic saline and sedation on propofol and fentanyl Considering mild swelling of the brain in early phase of care I would leave everything as it is right now and right without for next day or 2 and then a repeat CT scan will be done All things equal we'll started waking patient up by the end of the week and see how she does 05/26/2016 Patient is slowly neurologically improving and remains on sedation however does occasionally move her arm and the leg At this point she is also moving her left side which is encouraging Angioedema off the tongue slowly decreasing Patient remains on Solu-Medrol We'll continue current care to patient is more awake in the swelling of the tongue decreases There is a distinct chance the patient will need a tracheostomy but we'll see how she does 05/27/16 Patient has improved today she is more awake and more alert following simple commands an opening eyes She is on minimum respiratory support but unfortunately angioedema of the tongue is so severe that they cannot be even a question about extubating this patient at this time ENT consultation of Dr. Johnson is very much appreciated and we will have oral maxillofacial surgeon see the patient as well Given all the circumstances I believe patient will require tracheostomy which should be done the next 24-48 hours, depending on OMF recommendations 05/28/2016 PTD: 10 Patient appears more awake today, fentanyl drip is off and she is just managed with Dilaudid IV as needed for pain. Tolerating CPAP trials. ENT recommends OMFS consult to manage tongue swelling. 05/29/2016 PTD: 11 Patient is status post tracheostomy placement yesterday. Patient is tolerating CPAP trials well, we'll progressed to trach collar trials today. The patient's tongue size has decreased considerably, and no longer protrudes from her mouth. Dobbhoff tube placed last night, needs to be advanced, and then tube feeding can begin 05/30/16 Patient doing much better she is off the respirator at this point on the trach collar Following simple commands very well squeezing and communicating Opening her eyes The tongue swelling has decreased significantly, almost back to normal and patient is able to move tongue in and out of the mouth Patient was transferred to [facility] rehabilitation facility bed is available Discharge from [facility] to [facility] today 05/31/16 Patient intermittently responds to commands and tries to communicate She is more awake and alert but clearly not enough to participate in care as necessary. Failed swallow study yesterday and today so chances are she'll require a PEG temporarily Right now patient has a Dobbhoff tube and she is slated to go to [facility] rehabilitation where they can do the PEG as well 06/01/16 Neurologically patient is improving every day Today she is awake alert and communicating nicely Moving both legs and right arm but unfortunately no motion in the left arm which is plegic and this is consistent with patient's injuries At this point patient is ready for discharge to rehabilitation facility however arrangements apparently have not been completed for the same by case management 06/02/16 Patient improving every day she is more alert awake and alert today Will repeat swallow test tomorrow Patient does not require anymore ICU care but does require transfer to rehabilitation facility and while we knew about this from get go patient came first arrangements for transfer still not completed As soon as bed is available in the rehabilitation patient will be transferred Objective Vital Signs Date Time Temp Pulse Resp B/P Pulse Ox O2 Delivery O2 Flow Rate FiO2 06/02/16 10:09 98 T-piece 21 06/02/16 08:00 98.4 108 16 111/63 06/02/16 07:00 6.00 Intake and Output 06/01/16 06/01/16 06/02/16 08:00 16:00 00:00 Intake Total 516 ml 595 ml 480 ml Output Total 450 ml 750 ml 450 ml Balance 66 ml -155 ml 30 ml Result Diagram: 06/01/16 0338 06/01/16 0338 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 No change in neurologic status Hemodynamic/Cardiac Hemodynamically intact Pulmonary/Respiratory Bilateral good breath sounds Abdomen/GI Nutrition Abdomen soft active bowel sounds Renal/I&O Good urine output Urinary Catheter Assessment Date of Insertion: May 18, 2016 Vascular Central Line Catheter Date of Insertion: May 18, 2016 Date of Removal: May 29, 2016 (request removal today) Line: Central Venous Catheter Side: Right Location: Subclavian Assessment and Plan Assessment: (1) Respiratory failure ICD Code: J96.90 Status: Acute (2) Head injury ICD Code: S09.90XA Status: Acute (3) Unresponsive ICD Code: R41.89 Status: Acute (4) Intracranial bleed ICD Code: I62.9 Status: Acute (5) Epidural hematoma ICD Code: S06.4X9A Status: Acute (6) Skull fracture, non depressed ICD Code: S02.91XA Status: Acute (7) Scalp laceration ICD Code: S01.01XA Status: Acute Plan This is a 50-year-old female who fell and hit her head on the right side. INJURIES: INJURIES: RIGHT epidural hematoma (9.7 x4.2 cm) w/ 1.2 cm right to left midline shift with cerebral edema Aspiration Assessment and plan by systems: NEUROLOGICAL: Patient awake, opens eyes to command. Follows commands in all 4 extremities. Patient does not require any continuous sedation. Only requiring when necessary Dilaudid for pain. No continuous sedation required at this time. . Provide analgesia for comfort and pain - Dilaudid IV PRN. 05/18: Right craniotomy with evacuation of large epidural hematoma. Stout placed. 05/24 Stout removed Seizure prophylaxis - IV Cerebyx Serial neuro checks. HOB elevated 30 degrees + peripheral pulses x 4 extremities. Neurosurgery, Dr. Bhandari is following this case. CARDIOVASCULAR: HR = 90-96. Sinus rhythm BP = 110/60 Continually monitor for hemodynamic instability (shock and hypotension). Hypertension management: Norvasc, Lopressor, Apresoline Follow CMP Electrolyte protocol RESPIRATORY: Vent settings: CPAP and she is tolerating well. 05/28: Trach placed in the OR. Attempt trach collar trials today. O2 Sats Monitor for hypoxemia Lung sounds = CTA Pulmonary toilet = . L&S. Bronchodilators - Breathing treatments duonebs PRN. Chest X-Ray results - clear and stable VAP protocol in place Labs tomorrow GASTROINTESTINAL: Diet: TF Jevity @ 60 cc/hr Bowel regimen = Payal-Colace, M OM. MiraLAX, lactulose. LBM: 05/29 RENAL / URINARY: I&O - -1162 BUN / creat 18 / 0.[address] to bedside drainage bag with clear yellow urine. Urinalysis - 05/18 ENDOCRINE: BGM = 111 via AM labs SSI in place Solu-Medrol IV daily with taper for tongue swelling HEMATOLOGY: H&H = 9.0 / 27 Continue to monitor for signs and symptoms of bleeding. Transfuse for < 7.0 Monitor patient for any bleeding complications. INFECTIOUS DISEASE: Follow CBC WBC - 13.1 Fevers = low grade fevers Administer antipyretics for temp as needed. Monitor pneumonia evolution with repeat chest X-Rays as needed. Maintain vigorous aseptic care of central line to avoid blood stream infections. Consider a consult to ID for further management. LINES: 05/28: Dobhoff feeding tube 05/28: COMPUTER SCIENCE INSTRUCTOR 05/18: R SC TLC - to be removed today once PIV has been obtained. 05/18: F/C PROPHYLAXIS: VAP protocol in place GI prophylaxis: Protonix IV DVT - Mechanical VTE with SCDs. Chemical management contraindicated at this time due to epidural hematoma. Consult placed to ENT regarding swelling of his tongue - appreciate recommendations. Consult placed to OMFS at the recommendation of ENT regarding treatment of tongue edema. Recommend straight placement, and oropharyngeal airway. SKIN: Warm and dry Tongue swelling improved Stage II resolving pressure sores to buttocks. Wound care nurse recommends barrier cream BID. Right hand splint ordered at the recommendation of OT. ACTIVITY: BR PT and OT ordered. CASE MANAGEMENT: Consulted for assist with DC planning. Placement - disposition - TBD. Referrals are placed to [facility] in [place]. EMOTIONAL SUPPORT: Provided to patient and family. Plan of care discussed. Questions answered to the best of my knowledge. Discussed with TRANSMISSION REPAIRER at the bedside during trauma rounds. This patient is currently critically ill and injured and being managed in the ICU. The trauma team will manage care, and evaluate the patient on a daily basis. Attestation Patient awaiting transfer to rehabilitation facility The exam, history, and the medical decision-making described in the above note were completed with the assistance of the mid-level provider. I reviewed and agree with the findings presented. I attest that I had a [id number] encounter with the patient on the same day, and personally performed and documented my assessment and findings in the medical record. Critical care time 38 minutes. Problem Qualifiers (1) Respiratory failure: Qualified Code: J96.00 - Acute respiratory failure, unspecified whether with hypoxia or hypercapnia (2) Head injury: Qualified Code: S09.90XA - Head injury, initial encounter Mindi De Santiago MD Jun 02, 2016 12:20
[2016-06-02] MEDS: HYDROmorphone HCL PF 1 MG/ML VIAL IV PRN (16:47)
--- NOTE | 2016-06-02 17:41 | HHI.NSPN ---
History Chief Complaint: intubated and sedated Interval History 50-year-old female underwent emergency craniotomy evacuation of large epidural hematoma on 05/18/[address] scan 05/18/2016 with satisfactory evacuation of hematoma, mostly mild residual edema and midline shift without significant parenchymal hemorrhage and no hydrocephalus 06/01/16: Follow-up CT scan with minimal right epidural fluid collection. No significant mass effect. Tracheostomy in place Exam Results Vital Signs Date Time Temp Pulse Resp B/P Pulse Ox O2 Delivery O2 Flow Rate FiO2 06/02/16 17:17 14 06/02/16 16:00 98.3 109 116/74 97 06/02/16 10:09 T-piece 21 06/02/16 07:00 6.00 Intake and Output 06/01/16 06/01/16 06/02/16 08:00 16:00 00:00 Intake Total 516 ml 595 ml 480 ml Output Total 450 ml 750 ml 450 ml Balance 66 ml -155 ml 30 ml Physical Examination On trach mask Tracheostomy in place Awake, mild lethargy Eyes open, pupils 4 mm reactive. Moderate extraocular movements Follows simple commands all extremities. Moves all extremities to command. Right upper and lower extremity motor function continues to improve, mostly 3/5 Right craniotomy surgical incision well-approximated, w/o any evident drainage, erythema or streaking although area of scab vs necrosis noted Medical Decision Making Impression and Plan Impression: Neurologic exam continues to gradually improve. Right hemiparesis persists but improving slowly Tracheostomy in place Plan: Discussed with family today in ISC Stable for transfer to regular floor from neurosurgery standpoint Seizure prophylaxis Okay for Lovenox from neurosurgery standpoint Ulcer prophylaxis Monitor sodium and maintained within normal range. Hemodynamically stable Sav Bhandari MD Jun 02, 2016 17:41
[2016-06-03] VITALS (7 sets, daily range): BP systolic 118–139; BP diastolic 22–91; PULSE 87–107; RESP 12–24; TEMP 97.5–98.6; O2SAT 96–100
[2016-06-03] MEDS: CHLORHEXIDINE GLUCONATE 2 % 1 PACK (2 CLOTHS) TOP SCH (03:47)
[2016-06-03] MEDS: INSULIN NovoLIN REGULAR SUPPLEMENTAL SCALE SQ SCH ×4 (06:26→21:00)
[2016-06-03] MEDS: hydrALAZINE HCL 25 MG TAB PO SCH ×2 (08:32→21:28)
[2016-06-03] MEDS: DOCUSATE SODIUM 50 MG/SENNA 8.6 MG TAB PO SCH ×2 (08:32→21:28)
[2016-06-03] MEDS: amLODIPine BESYLATE 5 MG TAB PO SCH (08:32)
[2016-06-03] MEDS: CHLORHEXIDINE 0.12% (ORAL KIT) 15 ML CUP MT SCH ×2 (08:33→20:26)
[2016-06-03] MEDS: METOPROLOL TARTRATE 25 MG TAB PO SCH ×2 (08:33→21:28)
[2016-06-03] MEDS: ARTIFICIAL TEARS OPTH SOLN 15 ML BTL EACH EYE SCH ×2 (08:33→20:26)
[2016-06-03] MEDS: LACTULOSE SYRUP 20 GM/30 ML CUP PO SCH (08:34)
[2016-06-03] MEDS: POLYETHYLENE GLYCOL 17 GM PKG PO SCH (08:34)
[2016-06-03] MEDS: FAMOTIDINE 40 MG/5 ML LIQ 50 ML BTL NG SCH ×2 (08:34→21:28)
--- NOTE | 2016-06-03 10:04 | HHI.NSPN ---
(Wilfredo Valenzuela) Note Status Status: Progress Note (Wilfredo Valenzuela) Interval History Interval History 50-year-old female underwent emergency craniotomy evacuation of large epidural hematoma on 05/18/[address] scan 05/18/2016 with satisfactory evacuation of hematoma, mostly mild residual edema and midline shift without significant parenchymal hemorrhage and no hydrocephalus She was trached on and had a Dubhoff feeding tube placed . 05/31: Today the patient is doing well and remains neurologically intact. The states that Case Mgmt is working on disposition to [facility] in [place]. 06/03: Patient awake & moving LUE & BLE on own. Speech Therapy at bedside to do swallow study. (Wilfredo Valenzuela) Labs, Micro, & Vital Signs Constitutional Vital Signs Date Time Temp Pulse Resp B/P Pulse Ox O2 Delivery O2 Flow Rate FiO2 06/03/16 07:53 96 Trach Collar 28 06/03/16 04:00 87 06/03/16 04:00 97.9 87 12 139/91 99 06/03/16 00:00 99 06/03/16 00:00 98.6 99 15 127/91 97 06/02/16 21:59 99 Trach Collar 6.00 21 06/02/16 20:00 94 06/02/16 20:00 98.2 94 13 120/78 99 06/02/16 19:00 99 Trach Collar 6.00 21 06/02/16 17:17 14 06/02/16 16:00 98.3 109 20 116/74 97 06/02/16 16:00 107 06/02/16 12:00 98.6 100 20 161/83 98 06/02/16 12:00 108 06/02/16 10:09 98 T-piece 21 06/03/16 07:00 Intake Total 1382 ml Output Total 1725 ml Balance -343 ml (Wilfredo Valenzuela) Review of Systems/Exam ROS Unable to obtain ROS due to trach. Exam On trach mask Tracheostomy in place RRR w/o M/G/R, monitor is sinus rhythm w/o any ectopy noted. Abdomen is soft & nontender, positive bowel sounds. Awake& alert. Eyes open, pupils 4 mm reactive. Moderate extraocular movements Follows simple commands. Moves LUE & BLE w/o difficulty. No movement of RUE noted but it is in a functional splint which may affect ability. Right craniotomy surgical incision well-approximated, w/o any evident drainage, erythema or streaking although area of scab vs necrosis still present w/o any change. (Wilfredo Valenzuela) Medications Current Medications Current Medications Medications (Trade) Dose Ordered Sig/Hima Route Start Time Stop Time Status Last Admin (NS Flush) 2 ml UNSCH PRN IV FLUSH 05/18/16 19:45 05/28/16 08:13 (Zofran Inj) 4 mg Q6H PRN IV 05/18/16 19:45 06/01/16 10:51 Miscellaneous Information 1 Q361D XX 05/18/16 19:45 05/18/16 19:45 (Chlorhexidine 2% Cloth) Taper DAILY@04 TOP 05/19/16 04:00 05/15/17 03:59 06/02/16 03:08 (Chlorhexidine 2% Cloth) 3 pack UNSCH PRN TOP 05/18/16 19:45 (Dilaudid Pf Inj) 1 mg Q3H PRN IV 05/18/16 21:30 06/02/16 16:47 (Morphine Inj) 4 mg Q3H PRN IV 05/18/16 21:30 06/01/16 21:35 (Narcan Inj) 0.4 mg UNSCH PRN IV 05/18/16 21:30 (Peridex 0.12% Liq) 15 ml BID@08,20 MT 05/19/16 08:00 06/03/16 08:33 (Brethine Inj) 1 mg UNSCH PRN SQ 05/19/16 00:15 (Lactulose Liq) 30 ml DAILY PO 05/20/16 09:00 06/03/16 08:34 (Payal-Colace) 1 tab BID PO 05/20/16 09:00 06/03/16 08:32 (Tylenol) 650 mg Q4H PRN PO 05/21/16 18:30 05/25/16 21:22 Polyethylene Glycol 17 gm 17 gm DAILY PO 05/23/16 10:00 06/01/16 08:33 Potassium Chloride 100 ml @ 50 mls/hr Q2H PRN IV 05/24/16 12:00 (KCl 20 Meq Premix Inj) 100 ml @ 50 mls/hr Q2H PRN IV 05/24/16 12:00 Potassium Bicarb/ Potassium Chloride 50 meq 50 meq UNSCH PRN PO 05/24/16 12:00 05/30/16 06:57 Potassium Chloride 100 ml @ 25 mls/hr UNSCH PRN IV 05/24/16 12:00 Potassium Chloride 100 ml @ 50 mls/hr Q2H PRN IV 05/24/16 12:00 (Magnesium Sulfate Inj/NS Inj) 100 ml @ 50 mls/hr UNSCH PRN IV 05/24/16 12:00 Magnesium Oxide 800 mg 800 mg UNSCH PRN PO 05/24/16 12:00 (Magnesium Sulfate Inj/NS Inj) 100 ml @ 50 mls/hr UNSCH PRN IV 05/24/16 12:00 Potassium Phosphate 2000 mg 2,000 mg Q4H PRN PO 05/24/16 12:00 05/25/16 08:14 (Sodium Phosphate Inj/NS 250 ml Inj) 250 ml @ 42 mls/hr UNSCH PRN IV 05/24/16 12:00 Potassium Phosphate 2000 mg 2,000 mg UNSCH PRN PO/TUBE 05/24/16 12:00 (Potassium Phosphate Inj/NS 250 ml Inj) 260 ml @ 42 mls/hr UNSCH PRN IV 05/24/16 12:00 (Norvasc) 5 mg DAILY PO 05/24/16 12:00 06/03/16 08:32 (D50w (Vial) Inj) 25 ml UNSCH PRN IV PUSH 05/26/16 08:30 (Glucagon Inj) 1 mg UNSCH PRN OTHER 05/26/16 08:30 (Tears Naturale Opth Soln) 1 drop BID EACH EYE 06/01/16 21:00 06/03/16 08:33 (Apresoline) 25 mg BID PO 06/01/16 21:00 06/03/16 08:32 (Lopressor) 25 mg Q12HR PO 06/01/16 13:00 06/03/16 08:33 (Pepcid Liq) 20 mg BID NG 06/01/16 21:00 (Wilfredo Valenzuela) Medical Decision Making MDM Remarks Large epidural haematoma s/p craniotomy , improving neurological status Right hemiparesis, persists but improving slowly Respiratory failure, trached , imrpoving respiratory status Haemodynamically stable (Wilfredo Valenzuela) Plan Plan Remarks Discussed plan of care with Seizure prophylaxis Mechanical DVT prophylaxis Okay for Lovenox prophylaxis Ulcer prophylaxis Monitor sodium level and maintain w/i normal range Discharge planning to [facility] (Wilfredo Valenzuela) Attending Statement I have personally seen and examined the patient on the date of this note. Pertinent documentation and study results have been reviewed by the undersigned. I have personally developed the treatment plan and performed medical decision making. Agree with findings, exam, and treatment plan as noted above. Remains awake and alert today moving extremities previously well, significant overall improvement in right hemiparesis in the past few days. Discussed with patient and family Transfer to regular floor Await transfer to inpatient rehabilitation (Sav Bhandari MD) Wilfredo Valenzuela Jun 03, 2016 10:04 Sav Bhandari MD Jun 03, 2016 21:11
--- NOTE | 2016-06-03 10:46 | HHI.PR ---
Neuropsych Progress Notes/Response to Tx Contents of Sessions: Level of Consciousness Time with Patient: 15 minutes Premorbid psychological status Premorbid Cognitive, Emotional and Behavioral Status: Stable. 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 The patient has no psychiatric difficulties. Substance abuse history is not significant. She is and has two children. Behavioral Reactions of Patient and Family/Support System: Stable. The patient s family is experiencing ongoing issues of adjustment given the nature of the injury, and this aspect of recovery will require ongoing monitoring. Emotional/Behavioral Status of Patient and Family/Support System: Stable. Pertinent issues, if appropriate to this patients clinical care, are described in detail above. Maximizing acute care outcome It is recommended that the patient be monitored for emergent behavioral impulsivity as the medical condition evolves. This patients neuropathological challenges may limit their rehabilitation potential going forward, and these challenges will require specialized therapeutic skills to maximize outcome. Additionally, the patients family is experiencing ongoing issues of adjustment given the traumatic nature of the injury, and they may benefit from ongoing psychological assistance. Anticipated Problems Ongoing areas of concern will include behavioral impulsivity, lack of insight and judgment, which is expected to improve with time and treatment. Presently , the patient intubated and sedated. Treatment Plan This clinician will continue to follow with you throughout the course of this patients acute care treatment, and I will be available to meet with the patient s family/support system to facilitate their understanding and the ongoing care of their family member. The goals of neuropsychological intervention shall be both educational and supportive to the family/support system as is deemed clinically appropriate. [facility] Level: V:Confused-non agitated Impression This patient suffered a significant traumatic brain injury secondary to her fall on 05/18/2016, with large EDH and right to left midline shift. She is expected to have significant neurocognitive impairments from this injury. Diagnosis: (1) Major neurocognitive disorder as late effect of traumatic brain injury without behavioral disturbance Status: Acute Progress Note Narrative Ongoing follow-up of patient seen during daily trauma rounds. This is day 16 post injury. The patient is awake, alert and follows, although her LUE is not functioning effectively. She is on no sedation. Her current [place] level is V. She is scheduled for discharge as soon as a bed is available. I will continue to follow. Gregorio Benítez PhD Jun 03, 2016 10:46 am
--- NOTE | 2016-06-03 16:51 | HHI.CCPN ---
Subjective Brief History [place]: This is a 50 yo Female who arrived to [facility] as a trauma alert. 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 She was initially alert and oriented with GCS of 15 upon EVAC arrival and was moving all extremities. After she was taken into the ambulance her GCS was 3 and right pupil was dilated and nonreactive. She was intubated in the ED following etomidate 20 mg IV and succinylcholine 100 mg IV. Trauma workup included CT brain that demonstrated 9.7 x4.2 cm R epidural hematoma with 1.2 cm right to left midline shift and cerebral edema. BP in ED was 108/104 to 160/76 with heart rate 66-92. Sats 98-100%. Neurosurgery was consulted and she was taken emergently to OR for right craniotomy by Dr. Bhandari. Her pupil remained nonreactive postoperatively. This is classic presentation of an epidural hematoma with loss of consciousness followed by lucid interval and then again loss of consciousness. INJURIES: RIGHT epidural hematoma (9.7 x4.2 cm) w/ 1.2 cm right to left midline shift with cerebral edema Aspiration Procedures: 05/18: RIGHT craniotomy with evacuation of large epidural hematoma 05/24: [place] out 05/28: [facility] in the OR Consults: CCM. Neurosurgery. ENT. OMFS. 24 Hour Review/Hospital Course 05/20/2016 Patient has been stable over the last 24 hours ICPs remain in 8-12 mmHg range and central perfusion pressure is adequate Pupils are equal 2 mm and somewhat reactive Repeat CAT scan of the brain reveals some blood over the right hemisphere but this is minimal and no intervention is necessary Patient remains of neuroprotective measures including mild hyperventilation, hypertonic saline and sedation on propofol and fentanyl Considering mild swelling of the brain in early phase of care I would leave everything as it is right now and right without for next day or 2 and then a repeat CT scan will be done All things equal we'll started waking patient up by the end of the week and see how she does 05/26/2016 Patient is slowly neurologically improving and remains on sedation however does occasionally move her arm and the leg At this point she is also moving her left side which is encouraging Angioedema off the tongue slowly decreasing Patient remains on Solu-Medrol We'll continue current care to patient is more awake in the swelling of the tongue decreases There is a distinct chance the patient will need a tracheostomy but we'll see how she does 05/27/16 Patient has improved today she is more awake and more alert following simple commands an opening eyes She is on minimum respiratory support but unfortunately angioedema of the tongue is so severe that they cannot be even a question about extubating this patient at this time ENT consultation of Dr. Johnson is very much appreciated and we will have oral maxillofacial surgeon see the patient as well Given all the circumstances I believe patient will require tracheostomy which should be done the next 24-48 hours, depending on OMF recommendations 05/28/2016 PTD: 10 Patient appears more awake today, fentanyl drip is off and she is just managed with Dilaudid IV as needed for pain. Tolerating CPAP trials. ENT recommends OMFS consult to manage tongue swelling. 05/29/2016 PTD: 11 Patient is status post tracheostomy placement yesterday. Patient is tolerating CPAP trials well, we'll progressed to trach collar trials today. The patient's tongue size has decreased considerably, and no longer protrudes from her mouth. Dobbhoff tube placed last night, needs to be advanced, and then tube feeding can begin 05/30/16 Patient doing much better she is off the respirator at this point on the trach collar Following simple commands very well squeezing and communicating Opening her eyes The tongue swelling has decreased significantly, almost back to normal and patient is able to move tongue in and out of the mouth Patient was transferred to [facility] rehabilitation facility bed is available Discharge from [facility] to [facility] today 05/31/16 Patient intermittently responds to commands and tries to communicate She is more awake and alert but clearly not enough to participate in care as necessary. Failed swallow study yesterday and today so chances are she'll require a PEG temporarily Right now patient has a Dobbhoff tube and she is slated to go to [facility] rehabilitation where they can do the PEG as well 06/01/16 Neurologically patient is improving every day Today she is awake alert and communicating nicely Moving both legs and right arm but unfortunately no motion in the left arm which is plegic and this is consistent with patient's injuries At this point patient is ready for discharge to rehabilitation facility however arrangements apparently have not been completed for the same by case management 06/02/16 Patient improving every day she is more alert awake and alert today Will repeat swallow test tomorrow Patient does not require anymore ICU care but does require transfer to rehabilitation facility and while we knew about this from get go patient came first arrangements for transfer still not completed As soon as bed is available in the rehabilitation patient will be transferred 06/03/16 Patient is actually more awake and alert every day but has difficulty swallowing and hands the Dobbhoff Will repeat swallow study today at the bedside and see how patient does Patient is now waiting for the last 4 days to be placed in the rehabilitation but somehow arrangements are coming around fairly slowly Objective Vital Signs Date Time Temp Pulse Resp B/P Pulse Ox O2 Delivery O2 Flow Rate FiO2 06/03/16 12:00 95 06/03/16 12:00 98.5 24 119/87 97 06/03/16 07:53 Trach Collar 28 06/03/16 07:00 6.00 Intake and Output 06/02/16 06/02/16 06/03/16 08:00 16:00 00:00 Intake Total 550 ml 541 ml 478 ml Output Total 500 ml 750 ml 425 ml Balance 50 ml -209 ml 53 ml Result Diagram: 06/01/16 0338 06/01/16 0338 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 Patient is awake alert and communicating normally and the main difficulty is a motion of the left arm Hemodynamic/Cardiac Hemodynamically intact Pulmonary/Respiratory Bilateral breath sounds tracheostomy minimal drainage Abdomen/GI Nutrition Abdomen is soft active bowel sounds enteral feeds tolerated Urinary Catheter Assessment Date of Insertion: May 18, 2016 Vascular Central Line Catheter Date of Insertion: May 18, 2016 Date of Removal: May 29, 2016 (request removal today) Line: Central Venous Catheter Side: Right Location: Subclavian Assessment and Plan Assessment: (1) Respiratory failure ICD Code: J96.90 Status: Acute (2) Head injury ICD Code: S09.90XA Status: Acute (3) Unresponsive ICD Code: R41.89 Status: Acute (4) Intracranial bleed ICD Code: I62.9 Status: Acute (5) Epidural hematoma ICD Code: S06.4X9A Status: Acute (6) Skull fracture, non depressed ICD Code: S02.91XA Status: Acute (7) Scalp laceration ICD Code: S01.01XA Status: Acute Plan This is a 50-year-old female who fell and hit her head on the right side. INJURIES: INJURIES: RIGHT epidural hematoma (9.7 x4.2 cm) w/ 1.2 cm right to left midline shift with cerebral edema Aspiration Assessment and plan by systems: NEUROLOGICAL: Patient awake, opens eyes to command. Follows commands in all 4 extremities. Patient does not require any continuous sedation. Only requiring when necessary Dilaudid for pain. No continuous sedation required at this time. . Provide analgesia for comfort and pain - Dilaudid IV PRN. 05/18: Right craniotomy with evacuation of large epidural hematoma. [place] placed. 05/24 [place] removed Seizure prophylaxis - IV Cerebyx Serial neuro checks. HOB elevated 30 degrees + peripheral pulses x 4 extremities. Neurosurgery, Dr. Bhandari is following this case. CARDIOVASCULAR: HR = 90-96. Sinus rhythm BP = 110/60 Continually monitor for hemodynamic instability (shock and hypotension). Hypertension management: Norvasc, Lopressor, Apresoline Follow CMP Electrolyte protocol RESPIRATORY: Vent settings: CPAP and she is tolerating well. 05/28: Trach placed in the OR. Attempt trach collar trials today. O2 Sats Monitor for hypoxemia Lung sounds = CTA Pulmonary toilet = . L&S. Bronchodilators - Breathing treatments duonebs PRN. Chest X-Ray results - clear and stable VAP protocol in place Labs tomorrow GASTROINTESTINAL: Diet: TF Jevity @ 60 cc/hr Bowel regimen = Payal-Colace, M OM. MiraLAX, lactulose. LBM: 05/29 RENAL / URINARY: I&O - -1162 BUN / creat 18 / 0.[address] to bedside drainage bag with clear yellow urine. Urinalysis - 05/18 ENDOCRINE: BGM = 111 via AM labs SSI in place Solu-Medrol IV daily with taper for tongue swelling HEMATOLOGY: H&H = 9.0 / 27 Continue to monitor for signs and symptoms of bleeding. Transfuse for < 7.0 Monitor patient for any bleeding complications. INFECTIOUS DISEASE: Follow CBC WBC - 13.1 Fevers = low grade fevers Administer antipyretics for temp as needed. Monitor pneumonia evolution with repeat chest X-Rays as needed. Maintain vigorous aseptic care of central line to avoid blood stream infections. Consider a consult to ID for further management. LINES: 05/28: Dobhoff feeding tube 05/28: [facility]OR [employer] 05/18: R SC TLC - to be removed today once PIV has been obtained. 05/18: F/C PROPHYLAXIS: VAP protocol in place GI prophylaxis: Protonix IV DVT - Mechanical VTE with SCDs. Chemical management contraindicated at this time due to epidural hematoma. Consult placed to ENT regarding swelling of his tongue - appreciate recommendations. Consult placed to OMFS at the recommendation of ENT regarding treatment of tongue edema. Recommend straight placement, and oropharyngeal airway. SKIN: Warm and dry Tongue swelling improved Stage II resolving pressure sores to buttocks. Wound care nurse recommends barrier cream BID. Right hand splint ordered at the recommendation of OT. ACTIVITY: BR PT and OT ordered. CASE MANAGEMENT: Consulted for assist with DC planning. Placement - disposition - TBD. Referrals are placed to [facility] in [place]. EMOTIONAL SUPPORT: Provided to patient and family. Plan of care discussed. Questions answered to the best of my knowledge. Discussed with MEDICAL EQUIPMENT SALES at the bedside during trauma rounds. This patient is currently critically ill and injured and being managed in the ICU. The trauma team will manage care, and evaluate the patient on a daily basis. Attestation The exam, history, and the medical decision-making described in the above note were completed with the assistance of the mid-level provider. I reviewed and agree with the findings presented. I attest that I had a [id number] encounter with the patient on the same day, and personally performed and documented my assessment and findings in the medical record. Patient does not require critical care environment and hence critical care is not charged Problem Qualifiers (1) Respiratory failure: Qualified Code: J96.00 - Acute respiratory failure, unspecified whether with hypoxia or hypercapnia (2) Head injury: Qualified Code: S09.90XA - Head injury, initial encounter Mindi De Santiago MD Jun 03, 2016 16:51
[2016-06-04] VITALS (9 sets, daily range): BP systolic 108–129; BP diastolic 65–96; PULSE 84–102; RESP 11–24; TEMP 98.2–98.9; O2SAT 97–100
[2016-06-04] MEDS: CHLORHEXIDINE GLUCONATE 2 % 1 PACK (2 CLOTHS) TOP SCH (00:07)
[2016-06-04] MEDS: HYDROmorphone HCL PF 1 MG/ML VIAL IV PRN ×2 (00:48→23:15)
[2016-06-04 04:16] LABS: HEMATOCRIT 31.2 % (35.0-46.0); MEAN CELL VOLUME 88.8 FL (80.0-100.0); MEAN CORPUSCULAR HGB CONC 33.8 % (32.0-36.0); PLATELET COUNT 599 TH/MM3 (150-450); RED BLOOD COUNT 3.52 MIL/MM3 (4.00-5.30); RED CELL DISTRIBUTION WIDTH 13.3 % (11.6-17.2); REVIEW FLAG FINAL; WHITE BLOOD COUNT 16.2 TH/MM3 (4.0-11.0)
[2016-06-04 05:00] LABS: POTASSIUM 3.6 MEQ/L (3.5-5.1)
--- NOTE | 2016-06-04 06:00 | RADRPT ---
EXAM DATE/TIME: 06/04/2016 04:07 This report includes an Addendum and supersedes previous reports for this exam. [facility] COMPARISON: CHEST SINGLE AP, May 31, 2016, 5:03. INDICATIONS : Shortness of breath. MEDICAL HISTORY : None. SURGICAL HISTORY : None. ENCOUNTER: Subsequent ACUITY: 2 weeks PAIN SCORE: Non-responsive. LOCATION: Bilateral chest FINDINGS: A single view of the chest demonstrates the lungs to be symmetrically aerated without evidence of mas s, infiltrate or effusion. The tracheostomy tube and feeding tube remain in good position. No evidenc e of pneumothorax. The cardiomediastinal contours are unremarkable. Osseous structures are intact. CONCLUSION: No acute pulmonary infiltrates. Stable examination. Larry Maher MD on June 04, 2016 at 5:58 Board Certified Radiologist. This report was verified electronically. ADDENDUM: I was asked to review of this study with respect to the placement of the Dobbhoff tube. The tip is pr ojected over the proximal to mid stomach. Blane Helm MD on June 04, 2016 at 17:04 Board Certified Radiologist. This report was verified electronically.
[2016-06-04] MEDS: INSULIN NovoLIN REGULAR SUPPLEMENTAL SCALE SQ SCH ×4 (07:00→21:00)
[2016-06-04] MEDS: CHLORHEXIDINE 0.12% (ORAL KIT) 15 ML CUP MT SCH ×2 (08:00→21:08)
[2016-06-04] MEDS: ARTIFICIAL TEARS OPTH SOLN 15 ML BTL EACH EYE SCH ×2 (09:00→21:10)
[2016-06-04] MEDS: POLYETHYLENE GLYCOL 17 GM PKG PO SCH (09:00)
[2016-06-04] MEDS: hydrALAZINE HCL 25 MG TAB PO SCH ×2 (09:07→21:11)
[2016-06-04] MEDS: FAMOTIDINE 40 MG/5 ML LIQ 50 ML BTL NG SCH ×2 (09:07→21:10)
[2016-06-04] MEDS: amLODIPine BESYLATE 5 MG TAB PO SCH (09:07)
[2016-06-04] MEDS: METOPROLOL TARTRATE 25 MG TAB PO SCH ×2 (09:07→21:11)
[2016-06-04] MEDS: DOCUSATE SODIUM 50 MG/SENNA 8.6 MG TAB PO SCH ×2 (09:07→21:11)
[2016-06-04] MEDS: LACTULOSE SYRUP 20 GM/30 ML CUP PO SCH (09:07)
--- NOTE | 2016-06-04 09:07 | HHI.NSPN ---
(Wilfredo Valenzuela) Note Status Status: Progress Note (Wilfredo Valenzuela) Interval History Interval History 50-year-old female underwent emergency craniotomy evacuation of large epidural hematoma on 05/18/[address] scan 05/18/2016 with satisfactory evacuation of hematoma, mostly mild residual edema and midline shift without significant parenchymal hemorrhage and no hydrocephalus She was trached on and had a Dubhoff feeding tube placed . 05/31: Today the patient is doing well and remains neurologically intact. The states that Case Mgmt is working on disposition to [facility] in [place]. 06/03: Patient awake & moving LUE & BLE on own. Speech Therapy at bedside to do swallow study. 06/04: Patient awake & alert, no apparent distress, mouthing words. (Wilfredo Valenzuela) Labs, Micro, & Vital Signs Results Allergies Coded Allergies Type Severity Reaction Last Updated Verified No Known Allergies 05/20/16 No Recent Impressions Chest X-Ray 06/04/16 0600 Signed Impressions: Service Date/Time: Saturday, June 04, 2016 04:07 - CONCLUSION: No acute pulmonary infiltrates. Stable examination. Larry Maher MD 06/02////// 06:00 18:00 06:00 18:00 06:00 18:00 Intake Total 1030 ml 541 ml 841 ml 602 ml 943 ml Output Total 950 ml 750 ml 975 ml 675 ml 825 ml Balance 80 ml -209 ml -134 ml -73 ml 118 ml Intake Oral 0 ml 50 ml IV Total 0 ml 10 ml 0 ml 0 ml Tube Feeding 780 ml 431 ml 741 ml 452 ml 793 ml Tube Irrigant 50 ml 100 ml 150 ml 100 ml Other 200 ml 100 ml Output Urine Total 950 ml 750 ml 975 ml 675 ml 825 ml # Bowel Movements 1 0 0 0 0 Laboratory Tests Test 06/04/16 03:08 White Blood Count 16.2 TH/MM3 Red Blood Count 3.52 MIL/MM3 Hemoglobin 10.5 GM/DL Hematocrit 31.2 % Mean Corpuscular Volume 88.8 FL Mean Corpuscular Hemoglobin 30.0 PG Mean Corpuscular Hemoglobin 33.8 % Concent Red Cell Distribution Width 13.3 % Platelet Count 599 TH/MM3 Mean Platelet Volume 8.6 FL Sodium Level 142 MEQ/L Potassium Level 3.6 MEQ/L Chloride Level 106 MEQ/L Carbon Dioxide Level 28.0 MEQ/L Anion Gap 8 MEQ/L Blood Urea Nitrogen 26 MG/DL Creatinine 0.61 MG/DL Estimat Glomerular Filtration 103 ML/MIN Rate Random Glucose 170 MG/DL Calcium Level 9.0 MG/DL Constitutional Vital Signs Date Time Temp Pulse Resp B/P Pulse Ox O2 Delivery O2 Flow Rate FiO2 06/04/16 08:05 97 Trach Collar 21 06/04/16 08:00 98.6 102 16 120/80 99 06/04/16 04:00 84 06/04/16 04:00 98.9 84 11 108/65 97 06/04/16 00:00 98.2 99 16 129/85 98 06/04/16 00:00 99 06/03/16 20:00 100 T-piece 21 06/03/16 20:00 97.5 107 22 118/22 100 06/03/16 20:00 107 06/03/16 19:00 100 Trach Collar 6.00 21 06/03/16 16:00 97.8 107 21 118/76 100 06/03/16 16:00 107 06/03/16 12:00 95 06/03/16 12:00 98.5 95 24 119/87 97 06/04/16 07:00 Intake Total 1545 ml Output Total 1500 ml Balance 45 ml (Wilfredo Valenzuela) Review of Systems/Exam ROS Unable to obtain ROS due to trach. Exam HEENT: PERRLA, EOM intact. Right craniotomy surgical incision well-approximated , w/o any evident drainage, erythema or streaking although area of scab vs necrosis still present w/o any change. Resp: CTAB w/o W/R/R, equal excursion, non-laboured, trached, on trach mask. CV: RRR w/o M/G/R, radial & pedal pulses 2+ bilaterally, cap refill < 2 sec, no pedal edema. Monitor is sinus rhythm w/o any ectopy noted. GI: Abdomen is soft & nontender, positive bowel sounds. : Burger catheter to BSD. Neuro: Awake & alert. Mouthing words. Follows simple commands. Moves LUE & BLE w /o difficulty. 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 (Wilfredo Valenzuela) Medical Decision Making MDM Remarks Large epidural haematoma s/p craniotomy , improving neurological status Right hemiparesis, persists but improving slowly Respiratory failure, trached , imrpoving respiratory status Haemodynamically stable (Wilfredo Valenzuela) Plan Plan Remarks Discussed plan of care with daughter in room, called and plan discussed by Dr Bhandari Seizure prophylaxis Mechanical DVT prophylaxis Okay for Lovenox prophylaxis Ulcer prophylaxis Monitor sodium level and maintain w/i normal range Discharge planning for acute rehab (Wilfredo Valenzuela) Attending Statement My attestation Discussed with case management, Gen. surgery, family this morning. Continue efforts for inpatient rehabilitation. (Sav Bhandari MD) Wilfredo Valenzuela Jun 04, 2016 09:07 Sav Bhandari MD Jun 05, 2016 00:20
--- NOTE | 2016-06-04 10:36 | HHI.PR ---
Neuropsych Progress Notes/Response to Tx Contents of Sessions: Adjustment Time with Patient: 15 minutes Premorbid psychological status Premorbid Cognitive, Emotional and Behavioral Status: Stable. 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 The patient has no psychiatric difficulties. Substance abuse history is not significant. She is and has two children. Behavioral Reactions of Patient and Family/Support System: Stable. The patient s family is experiencing ongoing issues of adjustment given the nature of the injury, and this aspect of recovery will require ongoing monitoring. Emotional/Behavioral Status of Patient and Family/Support System: Stable. Pertinent issues, if appropriate to this patients clinical care, are described in detail above. Maximizing acute care outcome It is recommended that the patient be monitored for emergent behavioral impulsivity as the medical condition evolves. This patients neuropathological challenges may limit their rehabilitation potential going forward, and these challenges will require specialized therapeutic skills to maximize outcome. Additionally, the patients family is experiencing ongoing issues of adjustment given the traumatic nature of the injury, and they may benefit from ongoing psychological assistance. Anticipated Problems Ongoing areas of concern will include behavioral impulsivity, lack of insight and judgment, which is expected to improve with time and treatment. Presently , the patient intubated and sedated. Treatment Plan This clinician will continue to follow with you throughout the course of this patients acute care treatment, and I will be available to meet with the patient s family/support system to facilitate their understanding and the ongoing care of their family member. The goals of neuropsychological intervention shall be both educational and supportive to the family/support system as is deemed clinically appropriate. [facility] Level: :Confused-appropriate Impression This patient suffered a significant traumatic brain injury secondary to her fall on 05/18/2016, with large EDH and right to left midline shift. She is expected to have significant neurocognitive impairments from this injury. Diagnosis: (1) Major neurocognitive disorder as late effect of traumatic brain injury without behavioral disturbance Status: Acute Progress Note Narrative Ongoing follow-up of patient seen during daily trauma rounds. This is day 17 post injury. The patient is alert and oriented, waiting for rehab placement, on no sedation and has Dilaudid PRN for pain. Issues concerning her rehab placement involves that she is now too far progressed to transfer to any facility except acute inpatient rehabilitation on balance with the family's insistence that she be placed at a facility near [place]. Discussion to transition her to a fenestrated trach to allow her to communicate also transpired. She is at a [facility]. I will continue to follow. Gregorio Benítez PhD Jun 04, 2016 10:36 am
[2016-06-04] MEDS: ENOXAPARIN SODIUM 40 MG/0.4 ML SYRINGE SQ SCH (15:50)
--- NOTE | 2016-06-04 18:10 | HHI.CCPN ---
Subjective Brief History GRAYLING: This is a 50 yo Female who arrived to [facility] as a trauma alert. 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 She was initially alert and oriented with GCS of 15 upon [facility] arrival and was moving all extremities. After she was taken into the ambulance her GCS was 3 and right pupil was dilated and nonreactive. She was intubated in the ED following etomidate 20 mg IV and succinylcholine 100 mg IV. Trauma workup included CT brain that demonstrated 9.7 x4.2 cm R epidural hematoma with 1.2 cm right to left midline shift and cerebral edema. BP in ED was 108/104 to 160/76 with heart rate 66-92. Sats 98-100%. Neurosurgery was consulted and she was taken emergently to OR for right craniotomy by Dr. Bhandari. Her pupil remained nonreactive postoperatively. This is classic presentation of an epidural hematoma with loss of consciousness followed by lucid interval and then again loss of consciousness. INJURIES: RIGHT epidural hematoma (9.7 x4.2 cm) w/ 1.2 cm right to left midline shift with cerebral edema Aspiration Procedures: 05/18: RIGHT craniotomy with evacuation of large epidural hematoma 05/24: Gilliam out 05/28: LOCKSTITCH WAISTLINE JOINER in the OR Consults: CCM. Neurosurgery. ENT. OMFS. 24 Hour Review/Hospital Course 05/20/2016 Patient has been stable over the last 24 hours ICPs remain in 8-12 mmHg range and central perfusion pressure is adequate Pupils are equal 2 mm and somewhat reactive Repeat CAT scan of the brain reveals some blood over the right hemisphere but this is minimal and no intervention is necessary Patient remains of neuroprotective measures including mild hyperventilation, hypertonic saline and sedation on propofol and fentanyl Considering mild swelling of the brain in early phase of care I would leave everything as it is right now and right without for next day or 2 and then a repeat CT scan will be done All things equal we'll started waking patient up by the end of the week and see how she does 05/26/2016 Patient is slowly neurologically improving and remains on sedation however does occasionally move her arm and the leg At this point she is also moving her left side which is encouraging Angioedema off the tongue slowly decreasing Patient remains on Solu-Medrol We'll continue current care to patient is more awake in the swelling of the tongue decreases There is a distinct chance the patient will need a tracheostomy but we'll see how she does 05/27/16 Patient has improved today she is more awake and more alert following simple commands an opening eyes She is on minimum respiratory support but unfortunately angioedema of the tongue is so severe that they cannot be even a question about extubating this patient at this time ENT consultation of Dr. Johnson is very much appreciated and we will have oral maxillofacial surgeon see the patient as well Given all the circumstances I believe patient will require tracheostomy which should be done the next 24-48 hours, depending on OMF recommendations 05/28/2016 PTD: 10 Patient appears more awake today, fentanyl drip is off and she is just managed with Dilaudid IV as needed for pain. Tolerating CPAP trials. ENT recommends OMFS consult to manage tongue swelling. 05/29/2016 PTD: 11 Patient is status post tracheostomy placement yesterday. Patient is tolerating CPAP trials well, we'll progressed to trach collar trials today. The patient's tongue size has decreased considerably, and no longer protrudes from her mouth. Dobbhoff tube placed last night, needs to be advanced, and then tube feeding can begin 05/30/16 Patient doing much better she is off the respirator at this point on the trach collar Following simple commands very well squeezing and communicating Opening her eyes The tongue swelling has decreased significantly, almost back to normal and patient is able to move tongue in and out of the mouth Patient was transferred to [facility] facility bed is available Discharge from [facility] to [facility] today 05/31/16 Patient intermittently responds to commands and tries to communicate She is more awake and alert but clearly not enough to participate in care as necessary. Failed swallow study yesterday and today so chances are she'll require a PEG temporarily Right now patient has a Dobbhoff tube and she is slated to go to [facility] rehabilitation where they can do the PEG as well 06/01/16 Neurologically patient is improving every day Today she is awake alert and communicating nicely Moving both legs and right arm but unfortunately no motion in the left arm which is plegic and this is consistent with patient's injuries At this point patient is ready for discharge to rehabilitation facility however arrangements apparently have not been completed for the same by case management 06/02/16 Patient improving every day she is more alert awake and alert today Will repeat swallow test tomorrow Patient does not require anymore ICU care but does require transfer to rehabilitation facility and while we knew about this from get go patient came first arrangements for transfer still not completed As soon as bed is available in the rehabilitation patient will be transferred 06/03/16 Patient is actually more awake and alert every day but has difficulty swallowing and hands the Dobbhoff Will repeat swallow study today at the bedside and see how patient does Patient is now waiting for the last 4 days to be placed in the rehabilitation but somehow arrangements are coming around fairly slowly 06/04/16 No change in vital signs patient is neurologically improving although appears to have left arm plegia Patient was again try the with the swallow the bedside yet the all the fluid came back up the patient is unable to swallow normally Continue Dobbhoff and will discuss with family placement of the PEG tomorrow Patient needs to be transferred to the floor but there are no beds available in the nursing station considering the patient has tracheostomy The transferred to the rehabilitation is also delayed because of some paperwork authorizations in such Objective Vital Signs Date Time Temp Pulse Resp B/P Pulse Ox O2 Delivery O2 Flow Rate FiO2 06/04/16 16:47 98.4 96 15 126/96 100 06/04/16 10:10 Trach Collar 6.00 21 Intake and Output 06/03/16 06/03/16 06/04/16 08:00 16:00 00:00 Intake Total 363 ml 602 ml 458 ml Output Total 550 ml 675 ml 425 ml Balance -187 ml -73 ml 33 ml Result Diagram: 06/04/16 0308 06/04/16 0308 Imaging Last 24 hours Impressions Chest X-Ray 06/04/16 0600 Signed Impressions: Service Date/Time: Saturday, June 04, 2016 04:07 - CONCLUSION: No acute pulmonary infiltrates. Stable examination. Larry Maher MD ADDENDUM: I was asked to review of this study with respect to the placement of the Dobbhoff tube. The tip is projected over the proximal to mid stomach. Blane Helm MD Urinary Catheter Assessment Date of Insertion: May 18, 2016 Vascular Central Line Catheter Date of Insertion: May 18, 2016 Date of Removal: May 29, 2016 (request removal today) Line: Central Venous Catheter Side: Right Location: Subclavian Assessment and Plan Assessment: (1) Respiratory failure ICD Code: J96.90 Status: Acute (2) Head injury ICD Code: S09.90XA Status: Acute (3) Unresponsive ICD Code: R41.89 Status: Acute (4) Intracranial bleed ICD Code: I62.9 Status: Acute (5) Epidural hematoma ICD Code: S06.4X9A Status: Acute (6) Skull fracture, non depressed ICD Code: S02.91XA Status: Acute (7) Scalp laceration ICD Code: S01.01XA Status: Acute Plan This is a 50-year-old female who fell and hit her head on the right side. INJURIES: INJURIES: RIGHT epidural hematoma (9.7 x4.2 cm) w/ 1.2 cm right to left midline shift with cerebral edema Aspiration Assessment and plan by systems: NEUROLOGICAL: Patient awake, opens eyes to command. Follows commands in all 4 extremities. Patient does not require any continuous sedation. Only requiring when necessary Dilaudid for pain. No continuous sedation required at this time. . Provide analgesia for comfort and pain - Dilaudid IV PRN. 05/18: Right craniotomy with evacuation of large epidural hematoma. Gilliam placed. 05/24 Gilliam removed Seizure prophylaxis - IV Cerebyx Serial neuro checks. HOB elevated 30 degrees + peripheral pulses x 4 extremities. Neurosurgery, Dr. Bhandari is following this case. CARDIOVASCULAR: HR = 90-96. Sinus rhythm BP = 110/60 Continually monitor for hemodynamic instability (shock and hypotension). Hypertension management: Norvasc, Lopressor, Apresoline Follow CMP Electrolyte protocol RESPIRATORY: Vent settings: CPAP and she is tolerating well. 05/28: Trach placed in the OR. Attempt trach collar trials today. O2 Sats Monitor for hypoxemia Lung sounds = CTA Pulmonary toilet = . L&S. Bronchodilators - Breathing treatments duonebs PRN. Chest X-Ray results - clear and stable VAP protocol in place Labs tomorrow GASTROINTESTINAL: Diet: TF Jevity @ 60 cc/hr Bowel regimen = Payal-Colace, M OM. MiraLAX, lactulose. LBM: 05/29 RENAL / URINARY: I&O - -1162 BUN / creat 18 / 0.[address] to bedside drainage bag with clear yellow urine. Urinalysis - 05/18 ENDOCRINE: BGM = 111 via AM labs SSI in place Solu-Medrol IV daily with taper for tongue swelling HEMATOLOGY: H&H = 9.0 / 27 Continue to monitor for signs and symptoms of bleeding. Transfuse for < 7.0 Monitor patient for any bleeding complications. INFECTIOUS DISEASE: Follow CBC WBC - 13.1 Fevers = low grade fevers Administer antipyretics for temp as needed. Monitor pneumonia evolution with repeat chest X-Rays as needed. Maintain vigorous aseptic care of central line to avoid blood stream infections. Consider a consult to ID for further management. LINES: 05/28: Dobhoff feeding tube 05/28: LOCKSTITCH WAISTLINE JOINER 05/18: R SC TLC - to be removed today once PIV has been obtained. 05/18: F/C PROPHYLAXIS: VAP protocol in place GI prophylaxis: Protonix IV DVT - Mechanical VTE with SCDs. Chemical management contraindicated at this time due to epidural hematoma. Consult placed to ENT regarding swelling of his tongue - appreciate recommendations. Consult placed to OMFS at the recommendation of ENT regarding treatment of tongue edema. Recommend straight placement, and oropharyngeal airway. SKIN: Warm and dry Tongue swelling improved Stage II resolving pressure sores to buttocks. Wound care nurse recommends barrier cream BID. Right hand splint ordered at the recommendation of OT. ACTIVITY: BR PT and OT ordered. CASE MANAGEMENT: Consulted for assist with DC planning. Placement - disposition - TBD. Referrals are placed to [facility] in [place]. EMOTIONAL SUPPORT: Provided to patient and family. Plan of care discussed. Questions answered to the best of my knowledge. Discussed with COURTESY BOOTH CASHIER at the bedside during trauma rounds. This patient is currently critically ill and injured and being managed in the ICU. The trauma team will manage care, and evaluate the patient on a daily basis. Attestation The exam, history, and the medical decision-making described in the above note were completed with the assistance of the mid-level provider. I reviewed and agree with the findings presented. I attest that I had a [id number] encounter with the patient on the same day, and personally performed and documented my assessment and findings in the medical record. Patient is now fifth day in the ICU without need for ICU care acuity and therefore critical care will not be charged Problem Qualifiers (1) Respiratory failure: Qualified Code: J96.00 - Acute respiratory failure, unspecified whether with hypoxia or hypercapnia (2) Head injury: Qualified Code: S09.90XA - Head injury, initial encounter Mindi De Santiago MD Jun 04, 2016 18:10
[2016-06-05] VITALS (9 sets, daily range): BP systolic 96–129; BP diastolic 1–79; PULSE 76–101; RESP 12–25; TEMP 98.3–98.8; O2SAT 96–100
[2016-06-05] MEDS: CHLORHEXIDINE GLUCONATE 2 % 1 PACK (2 CLOTHS) TOP SCH (03:27)
[2016-06-05] MEDS: INSULIN NovoLIN REGULAR SUPPLEMENTAL SCALE SQ SCH ×4 (05:34→21:00)
[2016-06-05] MEDS: CHLORHEXIDINE 0.12% (ORAL KIT) 15 ML CUP MT SCH ×2 (08:00→20:38)
[2016-06-05] MEDS: hydrALAZINE HCL 25 MG TAB PO SCH ×2 (08:51→21:20)
[2016-06-05] MEDS: DOCUSATE SODIUM 50 MG/SENNA 8.6 MG TAB PO SCH ×2 (08:51→21:20)
[2016-06-05] MEDS: LACTULOSE SYRUP 20 GM/30 ML CUP PO SCH (08:51)
[2016-06-05] MEDS: METOPROLOL TARTRATE 25 MG TAB PO SCH ×2 (08:51→21:20)
[2016-06-05] MEDS: FAMOTIDINE 40 MG/5 ML LIQ 50 ML BTL NG SCH ×2 (08:51→21:20)
[2016-06-05] MEDS: amLODIPine BESYLATE 5 MG TAB PO SCH (08:52)
[2016-06-05] MEDS: POLYETHYLENE GLYCOL 17 GM PKG PO SCH (09:00)
[2016-06-05] MEDS: ARTIFICIAL TEARS OPTH SOLN 15 ML BTL EACH EYE SCH ×2 (09:00→20:38)
--- NOTE | 2016-06-05 09:53 | HHI.NSPN ---
(Wilfredo Valenzuela) Note Status Status: Progress Note (Wilfredo Valenzuela) Interval History Interval History 50-year-old female underwent emergency craniotomy evacuation of large epidural hematoma on 05/18/[address] scan 05/18/2016 with satisfactory evacuation of hematoma, mostly mild residual edema and midline shift without significant parenchymal hemorrhage and no hydrocephalus She was trached on and had a Dubhoff feeding tube placed . 05/31: Today the patient is doing well and remains neurologically intact. The states that Case Mgmt is working on disposition to [facility] in [place]. 06/03: Patient awake & moving LUE & BLE on own. Speech Therapy at bedside to do swallow study. 06/04: Patient awake & alert, no apparent distress, mouthing words. 06/05: Patient awake & alert, NAD, moving LUE & BLE on own, mouthing words. ( Wilfredo Valenzuela) Labs, Micro, & Vital Signs Constitutional Vital Signs Date Time Temp Pulse Resp B/P Pulse Ox O2 Delivery O2 Flow Rate FiO2 06/05/16 08:00 98.4 101 16 116/1 99 06/05/16 08:00 96 06/05/16 07:49 98 Trach Collar 5.00 21 06/05/16 04:00 98.3 81 12 99/62 96 06/05/16 04:00 81 06/05/16 00:00 86 12 96/61 97 06/05/16 00:00 86 06/04/16 20:00 98.7 93 14 126/84 97 06/04/16 20:00 93 06/04/16 19:24 98 Trach Collar 6.00 21 06/04/16 19:00 97 Trach Collar 6.00 21 06/04/16 16:47 98.4 96 15 126/96 100 06/04/16 12:06 84 06/04/16 12:00 98.7 99 24 123/85 100 06/04/16 10:10 100 Trach Collar 6.00 21 06/05/16 07:00 Intake Total 755 ml Output Total 1250 ml Balance -495 ml (Wilfredo Valenzuela) Review of Systems/Exam ROS Unable to obtain ROS due to trach. Exam HEENT: PERRLA, EOM intact. Right craniotomy surgical incision well-approximated , w/o any evident drainage, erythema or streaking although area of scab vs necrosis still present w/o any change. Resp: Coarse bilaterally, equal excursion, non-laboured, trached, on trach mask , productive cough with thick creamy ervin secretions noted from trach. CV: RRR w/o M/G/R, radial & pedal pulses 2+ bilaterally, cap refill < 2 sec, no pedal edema. Monitor is sinus rhythm w/o any ectopy noted. GI: Abdomen is soft & nontender, positive bowel sounds, on enteral feeds by PEG tube. : Burger catheter to BSD. Neuro: Awake & alert. Mouthing words. Follows simple commands. Moves LUE & BLE w /o difficulty. Very minimal larry operator attempt w/right hand. (Wilfredo Valenzuela) Medications Current Medications Current Medications Medications (Trade) Dose Ordered Sig/Hima Route Start Time Stop Time Status Last Admin (NS Flush) 2 ml UNSCH PRN IV FLUSH 05/18/16 19:45 05/28/16 08:13 (Zofran Inj) 4 mg Q6H PRN IV 05/18/16 19:45 06/01/16 10:51 Miscellaneous Information 1 Q361D XX 05/18/16 19:45 05/18/16 19:45 (Chlorhexidine 2% Cloth) Taper DAILY@04 TOP 05/19/16 04:00 05/15/17 03:59 06/02/16 03:08 (Chlorhexidine 2% Cloth) 3 pack UNSCH PRN TOP 05/18/16 19:45 (Dilaudid Pf Inj) 1 mg Q3H PRN IV 05/18/16 21:30 06/04/16 23:15 (Morphine Inj) 4 mg Q3H PRN IV 05/18/16 21:30 06/01/16 21:35 (Narcan Inj) 0.4 mg UNSCH PRN IV 05/18/16 21:30 (Peridex 0.12% Liq) 15 ml BID@08,20 MT 05/19/16 08:00 06/04/16 21:08 (Brethine Inj) 1 mg UNSCH PRN SQ 05/19/16 00:15 (Lactulose Liq) 30 ml DAILY PO 05/20/16 09:00 06/05/16 08:51 (Payal-Colace) 1 tab BID PO 05/20/16 09:00 06/05/16 08:51 (Tylenol) 650 mg Q4H PRN PO 05/21/16 18:30 05/25/16 21:22 Polyethylene Glycol 17 gm 17 gm DAILY PO 05/23/16 10:00 06/01/16 08:33 Potassium Chloride 100 ml @ 50 mls/hr Q2H PRN IV 05/24/16 12:00 (KCl 20 Meq Premix Inj) 100 ml @ 50 mls/hr Q2H PRN IV 05/24/16 12:00 Potassium Bicarb/ Potassium Chloride 50 meq 50 meq UNSCH PRN PO 05/24/16 12:00 05/30/16 06:57 Potassium Chloride 100 ml @ 25 mls/hr UNSCH PRN IV 05/24/16 12:00 Potassium Chloride 100 ml @ 50 mls/hr Q2H PRN IV 05/24/16 12:00 (Magnesium Sulfate Inj/NS Inj) 100 ml @ 50 mls/hr UNSCH PRN IV 05/24/16 12:00 Magnesium Oxide 800 mg 800 mg UNSCH PRN PO 05/24/16 12:00 (Magnesium Sulfate Inj/NS Inj) 100 ml @ 50 mls/hr UNSCH PRN IV 05/24/16 12:00 Potassium Phosphate 2000 mg 2,000 mg Q4H PRN PO 05/24/16 12:00 05/25/16 08:14 (Sodium Phosphate Inj/NS 250 ml Inj) 250 ml @ 42 mls/hr UNSCH PRN IV 05/24/16 12:00 Potassium Phosphate 2000 mg 2,000 mg UNSCH PRN PO/TUBE 05/24/16 12:00 (Potassium Phosphate Inj/NS 250 ml Inj) 260 ml @ 42 mls/hr UNSCH PRN IV 05/24/16 12:00 (Norvasc) 5 mg DAILY PO 05/24/16 12:00 06/05/16 08:52 (D50w (Vial) Inj) 25 ml UNSCH PRN IV PUSH 05/26/16 08:30 (Glucagon Inj) 1 mg UNSCH PRN OTHER 05/26/16 08:30 (Tears Naturale Opth Soln) 1 drop BID EACH EYE 06/01/16 21:00 06/04/16 21:10 (Apresoline) 25 mg BID PO 06/01/16 21:00 06/05/16 08:51 (Lopressor) 25 mg Q12HR PO 06/01/16 13:00 06/05/16 08:51 (Pepcid Liq) 20 mg BID NG 06/01/16 21:00 06/05/16 08:51 (Lovenox Inj) 40 mg Q24H SQ 06/04/16 15:00 06/04/16 15:50 (Wilfredo Valenzuela) Medical Decision Making MDM Remarks Large epidural haematoma s/p craniotomy , improving neurological status Right hemiparesis, persists but improving slowly Respiratory failure, trached , coarse breath sounds today Haemodynamically stable (Wilfredo Valenzuela) Plan Plan Remarks Discussed plan of care with family Seizure prophylaxis Mechanical DVT prophylaxis Okay for Lovenox prophylaxis Ulcer prophylaxis Monitor sodium level and maintain w/i normal range Discharge planning for acute rehab, awaiting authorisation for [facility] (Wilfredo Valenzuela) Attending Statement Plan my attestation Stable for inpatient rehabilitation Discussed with case management (Sav Bhandari MD) Wilfredo Valenzuela Jun 05, 2016 09:53 Sav Bhandari MD Jun 05, 2016 18:59
--- NOTE | 2016-06-05 11:14 | HHI.CCPN ---
Subjective Brief History TOHONO O'ODHAM: This is a 50 yo Female who arrived to [facility] as a trauma alert. 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 She was initially alert and oriented with GCS of 15 upon [facility]AC arrival and was moving all extremities. After she was taken into the ambulance her GCS was 3 and right pupil was dilated and nonreactive. She was intubated in the ED following etomidate 20 mg IV and succinylcholine 100 mg IV. Trauma workup included CT brain that demonstrated 9.7 x4.2 cm R epidural hematoma with 1.2 cm right to left midline shift and cerebral edema. BP in ED was 108/104 to 160/76 with heart rate 66-92. Sats 98-100%. Neurosurgery was consulted and she was taken emergently to OR for right craniotomy by Dr. Bhandari. Her pupil remained nonreactive postoperatively. This is classic presentation of an epidural hematoma with loss of consciousness followed by lucid interval and then again loss of consciousness. INJURIES: RIGHT epidural hematoma (9.7 x4.2 cm) w/ 1.2 cm right to left midline shift with cerebral edema Aspiration Procedures: 05/18: RIGHT craniotomy with evacuation of large epidural hematoma 05/24: Luray out 05/28: MARKET DEVELOPMENT EXECUTIVE in the OR Consults: CCM. Neurosurgery. ENT. OMFS. 24 Hour Review/Hospital Course 05/20/2016 Patient has been stable over the last 24 hours ICPs remain in 8-12 mmHg range and central perfusion pressure is adequate Pupils are equal 2 mm and somewhat reactive Repeat CAT scan of the brain reveals some blood over the right hemisphere but this is minimal and no intervention is necessary Patient remains of neuroprotective measures including mild hyperventilation, hypertonic saline and sedation on propofol and fentanyl Considering mild swelling of the brain in early phase of care I would leave everything as it is right now and right without for next day or 2 and then a repeat CT scan will be done All things equal we'll started waking patient up by the end of the week and see how she does 05/26/2016 Patient is slowly neurologically improving and remains on sedation however does occasionally move her arm and the leg At this point she is also moving her left side which is encouraging Angioedema off the tongue slowly decreasing Patient remains on Solu-Medrol We'll continue current care to patient is more awake in the swelling of the tongue decreases There is a distinct chance the patient will need a tracheostomy but we'll see how she does 05/27/16 Patient has improved today she is more awake and more alert following simple commands an opening eyes She is on minimum respiratory support but unfortunately angioedema of the tongue is so severe that they cannot be even a question about extubating this patient at this time ENT consultation of Dr. Johnson is very much appreciated and we will have oral maxillofacial surgeon see the patient as well Given all the circumstances I believe patient will require tracheostomy which should be done the next 24-48 hours, depending on OMF recommendations 05/28/2016 PTD: 10 Patient appears more awake today, fentanyl drip is off and she is just managed with Dilaudid IV as needed for pain. Tolerating CPAP trials. ENT recommends OMFS consult to manage tongue swelling. 05/29/2016 PTD: 11 Patient is status post tracheostomy placement yesterday. Patient is tolerating CPAP trials well, we'll progressed to trach collar trials today. The patient's tongue size has decreased considerably, and no longer protrudes from her mouth. Dobbhoff tube placed last night, needs to be advanced, and then tube feeding can begin 05/30/16 Patient doing much better she is off the respirator at this point on the trach collar Following simple commands very well squeezing and communicating Opening her eyes The tongue swelling has decreased significantly, almost back to normal and patient is able to move tongue in and out of the mouth Patient was transferred to [facility] rehabilitation facility bed is available [facility] to [facility] 05/31/16 Patient intermittently responds to commands and tries to communicate She is more awake and alert but clearly not enough to participate in care as necessary. Failed swallow study yesterday and today so chances are she'll require a PEG temporarily Right now patient has a Dobbhoff tube and she is slated to go to [facility] rehabilitation where they can do the PEG as well 06/01/16 Neurologically patient is improving every day Today she is awake alert and communicating nicely Moving both legs and right arm but unfortunately no motion in the left arm which is plegic and this is consistent with patient's injuries At this point patient is ready for discharge to rehabilitation facility however arrangements apparently have not been completed for the same by case management 06/02/16 Patient improving every day she is more alert awake and alert today Will repeat swallow test tomorrow Patient does not require anymore ICU care but does require transfer to rehabilitation facility and while we knew about this from get go patient came first arrangements for transfer still not completed As soon as bed is available in the rehabilitation patient will be transferred 06/03/16 Patient is actually more awake and alert every day but has difficulty swallowing and hands the Dobbhoff Will repeat swallow study today at the bedside and see how patient does Patient is now waiting for the last 4 days to be placed in the rehabilitation but somehow arrangements are coming around fairly slowly 06/04/16 No change in vital signs patient is neurologically improving although appears to have left arm plegia Patient was again try the with the swallow the bedside yet the all the fluid came back up the patient is unable to swallow normally Continue Dobbhoff and will discuss with family placement of the PEG tomorrow Patient needs to be transferred to the floor but there are no beds available in the nursing station considering the patient has tracheostomy The transferred to the rehabilitation is also delayed because of some paperwork authorizations in such 06/05/16 Patient neurologically greatly improved Was able to drink water this morning without aspiration We will repeat swallow study every day for patient's improving rapidly. Maryuri Coma Scale is 15 and the weakness of the right side of the face and swallowing mechanism is contributing to the same Patient will need speech therapy training Tracheostomy tube is still about 8 days out that I would probably not downsize quite yet for healing was impaired and I don't think that tract is mature In addition patient will be transferred to the floor so the bigger trach is probably better as far as maintaining airway should there be any secretions Objective Vital Signs Date Time Temp Pulse Resp B/P Pulse Ox O2 Delivery O2 Flow Rate FiO2 06/05/16 08:00 98.4 101 16 116/1 99 06/05/16 07:49 Trach Collar 5.00 21 Intake and Output 06/04/16 06/04/16 06/05/16 08:00 16:00 00:00 Intake Total 485 ml 383 ml Output Total 400 ml 600 ml 400 ml Balance 85 ml -600 ml -17 ml Result Diagram: 06/04/16 0308 06/04/16 0308 Urinary Catheter Assessment Date of Insertion: May 18, 2016 Vascular Central Line Catheter Date of Insertion: May 18, 2016 Date of Removal: May 29, 2016 (request removal today) Line: Central Venous Catheter Side: Right Location: Subclavian Assessment and Plan Assessment: (1) Respiratory failure ICD Code: J96.90 Status: Acute (2) Head injury ICD Code: S09.90XA Status: Acute (3) Unresponsive ICD Code: R41.89 Status: Acute (4) Intracranial bleed ICD Code: I62.9 Status: Acute (5) Epidural hematoma ICD Code: S06.4X9A Status: Acute (6) Skull fracture, non depressed ICD Code: S02.91XA Status: Acute (7) Scalp laceration ICD Code: S01.01XA Status: Acute Plan This is a 50-year-old female who fell and hit her head on the right side. INJURIES: INJURIES: RIGHT epidural hematoma (9.7 x4.2 cm) w/ 1.2 cm right to left midline shift with cerebral edema Aspiration Assessment and plan by systems: NEUROLOGICAL: Patient awake, opens eyes to command. Follows commands in all 4 extremities. Patient does not require any continuous sedation. Only requiring when necessary Dilaudid for pain. No continuous sedation required at this time. . Provide analgesia for comfort and pain - Dilaudid IV PRN. 05/18: Right craniotomy with evacuation of large epidural hematoma. Luray placed. 05/24 Luray removed Seizure prophylaxis - IV Cerebyx Serial neuro checks. HOB elevated 30 degrees + peripheral pulses x 4 extremities. Neurosurgery, Dr. Bhandari is following this case. CARDIOVASCULAR: HR = 90-96. Sinus rhythm BP = 110/60 Continually monitor for hemodynamic instability (shock and hypotension). Hypertension management: Norvasc, Lopressor, Apresoline Follow CMP Electrolyte protocol RESPIRATORY: Vent settings: CPAP and she is tolerating well. 05/28: Trach placed in the OR. Attempt trach collar trials today. O2 Sats Monitor for hypoxemia Lung sounds = CTA Pulmonary toilet = . L&S. Bronchodilators - Breathing treatments duonebs PRN. Chest X-Ray results - clear and stable VAP protocol in place Labs tomorrow GASTROINTESTINAL: Diet: TF Jevity @ 60 cc/hr Bowel regimen = Payal-Colace, M OM. MiraLAX, lactulose. LBM: 05/29 RENAL / URINARY: I&O - -1162 BUN / creat 18 / 0.[address] to bedside drainage bag with clear yellow urine. Urinalysis - 05/18 ENDOCRINE: BGM = 111 via AM labs SSI in place Solu-Medrol IV daily with taper for tongue swelling HEMATOLOGY: H&H = 9.0 / 27 Continue to monitor for signs and symptoms of bleeding. Transfuse for < 7.0 Monitor patient for any bleeding complications. INFECTIOUS DISEASE: Follow CBC WBC - 13.1 Fevers = low grade fevers Administer antipyretics for temp as needed. Monitor pneumonia evolution with repeat chest X-Rays as needed. Maintain vigorous aseptic care of central line to avoid blood stream infections. Consider a consult to ID for further management. LINES: 05/28: Dobhoff feeding tube 05/28: MARKET DEVELOPMENT EXECUTIVE 05/18: R SC TLC - to be removed today once PIV has been obtained. 05/18: F/C PROPHYLAXIS: VAP protocol in place GI prophylaxis: Protonix IV DVT - Mechanical VTE with SCDs. Chemical management contraindicated at this time due to epidural hematoma. Consult placed to ENT regarding swelling of his tongue - appreciate recommendations. Consult placed to OMFS at the recommendation of ENT regarding treatment of tongue edema. Recommend straight placement, and oropharyngeal airway. SKIN: Warm and dry Tongue swelling improved Stage II resolving pressure sores to buttocks. Wound care nurse recommends barrier cream BID. Right hand splint ordered at the recommendation of OT. ACTIVITY: BR PT and OT ordered. CASE MANAGEMENT: Consulted for assist with DC planning. Placement - disposition - TBD. Referrals are placed to [facility] in [place]. EMOTIONAL SUPPORT: Provided to patient and family. Plan of care discussed. Questions answered to the best of my knowledge. Discussed with [employer]ATIVE [employer] MARKET[employer] at the bedside during trauma rounds. This patient is currently critically ill and injured and being managed in the ICU. The trauma team will manage care, and evaluate the patient on a daily basis. Attestation The exam, history, and the medical decision-making described in the above note were completed with the assistance of the mid-level provider. I reviewed and agree with the findings presented. I attest that I had a [id number] encounter with the patient on the same day, and personally performed and documented my assessment and findings in the medical record. Problem Qualifiers (1) Respiratory failure: Qualified Code: J96.00 - Acute respiratory failure, unspecified whether with hypoxia or hypercapnia (2) Head injury: Qualified Code: S09.90XA - Head injury, initial encounter Mindi De Santiago MD Jun 05, 2016 11:14
--- NOTE | 2016-06-05 11:30 | HHI.PR ---
Neuropsych Progress Notes/Response to Tx Premorbid psychological status Premorbid Cognitive, Emotional and Behavioral Status: Stable. 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 The patient has no psychiatric difficulties. Substance abuse history is not significant. She is and has two children. Behavioral Reactions of Patient and Family/Support System: Stable. The patient s family is experiencing ongoing issues of adjustment given the nature of the injury, and this aspect of recovery will require ongoing monitoring. Emotional/Behavioral Status of Patient and Family/Support System: Stable. Pertinent issues, if appropriate to this patients clinical care, are described in detail above. Maximizing acute care outcome It is recommended that the patient be monitored for emergent behavioral impulsivity as the medical condition evolves. This patients neuropathological challenges may limit their rehabilitation potential going forward, and these challenges will require specialized therapeutic skills to maximize outcome. Additionally, the patients family is experiencing ongoing issues of adjustment given the traumatic nature of the injury, and they may benefit from ongoing psychological assistance. Anticipated Problems Ongoing areas of concern will include behavioral impulsivity, lack of insight and judgment, which is expected to improve with time and treatment. Presently , the patient intubated and sedated. Treatment Plan This clinician will continue to follow with you throughout the course of this patients acute care treatment, and I will be available to meet with the patient s family/support system to facilitate their understanding and the ongoing care of their family member. The goals of neuropsychological intervention shall be both educational and supportive to the family/support system as is deemed clinically appropriate. [facility] Level: VII:Automatic-appropriate Impression This patient suffered a significant traumatic brain injury secondary to her fall on 05/18/2016, with large EDH and right to left midline shift. She is expected to have significant neurocognitive impairments from this injury. Diagnosis: (1) Major neurocognitive disorder as late effect of traumatic brain injury without behavioral disturbance Status: Acute Progress Note Narrative Ongoing follow-up of patient seen during daily trauma rounds. This is day 18 post injury. She failed her swallow study and exhibits ongoing LUE plegia. Otherwise she is A&O x4, and follows commands. She is on no sedation, and her Rancho score is VII. She is cleared to transfer to rehabilitation facility. I will continue to follow. Gregorio Benítez PhD Jun 05, 2016 11:30 am
--- NOTE | 2016-06-05 13:15 | HHI.PR ---
Subjective Subjective Comments Patient sitting up in bed not in any apparent distress. Trach in place with trach collar. Does not appear to be short of breath or experiencing any pain. Speech therapy to evaluate swallow. Allergies: Coded Allergies: No Known Allergies (Unverified , 05/20/16) Review of Systems All other ROS: ROS reviewed as documented in chart Exam I&O / VS 06/04/16 06/04/16 06/05/16 15:00 23:00 07:00 Intake Total 383 ml 372 ml Output Total 600 ml 400 ml 250 ml Balance -600 ml -17 ml 122 ml Intake Oral 0 ml Tube Feeding 283 ml 372 ml Tube Irrigant 100 ml Output Urine Total 600 ml 400 ml 250 ml # Bowel Movements 0 0 Vital Signs Date Time Temp Pulse Resp B/P Pulse Ox O2 Delivery O2 Flow Rate FiO2 06/05/16 12:00 98.7 100 16 129/79 100 06/05/16 08:00 98.4 101 16 116/71 99 06/05/16 08:00 96 06/05/16 07:49 98 Trach Collar 5.00 21 06/05/16 04:00 98.3 81 12 99/62 96 06/05/16 04:00 81 06/05/16 00:00 86 12 96/61 97 06/05/16 00:00 86 06/04/16 20:00 98.7 93 14 126/84 97 06/04/16 20:00 93 06/04/16 19:24 98 Trach Collar 6.00 21 06/04/16 19:00 97 Trach Collar 6.00 21 06/04/16 16:47 98.4 96 15 126/96 100 General: No acute distress Respiratory: Other (Trach with trach collar at 4 L/28%) Gastrointestinal: Other (NG tube in place) Cardiovascular: Regular Rhythm Psychiatric: Cooperative Orientation: oriented to Self, oriented to Place (with cues), oriented to Time (with cues) Neurologic: EOM (tracks right and left) Motor: Right Upper Extremity (23/5), Left Upper Extremity (5/5), Right Lower Extremity (34/5), Left Lower Extremity (5/5) Clonus: Positive (Range of motion is intact) Assessment and Plan Diagnosis: (1) Epidural hematoma Assessment 1. S/P Fall with right epidural hematoma 9.7 by 4.2 cm with midline to left shift 1.2 cm, right temporal bone fracture and bilateral cerebral edema S/P right FTP craniotomy with evacuation of epidural hematoma, repair of right temporal bone fracture and scalp laceration. Now Rancho 5 2. Tracheostomy Plan 1. PT mobilizing in now minimal to moderate assist for transfers supine to sit and mod assist for sit to stand and able to take 5 steps. Data mobilize as tolerated 2. OT following for ADLs and currently maximal assistance for grooming 3. Appreciate Neuropsychology follow-up 4. Speech therapy is addressing swallow and now cleared for small amounts of thin liquids 5. Referral to [facility] has been made 6. Continue pressure relief and careful monitoring of skin for breakdown 7. SCD's in place for VTE prophylaxis 8. Case management has referred for ongoing inpatient rehabilitation in [facility]. Insurance verification is pending. We have plan of care discussed with family and questions answered 9. Will follow while hospitalized and at discharge Justine June MD Jun 05, 2016 13:15
[2016-06-05] MEDS: ACETAMINOPHEN 325 MG TAB PO PRN ×3 (13:41→22:29)
[2016-06-05] MEDS: ENOXAPARIN SODIUM 40 MG/0.4 ML SYRINGE SQ SCH (16:11)
[2016-06-06] VITALS: BP 101/66; PULSE 82; RESP 25; TEMP 98.4; O2SAT 100
[2016-06-06] MEDS: CHLORHEXIDINE GLUCONATE 2 % 1 PACK (2 CLOTHS) TOP SCH (03:13)
[2016-06-06 04:00] VITALS: BP 109/69; PULSE 75; RESP 12; TEMP 98.5; O2SAT 100
[2016-06-06] MEDS: INSULIN NovoLIN REGULAR SUPPLEMENTAL SCALE SQ SCH (07:00)
--- NOTE | 2016-06-06 08:28 | HHI.DS ---
Discharge Summary Admission Date May 18, 2016 at 19:13 Discharge Date: Jun 06, 2016 Admitting Diagnosis head injury, unresponsive, respiratory failure Brief History S/P Trauma: Fall CBC/BMP: 06/04/16 0308 06/04/16 0308 Significant Findings Laboratory Tests Test 06/04/16 03:08 White Blood Count 16.2 TH/MM3 (4.0-11.0) Red Blood Count 3.52 MIL/MM3 (4.00-5.30) Hemoglobin 10.5 GM/DL (11.6-15.3) Hematocrit 31.2 % (35.0-46.0) Platelet Count 599 TH/MM3 (150-450) Blood Urea Nitrogen 26 MG/DL (7-18) Random Glucose 170 MG/DL (74-106) Imaging Last Impressions Chest X-Ray 06/04/16 0600 Signed Impressions: Service Date/Time: Saturday, June 04, 2016 04:07 - CONCLUSION: No acute pulmonary infiltrates. Stable examination. Larry Maher MD ADDENDUM: I was asked to review of this study with respect to the placement of the Dobbhoff tube. The tip is projected over the proximal to mid stomach. Blane Helm MD Head CT 06/01/16 0600 Signed Impressions: Service Date/Time: Wednesday, June 01, 2016 04:34 - CONCLUSION: Stable small right subdural hematoma. No new hemorrhage seen. Jayden Cotto Jr., MD Abdomen X-Ray 05/29/16 0000 Signed Impressions: Service Date/Time: Sunday, May 29, 2016 00:00 - CONCLUSION: Feeding tube at the pylorus. Geronimo Mathis MD FACR Pelvis X-Ray 05/18/161904 Signed Impressions: Service Date/Time: Wednesday, May 18, 2016 18:55 - CONCLUSION: No acute fracture or joint dislocation. Larry Maher MD Chest CT 05/18/161904 Signed Impressions: Service Date/Time: Wednesday, May 18, 2016 19:13 - CONCLUSION: 1. No acute intrathoracic disease. 2. Bibasilar atelectasis. Larry Maher MD Cervical Spine CT 05/18/161904 Signed Impressions: Service Date/Time: Wednesday, May 18, 2016 19:09 - CONCLUSION: 1. No acute bony fracture. 2. Primary degenerative changes with disc space narrowing at C5-6. Larry Maher MD Abdomen/Pelvis CT 05/18/16 1905 Signed Impressions: Service Date/Time: Wednesday, May 18, 2016 19:13 - CONCLUSION: 1. Liver appears to be heterogeneous. 2. Mild prominence of the pancreatic head. No biliary tract obstruction. 3. No acute intra-abdominal/pelvic pathology is seen. Larry Maher MD Skull X-Ray 05/18/16 0000 Signed Impressions: Service Date/Time: Wednesday, May 18, 2016 21:55 - CONCLUSION: Standard postsurgical changes. Larry Maher MD PE at Discharge GENERAL: 50-year-old well-nourished, well developed female lying in bed. SKIN: Warm and dry. HEAD: Normocephalic. EYES: PERRL. ENT: No nasal bleeding or discharge. Mucous membranes pink and moist. Left nare dobhoff in place. NECK: PASTE THINNER secured to T-piece. Trachea midline. No JVD. CARDIOVASCULAR: Regular rate and rhythm. RESPIRATORY: No accessory muscle use. Lungs clear and diminished to auscultation. Breath sounds equal bilaterally. GASTROINTESTINAL: Abdomen soft, non-tender, nondistended. + BS. MUSCULOSKELETAL: Extremities without cyanosis, or edema. RUE rigid, moves BLE and LUE well. NEUROLOGICAL: Awake and alert. Follows commands. Hospital Course [place]: This is a 50 yo Female who [place] [facility]. 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 She was initially alert and oriented with GCS of 15 upon [facility] arrival and was moving all extremities. After she was taken into the ambulance her GCS was 3 and right pupil was dilated and nonreactive. She was intubated in the ED following etomidate 20 mg IV and succinylcholine 100 mg IV. Trauma workup included CT brain that demonstrated 9.7 x4.2 cm R epidural hematoma with 1.2 cm right to left midline shift and cerebral edema. BP in ED was 108/104 to 160/76 with heart rate 66-92. Sats 98-100%. Neurosurgery was consulted and she was taken emergently to OR for right craniotomy by Dr. Bhandari. Her pupil remained nonreactive postoperatively. This is classic presentation of an epidural hematoma with loss of consciousness followed by lucid interval and then again loss of consciousness. INJURIES: RIGHT epidural hematoma (9.7 x4.2 cm) w/ 1.2 cm right to left midline shift with cerebral edema Aspiration Procedures: 05/18: RIGHT craniotomy with evacuation of large epidural hematoma 05/24: [place] out 05/28: PASTE THINNER in the OR Consults: CCM. Neurosurgery. ENT. OMFS. 24 Hour Review/Hospital Course 05/20/2016 Patient has been stable over the last 24 hours ICPs remain in 8-12 mmHg range and central perfusion pressure is adequate Pupils are equal 2 mm and somewhat reactive Repeat CAT scan of the brain reveals some blood over the right hemisphere but this is minimal and no intervention is necessary Patient remains of neuroprotective measures including mild hyperventilation, hypertonic saline and sedation on propofol and fentanyl Considering mild swelling of the brain in early phase of care I would leave everything as it is right now and right without for next day or 2 and then a repeat CT scan will be done All things equal we'll started waking patient up by the end of the week and see how she does 05/26/2016 Patient is slowly neurologically improving and remains on sedation however does occasionally move her arm and the leg At this point she is also moving her left side which is encouraging Angioedema off the tongue slowly decreasing Patient remains on Solu-Medrol We'll continue current care to patient is more awake in the swelling of the tongue decreases There is a distinct chance the patient will need a tracheostomy but we'll see how she does 05/27/16 Patient has improved today she is more awake and more alert following simple commands an opening eyes She is on minimum respiratory support but unfortunately angioedema of the tongue is so severe that they cannot be even a question about extubating this patient at this time ENT consultation of Dr. Johnson is very much appreciated and we will have oral maxillofacial surgeon see the patient as well Given all the circumstances I believe patient will require tracheostomy which should be done the next 24-48 hours, depending on OMF recommendations 05/28/2016 PTD: 10 Patient appears more awake today, fentanyl drip is off and she is just managed with Dilaudid IV as needed for pain. Tolerating CPAP trials. ENT recommends OMFS consult to manage tongue swelling. 05/29/2016 PTD: 11 Patient is status post tracheostomy placement yesterday. Patient is tolerating CPAP trials well, we'll progressed to trach collar trials today. The patient's tongue size has decreased considerably, and no longer protrudes from her mouth. Dobbhoff tube placed last night, needs to be advanced, and then tube feeding can begin 05/30/16 Patient doing much better she is off the respirator at this point on the trach collar Following simple commands very well squeezing and communicating Opening her eyes The tongue swelling has decreased significantly, almost back to normal and patient is able to move tongue in and out of the mouth Patient was transferred to [facility] facility bed is available Discharge from ICU to select today 05/31/16 Patient intermittently responds to commands and tries to communicate She is more awake and alert but clearly not enough to participate in care as necessary. Failed swallow study yesterday and today so chances are she'll require a PEG temporarily Right now patient has a Dobbhoff tube and she is slated to go to [facility] where they can do the PEG as well 06/01/16 Neurologically patient is improving every day Today she is awake alert and communicating nicely Moving both legs and right arm but unfortunately no motion in the left arm which is plegic and this is consistent with patient's injuries At this point patient is ready for discharge to rehabilitation facility however arrangements apparently have not been completed for the same by case management 06/02/16 Patient improving every day she is more alert awake and alert today Will repeat swallow test tomorrow Patient does not require anymore ICU care but does require transfer to rehabilitation facility and while we knew about this from get go patient came first arrangements for transfer still not completed As soon as bed is available in the rehabilitation patient will be transferred 06/03/16 Patient is actually more awake and alert every day but has difficulty swallowing and hands the Dobbhoff Will repeat swallow study today at the bedside and see how patient does Patient is now waiting for the last 4 days to be placed in the rehabilitation but somehow arrangements are coming around fairly slowly 06/04/16 No change in vital signs patient is neurologically improving although appears to have left arm plegia Patient was again try the with the swallow the bedside yet the all the fluid came back up the patient is unable to swallow normally Continue Dobbhoff and will discuss with family placement of the PEG tomorrow Patient needs to be transferred to the floor but there are no beds available in the nursing station considering the patient has tracheostomy The transferred to the rehabilitation is also delayed because of some paperwork authorizations in such 06/05/16 Patient neurologically greatly improved Was able to drink water this morning without aspiration We will repeat swallow study every day for patient's improving rapidly. Maryuri Coma Scale is 15 and the weakness of the right side of the face and swallowing mechanism is contributing to the same Patient will need speech therapy training Tracheostomy tube is still about 8 days out that I would probably not downsize quite yet for healing was impaired and I don't think that tract is mature 06/06/16 Stable overnight Discharging to [facility] for rehab today Family at bedside. Pt Condition on Discharge: Stable Discharge Disposition: Rehab Inpatient Discharge Instructions DIET: Follow Instructions for: On Tube Feeding Additional Diet Instructions: Jevity 1.5 @ 60mL/H, Daily swallow eval with ST Activities you can perform: Regular-No Restrictions Activities to Avoid: Concussion Sports, Strenuous Activity Beti Bills Jun 06, 2016 08:28
--- NOTE | 2016-06-06 13:12 | HHI.PR ---
Neuropsych Progress Notes/Response to Tx Premorbid psychological status Premorbid Cognitive, Emotional and Behavioral Status: Stable. 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 The patient has no psychiatric difficulties. Substance abuse history is not significant. She is and has two children. Behavioral Reactions of Patient and Family/Support System: Stable. The patient s family is experiencing ongoing issues of adjustment given the nature of the injury, and this aspect of recovery will require ongoing monitoring. Emotional/Behavioral Status of Patient and Family/Support System: Stable. Pertinent issues, if appropriate to this patients clinical care, are described in detail above. Maximizing acute care outcome It is recommended that the patient be monitored for emergent behavioral impulsivity as the medical condition evolves. This patients neuropathological challenges may limit their rehabilitation potential going forward, and these challenges will require specialized therapeutic skills to maximize outcome. Additionally, the patients family is experiencing ongoing issues of adjustment given the traumatic nature of the injury, and they may benefit from ongoing psychological assistance. Anticipated Problems Ongoing areas of concern will include behavioral impulsivity, lack of insight and judgment, which is expected to improve with time and treatment. Presently , the patient intubated and sedated. Treatment Plan This clinician will continue to follow with you throughout the course of this patients acute care treatment, and I will be available to meet with the patient s family/support system to facilitate their understanding and the ongoing care of their family member. The goals of neuropsychological intervention shall be both educational and supportive to the family/support system as is deemed clinically appropriate. Impression This patient suffered a significant traumatic brain injury secondary to her fall on 05/18/2016, with large EDH and right to left midline shift. She is expected to have significant neurocognitive impairments from this injury. Diagnosis: (1) Major neurocognitive disorder as late effect of traumatic brain injury without behavioral disturbance Status: Acute Discharge Summary Reason for Referral: The patient is a 50 year old right handed female status post traumatic brain injury secondary to a fall on 05/18/2016. The patient was running across a bridge and fell, striking her head. She exhibited a lucid interval with a GCS of 15, and then deteriorated with a GCS of [address] showed a large right EDH with right ot left midline shift and cerebral edema. Her ICPs were controlled, and she underwent craniotomy for the EDH, and then was sedated and intubated. She underwent baseline neurobehavioral status examination per trauma protocol to assess cognitive, behavioral and emotional aspects of the injury. Diagnostic impressions at that time were that the patients cognitive and behavioral status met criteria for [place] Level I. She remained intubated and sedated and underwent tracheostomy on day 12. Day 4 she was noted to be withdrawing from pain x 4. 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 Day 5, her room was designated as a MIN/LOW stim room to facilitate agitation management, and her ICP bolt was removed. The patient developed angioedema of the tongue by this day, and she was demonstrating slow improvement physically and neurologically, and at Day 9 she was rated as a Rancho IV. By day 12, she was off all sedating medications, showing continued neurological and neurobehavioral improvement and was a Rancho V. She was unsuccessful with swallowing studies, but was determined to no longer require ICU monitoring. By day 17, she was alert, oriented x 4 and neurosurgery suggested a fenestrated trach to facilitate her ability to speak. By day 18, she was rated to be a Rancho VII, with LUE plegia, and was discharged from [place]. Past Medical History: Please refer to the patient's history and physical concerning her past medical, surgical and psychiatric histories. 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 There is no report of learning difficulties, grade repetitions or behavioral difficulties. 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 The patient is with two adult children. The spouse is employed as an senior [employer] engineer. The patient lives in [place], [place]. Premorbid Cognitive, Emotional and Behavioral Status: Stable. 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 The patient has no psychiatric difficulties. Substance abuse history is not significant. She is and has two children. Behavioral Reactions of Patient and Family/Support System: Stable. The patient s family is experiencing ongoing issues of adjustment given the nature of the injury, and this aspect of recovery will require ongoing monitoring. Emotional/Behavioral Status of Patient and Family/Support System: Stable. Pertinent issues, if appropriate to this patients clinical care, are described in detail above. Treatment Interventions: During the course of their acute care stay, this patient and their family/ support system were provided information concerning the neuropsychological aspects of the injury, education regarding course of recovery, and psychological support in the form of counseling with the person served and the family/support system as documented in the psychology service progress notes, as deemed clinically appropriate. Current, Cognitive, Emotional and Behavioral Status: Stable. This patient has experienced a severe injury, and will be adjusting to significant cognitive, emotional and behavioral challenges going forward. Impression at Discharge: The cognitive and behavioral status of this patient meets criteria for [place] VII. Major Neurocognitive Disorder due to Traumatic Brain Injury, without behavioral disturbance CODE: F02.80 The above listed diagnoses are supported by the following clinical criteria: Major Neurocognitive Disorder: This person demonstrates a significant cognitive decline from a previous level of estimated baseline performance in one or more cognitive domains (complex attention, executive functioning, learning and memory, language, perceptual-motor, or social cognition) based on the patients /informants report, further documented by todays testing results , with these cognitive deficits interfering with the patients independence in everyday activities. Status of Family/Support System Adjustment: Stable. The patients family/ support system will experience ongoing issues of adjustment given the nature of the injury, and this aspect of the patients recovery will require ongoing monitoring. Post Acute Recommendations: It is recommended that the patient continue to be monitored for behavioral impulsivity as they continue to be early in their course of recovery. This patients neuropathological challenges may limit their reintegration into work and family life going forward, and these challenges may require specialized therapeutic skills to maximize outcome. Additionally, the patients family is experiencing ongoing issues of adjustment given the traumatic nature of the injury, and they may benefit from ongoing psychological assistance following their discharge from acute care. Thank you for the opportunity to assist in this patients care. Gregorio Benítez, Ph.D., ABPP Board Certified in Clinical Neuropsychology [place] [employer] [place] Licensed Psychologist #[id number] Gregorio Benítez PhD Jun 06, 2016 1:12 pm
== END 2016-06-06 07:20 | DRG 3 ==
LOC: NEPI 18:54 → NEDA 19:13 → EDBD 19:13 → N03A 21:40
PROVIDERS: ADMIT Surgery; ATTEND Surgery
PROC: 5A1955Z Respiratory Ventilation, Greater than 96 Consecutive Hours (ICD-10-PCS; 2016-05-18)
PROC: 00H032Z Insertion of Monitoring Device into Brain, Percutaneous Approach (ICD-10-PCS; 2016-05-18)
PROC: 0NH004Z Insertion of Internal Fixation Device into Skull, Open Approach (ICD-10-PCS; 2016-05-18)
PROC: 4A103BD Monitoring of Intracranial Pressure, Percutaneous Approach (ICD-10-PCS; 2016-05-18)
PROC: 0HQ0XZZ Repair Scalp Skin, External Approach (ICD-10-PCS; 2016-05-18)
PROC: 0BH17EZ Insertion of Endotracheal Airway into Trachea, Via Natural or Artificial Opening (ICD-10-PCS; 2016-05-18)
PROC: 00C30ZZ Extirpation of Matter from Intracranial Epidural Space, Open Approach (ICD-10-PCS; principal; 2016-05-18 19:19)
PROC: 02HV33Z Insertion of Infusion Device into Superior Vena Cava, Percutaneous Approach (ICD-10-PCS; 2016-05-19)
PROC: 0B113F4 Bypass Trachea to Cutaneous with Tracheostomy Device, Percutaneous Approach (ICD-10-PCS; 2016-05-28)
DX: S06.4X Epidural hemorrhage (principal); G93.6 Cerebral edema; E87.1 Hypo-osmolality and hyponatremia; G81.91 Hemiplegia, unspecified affecting right dominant side; T78.3XXA Angioneurotic edema, initial encounter; R13.10 Dysphagia, unspecified; J96.01 Acute respiratory failure with hypoxia; J98.11 Atelectasis; S01.01XA Laceration without foreign body of scalp, initial encounter; S02.19XA Other fracture of base of skull, initial encounter for closed fracture; R40.2432 Glasgow coma scale score 3-8, at arrival to emergency department; Y93.02 Activity, running; E87.6 Hypokalemia; R73.09 Other abnormal glucose; W18.39XA Other fall on same level, initial encounter; Y92.89 Other specified places as the place of occurrence of the external cause
CPT/HCPCS: 31500; 36556; 36600; 70250; 70450; 71010; 71260; 72125; 72170; 74000; 74177; 76937; 80048; 80053; 80185; 81001; 81003; 82435; 82565; 82805; 82947; 82948; 83735; 83930; 84100; 84132; 84155; 84295; 84520; 85007; 85025; 85027; 85384; 85610; 85730; 86850; 86900; 86901; 86920; 87040; 87070; 87086; 87184; 87185; 87205; 87641; 94002; 94003; 94770; 99291; A7521; C1713; C9113; G0390; J0171; J0330; J0360; J0461; J0690; J1100; J1170; J1580; J1650; J1940; J2250; J2270; J2370; J2405; J2920; J2930; J3010; J3475; J3480; J7040; J7050; Q2009; Q9967